=== PATIENT | female | born 1940 | race Caucasian/White ===

== ENCOUNTER 2017-04-28 04:59 | Inpatient (IN) ==
[2017-04-22 12:39] LABS: Appearance,Urine CLOUDY; Bacteria,Urine FEW /hpf (0); Bilirubin,Urine NEG (NEG); Color,Urine YELLOW; Glucose,Urine (UA) NEGATIVE (NEG); Leukocyte Esterase,Urine 500 /uL (NEG); Mucus,Urine FEW /hpf (0); Nitrate,Urine POS (NEG); Protein,Urine NEG (NEG); Specific Gravity,Urine 1.011 (1.000-1.035); Urine Blood 0.2 mg/dL (<0.03); Urine Hyaline Cast 6 /lpf (0-2); Urine RBC 18 /hpf (0-1); Urine Squamous Epithelial Cell 1 /hpf (0-4); Urine WBC > 182 /hpf (0-4); Urobilinogen,Urine NEG (NEG)
[2017-04-22 13:18] LABS: Basophils # (Auto) 0 K/mcL (0.0-0.3); Basophils % (Auto) 0.6 % (0.0-2.0); Eosinophils # (Auto) 0.2 K/mcL (0.0-0.7); Eosinophils % (Auto) 4.2 % (0.0-7.0); Granulocytes % (Auto) 55.4 % (38.0-78.0); Lymphocytes # (Auto) 1.6 K/mcL (1.5-4.8); Lymphocytes % (Auto) 29.3 % (15.5-49.0); Mean Cell Volume 91.1 fL (80.0-100.0); Mean Corpuscular HGB Conc 33.6 g/dL (31.0-36.0); Mean Corpuscular Hemoglobin 30.6 pg (26.0-34.0); Monocytes # (Auto) 0.6 K/mcL (0.1-0.9); Monocytes % (Auto) 10.5 % (1.0-12.0); Platelet Count 309 K/mcL (140-440); Red Cell Distribution Width 12.4 % (11.5-14.5)
[2017-04-22 14:10] LABS: Blood Urea Nitrogen 20 mg/dl (8-23)
[2017-04-28] MEDS ORDERED: PREGABALIN 75 MG CAPSULE PO SCH (06:00)
[2017-04-28] MEDS ORDERED: ACETAMINOPHEN 500 MG TABLET PO SCH (06:00)
[2017-04-28] MEDS ORDERED: ceFAZolin 1 GM VIAL IV SCH (06:00)
[2017-04-28] MEDS ORDERED: oxyCODONE 10 MG TAB.ER.12H PO SCH (06:00)
[2017-04-28] MEDS ORDERED: CELECOXIB 200 MG CAPSULE PO SCH (06:00)
[2017-04-28 06:34] LABS: Appearance,Urine CLEAR; Bacteria,Urine FEW /hpf (0); Bilirubin,Urine NEG (NEG); Color,Urine YELLOW; Glucose,Urine (UA) NEGATIVE (NEG); Leukocyte Esterase,Urine 500 /uL (NEG); Mucus,Urine FEW /hpf (0); Nitrate,Urine NEG (NEG); Protein,Urine NEG (NEG); Specific Gravity,Urine 1.008 (1.000-1.035); Urine Blood 0.03 mg/dL (<0.03); Urine Hyaline Cast 1 /lpf (0-2); Urine RBC 3 /hpf (0-1); Urine Squamous Epithelial Cell 0 /hpf (0-4); Urine WBC 87 /hpf (0-4); Urobilinogen,Urine NEG (NEG)
[2017-04-28] MEDS ORDERED: OMEPRAZOLE 20 MG CAPSULE PO SCH (07:30)
[2017-04-28] MEDS ORDERED: KETOROLAC 30 MG, ROPIVACAINE HCL/PF 49.5 ML, EPINEPHrine 0.5 MG, 0.9 % SODIUM CHLORIDE ... IJ ONE (07:36)
[2017-04-28] MEDS ORDERED: PHENYLEPHRINE 10 MG/ML VIAL IV ONE (07:40)
[2017-04-28] MEDS ORDERED: LIDOCAINE HCL/PF 100 MG/5 ML SYRINGE IV ONE (07:40)
[2017-04-28] MEDS ORDERED: DEXAMETHASONE 10 MG/ML VIAL IV ONE (07:40)
[2017-04-28] MEDS ORDERED: KETAMINE 100 MG/ML ML IV ONE (07:40)
[2017-04-28] MEDS ORDERED: TRANEXAMIC ACID 1,000 MG/10 ML VIAL IV ONE ×2 (07:40→09:10)
[2017-04-28] MEDS ORDERED: GLYCOPYRROLATE 0.2 MG/ML VIAL IV ONE (07:40)
[2017-04-28] MEDS ORDERED: PROPOFOL 200 MG/20 ML VIAL IV ONE (07:40)
[2017-04-28] MEDS ORDERED: ePHEDrine 50 MG/ML AMPUL IV ONE (07:40)
[2017-04-28] MEDS ORDERED: ONDANSETRON 4 MG/2 ML VIAL IV ONE (07:40)
[2017-04-28] MEDS ORDERED: MIDAZOLAM 2 MG/2 ML VIAL IV ONE (07:40)
[2017-04-28] MEDS ORDERED: SODIUM CHLORIDE 0.9% IV SCH (08:00)
[2017-04-28] MEDS ORDERED: GENTAMICIN SULFATE IV SCH (08:00)
[2017-04-28] MEDS ORDERED: fentaNYL 100 MCG/2 ML VIAL IV PRN (08:16)
[2017-04-28] MEDS ORDERED: PROMETHAZINE 25 MG/ML VIAL IV PRN (08:16)
[2017-04-28] MEDS ORDERED: NALOXONE HCL 0.4 MG/ML VIAL IV PRN (08:16)
[2017-04-28] MEDS ORDERED: FLUMAZENIL 0.1 MG/ML ML IV PRN (08:16)
[2017-04-28] MEDS ORDERED: IPRATROPIUM/ALBUTEROL 3 ML AMPUL.NEB NEB PRN (08:16)
[2017-04-28] MEDS ORDERED: ONDANSETRON 4 MG/2 ML VIAL IV PRN ×2 (08:16→09:10)
[2017-04-28] MEDS ORDERED: ACETAMINOPHEN 1,000 MG/100 ML BOTTLE IV ONE (08:16)
[2017-04-28] MEDS ORDERED: LACTATED RINGERS 250 ML IV PRN (08:16)
[2017-04-28] MEDS ORDERED: LACTATED RINGERS 1,000 ML IV SCH (08:30)
[2017-04-28] MEDS ORDERED: BISACODYL 10 MG SUPP.RECT PR PRN (09:10)
[2017-04-28] MEDS ORDERED: MAGNESIUM HYDROXIDE 30 ML ORAL.SUSP PO PRN (09:10)
[2017-04-28] MEDS ORDERED: TEMAZEPAM 15 MG CAPSULE PO PRN (09:10)
[2017-04-28] MEDS ORDERED: HYDROmorphone 2 MG/ML SYRINGE IV PRN (09:10)
[2017-04-28] MEDS ORDERED: FLEETS ADULT ENEMA PR PRN (09:10)
[2017-04-28] MEDS ORDERED: BENZOCAINE/MENTHOL 1 LOZENGE PO PRN (09:10)
[2017-04-28] MEDS ORDERED: POLYETHYLENE GLYCOL 3350 17 GM PACKET PO PRN (09:10)
[2017-04-28] MEDS ORDERED: ACETAMINOPHEN 325 MG TABLET PO PRN (09:10)
--- NOTE | 2017-04-28 09:10 | Brief Operative Note ---
Date of procedure: 04/28/17 Pre-op diagnosis: left hip djd Post-op diagnosis: same Procedure: left tejas Grafts/Implants: Yes Anesthesia: GETA Complications: none Surgeon: Wade Juarez Commodity Industry Analyst: Shlomo Waite Estimated blood loss (cc): 20 Specimens Removed/Pathology: none sent Condition: stable Disposition: PACU
[2017-04-28] MEDS ORDERED: ACETAMINOPHEN 500 MG PO PRN (09:13)
[2017-04-28] MEDS ORDERED: GENTAMICIN SULFATE 800 MG/20 ML VIAL IR ONE (09:35)
--- NOTE | 2017-04-28 09:56 | XRay Report ---
HISTORY: Reason for Exam:Post-Op Total Hip FINDINGS: There is a well-positioned left total hip prosthesis. No fracture is present and there are no abnormal soft tissue calcifications. IMPRESSION: Well-positioned left hip prosthesis Interpreted and Authenticated by: Maverick Lara 04/28/17
--- NOTE | 2017-04-28 10:28 | Operative Note ---
DATE OF OPERATION: 04/28/2017 PREOPERATIVE DIAGNOSIS: Left hip degenerative arthritis. POSTOPERATIVE DIAGNOSIS: Left hip degenerative arthritis. PROCEDURE: Left total hip arthroplasty. SURGEON: Wade Juarez MD OIL EXPERT: Bradley Waite PA-C. ANESTHESIA: General LMA anesthesia. COMPLICATIONS: None. ESTIMATED BLOOD LOSS: 20 mL DESCRIPTION OF PROCEDURE: The patient was brought to the operating room and put to sleep with general LMA anesthesia. Once asleep, the patient had the left hip sterilely prepped and draped in the usual sterile fashion. Timeout was performed. Once this was done, we then noted that preop antibiotics had been given and tranexamic acid given. Once this was done, we then made a superior posterior approach to the hip. Once done, we then made a superior posterior approach to the hip and identified the hip capsule and this was released. The patient and then continued to have exposure, we dislocated the hip. We made our neck cut at 30 mm. Once done, we then removed the ball and continued with a hip subluxation, reamed up to the size 50, placed a 50 cup with 1 30 mm screw. Once done, we then placed the 50 cup with a 30 mm screw. A poly liner was placed. I then prepared the femur. It was broached up. The size 5 stem was cemented into place at 15 degrees of anteversion. Once done, the hip was reduced and confirmed x-ray in the operating room was taken to confirm placement of all components. This seemed to look perfectly aligned. Once done, we then cemented in the size 5 stem as noted, 32 mm head, ceramic neutral neck length was tapped into place. An x-ray intraoperatively was taken. This showed perfect leg length. We then reduced the hip-very stable through full range of motion. We repaired the posterior capsule, injected the soft tissues with the post-injection formula, and closed the fascial layer with #1 Stratafix. Patient tolerated this well. There was no complication. Skin was closed with 2-0 Vicryl and best. RBH:esteban Job ID: [id number] Doc ID: [id number] Wade Juarez MD
[2017-04-28] MEDS: 0.45 % SODIUM CHLORIDE 1,000 ML IV SCH ×2 (10:52→21:22)
[2017-04-28] MEDS: KETOROLAC 15 MG/ML VIAL IV PRN ×2 (12:14→21:25)
--- NOTE | 2017-04-28 14:36 | XRay Report ---
HISTORY: Reason for Exam:left total hip arthroplasty, direct superior FINDINGS: Intraoperative film was acquired while inserting a left hip prosthesis IMPRESSION: Partial insertion of a left hip prosthesis Interpreted and Authenticated by: Maverick Lara 04/28/17
[2017-04-28] MEDS: 0.9 % SODIUM CHLORIDE 10 ML SYRINGE IV SCH ×2 (16:06→21:24)
[2017-04-28] MEDS: ceFAZolin 1 GM VIAL IV SCH (16:07)
[2017-04-28] MEDS: ASPIRIN 325 MG ENTERIC COATED TABLET PO SCH ×2 (20:27→21:24)
[2017-04-28] MEDS: DOCUSATE SODIUM 100 MG CAPSULE PO SCH ×2 (20:27→21:23)
[2017-04-28] MEDS ORDERED: SENNOSIDES 1 TABLET PO SCH (21:00)
[2017-04-29] MEDS: HYDROcodone/APAP 10/325MG TABLET PO PRN ×3 (00:03→08:22)
[2017-04-29] MEDS: ceFAZolin 1 GM VIAL IV SCH (00:04)
[2017-04-29] MEDS: 0.45 % SODIUM CHLORIDE 1,000 ML IV SCH ×2 (05:23→05:32)
[2017-04-29] MEDS: 0.9 % SODIUM CHLORIDE 10 ML SYRINGE IV SCH (05:32)
--- NOTE | 2017-04-29 07:03 | Discharge Summary ---
Ortho Discharge - KARIN - Patient Instructions Diet: Regular Diet Activity: activity as tolerated, weight bearing as tolerated Total Hip Protocol: Follow activity instructions as provided by Physical Therapy. Dressing Care: May shower in 2 days, Aquacel Ag - leave on for 5 days - Follow Up Plan Disposition: Home, Self-Care Prognosis: Good Rehab Potential: Good I certify that the patient requires SNF services: No Overall status at discharge: patient is progressing back to baseline - Orders For Discharge Additional Discharge Orders: Physical Therapy at Discharge - KARIN Location: Determined By Patient Toilet Riser Discharge Order Location: Determined By Patient Walker Location: Determined By Patient Walker Location: Determined By Patient
[2017-04-29] MEDS: ASPIRIN 325 MG ENTERIC COATED TABLET PO SCH (08:23)
[2017-04-29] MEDS: DOCUSATE SODIUM 100 MG CAPSULE PO SCH (08:23)
[2017-04-29] MEDS ORDERED: MAGNESIUM OXIDE 400 MG TABLET PO SCH (09:00)
[2017-04-29] MEDS ORDERED: CHLORTHALIDONE 25 MG TABLET PO SCH (09:00)
[2017-04-29] MEDS ORDERED: VITAMIN D3 1,000 UNIT TABLET PO SCH (09:00)
[2017-04-29] MEDS ORDERED: LOSARTAN 25 MG TABLET PO SCH (09:00)
[2017-04-29] MEDS ORDERED: FEXOFENADINE 180 MG TABLET PO PRN (09:00)
[2017-04-29] MEDS ORDERED: NON FORMULARY MEDICATION 1 DOSE MISCELL (Aspirin [Ecotrin] 81 MG) PO SCH (09:00)
[2017-04-29] MEDS ORDERED: CALCIUM W/VIT D3 500 MG TABLET PO SCH (09:00)
[2017-05-02] MEDS ORDERED: VITAMIN B COMPLEX 1 CAPSULE PO SCH (09:00)
== END 2017-04-29 11:50 | disposition home or self-care (01) | DRG 470 ==
LOC: ICU 04:59
PROVIDERS: ADMIT Orthopaedic Surgery; ATTEND Orthopaedic Surgery

== ENCOUNTER 2018-05-31 08:38 | Inpatient (IN) ==
[2018-05-24 15:34] LABS: Appearance,Urine TURBID; Bacteria,Urine FEW /hpf (0); Bilirubin,Urine NEG (NEG); Color,Urine YELLOW; Glucose,Urine (UA) NEGATIVE (NEG); Leukocyte Esterase,Urine 250 /uL (NEG); Mucus,Urine FEW /hpf (0); Protein,Urine NEG (NEG); Urine Amorphous Crystals FEW /hpf (0); Urine Blood 0.2 mg/dL (<0.03); Urine RBC 38 /hpf (0-1); Urine Squamous Epithelial Cell 3 /hpf (0-4); Urine WBC > 182 /hpf (0-4); Urobilinogen,Urine NEG (NEG)
[2018-05-24 16:53] LABS: Blood Urea Nitrogen 18 mg/dl (8-23)
[2018-05-24 17:21] LABS: Basophils # (Auto) 0 K/mcL (0.0-0.3); Basophils % (Auto) 0.3 % (0.0-2.0); Eosinophils # (Auto) 0.2 K/mcL (0.0-0.7); Eosinophils % (Auto) 2.4 % (0.0-7.0); Granulocytes % (Auto) 58.8 % (38.0-78.0); Lymphocytes # (Auto) 1.9 K/mcL (1.5-4.8); Lymphocytes % (Auto) 28.3 % (15.5-49.0); Mean Cell Volume 89.5 fL (80.0-100.0); Mean Corpuscular HGB Conc 32.7 g/dL (31.0-36.0); Monocytes # (Auto) 0.7 K/mcL (0.1-0.9); Monocytes % (Auto) 10.2 % (1.0-12.0); Platelet Count 310 K/mcL (140-440); RBC 4.04 M/mcL (4.00-5.20); Red Cell Distribution Width 13.9 % (11.5-14.5)
[~2018-05-31 08:38] MED LIST: 0.9 % SODIUM CHLORIDE 9 ML, KETOROLAC 30 MG, ROPIVACAINE HCL/PF 49.5 ML, EPINEPHrine 0.... IJ SCH; ACETAMINOPHEN 500 MG TABLET PO SCH; CELECOXIB 200 MG CAPSULE PO SCH; PREGABALIN 75 MG CAPSULE PO SCH; ceFAZolin 1 GM VIAL IV SCH; oxyCODONE 10 MG TAB.ER.12H PO SCH
[2018-05-31 10:10] LABS: Appearance,Urine HAZY; Bacteria,Urine 0 /hpf (0); Bilirubin,Urine NEG (NEG); Color,Urine YELLOW; Glucose,Urine (UA) NEGATIVE (NEG); Leukocyte Esterase,Urine 500 /uL (NEG); Mucus,Urine FEW /hpf (0); Protein,Urine NEG (NEG); Specific Gravity,Urine 1.013 (1.000-1.035); Urine Blood 0.03 mg/dL (<0.03); Urine RBC 6 /hpf (0-1); Urine Squamous Epithelial Cell 0 /hpf (0-4); Urine WBC > 182 /hpf (0-4); Urobilinogen,Urine NEG (NEG)
[2018-05-31] MEDS ORDERED: GENTAMICIN SULFATE 800 MG/20 ML VIAL IR ONE (12:15)
[2018-05-31] MEDS ORDERED: BISACODYL 10 MG SUPP.RECT PR PRN (13:22)
[2018-05-31] MEDS ORDERED: BENZOCAINE/MENTHOL 1 LOZENGE PO PRN ×2 (13:22→14:46)
[2018-05-31] MEDS ORDERED: ONDANSETRON 4 MG/2 ML VIAL IV PRN ×2 (13:22→14:46)
[2018-05-31] MEDS ORDERED: HYDROmorphone 2 MG/ML VIAL IV PRN (13:22)
[2018-05-31] MEDS ORDERED: TRANEXAMIC ACID 1,000 MG/10 ML VIAL IV SCH (13:22)
[2018-05-31] MEDS ORDERED: ACETAMINOPHEN 325 MG TABLET PO PRN (13:22)
[2018-05-31] MEDS ORDERED: MAGNESIUM HYDROXIDE 30 ML ORAL.SUSP PO PRN (13:22)
[2018-05-31] MEDS ORDERED: POLYETHYLENE GLYCOL 3350 17 GM PACKET PO PRN (13:22)
[2018-05-31] MEDS ORDERED: KETOROLAC 30 MG/ML VIAL IV PRN (13:22)
[2018-05-31] MEDS ORDERED: FLEETS ADULT ENEMA PR PRN (13:22)
--- NOTE | 2018-05-31 14:37 | XRay Report ---
CLINICAL INFORMATION: right total hip COMPARISON: 04/28/2017 FINDINGS: Femoral stem template and prosthetic acetabulum appear anatomically aligned. No osseous abnormality IMPRESSION: Negative Interpreted and Authenticated by: Jordon Bhardwaj 05/31/18
[2018-05-31] MEDS ORDERED: PROMETHAZINE 25 MG/ML VIAL IV PRN (14:46)
[2018-05-31] MEDS ORDERED: FLUMAZENIL 0.1 MG/ML ML IV PRN (14:46)
[2018-05-31] MEDS ORDERED: LACTATED RINGERS 250 ML IV PRN (14:46)
[2018-05-31] MEDS ORDERED: NALOXONE HCL 0.4 MG/ML VIAL IV PRN (14:46)
[2018-05-31] MEDS ORDERED: diphenhydrAMINE 50 MG/ML VIAL IV PRN (14:46)
[2018-05-31] MEDS ORDERED: fentaNYL 100 MCG/2 ML VIAL IV PRN (14:46)
[2018-05-31] MEDS ORDERED: MEPERIDINE 25 MG/ML SYRINGE IV PRN (14:46)
[2018-05-31] MEDS ORDERED: IPRATROPIUM/ALBUTEROL 3 ML AMPUL.NEB NEB PRN (14:46)
--- NOTE | 2018-05-31 14:48 | Brief Operative Note ---
Date of procedure: 05/31/18 Pre-op diagnosis: right hip djd Post-op diagnosis: same Procedure: right tejas with cemented stem Grafts/Implants: Yes Anesthesia: GETA Complications: none Surgeon: Wade Juarez Managed Care Nurse: David Mchugh Estimated blood loss (cc): 150 Specimens Removed/Pathology: none sent Condition: stable Disposition: PACU
[2018-05-31] MEDS ORDERED: LACTATED RINGERS 1,000 ML IV SCH (15:00)
--- NOTE | 2018-05-31 15:06 | Operative Note ---
DATE OF OPERATION: 05/31/2018 PREOPERATIVE DIAGNOSIS: Right hip degenerative arthritis. POSTOPERATIVE DIAGNOSIS: Right hip degenerative arthritis. PROCEDURE: Right cemented total hip arthroplasty with a cementless acetabular cup with a 40 mm screw, a 36 mm ceramic head, neutral neck length with a standard poly. SURGEON: Wade Juarez M.D. CLINICAL TECHNOLOGIST: David Mchugh PA-C. ANESTHESIA: General LMA anesthesia. ESTIMATED BLOOD LOSS: About 150 mL. COMPLICATIONS: None. NOTE: Preop antibiotics and tranexamic acid were given. DESCRIPTION OF PROCEDURE: The patient was brought to the operating room and put to sleep with general LMA anesthesia. Once asleep, the patient had the right hip sterilely prepped and draped, turned into a left lateral position. A timeout was performed confirming that the patient received tranexamic acid and preoperative antibiotics. We confirmed the procedure to be the right hip, both by consent form, x-rays and initials. Once this had been done, we then made a superior approach to the hip. This direct superior approach went through the skin. I identified the fascia which was split, staying out of any of the tensor fascia or the IT band, and this was then opened with a Charnley. We then subluxed the hip superiorly and then made our neck cut as templated at 30 mm. Once done, we then subluxed the hip anteriorly, reamed the acetabulum up to the size of 48, placed a 48 cup with a 40 mm screw with excellent purchase and a standard poly liner. We then prepared the femur. This was broached up to the size 6 stem. We cemented in the stem after x-rays confirmed equal leg length. This was tapped into place and we trialed the standard neutral neck length. This seemed to be the most appropriate. After cement had dried, we implanted a 36 mm standard ceramic head. This was reduced and was stable, both anteriorly and posteriorly. We irrigated thoroughly and then repaired the capsule with #1 Ethibond. We closed the fascial layer with #1 Stratafix and the deeper layers of the fatty tissue were closed with a Stratafix x2 and then adhesive closure on the skin. The patient tolerated this well. Sterile bandage applied. The patient left the operating room in good condition. NACHO:allison Job ID: [id number] Doc ID: [id number] Wade Juarez MD
[2018-05-31] MEDS ORDERED: MIDAZOLAM 5 MG/5 ML VIAL IV ONE (15:26)
[2018-05-31] MEDS ORDERED: PROPOFOL 200 MG/20 ML VIAL IV ONE (15:26)
[2018-05-31] MEDS ORDERED: TRANEXAMIC ACID 1,000 MG/10 ML VIAL IV ONE (15:26)
[2018-05-31] MEDS ORDERED: DEXAMETHASONE 10 MG/ML VIAL IV ONE (15:26)
[2018-05-31] MEDS ORDERED: LIDOCAINE HCL/PF 100 MG/5 ML SYRINGE IV ONE (15:26)
[2018-05-31] MEDS ORDERED: KETOROLAC TROMETHAMINE 10 MG TABLET PO ONE (15:26)
[2018-05-31] MEDS ORDERED: ePHEDrine 50 MG/ML AMPUL IV ONE (15:26)
--- NOTE | 2018-05-31 15:27 | XRay Report ---
CLINICAL INFORMATION: Post-op Total Hip COMPARISON: None. FINDINGS: Right total hip prosthesis in near-anatomic alignment. Older left total hip prosthesis is also anatomically aligned. No osseous abnormality. Soft tissue swelling seen as expected IMPRESSION: Negative Interpreted and Authenticated by: Jordon Bhardwaj 05/31/18
[2018-05-31] MEDS: 0.45 % SODIUM CHLORIDE 1,000 ML IV SCH ×2 (15:52→23:45)
[2018-05-31] MEDS: 0.9 % SODIUM CHLORIDE 10 ML SYRINGE IV SCH ×2 (15:52→22:52)
[2018-05-31] MEDS: HYDROcodone/APAP 10/325MG TABLET PO PRN (18:43)
[2018-05-31] MEDS: ceFAZolin 1 GM VIAL IV SCH (20:53)
[2018-05-31] MEDS: DOCUSATE SODIUM 100 MG CAPSULE PO SCH (20:53)
[2018-05-31] MEDS: ASPIRIN 325 MG ENTERIC COATED TABLET PO SCH (20:53)
[2018-05-31] MEDS ORDERED: SENNOSIDES 1 TABLET PO SCH (21:00)
[2018-05-31] MEDS ORDERED: TEMAZEPAM 15 MG CAPSULE PO PRN (21:00)
[2018-06-01] MEDS: HYDROcodone/APAP 10/325MG TABLET PO PRN ×5 (00:37→13:52)
[2018-06-01] MEDS: 0.9 % SODIUM CHLORIDE 10 ML SYRINGE IV SCH ×2 (04:05→13:53)
[2018-06-01] MEDS: ceFAZolin 1 GM VIAL IV SCH (04:23)
--- NOTE | 2018-06-01 07:40 | Orthopedic Progress Note ---
Subjective Patient information: Note initiated : 06/01/18 at 7:39 am Service Date, if different from initiated Date: [] Patient: Darcy Macdonald 78 y/o F admitted on 05/31/18 for Right Total Hip Arthroplasty. Chief Complaint: [Pt is stable this morning on post operative day 1 without any significant concerns or complaints. Patients vital signs have remained stable. Patients dressing is dry and is grossly intact from a neurovascular and motor standpoint. Patients 10 point ROS is otherwise negative. ] Objective Vital signs: Vital Signs Temp Pulse Resp BP BP Pulse Ox 06/01/18 06:02 76 12 123/59 96 06/01/18 04:30 98 06/01/18 03:53 98 06/01/18 03:52 97.4 F 84 14 102/55 98 06/01/18 00:40 98 05/31/18 23:15 98.5 F 80 14 96/54 91 05/31/18 23:00 91 05/31/18 21:00 97 05/31/18 19:36 98 05/31/18 19:31 97.2 F 100 H 16 101/55 98 05/31/18 17:19 117/69 100 05/31/18 17:00 100 05/31/18 16:50 124/60 100 05/31/18 16:35 128/60 100 05/31/18 16:19 127/69 100 05/31/18 16:04 133/65 100 05/31/18 15:49 120/59 100 05/31/18 15:45 97.0 F 87 14 120/59 100 05/31/18 15:32 97.3 F 85 14 151/68 100 05/31/18 15:14 97.5 F 91 H 14 122/50 98 05/31/18 15:09 99 H 14 118/62 95 05/31/18 15:04 100 H 20 141/62 96 05/31/18 14:59 104 H 13 142/59 94 Intake and Output 05/31/18 06/01/18 06/01/18 21:59 05:59 13:59 Intake Total 1920 1225 Output Total 450 Balance 1920 775 Intake: IV 900 Sodium Chloride 0.45% 1,000 ml 900 @ 100 mls/hr IV .Q10H [facility] Rx#: [id number] Oral 120 325 IV - Manual Only 1800 Output: Void Amount 450 Other: Meal Dinner Percent of Meal Consumed 100% Feeding Ability Assist with Tray Set Up Urine Appearance Clear Urine Color Straw Urine Odor Normal Weight 167 lb Intake & Output: Intake & Output 05/31/18 06/01/18 06/01/18 21:59 05:59 13:59 Intake Total 1920 1225 Output Total 450 Balance 1920 775 Weight 167 lb Intake: IV 900 Sodium Chloride 0.45% 1,000 ml 900 @ 100 mls/hr IV .Q10H [facility] Rx#: [id number] Oral 120 325 IV - Manual Only 1800 Output: Void Amount 450 Other: Meal Dinner Percent of Meal Consumed 100% Feeding Ability Assist with Tray Set Up Urine Appearance Clear Urine Color Straw Urine Odor Normal Incision: Yes healing Incision clean and dry: Yes Dressing: Yes clean Weight bearing status: full Neurological exam IM: Yes motor sensory intact, Yes neurovascular intact Extremities exam IM: Yes Foot pink and warm, Yes neurovascular intact - Labs CBC & BMP: 06/01/18 05:36 05/24/18 13:51 Labs: Orthopedic Labs 05/24/18 13:51 PT 13.3 INR 1.0 APTT 33 06/01/18 05/24/18 05:36 13:51 Hgb 11.8 L Hct 28.4 L 36.1 Assessment and Plan (1) Hx of total hip arthroplasty The patient has been educated regarding dressing care, Physical Therapy recommendations, home exercises, restrictions, and follow up appointments. The patient has had all necessary DME prescribed. The patient has remained relativel y stable during their hospital course. Leave Dermabond patch intact until followup Status: Acute
--- NOTE | 2018-06-01 07:42 | Discharge Summary ---
Ortho Discharge - KARIN - Patient Instructions Diet: Regular Diet Activity: activity as tolerated, weight bearing as tolerated Total Hip Protocol: Follow activity instructions as provided by Physical Therapy. Dressing Care: May shower in 2 days - Problem Maintenance (1) Hx of total hip arthroplasty Status: Acute - Follow Up Plan Follow Up Appointments: David Mchugh PA-C [Physician [place]/Woman] - 06/15/18 9:20 am Disposition: Home, Self-Care Prognosis: Good Rehab Potential: Good I certify that the patient requires SNF services: No Overall status at discharge: patient is progressing back to baseline - Orders For Discharge Prescriptions: Aspirin [Ecotrin] 325 mg PO BID #60 tab.ec Docusate Sodium [Colace] 100 mg PO BID #60 capsule HYDROcodone/APAP 10/325MG [[place] 10-325Mg] 1 - 2 tab PO Q4HP PRN #75 tab PRN Reason: Pain Level 3-6
[2018-06-01] MEDS: ASPIRIN 325 MG ENTERIC COATED TABLET PO SCH (08:23)
[2018-06-01] MEDS: DOCUSATE SODIUM 100 MG CAPSULE PO SCH (08:23)
== END 2018-06-01 16:55 | disposition home or self-care (01) | DRG 470 ==
LOC: MEDSUR 08:38
PROVIDERS: ADMIT Orthopaedic Surgery; ATTEND Orthopaedic Surgery

== ENCOUNTER 2019-03-17 06:25 | Inpatient (IN) ==
[2019-03-17] MEDS ORDERED: traMADol 50 MG TABLET PO ONE ×2 (07:17→07:43)
--- NOTE | 2019-03-17 07:22 | Emergency Department Note ---
Back Pain HPI - General Chief Complaint: Back Pain/Injury Stated Complaint: back pain, weight loss, bowel trouble Time Seen by Provider: 03/17/19 07:03 Source: patient, family Mode of arrival: ambulatory Limitations: no limitations - History of Present Illness HPI Narrative: 79-year-old female with 2 problems today 1. Complaining of severe right hip pain. Normally she takes tramadol for that but today she did not for unclear reasons. Pain has been going on since her last hip replacement 9 months ago or so. 2. She is incontinent of stool and is concerned about that as well - Related Data Home Medications Medication Instructions Recorded Confirmed acetaminophen 500 mg capsule 1,000 mg PO DAILYP PRN cap 01/01/15 05/31/18 calcium carbonate 600 mg (1,500 2 tab PO QDAY tab 01/01/15 05/31/18 mg)-vitamin D3 400 unit tablet Cholecalciferol (Vitamin D3) 2,000 unit PO DAILY 04/22/17 05/31/18 [Vitamin D3] Omeprazole [Prilosec] 20 mg PO Q48@0730 04/22/17 05/31/18 Vitamin B Complex [Ultra B-100 1 tab PO SA@0900 04/22/17 05/31/18 Complex] cranberry extract 500 mg capsule 500 mg PO DAILY 06/16/17 05/31/18 Celecoxib [Celebrex] 200 mg PO DAILY 05/24/18 05/31/18 Ferrous Sulfate 325 mg PO BIDCC 05/24/18 05/31/18 Ipratropium 0.06% Nasal [place] 1 - 2 spray INTRANASAL TIDP PRN 05/24/18 05/31/18 [Atrovent 0.06% Nasal Srpay] Oxybutynin Chloride [Ditropan] 10 mg PO HS 05/24/18 05/31/18 Ciprofloxacin [Cipro] 500 mg PO BID 05/31/18 05/31/18 Previous Rx's Medication Instructions Recorded aspirin 81 mg tablet,delayed 81 mg PO QDAY #90 tab 07/10/15 release magnesium 250 mg tablet 250 mg PO QDAY #30 tab 10/28/16 chlorthalidone 25 mg tablet 25 mg PO QDAY #90 tab 04/13/17 Aspirin [Ecotrin] 325 mg PO BID #60 tab.ec 06/01/18 Docusate Sodium [Colace] 100 mg PO BID #60 cap 06/01/18 HYDROcodone/APAP 10/325MG [[place] 1 - 2 tab PO Q4HP PRN #75 tab 06/01/18 10-325Mg] traMADol [Ultram] 50 - 100 mg PO Q4-6HP PRN #15 tab 03/17/19 Allergies Allergy/AdvReac Type Severity Reaction Status Date / Time Tamoxifen Allergy Severe pulmonary Verified 03/17/19 06:32 emboli latex Allergy Intermediate Rash Verified 03/17/19 06:32 amlodipine AdvReac Severe Swelling Verified 03/17/19 06:32 anastrozole [From Arimidex] AdvReac Intermediate Nausea Verified 03/17/19 06:32 fluticasone [From Flonase] AdvReac Intermediate Rash Verified 03/17/19 06:32 olopatadine [From Patanase] AdvReac Intermediate Rash Verified 03/17/19 06:32 alendronate sodium AdvReac Mild Nausea Verified 03/17/19 06:32 [From Fosamax] benazepril AdvReac Mild cough Verified 03/17/19 06:32 Sibutramine [From Meridia] AdvReac Mild Nausea Verified 03/17/19 06:32 tramadol AdvReac Mild Nausea Verified 03/17/19 06:32 tape Allergy Mild Rash Uncoded 05/31/18 09:00 Review of Systems All systems ED: reviewed and negative except as stated. Past Medical History - Past Medical History Attestation: Yes: The following information was validated with the patient. [facility] Narrative: Family History (Last Reviewed 06/16/17 @ 09:42 by Jordon Putnam DO) Mother Asthma Malignant neoplasm of breast Congestive heart failure Cardiac disease Acute myocardial infarction Grandmother Malignant neoplasm of breast Father Essential hypertension Brother Essential hypertension Calculus of kidney Medical History (Last Reviewed 06/16/17 @ 09:42 by Jordon Putnam DO) Peripheral neuropathy (Chronic) Encounter for Medicare annual wellness exam (Chronic) Breast Cancer Screening (Chronic) Bleeding external hemorrhoids (Chronic) Trochanteric bursitis of left hip (Chronic 10/05/14) Tendonitis (Chronic) Seborrheic keratoses (Chronic 12/28/13) Rhinitis, allergic (Chronic) Osteopenia (Chronic) Osteoarthritis (Chronic) Mitral regurgitation (Chronic) Hypertension, essential (Chronic 02/13/14) Hyperlipidemia (Chronic 02/13/14) Gastroesophageal reflux (Chronic) Diverticular disease (Chronic) Degenerative joint disease (Chronic) Malignant neoplasm of breast (female) (Chronic) Actinic keratosis (Chronic 12/28/13) Acne rosacea (Chronic) Prothrombin mutation (Chronic) Fibrocystic change of breast (Inactive) Gallbladder disorder (Inactive) Hip pain (Inactive) Pain in joint involving lower leg (Inactive 12/09/13) Past Surgical History (Last Reviewed 06/16/17 @ 09:42 by Jordon Putnam DO) History of total mastectomy of left breast (Chronic) Hx of tonsillectomy (Chronic) Hx of left mastectomy (Chronic) History of bladder surgery (Inactive) History of colonoscopy (Inactive) History of ear surgery (Inactive) History of knee replacement (Inactive) History of lumpectomy of left breast (Inactive) History of partial hysterectomy (Inactive) Hx of cholecystectomy (Inactive) Hx of cosmetic surgery (Inactive) Hx of esophagogastroduodenoscopy (Inactive) Hx of hammer toe correction (Inactive) Hx of thumb surgery (Inactive) Hx of tooth extraction (Inactive) Hx of vascular surgery (Inactive) Surgical history ED: Reports: hip replacement - Social History smoking status: Never smoker Physical Exam My exam she is moaning in pain. Normocephalic atraumatic. Conjunctive are clear sclerae white nonicteric. No nasal discharge or congestion. Oropharynx pink and moist. Neck supple without lymphadenopathy thyromegaly or carotid bruit. Heart is regular rate and rhythm no murmur appreciated. Lungs are clear to auscultation bilaterally without wheezes rales rhonchi or respiratory distress. Abdomen is soft nontender nondistended. Right hip is tender she is able to move it though. She is able to move her feet normally. Tenderness carries over into the paraspinal areas in the back left. No pedal edema Limitations: no limitations Course Vital Signs Temperature 97.5 F 03/17/19 06:28 Pulse Rate 99 H 03/17/19 06:28 Respiratory Rate 19 03/17/19 06:28 Blood Pressure 173/80 03/17/19 06:28 Pulse Oximetry (%) 96 03/17/19 06:28 Temperature 97.5 F 03/17/19 06:28 Pulse Rate 97 H 03/17/19 08:53 Respiratory Rate 18 03/17/19 07:14 Blood Pressure 139/74 03/17/19 08:53 Pulse Oximetry (%) 93 03/17/19 08:53 Back Pain/Injury - Lab Data Result diagrams: 03/17/19 07:42 03/17/19 07:42 Lab Results 03/17/19 03/17/19 Range/Units 07:42 07:42 WBC 5.5 (4.5-11.0) K/mcL RBC 3.88 L (4.00-5.20) M/mcL Hgb 11.9 L (12.0-15.0) g/dL Hct 35.5 L (36.0-48.0) % MCV 91.5 (80.0-100.0) fL MCH 30.5 (26.0-34.0) pg MCHC 33.4 (31.0-36.0) g/dL RDW 13.0 (11.5-14.5) % Plt Count 355 (140-440) K/mcL MPV 7.0 L (7.4-10.4) fL Gran % 78.0 (38.0-78.0) % Lymph % (Auto) 11.0 L (15.5-49.0) % [place] % (Auto) 9.8 (1.0-12.0) % Eos % (Auto) 1.0 (0.0-7.0) % Baso % (Auto) 0.2 (0.0-2.0) % Gran # 4.3 (1.8-8.0) K/mcL Lymph # (Auto) 0.6 L (1.5-4.8) K/mcL [place] # (Auto) 0.5 (0.1-0.9) K/mcL Eos # (Auto) 0.1 (0.0-0.7) K/mcL Baso # (Auto) 0 (0.0-0.3) K/mcL Sodium 136 (133-145) mmol/L Potassium 3.3 (3.3-5.1) mmol/L Chloride 90 L (96-108) mmol/L Carbon Dioxide 29 (22-30) mmol/L Anion Gap 17.0 H (8-16) BUN 27 H (8-23) mg/dl Creatinine 1.0 (0.6-1.1) mg/dl GFR Calculation 53 Glucose 75 (70-105) mg/dL Magnesium 1.2 L (1.6-2.5) mg/dL Total Bilirubin 0.7 (0.0-1.0) mg/dL AST 21 (0-37) U/l ALT 10 (0-40) U/l Alkaline Phosphatase 71 (39-117) U/L Total Protein 6.8 (5.9-8.4) gm/dL Albumin 3.9 (3.2-5.2) gm/dL Globulin 2.9 (2.2-3.7) gm/dL Albumin/Globulin Ratio 1.3 (1.0-2.3) Disposition Pt seen by REINFORCING BAR SETTER/PA only: No Clinical Impression: Hip pain, chronic Qualifiers: Laterality: right Qualified Code(s): M25.551 - Pain in right hip; G89.29 - Other chronic pain Diarrhea Qualifiers: Diarrhea type: unspecified type Qualified Code(s): R19.7 - Diarrhea, unspecified Summary: X-ray ordered of the hip along with tramadol for pain. Laboratory work-up Laboratory work-up shows her low magnesium for which she is on pills every day X-ray of the hip does not show anything acute Daniel findings with the patient and her Disposition: Home, Self-Care Condition: Fair Additional Instructions: Continue all of your home medicines. Be sure to take your magnesium this morning Follow-up with your primary care provider for further care and evaluation of your incontinence and diarrhea. Recommend discussing with her getting stool testing or perhaps colonoscopy to further sort this out Follow-up with Dr. Jaquez or pain management with regards to your hip. Rx for small amount of tramadol written for you Return to the ER for any concerning worsening symptoms or emergencies Prescriptions: traMADol [Ultram] 50 - 100 mg PO Q4-6HP PRN #15 tab PRN Reason: Pain Prescription Printed Referrals: Fadia Bolanos ARNP [Primary Care Provider] - Wade Juarez MD [Physician] - Pat Osuna MD [Physician] -
--- NOTE | 2019-03-17 08:09 | XRay Report ---
CLINICAL INFORMATION: severe hip pain COMPARISON: Postoperative film from 05/23/2018 FINDINGS: Bilateral hip prostheses remain in stable position - no evidence of dislocation, loosening or infection. A small amount of heterotopic ossification has developed over the right greater trochanter. No osseous abnormalities. Mild degenerative changes both SI joints appreciated. Moderate L5-S1 degenerative disc disease again seen. Soft tissues are normal IMPRESSION: No significant abnormality Interpreted and Authenticated by: Jordon Bhardwaj 03/17/19
[2019-03-17 08:30] LABS: Basophils # (Auto) 0 K/mcL (0.0-0.3); Basophils % (Auto) 0.2 % (0.0-2.0); Eosinophils # (Auto) 0.1 K/mcL (0.0-0.7); Hematocrit 35.5 % (36.0-48.0); Hemoglobin 11.9 g/dL (12.0-15.0); Lymphocytes # (Auto) 0.6 K/mcL (1.5-4.8); Mean Cell Volume 91.5 fL (80.0-100.0); Mean Corpuscular HGB Conc 33.4 g/dL (31.0-36.0); Monocytes # (Auto) 0.5 K/mcL (0.1-0.9); Monocytes % (Auto) 9.8 % (1.0-12.0); Platelet Count 355 K/mcL (140-440); RBC 3.88 M/mcL (4.00-5.20); WBC 5.5 K/mcL (4.5-11.0)
[2019-03-17 08:46] LABS: ALT/SGPT 10 U/l (0-40); AST/SGOT 21 U/l (0-37); Albumin 3.9 gm/dL (3.2-5.2); Albumin/Globulin Ratio 1.3 (1.0-2.3); Alkaline Phosphatase 71 U/L (39-117); Bilirubin,Total 0.7 mg/dL (0.0-1.0); Blood Urea Nitrogen 27 mg/dl (8-23); Carbon Dioxide 29 mmol/L (22-30); Globulin 2.9 gm/dL (2.2-3.7); Glomerular Filtration Rate 53; Glucose 75 mg/dL (70-105)
[2019-03-17 09:07] LABS: Chloride 90 mmol/L (96-108)
[2019-03-17 09:16] LABS: Calcium 15.6 mg/dl (8.6-10.4)
[2019-03-17] MEDS ORDERED: FUROSEMIDE 20 MG/2 ML VIAL IV ONE (09:34)
[2019-03-17] MEDS ORDERED: 0.9 % SODIUM CHLORIDE 1,000 ML IV ONE (09:34)
--- NOTE | 2019-03-17 10:01 | Internal Med History&Physical ---
Medical - H&P: [facility] Patient information: Note initiated : 03/17/19 at 9:57 am Service Date, if different from initiated Date: [] Patient: Darcy Macdonald a 79 y/o F admitted on for Back Pain, Weight Loss, Bowel Trouble. Chief Complaint: [] Chief complaint: Back pain History of present illness: Ms. Mcadonald is a 79 year old F with a history of degenerative joint disease but otherwise fairly healthy and lives with her . Over the last month and a half patient has had a gradual loss of appetite associated with increasing bowel frequency and occasional incontinence. She also has had significant weight loss with over 20 pounds loss over month and a half. Symptoms associated increasing fatigue weakness and inability to take care of self. Her got increasingly concerned and brought her to the ER. Initial work-up was consistent with calcium over 15. Patient was started on crystalloids along with Lasix and subsequently hospitalist service consulted. At the time evaluation patient is accompanied with her . She appears fatigued and lethargic. She was able to endorse to history as above. Additionally patient endorses taking 3 tablets of 5 mg of calcium every day as a supplement. She denies taking excessive vitamin A or D. She denies recent fractures or hospitalization or renal stones. Patient has been experiencing increasing lower back pain and was diagnosed with T3-4-5 bone loss(per history) and resulting pain managed by pain clinic and physical therapy for over 2 months as outpatient without relief. Because of abnormal bowel movements patient was attempting to schedule a follow-up appointment with GI Dr. Macedo. Her last colonoscopy a year ago per patient was unremarkable. Her weaknesses increased to the point that family could not handle anymore and brought into the ER for evaluation. She denies fever, dysuria, abdominal pain, skin rash, lightheadedness or dizziness. She further denies changes in medications. Review of systems A 10 point review of system was performed and is negative except was discussed above Medical - H&P: PMH Medical history: History of degenerative joint disease GERD Hypertension Weight loss Intermittent diarrhea/incontinence CA breast status post mastectomy Right knee replacement Left hip replacement Left knee replacement Family history: reviewed and not pertinent Pertinent family history: CAD/OH Father CAD and cancer mother Social history: Lives with her and [place] No history of smoking Occasionally drinks wine Medical - H&P: Meds Home Medications Medication Instructions Recorded Confirmed Type acetaminophen 500 mg capsule 1,000 mg PO DAILYP PRN cap 01/01/15 03/17/19 History calcium carbonate 600 mg (1,500 2 tab PO QDAY tab 01/01/15 03/17/19 History mg)-vitamin D3 400 unit tablet aspirin 81 mg tablet,delayed 81 mg PO QDAY #90 tab 07/10/15 03/17/19 Rx release magnesium 250 mg tablet 250 mg PO QDAY #30 tab 10/28/16 03/17/19 Rx chlorthalidone 25 mg tablet 25 mg PO QDAY #90 tab 04/13/17 03/17/19 Rx Cholecalciferol (Vitamin D3) 2,000 unit PO DAILY 04/22/17 03/17/19 History [Vitamin D3] Omeprazole [Prilosec] 20 mg PO Q48@0730 04/22/17 03/17/19 History Vitamin B Complex [Ultra B-100 1 tab PO SA@0900 04/22/17 03/17/19 History Complex] cranberry extract 500 mg capsule 500 mg PO DAILY 06/16/17 03/17/19 History Celecoxib [Celebrex] 200 mg PO DAILY 05/24/18 03/17/19 History Ferrous Sulfate 325 mg PO BIDCC 05/24/18 03/17/19 History Ipratropium 0.06% Nasal [place] 1 - 2 spray INTRANASAL TIDP PRN 05/24/18 03/17/19 History [Atrovent 0.06% Nasal Srpay] Oxybutynin Chloride [Ditropan] 10 mg PO HS 05/24/18 03/17/19 History Ciprofloxacin [Cipro] 500 mg PO BID 05/31/18 03/17/19 History Aspirin [Ecotrin] 325 mg PO BID #60 tab.ec 06/01/18 03/17/19 Rx Docusate Sodium [Colace] 100 mg PO BID #60 cap 06/01/18 03/17/19 Rx HYDROcodone/APAP 10/325MG [[place] 1 - 2 tab PO Q4HP PRN #75 tab 06/01/18 03/17/19 Rx 10-325Mg] traMADol [Ultram] 50 - 100 mg PO Q4-6HP PRN #15 tab 03/17/19 Rx Allergies Allergy/AdvReac Type Severity Reaction Status Date / Time fluticasone [From Flonase] Allergy Mild Rash Verified 03/17/19 11:54 latex Allergy Mild Rash Verified 03/17/19 11:54 olopatadine [From Patanase] Allergy Mild Rash Verified 03/17/19 11:54 amlodipine AdvReac Severe Swelling Verified 03/17/19 06:32 Tamoxifen AdvReac Severe pulmonary Verified 03/17/19 11:54 emboli alendronate sodium AdvReac Mild Nausea Verified 03/17/19 06:32 [From Fosamax] anastrozole [From Arimidex] AdvReac Mild Nausea Verified 03/17/19 11:54 benazepril AdvReac Mild cough Verified 03/17/19 06:32 Sibutramine [From Meridia] AdvReac Mild Nausea Verified 03/17/19 06:32 tramadol AdvReac Mild Nausea Verified 03/17/19 06:32 tape Allergy Mild Rash Uncoded 05/31/18 09:00 Medical - H&P: Exam - Constitutional Vitals: Temp Pulse Resp BP Pulse Ox 97.5 F 97 H 18 139/74 93 03/17/19 06:28 03/17/19 08:53 03/17/19 07:14 03/17/19 08:53 03/17/19 08:53 General appearance: no acute distress Exam: Fatigue lethargic Alert and respond to commands Head normocephalic oral cavity dry Eye movement symmetrical No ear nose discharge Neck no lymphadenopathy or bruit S1-S2 tachycardia, ESM grade 1 Diminished breath sounds bases Abdomen soft nontender Lower extremity no sinus clubbing no joint swelling Skin no suspicious lesion Psych fatigue lethargic but cooperative Neuro nonfocal Medical - H&P: Reslt - Labs CBC & Chem 7: 03/17/19 07:42 03/17/19 07:42 Labs: Short CBC 03/17/19 Range/Units 07:42 WBC 5.5 (4.5-11.0) K/mcL Hgb 11.9 L (12.0-15.0) g/dL Hct 35.5 L (36.0-48.0) % Plt Count 355 (140-440) K/mcL BMP 03/17/19 07:42 Sodium 136 Potassium 3.3 Chloride 90 L Carbon Dioxide 29 BUN 27 H Creatinine 1.0 Glucose 75 Calcium 15.6 H* Liver Function 11/14/19 Range/Units 07:42 Total Bilirubin 0.7 (0.0-1.0) mg/dL AST 21 (0-37) U/l ALT 10 (0-40) U/l Alkaline Phosphatase 71 (39-117) U/L Albumin 3.9 (3.2-5.2) gm/dL Medical - H&P: A/P (1) Hypercalcemia Current visit: Yes Status: Acute * Hypercalcemia over 15. High probability malignancy induced versus milk allergy syndrome from calcium intake. Check PTH, PTH RP, vitamin A, vitamin D levels, TSH. No evidence of adrenal insufficiency or renal failure. Normal serum protein with A/G ratio unlikely to represent monoclonal gammopathy. Aggressive crystalloids followed by diuresis/bisphosphonates * Back pain-MRI spine to rule out blastic/lactic lesions in light of history of breast cancer, ricks CT to rule out malignancy including breast and lung * Recurrent diarrhea/incontinence and weight loss-stool studies/GI consult as outpatient * Severe weight loss/early malnutrition-dietary consult for protein calorie supplements * GERD continue PPI * DJD continue as needed opioids at home dose * Full code * Prophylaxis heparin Plan * Inpatient admission * Hypercalcemia work-up as above * Imaging * Diarrhea work-up * PT OT * Dietitian consult for protein calorie supplements
--- NOTE | 2019-03-17 10:09 | Emergency Department Note ---
Back Pain HPI - General Chief Complaint: Back Pain/Injury Stated Complaint: back pain, weight loss, bowel trouble Time Seen by Provider: 03/17/19 07:03 Source: patient, family Limitations: no limitations - Related Data Home Medications Medication Instructions Recorded Confirmed acetaminophen 500 mg capsule 1,000 mg PO DAILYP PRN cap 01/01/15 03/17/19 calcium carbonate 600 mg (1,500 2 tab PO QDAY tab 01/01/15 03/17/19 mg)-vitamin D3 400 unit tablet Cholecalciferol (Vitamin D3) 2,000 unit PO DAILY 04/22/17 03/17/19 [Vitamin D3] Omeprazole [Prilosec] 20 mg PO Q48@0730 04/22/17 03/17/19 Vitamin B Complex [Ultra B-100 1 tab PO SA@0900 04/22/17 03/17/19 Complex] cranberry extract 500 mg capsule 500 mg PO DAILY 06/16/17 03/17/19 Celecoxib [Celebrex] 200 mg PO DAILY 05/24/18 03/17/19 Ferrous Sulfate 325 mg PO BIDCC 05/24/18 03/17/19 Ipratropium 0.06% Nasal [place] 1 - 2 spray INTRANASAL TIDP PRN 05/24/18 03/17/19 [Atrovent 0.06% Nasal Srpay] Oxybutynin Chloride [Ditropan] 10 mg PO HS 05/24/18 03/17/19 Ciprofloxacin [Cipro] 500 mg PO BID 05/31/18 03/17/19 Previous Rx's Medication Instructions Recorded aspirin 81 mg tablet,delayed 81 mg PO QDAY #90 tab 07/10/15 release magnesium 250 mg tablet 250 mg PO QDAY #30 tab 10/28/16 chlorthalidone 25 mg tablet 25 mg PO QDAY #90 tab 04/13/17 Aspirin [Ecotrin] 325 mg PO BID #60 tab.ec 06/01/18 Docusate Sodium [Colace] 100 mg PO BID #60 cap 06/01/18 HYDROcodone/APAP 10/325MG [[place] 1 - 2 tab PO Q4HP PRN #75 tab 06/01/18 10-325Mg] traMADol [Ultram] 50 - 100 mg PO Q4-6HP PRN #15 tab 03/17/19 Allergies Allergy/AdvReac Type Severity Reaction Status Date / Time Tamoxifen Allergy Severe pulmonary Verified 03/17/19 06:32 emboli latex Allergy Intermediate Rash Verified 03/17/19 06:32 amlodipine AdvReac Severe Swelling Verified 03/17/19 06:32 anastrozole [From Arimidex] AdvReac Intermediate Nausea Verified 03/17/19 06:32 fluticasone [From Flonase] AdvReac Intermediate Rash Verified 03/17/19 06:32 olopatadine [From Patanase] AdvReac Intermediate Rash Verified 03/17/19 06:32 alendronate sodium AdvReac Mild Nausea Verified 03/17/19 06:32 [From Fosamax] benazepril AdvReac Mild cough Verified 03/17/19 06:32 Sibutramine [From Meridia] AdvReac Mild Nausea Verified 03/17/19 06:32 tramadol AdvReac Mild Nausea Verified 03/17/19 06:32 tape Allergy Mild Rash Uncoded 05/31/18 09:00 Past Medical History - Past Medical History Surgical history ED: Reports: hip replacement - Social History smoking status: Never smoker Physical Exam Limitations: no limitations Course - Reevaluation(s) Reevaluation #1: Labs were remarkable for elevated calcium of 15. Since started on normal saline bolus as well as 20 mg of Lasix IV. Discussed with Dr. Hammond. Vital Signs Temperature 97.5 F 03/17/19 06:28 Pulse Rate 99 H 03/17/19 06:28 Respiratory Rate 19 03/17/19 06:28 Blood Pressure 173/80 03/17/19 06:28 Pulse Oximetry (%) 96 03/17/19 06:28 Temperature 97.5 F 03/17/19 06:28 Pulse Rate 97 H 03/17/19 08:53 Respiratory Rate 18 03/17/19 07:14 Blood Pressure 139/74 03/17/19 08:53 Pulse Oximetry (%) 93 03/17/19 08:53 Back Pain/Injury - [facility] Narrative Medical decision making narrative: Final diagnosis is hypercalcemia. Chronic low back pain. - Lab Data Lab results reviewed: Yes I reviewed the patient's lab results. Result diagrams: 03/17/19 07:42 03/17/19 07:42 Lab Results 03/17/19 03/17/19 Range/Units 07:42 07:42 WBC 5.5 (4.5-11.0) K/mcL RBC 3.88 L (4.00-5.20) M/mcL Hgb 11.9 L (12.0-15.0) g/dL Hct 35.5 L (36.0-48.0) % MCV 91.5 (80.0-100.0) fL MCH 30.5 (26.0-34.0) pg MCHC 33.4 (31.0-36.0) g/dL RDW 13.0 (11.5-14.5) % Plt Count 355 (140-440) K/mcL MPV 7.0 L (7.4-10.4) fL Gran % 78.0 (38.0-78.0) % Lymph % (Auto) 11.0 L (15.5-49.0) % [place] % (Auto) 9.8 (1.0-12.0) % Eos % (Auto) 1.0 (0.0-7.0) % Baso % (Auto) 0.2 (0.0-2.0) % Gran # 4.3 (1.8-8.0) K/mcL Lymph # (Auto) 0.6 L (1.5-4.8) K/mcL [place] # (Auto) 0.5 (0.1-0.9) K/mcL Eos # (Auto) 0.1 (0.0-0.7) K/mcL Baso # (Auto) 0 (0.0-0.3) K/mcL Sodium 136 (133-145) mmol/L Potassium 3.3 (3.3-5.1) mmol/L Chloride 90 L (96-108) mmol/L Carbon Dioxide 29 (22-30) mmol/L Anion Gap 17.0 H (8-16) BUN 27 H (8-23) mg/dl Creatinine 1.0 (0.6-1.1) mg/dl GFR Calculation 53 Glucose 75 (70-105) mg/dL Calcium 15.6 H* (8.6-10.4) mg/dl Magnesium 1.2 L (1.6-2.5) mg/dL Total Bilirubin 0.7 (0.0-1.0) mg/dL AST 21 (0-37) U/l ALT 10 (0-40) U/l Alkaline Phosphatase 71 (39-117) U/L Total Protein 6.8 (5.9-8.4) gm/dL Albumin 3.9 (3.2-5.2) gm/dL Globulin 2.9 (2.2-3.7) gm/dL Albumin/Globulin Ratio 1.3 (1.0-2.3) Disposition Pt seen by [employer]/PA only: No Clinical Impression: Hypercalcemia Hip pain, chronic Qualifiers: Laterality: right Qualified Code(s): M25.551 - Pain in right hip Diarrhea Qualifiers: Diarrhea type: unspecified type Qualified Code(s): R19.7 - Diarrhea, unspecified Disposition: Xfer As Inpt ([facility]) Condition: Fair Additional Instructions: Continue all of your home medicines. Be sure to take your magnesium this morning Follow-up with your primary care provider for further care and evaluation of your incontinence and diarrhea. Recommend discussing with her getting stool testing or perhaps colonoscopy to further sort this out Follow-up with Dr. Jaquez or pain management with regards to your hip. Rx for small amount of tramadol written for you Return to the ER for any concerning worsening symptoms or emergencies Prescriptions: traMADol [Ultram] 50 - 100 mg PO Q4-6HP PRN #15 tab PRN Reason: Pain Prescription Printed Referrals: Wade Juarez MD [Physician] - Fadia Bolanos ARNP [Primary Care Provider] - Pat Osuna MD [Physician] -
[2019-03-17] MEDS ORDERED: 0.9 % SODIUM CHLORIDE 1,000 ML IV SCH (11:51)
[2019-03-17] MEDS ORDERED: ACETAMINOPHEN 650 MG/65 ML BOTTLE IV PRN (11:51)
[2019-03-17] MEDS ORDERED: ONDANSETRON 4 MG/2 ML VIAL IV PRN (11:51)
[2019-03-17] MEDS ORDERED: ZOLEDRONIC ACID/WATER 5 MG/100 ML BOTTLE IV ONE (13:00)
[2019-03-17 13:35] LABS: Parathyroid Hormone Intact 9.2 pg/ml (15-65)
[2019-03-17 13:36] LABS: C-Reactive Protein 6.5 mg/dl (0.0-0.8)
[2019-03-17 14:04] LABS: Vitamin D 25 Hydroxy 55.92 ng/mL (>=30)
[2019-03-17] MEDS: MAGNESIUM SULFATE 2 GM/50 ML BAG IV PRN (15:02)
[2019-03-17] MEDS: 0.9 % SODIUM CHLORIDE 10 ML SYRINGE IV SCH ×2 (15:24→20:29)
[2019-03-17] MEDS: FUROSEMIDE 20 MG/2 ML VIAL IV SCH (16:37)
[2019-03-17] MEDS: 0.9 % SODIUM CHLORIDE 1,000 ML IV SCH ×3 (16:42→21:50)
[2019-03-17 19:47] LABS: Calcium 13.3 mg/dl (8.6-10.4)
[2019-03-17] MEDS: HEPARIN 5,000 UNIT/ML VIAL SQ SCH (20:28)
[2019-03-17] MEDS: SENNOSIDES/DOCUSATE SODIUM 1 TAB TABLET PO SCH (20:28)
[2019-03-17] MEDS: CYANOCOBALAMIN (VITAMIN B-12) 500 MCG TABLET PO SCH (20:28)
[2019-03-17] MEDS: DOCUSATE SODIUM 100 MG CAPSULE PO SCH (20:28)
[2019-03-18] MEDS: 0.9 % SODIUM CHLORIDE 1,000 ML IV SCH (02:53)
[2019-03-18] MEDS: 0.9 % SODIUM CHLORIDE 10 ML SYRINGE IV SCH ×3 (05:24→20:57)
[2019-03-18 05:35] LABS: Hematocrit 27.9 % (36.0-48.0); Hemoglobin 9.1 g/dL (12.0-15.0); Mean Cell Volume 92.8 fL (80.0-100.0); Mean Corpuscular HGB Conc 32.8 g/dL (31.0-36.0); Platelet Count 286 K/mcL (140-440); Red Cell Distribution Width 13.1 % (11.5-14.5); WBC 3.4 K/mcL (4.5-11.0)
[2019-03-18 06:02] LABS: ALT/SGPT 7 U/l (0-40); AST/SGOT 16 U/l (0-37); Albumin 2.9 gm/dL (3.2-5.2); Alkaline Phosphatase 54 U/L (39-117); Bilirubin,Direct < 0.2 mg/dL (0.0-0.3); Bilirubin,Total 0.4 mg/dL (0.0-1.0); Calcium 11.5 mg/dl (8.6-10.4); Carbon Dioxide 28 mmol/L (22-30); Glomerular Filtration Rate 69; Glucose 90 mg/dL (70-105); Lactate Dehydrogenase 225 U/L (94-250); Thyroid Stimulating Hormone 0.51 uIU/ml (0.27-5.01); Triglycerides 125 mg/dl (<150); Uric Acid 8.2 mg/dL (2.5-8.0)
[2019-03-18 06:05] LABS: Albumin/Globulin Ratio 1.3 (1.0-2.3); Blood Urea Nitrogen 18 mg/dl (8-23); Globulin 2.3 gm/dL (2.2-3.7); Phosphorous 1.6 mg/dL (2.7-4.5)
[2019-03-18 06:16] LABS: Chloride 98 mmol/L (96-108)
[2019-03-18] MEDS ORDERED: POTASSIUM CHLORIDE 20 MEQ TABLET PO ONE (07:05)
[2019-03-18] MEDS: MAGNESIUM SULFATE 2 GM/50 ML BAG IV PRN (07:37)
[2019-03-18] MEDS: FUROSEMIDE 20 MG/2 ML VIAL IV SCH ×2 (07:38→09:03)
[2019-03-18 08:17] LABS: Eosinophils % (Manual) 1 % (0-7); Lymphocytes % 8 % (15-49); Monocytes % (Manual) 11 % (1-12); Platelet Estimate NORMAL (NORMAL); RBC Morphology NORMAL (NORMAL); Segmented Neutrophils % 80 % (38-78)
[2019-03-18] MEDS: FOLIC ACID 1 MG TABLET PO SCH (08:56)
[2019-03-18] MEDS: MULTIVIT,THER IRON,CA,FA & MIN 1 TABLET PO SCH (08:56)
[2019-03-18] MEDS: HEPARIN 5,000 UNIT/ML VIAL SQ SCH ×2 (08:56→20:56)
[2019-03-18] MEDS: CYANOCOBALAMIN (VITAMIN B-12) 500 MCG TABLET PO SCH ×2 (08:56→20:56)
[2019-03-18] MEDS: NEUTRA PHOS 1 PACKET PO SCH ×2 (08:56→20:56)
[2019-03-18] MEDS: DOCUSATE SODIUM 100 MG CAPSULE PO SCH ×2 (08:56→20:56)
[2019-03-18] MEDS: ACETAMINOPHEN 325 MG TABLET PO PRN ×3 (08:56→23:22)
[2019-03-18] MEDS: THIAMINE 100 MG TABLET PO SCH (08:56)
--- NOTE | 2019-03-18 11:17 | Internal Med Progress Note ---
Medical - PN: Subj Patient information: Note initiated : 03/18/19 at 11:13 am Service Date, if different from initiated Date: [] Patient: Darcy Macdonald a 79 y/o F admitted on 03/17/19 for Back Pain, Weight Loss, Bowel Trouble. Chief Complaint: [] Interval history: Ms. Macdonald is a 79 year old F with a history of degenerative joint disease but otherwise fairly healthy and lives with her . Over the last month and a half patient has had a gradual loss of appetite associated with increasing bowel frequency and occasional incontinence. She also has had significant weight loss with over 20 pounds loss over month and a half. Symptoms associated increasing fatigue weakness and inability to take care of self. Her got increasingly concerned and brought her to the ER. Initial work-up was consistent with calcium over 15. Patient was started on crystalloids along with Lasix and subsequently hospitalist service consulted. At the time evaluation patient is accompanied with her . She appears fatigued and lethargic. She was able to endorse to history as above. Additionally patient endorses taking 3 tablets of 5 mg of calcium every day as a supplement. She denies taking excessive vitamin A or D. She denies recent fractures or hospitalization or renal stones. Patient has been experiencing increasing lower back pain and was diagnosed with T3-4-5 bone loss(per history) and resulting pain managed by pain clinic and physical therapy for over 2 months as outpatient without relief. Because of abnormal bowel movements patient was attempting to schedule a follow-up appointment with GI Dr. Macedo. Her last colonoscopy a year ago per patient was unremarkable. Her weaknesses increased to the point that family could not handle anymore and brought into the ER for evaluation. She denies fever, dysuria, abdominal pain, skin rash, lightheadedness or dizziness. She further denies changes in medications. 03/18-patient doing well. Complains of back pain but stable hemodynamics. Calcium down to 11 from 15.3. Status post zoledronic acid infusion/crystalloids/diuresis. Potassium down to 2.5 on aggressive replacement. Magnesium 1.4 on replacement, phosphorus 1.6 on replacement, PTH 9.2 appropriately suppressed, no evidence of vitamin D intoxication, TSH 0.51, vitamin D pending. CT abdomen chest pelvis to rule out malignancy related hypercalcemia/CT spine to rule out metastasis/osteo-lytic lesions. Continue PT OT/pain management - Constitutional Vitals: Vital Signs Temp Pulse Resp BP Pulse Ox 98.6 F 75 16 142/66 94 03/18/19 06:56 03/18/19 07:45 03/18/19 07:45 03/18/19 06:56 03/18/19 07:45 Period Temp Pulse Resp BP Sys/Thakur Pulse Ox Last 24 Hr 97.5 F-99.6 F 72-96 - 97-188/53-81 91-99 Intake and Output 03/17/19 03/18/19 03/18/19 21:59 05:59 13:59 Intake Total 3410 1120 50 Output Total 390 1950 Balance 3020 -830 50 Weight 133 lb 1.6 oz Intake & Output: Intake & Output 03/17/19 03/18/19 03/18/19 21:59 05:59 13:59 Intake Total 3410 1120 50 Output Total 390 1950 Balance 3020 -830 50 Weight 133 lb 1.6 oz Intake: Nourishment/Supplement quantity 0 (ml) IV 3050 1000 50 Sodium Chloride 0.9% 1,000 ml @ 3000 1000 200 mls/hr IV .Q5H [facility] Rx#: [id number] Oral 360 120 Output: Urine Catheter Amount 350 1950 Void Amount 40 Other: Meal Lunch Breakfast Percent of Meal Consumed 25% 25% Feeding Ability Assist with Tray Set Up Assist with Tray Set Up Nourishment/Supplement name [place] Urine Appearance Clear Clear Uretheral (Brown) Clear Clear Urine Color Pale Pale Uretheral (Brown) Pale Dark Yellow Urine Odor Normal Normal Uretheral (Brown) Normal Stool Size Smear Stool Color Brown Stool Consistency Soft General appearance: no acute distress Exam: Alert and respond to commands Nonlabored breathing No anxiety No lymphedema Brown draining clear urine Medical - PN: Obj Da - Labs CBC & Chem 7: 03/18/19 04:25 03/18/19 04:25 Labs: Abnormal Lab Results 03/18/19 03/18/19 03/17/19 04:25 04:25 17:50 WBC 3.4 L RBC 3.00 L Hgb 9.1 L Hct 27.9 L MPV 7.0 L Lymph % (Auto) Lymph # (Auto) Seg Neutrophils % 80 H Lymphocytes % 8 L ESR Potassium 2.5 L* Chloride Anion Gap BUN Uric Acid 8.2 H Calcium 11.5 H 13.3 H* Phosphorus 1.6 L Magnesium 1.4 L C-Reactive Protein Total Protein 5.2 L Albumin 2.9 L PTH Intact 03/17/19 03/17/19 03/17/19 12:28 12:28 12:28 WBC RBC Hgb Hct MPV Lymph % (Auto) Lymph # (Auto) Seg Neutrophils % Lymphocytes % ESR 48 H Potassium Chloride Anion Gap BUN Uric Acid Calcium Phosphorus Magnesium C-Reactive Protein 6.5 H Total Protein Albumin PTH Intact 9.2 L 03/17/19 03/17/19 07:42 07:42 WBC RBC 3.88 L Hgb 11.9 L Hct 35.5 L MPV 7.0 L Lymph % (Auto) 11.0 L Lymph # (Auto) 0.6 L Seg Neutrophils % Lymphocytes % ESR Potassium Chloride 90 L Anion Gap 17.0 H BUN 27 H Uric Acid Calcium 15.6 H* Phosphorus Magnesium 1.2 L C-Reactive Protein Total Protein Albumin PTH Intact Meds: Medications Acetaminophen (Tylenol) 650 mg PO Q4-6HP PRN; Protocol PRN Reason: Per Pain Protocol/Fever > 101 Last Admin: 03/18/19 08:56 Dose: 650 mg Documented by: Cyanocobalamin (Vitamin B-12) 1,000 mcg PO BID [facility] Stop: 03/22/19 09:01 Last Admin: 03/18/19 08:56 Dose: 1,000 mcg Documented by: Docusate Sodium (Colace) 100 mg PO BID [facility] Last Admin: 03/18/19 08:56 Dose: 100 mg Documented by: Folic Acid (Folic Acid) 1 mg PO DAILY [facility] Last Admin: 03/18/19 08:56 Dose: 1 mg Documented by: Furosemide (Lasix) 20 mg IV DAILY [facility] Last Admin: 03/18/19 09:03 Dose: Not Given Documented by: Heparin Sodium (Porcine) (Heparin) 5,000 unit SQ Q12 [facility] Last Admin: 03/18/19 08:56 Dose: 5,000 unit Documented by: Sodium Chloride (Sodium Chloride 0.9%) 1,000 mls @ 0 mls/hr IV BOLUS [facility] Last Infusion: 03/17/19 15:06 Dose: Infused Documented by: Acetaminophen (Ofirmev) 650 mg in 65 mls @ 130 mls/hr IV Q6HP PRN; Protocol PRN Reason: Per Pain Protocol/Fever > 101 Magnesium Sulfate (Magnesium Sulfate) 2 gm in 50 mls @ 50 mls/hr IV UD PRN PRN Reason: MG = or < 1.7 Last Infusion: 03/18/19 08:37 Dose: Infused Documented by: Iron Carb/Multivit/[place]/Folic Acid (Multivitamin W/Minerals) 1 tab PO DAILY [facility] Last Admin: 03/18/19 08:56 Dose: 1 tab Documented by: Ondansetron HCl (Zofran) 4 mg IV Q4-6HP PRN; Protocol PRN Reason: Nausea And Vomiting Potassium Chloride (Klor-Con) 40 meq PO DAILYP PRN PRN Reason: K+ < 3.5 Potassium/Phosphorus/Sodium (Neutra Phos) 2 packet PO BID [facility] Stop: 03/18/19 21:01 Last Admin: 03/18/19 08:56 Dose: 2 packet Documented by: Senna/Docusate Sodium (Senna Plus Tablet) 1 tab PO HS [facility] Last Admin: 03/17/19 20:28 Dose: 1 tab Documented by: Sodium Chloride (Saline Flush) 10 ml IV Q8 [facility] Last Admin: 03/18/19 05:24 Dose: Not Given Documented by: Thiamine HCl (Vitamin B1) 100 mg PO DAILY [facility] Last Admin: 03/18/19 08:56 Dose: 100 mg Documented by: Medical - PN: A/P - Time Spent With Patient Total time spent is greater than 50% in coordination of care (as documented) at patient's floor/unit and/or counseling patient: 25 - 35 minutes (1) Hypercalcemia Status: Acute Assessment and plan: * Hypercalcemia over 15. High probability malignancy induced versus milk allergy syndrome from calcium intake. Check PTH, PTH RP, vitamin A, vitamin D levels, TSH. No evidence of adrenal insufficiency or renal failure. Normal serum protein with A/G ratio unlikely to represent monoclonal gammopathy. Aggressive crystalloids followed by diuresis/bisphosphonates * Multiple electrolyte abnormality including low potassium(2.5), magnesium(1.4), phosphorus(1.6) on aggressive IV and oral replacement * Back pain-CT spine/CT chest abdomen pelvis to rule out malignancy * Recurrent diarrhea/incontinence and weight loss-continue nutrition support. No diarrhea since admission. * Severe weight loss/early malnutrition-continue protein calorie supplements per dietitian * GERD continue PPI * DJD continue as needed opioids at home dose * Full code * Prophylaxis heparin Plan * Hypercalcemia work-up * Replace potassium/magnesium/phosphorus * PT OT/nutrition support * CT chest abdomen pelvis/spine * Protein calorie supplements per dietitian * Discharge planning per case management Current Visit: Yes Medical - PN: Qual - Stroke Symptom Onset Unknown: No - VTE Deep Vein Thrombosis/Pulmonary Embolism Present on Admission: Yes
[2019-03-18] MEDS ORDERED: IOPAMIDOL 100 ML BOTTLE IV ONE (11:46)
--- NOTE | 2019-03-18 12:40 | Cat Scan Report ---
CLINICAL INFORMATION: Weight loss back pain hypercalcemia. Evaluate for carcinoma COMPARISON: Chest and abdomen CT 07/14/2008 TECHNIQUE: Enteric contrast was utilized. 80 cc of Isovue-370 were injected intravenously, and 50 seconds later 2.5 mm helical slices were obtained from the lung apices through the subtrochanteric regions of the femurs. Following reconstruction, 2.5 mm sagittal, coronal and axial reformatted images were processed and reviewed at multiple windows and levels. 7 mm MIP reconstructions were obtained through the lungs to optimize nodule detection.The exam was performed using radiation dose optimization techniques including, but not limited to, automated exposure control, adjustment of the mA and/or kV according to patient size and use of iterative reconstruction technique. FINDINGS: Pulmonary parenchymal windows show mild chronic bronchitis or asthma which features elevated lung volumes, mild wall thickening of the bronchi and a mosaic perfusion pattern throughout both lungs. A 12 mm wedge-shaped density is seen adjacent to the major fissure in the posterior segment right upper lobe which is new. This is most likely benign likely a small infarct or inflammation. A small tree-in-bud infiltrate has developed in the anterior segment right upper lobe. It was not seen on the previous exam and may be developing pneumonia. There is scattered scarring and/or atelectasis in both lower lobes which has progressed. No effusions. Mediastinal windows show the heart is normal size with moderate calcific and fibrofatty plaque in the coronary arteries. Moderate hiatal hernia is new from prior study.Thoracic aorta is normal in diameter with diffuse atherosclerotic plaque. The pulmonary arteries are unremarkable. There is no adenopathy in the mediastinal hilar or axillary region. Thyroid is unremarkable. Abdominal images show mild fatty change within the liver, but no focal lesions. The gallbladder is surgically absent. Common bile duct is mildly dilated (9 mm) but unchanged and compatible with post cholecystectomy state. There is mild inhomogeneity of the pancreatic head but no definite mass. There are multiple parapelvic cysts in both kidneys but no significant abnormality. The adrenal glands and aorta are unremarkable. There is a new 6 cm low-attenuation lobulated mass dominating the spleen which is likely neoplastic. Pelvic images show hysterectomy and oophorectomy changes. The urinary bladder is unremarkable. The stomach, appendix and small bowel are grossly normal. There are multiple sigmoid diverticuli, however the remaining colon is normal. There 8-9 moderately enlarged lymph nodes in the right iliac and femoral region. The largest, in the right groin, span 4.5 cm. On the left side, there is a 4.7 cm lymph node in the left common femoral region and 4-5 moderately enlarged lymph nodes along the internal iliac region as well. Bone windows show grade 1 L4-5 spondylolisthesis due to degenerative facet disease resulting in moderate bilateral IV foraminal narrowing.2 IMPRESSION: 1. Multiple moderately enlarged lymph nodes in both iliac and common femoral regions. The largest is 4.5 cm anterior to the right common femoral artery. Findings are most suspicious for non-Hodgkin's lymphoma. Metastatic adenopathy from known primary carcinoma is also possible. Suggest: ultrasound guided percutaneous biopsy of the enlarged right groin lymph node. 2. New 5.8 cm low-attenuation mass in the spleen - also likely lymphoma. 3. Mild inhomogeneity of the pancreatic head with slight inject in the peripancreatic fat. This may be within normal limits. Please correlate with amylase and lipase. 4. Mild chronic bronchitis. 5. 12 mm wedge-shaped density in the posterior segment right upper lobe adjacent to major fissure which almost certainly a small infarct or inflammation rather than neoplasia. 6. Small tree-in-bud infiltrate anterior segment right upper lobe new from prior exam which could indicate developing pneumonia. 7. Moderate hiatal hernia - new Interpreted and Authenticated by: Jordon Bhardwaj 03/18/19
[2019-03-18] MEDS: POTASSIUM CHLORIDE 20 MEQ PACKET PO PRN (19:08)
[2019-03-18] MEDS: SENNOSIDES/DOCUSATE SODIUM 1 TAB TABLET PO SCH (20:56)
[2019-03-19] MEDS: 0.9 % SODIUM CHLORIDE 10 ML SYRINGE IV SCH ×3 (04:48→20:36)
[2019-03-19 06:03] LABS: Hematocrit 29.7 % (36.0-48.0); Hemoglobin 9.8 g/dL (12.0-15.0); Mean Cell Volume 91.8 fL (80.0-100.0); Mean Platelet Volume 7.2 fL (7.4-10.4); Platelet Count 305 K/mcL (140-440); RBC 3.23 M/mcL (4.00-5.20); Red Cell Distribution Width 13.1 % (11.5-14.5); WBC 3.3 K/mcL (4.5-11.0)
[2019-03-19 06:48] LABS: ALT/SGPT 9 U/l (0-40); AST/SGOT 22 U/l (0-37); Albumin 3.2 gm/dL (3.2-5.2); Albumin/Globulin Ratio 1.1 (1.0-2.3); Alkaline Phosphatase 64 U/L (39-117); Bilirubin,Direct < 0.2 mg/dL (0.0-0.3); Bilirubin,Total 0.4 mg/dL (0.0-1.0); Blood Urea Nitrogen 16 mg/dl (8-23); Calcium 11.7 mg/dl (8.6-10.4); Carbon Dioxide 25 mmol/L (22-30); Chloride 102 mmol/L (96-108); Globulin 2.8 gm/dL (2.2-3.7); Glomerular Filtration Rate 60; Glucose 88 mg/dL (70-105); Lactate Dehydrogenase 320 U/L (94-250); Triglycerides 153 mg/dl (<150); Uric Acid 6.9 mg/dL (2.5-8.0)
[2019-03-19 06:50] LABS: Phosphorous 2.5 mg/dL (2.7-4.5)
[2019-03-19 07:36] LABS: Eosinophils % (Manual) 2 % (0-7); Lymphocytes % 21 % (15-49); Monocytes % (Manual) 10 % (1-12); Platelet Estimate NORMAL (NORMAL); RBC Morphology NORMAL (NORMAL); Segmented Neutrophils % 67 % (38-78)
[2019-03-19] MEDS: FUROSEMIDE 20 MG/2 ML VIAL IV SCH (08:54)
[2019-03-19] MEDS: CYANOCOBALAMIN (VITAMIN B-12) 500 MCG TABLET PO SCH ×2 (08:55→20:36)
[2019-03-19] MEDS: THIAMINE 100 MG TABLET PO SCH (08:55)
[2019-03-19] MEDS: HEPARIN 5,000 UNIT/ML VIAL SQ SCH ×2 (08:55→20:36)
[2019-03-19] MEDS: FOLIC ACID 1 MG TABLET PO SCH (08:55)
[2019-03-19] MEDS: MULTIVIT,THER IRON,CA,FA & MIN 1 TABLET PO SCH (08:55)
[2019-03-19] MEDS: DOCUSATE SODIUM 100 MG CAPSULE PO SCH ×3 (08:56→20:36)
[2019-03-19] MEDS: HYDROcodone/APAP 10/325MG TABLET PO PRN ×3 (11:54→23:20)
[2019-03-19] MEDS: MAGNESIUM SULFATE 2 GM/50 ML BAG IV PRN (15:37)
[2019-03-19] MEDS: FERROUS SULFATE 325 MG TABLET PO SCH (17:11)
--- NOTE | 2019-03-19 20:12 | Internal Med Progress Note ---
Medical - PN: Subj Patient information: Note initiated : 03/19/19 at 8:10 pm Service Date, if different from initiated Date: [] Patient: Darcy Macdonald a 79 y/o F admitted on 03/17/19 for Back Pain, Weight Loss, Bowel Trouble. Chief Complaint: [] Interval history: Ms. Macdonald is a 79 year old F with a history of degenerative joint disease but otherwise fairly healthy and lives with her . Over the last month and a half patient has had a gradual loss of appetite associated with increasing bowel frequency and occasional incontinence. She also has had significant weight loss with over 20 pounds loss over month and a half. Symptoms associated increasing fatigue weakness and inability to take care of self. Her got increasingly concerned and brought her to the ER. Initial work-up was consistent with calcium over 15. Patient was started on crystalloids along with Lasix and subsequently hospitalist service consulted. At the time evaluation patient is accompanied with her . She appears fatigued and lethargic. She was able to endorse to history as above. Additionally patient endorses taking 3 tablets of 5 mg of calcium every day as a supplement. She denies taking excessive vitamin A or D. She denies recent fractures or hospitalization or renal stones. Patient has been experiencing increasing lower back pain and was diagnosed with T3-4-5 bone loss(per history) and resulting pain managed by pain clinic and physical therapy for over 2 months as outpatient without relief. Because of abnormal bowel movements patient was attempting to schedule a follow-up appointment with GI Dr. Macedo. Her last colonoscopy a year ago per patient was unremarkable. Her weaknesses increased to the point that family could not handle anymore and brought into the ER for evaluation. She denies fever, dysuria, abdominal pain, skin rash, lightheadedness or dizziness. She further denies changes in medications. 03/18-patient doing well. Complains of back pain but stable hemodynamics. Calcium down to 11 from 15.3. Status post zoledronic acid infusion/crystalloids/diuresis. Potassium down to 2.5 on aggressive replacement. Magnesium 1.4 on replacement, phosphorus 1.6 on replacement, PTH 9.2 appropriately suppressed, no evidence of vitamin D intoxication, TSH 0.51, vitamin D pending. CT abdomen chest pelvis to rule out malignancy related hypercalcemia/CT spine to rule out metastasis/osteo-lytic lesions. Continue PT OT/pain management 03/19 multiple enlarged lymph nodes in the abdomen consistent with lymphoma discussed with patient has been. Would like biopsy and further treatment biopsy ordered but will likely undergo on Thursday calcium calcium 11.7, potassium improved to 3.7, magnesium 1.5 and phosphorus 2.5. Continue management including likely replacement. Continue PT OT/nutrition support - Constitutional Vitals: Vital Signs Temp Pulse Resp BP Pulse Ox 97.3 F 81 20 126/63 95 03/19/19 19:15 03/19/19 19:15 03/19/19 19:15 03/19/19 19:15 03/19/19 19:15 Period Temp Pulse Resp BP Sys/Thakur Pulse Ox Last 24 Hr 97.3 F-99.1 F 81-99 16-20 120-142/63-79 95-97 Intake and Output 03/19/19 03/19/19 03/19/19 05:59 13:59 21:59 Intake Total 300 770 350 Output Total 1010 725 Balance -710 770 -375 Weight 140 lb Patient Weight 03/20/19 05:59 Weight 140 lb Intake & Output: Intake & Output 03/19/19 03/19/19 03/19/19 05:59 13:59 21:59 Intake Total 300 770 350 Output Total 1010 725 Balance -710 770 -375 Weight 140 lb Intake: Nourishment/Supplement quantity 100 (ml) IV 50 Oral 300 670 300 Output: Urine Catheter Amount 1010 725 Other: Meal Lunch Percent of Meal Consumed 50% Feeding Ability Independent Nourishment/Supplement name Boost Breeze Urine Appearance Clear Clear Cloudy Uretheral (Brown) Clear Urine Color Dark Yellow Straw Straw Uretheral (Brown) Straw Urine Odor Normal Normal Uretheral (Brown) Normal Stool Size Smear Moderate Stool Color Brown Brown Stool Consistency Loose Liquid Loose # Bowel Movements 1 1 # of times incontinent of 1 1 Bowels General appearance: no acute distress Exam: Alert oriented Nonlabored breathing Mild anxiety No lymphedema Medical - PN: Obj Da - Labs CBC & Chem 7: 03/19/19 04:45 03/19/19 04:45 Labs: Abnormal Lab Results 03/19/19 03/19/19 03/18/19 04:45 04:45 16:34 WBC 3.3 L RBC 3.23 L Hgb 9.8 L Hct 29.7 L MPV 7.2 L Lymph % (Auto) Lymph # (Auto) Seg Neutrophils % Lymphocytes % ESR Potassium 3.1 L Chloride Anion Gap BUN Uric Acid Calcium 11.7 H Phosphorus 2.5 L Magnesium 1.5 L Lactate Dehydrogenase 320 H C-Reactive Protein Total Protein Albumin Triglycerides 153 H PTH Intact 03/18/19 03/18/19 03/17/19 04:25 04:25 17:50 WBC 3.4 L RBC 3.00 L Hgb 9.1 L Hct 27.9 L MPV 7.0 L Lymph % (Auto) Lymph # (Auto) Seg Neutrophils % 80 H Lymphocytes % 8 L ESR Potassium 2.5 L* Chloride Anion Gap BUN Uric Acid 8.2 H Calcium 11.5 H 13.3 H* Phosphorus 1.6 L Magnesium 1.4 L Lactate Dehydrogenase C-Reactive Protein Total Protein 5.2 L Albumin 2.9 L Triglycerides PTH Intact 03/17/19 03/17/19 03/17/19 12:28 12:28 12:28 WBC RBC Hgb Hct MPV Lymph % (Auto) Lymph # (Auto) Seg Neutrophils % Lymphocytes % ESR 48 H Potassium Chloride Anion Gap BUN Uric Acid Calcium Phosphorus Magnesium Lactate Dehydrogenase C-Reactive Protein 6.5 H Total Protein Albumin Triglycerides PTH Intact 9.2 L 03/17/19 03/17/19 07:42 07:42 WBC RBC 3.88 L Hgb 11.9 L Hct 35.5 L MPV 7.0 L Lymph % (Auto) 11.0 L Lymph # (Auto) 0.6 L Seg Neutrophils % Lymphocytes % ESR Potassium Chloride 90 L Anion Gap 17.0 H BUN 27 H Uric Acid Calcium 15.6 H* Phosphorus Magnesium 1.2 L Lactate Dehydrogenase C-Reactive Protein Total Protein Albumin Triglycerides PTH Intact Meds: Medications Acetaminophen (Tylenol) 650 mg PO Q4-6HP PRN; Protocol PRN Reason: Per Pain Protocol/Fever > 101 Last Admin: 03/18/19 23:22 Dose: 650 mg Documented by: Hydrocodone Bitart/Acetaminophen ([place] 10/325mg) 1 - 2 tab PO Q4HP PRN; Protocol PRN Reason: PAIN LEVEL 3-6 Last Admin: 03/19/19 16:20 Dose: 1 tab Documented by: Chlorthalidone (Hygroton) 25 mg PO QDAY [place] Cyanocobalamin (Vitamin B-12) 1,000 mcg PO BID [facility] Stop: 03/22/19 09:01 Last Admin: 03/19/19 08:55 Dose: 1,000 mcg Documented by: Docusate Sodium (Colace) 100 mg PO BID [facility] Last Admin: 03/19/19 08:56 Dose: Not Given Documented by: Docusate Sodium (Colace) 100 mg PO BID [facility] Ferrous Sulfate (Ferrous Sulfate) 325 mg PO BIDCC [facility] Last Admin: 03/19/19 17:11 Dose: 325 mg Documented by: Folic Acid (Folic Acid) 1 mg PO DAILY [facility] Last Admin: 03/19/19 08:55 Dose: 1 mg Documented by: Furosemide (Lasix) 20 mg IV DAILY [facility] Last Admin: 03/19/19 08:54 Dose: 20 mg Documented by: Heparin Sodium (Porcine) (Heparin) 5,000 unit SQ Q12 [facility] Last Admin: 03/19/19 08:55 Dose: 5,000 unit Documented by: Acetaminophen (Ofirmev) 650 mg in 65 mls @ 130 mls/hr IV Q6HP PRN; Protocol PRN Reason: Per Pain Protocol/Fever > 101 Magnesium Sulfate (Magnesium Sulfate) 2 gm in 50 mls @ 50 mls/hr IV UD PRN PRN Reason: MG = or < 1.7 Last Infusion: 03/19/19 17:30 Dose: Infused Documented by: Iron Carb/Multivit/[place]/Folic Acid (Multivitamin W/Minerals) 1 tab PO DAILY [facility] Last Admin: 03/19/19 08:55 Dose: 1 tab Documented by: Magnesium Oxide (Magnesium Oxide) 400 mg PO QDAY [facility] Omeprazole (Prilosec) 20 mg PO Q48@0730 [facility] Ondansetron HCl (Zofran) 4 mg IV Q4-6HP PRN; Protocol PRN Reason: Nausea And Vomiting Potassium Chloride (Klor-Con) 40 meq PO DAILYP PRN PRN Reason: K+ < 3.5 Last Admin: 03/18/19 19:08 Dose: 40 meq Documented by: Senna/Docusate Sodium (Senna Plus Tablet) 1 tab PO HS [facility] Last Admin: 03/18/19 20:56 Dose: Not Given Documented by: Sodium Chloride (Saline Flush) 10 ml IV Q8 [facility] Last Admin: 03/19/19 13:36 Dose: Not Given Documented by: Thiamine HCl (Vitamin B1) 100 mg PO DAILY [place] Last Admin: 03/19/19 08:55 Dose: 100 mg Documented by: Medical - PN: A/P - Time Spent With Patient Total time spent is greater than 50% in coordination of care (as documented) at patient's floor/unit and/or counseling patient: 25 - 35 minutes (1) Hypercalcemia Status: Acute Assessment and plan: * Hypercalcemia over 15. Now down to 11.7. Status post bisphosphonate/crystalloids and diuresis. Malignancy induced. Appropriately suppressed PTH, PTH RP pending, normal vitamin D/TSH levels. No evidence of adrenal insufficiency or renal failure. * Hypokalemia improved to 3.7 * Low magnesium improved to 1.5 * Low phosphorus improved to 2.5 * Back pain-no evidence of vertebral metastasis * Recurrent diarrhea-stool studies * Severe weight loss/early malnutrition-continue protein calorie supplements per dietitian * GERD continue PPI * DJD continue as needed opioids at home dose * Full code * Prophylaxis heparin Plan * Lymph node biopsy * Electrolyte replacement as indicated * PT OT * Protein calorie supplements * Discharge planning per case management Current Visit: Yes Medical - PN: Qual - Stroke Symptom Onset Unknown: No - VTE Deep Vein Thrombosis/Pulmonary Embolism Present on Admission: Yes
[2019-03-19] MEDS: SENNOSIDES/DOCUSATE SODIUM 1 TAB TABLET PO SCH (20:36)
[2019-03-20] MEDS: 0.9 % SODIUM CHLORIDE 10 ML SYRINGE IV SCH ×3 (04:07→20:16)
[2019-03-20 06:17] LABS: Hematocrit 29.4 % (36.0-48.0); Hemoglobin 9.9 g/dL (12.0-15.0); Mean Cell Volume 92.3 fL (80.0-100.0); Mean Corpuscular HGB Conc 33.7 g/dL (31.0-36.0); Platelet Count 281 K/mcL (140-440); RBC 3.19 M/mcL (4.00-5.20); Red Cell Distribution Width 12.9 % (11.5-14.5); WBC 3.3 K/mcL (4.5-11.0)
[2019-03-20 06:52] LABS: ALT/SGPT 8 U/l (0-40); AST/SGOT 23 U/l (0-37); Albumin 3.2 gm/dL (3.2-5.2); Albumin/Globulin Ratio 1.2 (1.0-2.3); Alkaline Phosphatase 64 U/L (39-117); Bilirubin,Direct < 0.2 mg/dL (0.0-0.3); Bilirubin,Total 0.5 mg/dL (0.0-1.0); Blood Urea Nitrogen 14 mg/dl (8-23); Calcium 10.6 mg/dl (8.6-10.4); Carbon Dioxide 27 mmol/L (22-30); Chloride 98 mmol/L (96-108); Globulin 2.6 gm/dL (2.2-3.7); Glomerular Filtration Rate 81; Glucose 92 mg/dL (70-105); Lactate Dehydrogenase 313 U/L (94-250); Phosphorous 2.6 mg/dL (2.7-4.5); Triglycerides 139 mg/dl (<150); Uric Acid 5.7 mg/dL (2.5-8.0)
[2019-03-20 06:57] LABS: Eosinophils % (Manual) 4 % (0-7); Lymphocytes % 12 % (15-49); Monocytes % (Manual) 4 % (1-12); Platelet Estimate NORMAL (NORMAL); RBC Morphology NORMAL (NORMAL); Segmented Neutrophils % 80 % (38-78)
[2019-03-20] MEDS ORDERED: ALENDRONATE SODIUM 70 MG TABLET PO SCH (07:00)
[2019-03-20] MEDS: DOCUSATE SODIUM 100 MG CAPSULE PO SCH ×4 (07:46→20:15)
[2019-03-20] MEDS: THIAMINE 100 MG TABLET PO SCH (08:10)
[2019-03-20] MEDS: MULTIVIT,THER IRON,CA,FA & MIN 1 TABLET PO SCH (08:10)
[2019-03-20] MEDS: FOLIC ACID 1 MG TABLET PO SCH (08:10)
[2019-03-20] MEDS: CHLORTHALIDONE 25 MG TABLET PO SCH (08:10)
[2019-03-20] MEDS: CYANOCOBALAMIN (VITAMIN B-12) 500 MCG TABLET PO SCH ×2 (08:10→20:16)
[2019-03-20] MEDS: MAGNESIUM OXIDE 400 MG TABLET PO SCH (08:10)
[2019-03-20] MEDS: FERROUS SULFATE 325 MG TABLET PO SCH ×2 (08:11→17:12)
[2019-03-20] MEDS: POTASSIUM CHLORIDE 20 MEQ PACKET PO PRN (08:11)
[2019-03-20] MEDS: HEPARIN 5,000 UNIT/ML VIAL SQ SCH ×2 (08:11→20:15)
[2019-03-20] MEDS: FUROSEMIDE 20 MG/2 ML VIAL IV SCH (08:11)
[2019-03-20] MEDS: HYDROcodone/APAP 10/325MG TABLET PO PRN ×3 (08:31→20:16)
--- NOTE | 2019-03-20 11:36 | Internal Med Progress Note ---
Medical - PN: Subj Patient information: Note initiated : 03/20/19 at 11:32 am Service Date, if different from initiated Date: [] Patient: Darcy Macdonald a 79 y/o F admitted on 03/17/19 for Back Pain, Weight Loss, Bowel Trouble. Chief Complaint: [] Interval history: Ms. Macdonald is a 79 year old F with a history of degenerative joint disease but otherwise fairly healthy and lives with her . Over the last month and a half patient has had a gradual loss of appetite associated with increasing bowel frequency and occasional incontinence. She also has had significant weight loss with over 20 pounds loss over month and a half. Symptoms associated increasing fatigue weakness and inability to take care of self. Her got increasingly concerned and brought her to the ER. Initial work-up was consistent with calcium over 15. Patient was started on crystalloids along with Lasix and subsequently hospitalist service consulted. At the time evaluation patient is accompanied with her . She appears fatigued and lethargic. She was able to endorse to history as above. Additionally patient endorses taking 3 tablets of 5 mg of calcium every day as a supplement. She denies taking excessive vitamin A or D. She denies recent fractures or hospitalization or renal stones. Patient has been experiencing increasing lower back pain and was diagnosed with T3-4-5 bone loss(per history) and resulting pain managed by pain clinic and physical therapy for over 2 months as outpatient without relief. Because of abnormal bowel movements patient was attempting to schedule a follow-up appointment with GI Dr. Macedo. Her last colonoscopy a year ago per patient was unremarkable. Her weaknesses increased to the point that family could not handle anymore and brought into the ER for evaluation. She denies fever, dysuria, abdominal pain, skin rash, lightheadedness or dizziness. She further denies changes in medications. 03/18-patient doing well. Complains of back pain but stable hemodynamics. Calcium down to 11 from 15.3. Status post zoledronic acid infusion/crystalloids/diuresis. Potassium down to 2.5 on aggressive replacement. Magnesium 1.4 on replacement, phosphorus 1.6 on replacement, PTH 9.2 appropriately suppressed, no evidence of vitamin D intoxication, TSH 0.51, vitamin D pending. CT abdomen chest pelvis to rule out malignancy related hypercalcemia/CT spine to rule out metastasis/osteo-lytic lesions. Continue PT OT/pain management 03/19 multiple enlarged lymph nodes in the abdomen consistent with lymphoma discussed with patient has been. Would like biopsy and further treatment biopsy ordered but will likely undergo on Thursday calcium calcium 11.7, potassium impro noemi to 3.7, magnesium 1.5 and phosphorus 2.5. Continue management including likely replacement. Continue PT OT/nutrition support 03/20-biopsy scheduled for Thursday as radiologist not available. Calcium down to 10.6, potassium 3.1 on replacement. Phosphorus normalized to 2.6. Denies pain other concerns except for stool incontinence.Stool C. difficile negative. PTH RP pending. - Constitutional Vitals: Vital Signs Temp Pulse Resp BP Pulse Ox 98.8 F 85 20 138/69 97 03/20/19 07:01 03/20/19 04:00 03/20/19 07:01 03/20/19 07:01 03/20/19 07:01 Period Temp Pulse Resp BP Sys/Thakur Pulse Ox Last 24 Hr 97.3 F-98.8 F 81-85 16-20 126-151/63-79 95-97 Intake and Output 03/19/19 03/20/19 03/20/19 21:59 05:59 13:59 Intake Total 590 Output Total 725 1 425 Balance -135 -1 -425 Weight 142 lb 9.6 oz Intake & Output: Intake & Output 03/19/19 03/20/19 03/20/19 21:59 05:59 13:59 Intake Total 590 Output Total 725 1 425 Balance -135 -1 -425 Weight 142 lb 9.6 oz Intake: IV 50 Oral 540 Output: Urine Catheter Amount 725 Void Amount 425 # of times incontinent of urine 1 Other: Meal Dinner Percent of Meal Consumed 0% Urine Appearance Cloudy Clear Urine Color Straw Bright Yellow Urine Odor Normal Normal Stool Size Moderate Stool Color Green Black Stool Consistency Loose # Bowel Movements 1 # of times incontinent of 1 Bowels General appearance: no acute distress Exam: Nonlabored breathing No anxiety Alert oriented No lymphedema nondistended abdomen Medical - PN: Obj Da - Labs CBC & Chem 7: 03/20/19 04:35 03/20/19 04:35 Labs: Abnormal Lab Results 03/20/19 03/20/19 03/19/19 04:35 04:35 04:45 WBC 3.3 L RBC 3.19 L Hgb 9.9 L Hct 29.4 L MPV 7.0 L Seg Neutrophils % 80 H Lymphocytes % 12 L ESR Potassium 3.1 L Uric Acid Calcium 10.6 H 11.7 H Phosphorus 2.6 L 2.5 L Magnesium 1.5 L Lactate Dehydrogenase 313 H 320 H C-Reactive Protein Total Protein 5.8 L Albumin Triglycerides 153 H PTH Intact 03/19/19 03/18/19 03/18/19 04:45 16:34 04:25 WBC 3.3 L RBC 3.23 L Hgb 9.8 L Hct 29.7 L MPV 7.2 L Seg Neutrophils % Lymphocytes % ESR Potassium 3.1 L 2.5 L* Uric Acid 8.2 H Calcium 11.5 H Phosphorus 1.6 L Magnesium 1.4 L Lactate Dehydrogenase C-Reactive Protein Total Protein 5.2 L Albumin 2.9 L Triglycerides PTH Intact 03/18/19 03/17/19 03/17/19 04:25 17:50 12:28 WBC 3.4 L RBC 3.00 L Hgb 9.1 L Hct 27.9 L MPV 7.0 L Seg Neutrophils % 80 H Lymphocytes % 8 L ESR Potassium Uric Acid Calcium 13.3 H* Phosphorus Magnesium Lactate Dehydrogenase C-Reactive Protein Total Protein Albumin Triglycerides PTH Intact 9.2 L 03/17/19 03/17/19 12:28 12:28 WBC RBC Hgb Hct MPV Seg Neutrophils % Lymphocytes % ESR 48 H Potassium Uric Acid Calcium Phosphorus Magnesium Lactate Dehydrogenase C-Reactive Protein 6.5 H Total Protein Albumin Triglycerides PTH Intact Meds: Medications Acetaminophen (Tylenol) 650 mg PO Q4-6HP PRN; Protocol PRN Reason: Per Pain Protocol/Fever > 101 Last Admin: 03/18/19 23:22 Dose: 650 mg Documented by: Hydrocodone Bitart/Acetaminophen ([place] 10/325mg) 1 - 2 tab PO Q4HP PRN; Protocol PRN Reason: PAIN LEVEL 3-6 Last Admin: 03/20/19 08:31 Dose: 1 tab Documented by: Chlorthalidone (Hygroton) 25 mg PO QDAY [facility] Last Admin: 03/20/19 08:10 Dose: 25 mg Documented by: Cyanocobalamin (Vitamin B-12) 1,000 mcg PO BID [facility] Stop: 03/22/19 09:01 Last Admin: 03/20/19 08:10 Dose: 1,000 mcg Documented by: Docusate Sodium (Colace) 100 mg PO BID [facility] Last Admin: 03/20/19 07:46 Dose: Not Given Documented by: Docusate Sodium (Colace) 100 mg PO BID [facility] Last Admin: 03/20/19 07:46 Dose: Not Given Documented by: Ferrous Sulfate (Ferrous Sulfate) 325 mg PO BIDCC [facility] Last Admin: 03/20/19 08:11 Dose: 325 mg Documented by: Folic Acid (Folic Acid) 1 mg PO DAILY [facility] Last Admin: 03/20/19 08:10 Dose: 1 mg Documented by: Furosemide (Lasix) 20 mg IV DAILY [facility] Last Admin: 03/20/19 08:11 Dose: 20 mg Documented by: Heparin Sodium (Porcine) (Heparin) 5,000 unit SQ Q12 [facility] Last Admin: 03/20/19 08:11 Dose: 5,000 unit Documented by: Acetaminophen (Ofirmev) 650 mg in 65 mls @ 130 mls/hr IV Q6HP PRN; Protocol PRN Reason: Per Pain Protocol/Fever > 101 Magnesium Sulfate (Magnesium Sulfate) 2 gm in 50 mls @ 50 mls/hr IV UD PRN PRN Reason: MG = or < 1.7 Last Infusion: 03/19/19 17:30 Dose: Infused Documented by: Iron Carb/Multivit/[place]/Folic Acid (Multivitamin W/Minerals) 1 tab PO DAILY [facility] Last Admin: 03/20/19 08:10 Dose: 1 tab Documented by: Magnesium Oxide (Magnesium Oxide) 400 mg PO QDAY [facility] Last Admin: 03/20/19 08:10 Dose: 400 mg Documented by: Omeprazole (Prilosec) 20 mg PO Q48@0730 [facility] Ondansetron HCl (Zofran) 4 mg IV Q4-6HP PRN; Protocol PRN Reason: Nausea And Vomiting Potassium Chloride (Klor-Con) 40 meq PO DAILYP PRN PRN Reason: K+ < 3.5 Last Admin: 03/20/19 08:11 Dose: 40 meq Documented by: Senna/Docusate Sodium (Senna Plus Tablet) 1 tab PO HS [facility] Last Admin: 03/19/19 20:36 Dose: Not Given Documented by: Sodium Chloride (Saline Flush) 10 ml IV Q8 [facility] Last Admin: 03/20/19 04:07 Dose: 10 ml Documented by: Thiamine HCl (Vitamin B1) 100 mg PO DAILY [place] Last Admin: 03/20/19 08:10 Dose: 100 mg Documented by: Medical - PN: A/P - Time Spent With Patient Total time spent is greater than 50% in coordination of care (as documented) at patient's floor/unit and/or counseling patient: 25 - 35 minutes (1) Hypercalcemia Status: Acute Assessment and plan: * Hypercalcemia over 15. Now down to 10.6. Status post bisphosphon ate/crystalloids and diuresis. Malignancy induced. Appropriately suppressed PTH, PTH RP pending, normal vitamin D/TSH levels. No evidence of adrenal insufficiency or renal failure. * Lymphoma on abdominal imaging. Biopsy on Thursday. Discussed CT findings with and Cori. Family expressed desire to continue further evaluation and treatment option consideration. We will schedule follow-up with oncology on discharge post biopsy * Hypokalemia 3.1 continue replacement * Low phosphorus resolved with replacement * Back pain-no evidence of vertebral metastasis * Recurrent diarrhea-stool studies * Severe weight loss/malnutrition-continue protein calorie supplements per dietitian * GERD continue PPI * DJD continue as needed opioids at home dose * Full code * Prophylaxis heparin Plan * Lymph node biopsy on Thursday * Electrolyte replacement as indicated * Continue PT OT * Continue dietary support with protein calorie supplements * Discharge planning per case management Current Visit: Yes Medical - PN: Qual - Stroke Symptom Onset Unknown: No - VTE Deep Vein Thrombosis/Pulmonary Embolism Present on Admission: Yes
[2019-03-20] MEDS: MAGNESIUM SULFATE 2 GM/50 ML BAG IV PRN (12:55)
[2019-03-20] MEDS: ACETAMINOPHEN 325 MG TABLET PO PRN (17:17)
[2019-03-20] MEDS: SENNOSIDES/DOCUSATE SODIUM 1 TAB TABLET PO SCH (20:15)
[2019-03-21] MEDS: 0.9 % SODIUM CHLORIDE 10 ML SYRINGE IV SCH ×3 (04:19→21:40)
[2019-03-21 05:59] LABS: Hematocrit 30.6 % (36.0-48.0); Hemoglobin 10.3 g/dL (12.0-15.0); Mean Cell Volume 91.6 fL (80.0-100.0); Mean Corpuscular HGB Conc 33.7 g/dL (31.0-36.0); Mean Platelet Volume 7.1 fL (7.4-10.4); Platelet Count 305 K/mcL (140-440); RBC 3.35 M/mcL (4.00-5.20)
[2019-03-21 06:17] LABS: ALT/SGPT 9 U/l (0-40); AST/SGOT 25 U/l (0-37); Albumin 3.3 gm/dL (3.2-5.2); Albumin/Globulin Ratio 1.2 (1.0-2.3); Alkaline Phosphatase 69 U/L (39-117); Bilirubin,Direct < 0.2 mg/dL (0.0-0.3); Bilirubin,Total 0.6 mg/dL (0.0-1.0); Blood Urea Nitrogen 13 mg/dl (8-23); Calcium 10.2 mg/dl (8.6-10.4); Carbon Dioxide 27 mmol/L (22-30); Chloride 97 mmol/L (96-108); Globulin 2.7 gm/dL (2.2-3.7); Glomerular Filtration Rate 69; Glucose 97 mg/dL (70-105); Lactate Dehydrogenase 335 U/L (94-250); Triglycerides 178 mg/dl (<150); Uric Acid 5.2 mg/dL (2.5-8.0)
[2019-03-21] MEDS: HYDROcodone/APAP 10/325MG TABLET PO PRN ×3 (07:16→18:49)
[2019-03-21] MEDS: FERROUS SULFATE 325 MG TABLET PO SCH ×2 (07:17→17:56)
[2019-03-21] MEDS ORDERED: OMEPRAZOLE 20 MG CAPSULE PO SCH (07:30)
[2019-03-21 08:25] LABS: Eosinophils % (Manual) 5 % (0-7); Hypochromasia 1+ (NONE SEEN); Lymphocytes % 18 % (15-49); Monocytes % (Manual) 8 % (1-12); Platelet Estimate NORMAL (NORMAL); RBC Morphology ABNORM (NORMAL); Reactive Lymphocytes 1 % (0-2); Segmented Neutrophils % 68 % (38-78)
[2019-03-21] MEDS: HEPARIN 5,000 UNIT/ML VIAL SQ SCH ×2 (08:39→21:39)
[2019-03-21] MEDS: FUROSEMIDE 20 MG/2 ML VIAL IV SCH (08:39)
[2019-03-21] MEDS: THIAMINE 100 MG TABLET PO SCH (08:39)
[2019-03-21] MEDS: CYANOCOBALAMIN (VITAMIN B-12) 500 MCG TABLET PO SCH ×2 (08:39→21:39)
[2019-03-21] MEDS: CHLORTHALIDONE 25 MG TABLET PO SCH (08:39)
[2019-03-21] MEDS: MAGNESIUM OXIDE 400 MG TABLET PO SCH (08:39)
[2019-03-21] MEDS: MULTIVIT,THER IRON,CA,FA & MIN 1 TABLET PO SCH (08:39)
[2019-03-21] MEDS: POTASSIUM CHLORIDE 20 MEQ PACKET PO PRN ×2 (09:03→17:56)
[2019-03-21] MEDS ORDERED: METOPROLOL TARTRATE 5 MG/5 ML VIAL IV ONE (09:10)
[2019-03-21] MEDS: METOPROLOL TARTRATE 5 MG/5 ML VIAL IV SCH ×2 (09:39→09:41)
[2019-03-21] MEDS: FOLIC ACID 1 MG TABLET PO SCH (09:53)
[2019-03-21] MEDS: DOCUSATE SODIUM 100 MG CAPSULE PO SCH ×2 (09:53→21:39)
--- NOTE | 2019-03-21 10:46 | Internal Med Progress Note ---
Medical - PN: Subj Patient information: Note initiated : 03/21/19 at 10:42 am Service Date, if different from initiated Date: [] Patient: Darcy Macdonald a 79 y/o F admitted on 03/17/19 for Back Pain, Weight Loss, Bowel Trouble. Chief Complaint: [] Interval history: Ms. Macdonald is a 79 year old F with a history of degenerative joint disease but otherwise fairly healthy and lives with her . Over the last month and a half patient has had a gradual loss of appetite associated with increasing bowel frequency and occasional incontinence. She also has had significant weight loss with over 20 pounds loss over month and a half. Symptoms associated increasing fatigue weakness and inability to take care of self. Her got increasingly concerned and brought her to the ER. Initial work-up was consistent with calcium over 15. Patient was started on crystalloids along with Lasix and subsequently hospitalist service consulted. At the time evaluation patient is accompanied with her . She appears fatigued and lethargic. She was able to endorse to history as above. Additionally patient endorses taking 3 tablets of 5 mg of calcium every day as a supplement. She denies taking excessive vitamin A or D. She denies recent fractures or hospitalization or renal stones. Patient has been experiencing increasing lower back pain and was diagnosed with T3-4-5 bone loss(per history) and resulting pain managed by pain clinic and physical therapy for over 2 months as outpatient without relief. Because of abnormal bowel movements patient was attempting to schedule a follow-up appointment with GI Dr. Macedo. Her last colonoscopy a year ago per patient was unremarkable. Her weaknesses increased to the point that family could not handle anymore and brought into the ER for evaluation. She denies fever, dysuria, abdominal pain, skin rash, lightheadedness or dizziness. She further denies changes in medications. 03/18-patient doing well. Complains of back pain but stable hemodynamics. Calcium down to 11 from 15.3. Status post zoledronic acid infusion/crystalloids/diuresis. Potassium down to 2.5 on aggressive replacement. Magnesium 1.4 on replacement, phosphorus 1.6 on replacement, PTH 9.2 appropriately suppressed, no evidence of vitamin D intoxication, TSH 0.51, vitamin D pending. CT abdomen chest pelvis to rule out malignancy related hypercalcemia/CT spine to rule out metastasis/osteo-lytic lesions. Continue PT OT/pain management 03/19 multiple enlarged lymph nodes in the abdomen consistent with lymphoma discussed with patient has been. Would like biopsy and further treatment biopsy ordered but will likely undergo on Thursday calcium calcium 11.7, potassium impro noemi to 3.7, magnesium 1.5 and phosphorus 2.5. Continue management including likely replacement. Continue PT OT/nutrition support 03/20-biopsy scheduled for Thursday as radiologist not available. Calcium down to 10.6, potassium 3.1 on replacement. Phosphorus normalized to 2.6. Denies pain other concerns except for stool incontinence.Stool C. difficile negative. PTH RP pending. 03/21 patient discovered in A. fib with RVR. IV metoprolol push resulted in conversion to sinus. Continue telemetry monitoring. Lymph node biopsy today. Scheduled outpatient follow-up with oncology in 10 to 14 days. Anticipate discharge in 24 hours if patient remains in sinus and no significant postprocedure concerns of bleeding. Continue replacement of potassium and phosphate. 120 mg potassium p.o. today along with Neutra-Phos 2 packets twice daily. No overnight fever chills. Anticipate SNF transfer, case management to coordinate. - Constitutional Vitals: Vital Signs Temp Pulse Resp BP Pulse Ox 98.1 F 95 H 18 155/70 95 03/21/19 08:00 03/21/19 08:00 03/21/19 08:00 03/21/19 08:00 03/21/19 08:00 Period Temp Pulse Resp BP Sys/Thakur Pulse Ox Last 24 Hr 97.5 F-99.3 F 81-95 14-20 109-155/58-73 95-96 Intake and Output 03/20/19 03/21/19 03/21/19 21:59 05:59 13:59 Intake Total 880 120 100 Output Total 403 177 75 Balance 477 -57 25 Weight 143 lb 14.4 oz Intake & Output: Intake & Output 03/20/19 03/21/19 03/21/19 21:59 05:59 13:59 Intake Total 880 120 100 Output Total 403 177 75 Balance 477 -57 25 Weight 143 lb 14.4 oz Intake: Nourishment/Supplement quantity 80 (ml) Oral 800 120 100 Output: Void Amount 400 175 75 # of times incontinent of urine 3 2 Other: Meal Dinner Breakfast Percent of Meal Consumed 25% 50% Feeding Ability Assist with Tray Set Up Nourishment/Supplement name boost breeze Urine Appearance Clear Urine Color Straw Urine Odor Normal # Voids 1 General appearance: no acute distress Exam: Alert and oriented Nonlabored breathing No anxiety No lymphedema A. fib RVR converted to sinus shortly Medical - PN: Obj Da - Labs CBC & Chem 7: 03/21/19 04:35 03/21/19 04:35 Labs: Abnormal Lab Results 03/21/19 03/21/19 03/20/19 04:35 04:35 04:35 WBC 4.0 L RBC 3.35 L Hgb 10.3 L Hct 30.6 L MPV 7.1 L Seg Neutrophils % Lymphocytes % RBC Morphology Abnorm A Hypochromasia 1+ A Potassium 3.1 L Calcium 10.6 H Phosphorus 2.0 L 2.6 L Magnesium Lactate Dehydrogenase 335 H 313 H Total Protein 5.8 L Triglycerides 178 H 03/20/19 03/19/19 03/19/19 04:35 04:45 04:45 WBC 3.3 L 3.3 L RBC 3.19 L 3.23 L Hgb 9.9 L 9.8 L Hct 29.4 L 29.7 L MPV 7.0 L 7.2 L Seg Neutrophils % 80 H Lymphocytes % 12 L RBC Morphology Hypochromasia Potassium Calcium 11.7 H Phosphorus 2.5 L Magnesium 1.5 L Lactate Dehydrogenase 320 H Total Protein Triglycerides 153 H 03/18/19 16:34 WBC RBC Hgb Hct MPV Seg Neutrophils % Lymphocytes % RBC Morphology Hypochromasia Potassium 3.1 L Calcium Phosphorus Magnesium Lactate Dehydrogenase Total Protein Triglycerides Meds: Medications Acetaminophen (Tylenol) 650 mg PO Q4-6HP PRN; Protocol PRN Reason: Per Pain Protocol/Fever > 101 Last Admin: 03/20/19 17:17 Dose: 650 mg Documented by: Hydrocodone Bitart/Acetaminophen ([place] 10/325mg) 1 - 2 tab PO Q4HP PRN; Protocol PRN Reason: PAIN LEVEL 3-6 Last Admin: 03/21/19 07:16 Dose: 1 tab Documented by: Chlorthalidone (Hygroton) 25 mg PO QDAY [place] Last Admin: 03/21/19 08:39 Dose: 25 mg Documented by: Cyanocobalamin (Vitamin B-12) 1,000 mcg PO BID [place] Stop: 03/22/19 09:01 Last Admin: 03/21/19 08:39 Dose: 1,000 mcg Documented by: Docusate Sodium (Colace) 100 mg PO BID [facility] Last Admin: 03/21/19 09:53 Dose: Not Given Documented by: Ferrous Sulfate (Ferrous Sulfate) 325 mg PO BIDCC [facility] Last Admin: 03/21/19 07:17 Dose: 325 mg Documented by: Folic Acid (Folic Acid) 1 mg PO DAILY [facility] Last Admin: 03/21/19 09:53 Dose: 1 mg Documented by: Furosemide (Lasix) 20 mg IV DAILY [facility] Last Admin: 03/21/19 08:39 Dose: 20 mg Documented by: Heparin Sodium (Porcine) (Heparin) 5,000 unit SQ Q12 [facility] Last Admin: 03/21/19 08:39 Dose: 5,000 unit Documented by: Acetaminophen (Ofirmev) 650 mg in 65 mls @ 130 mls/hr IV Q6HP PRN; Protocol PRN Reason: Per Pain Protocol/Fever > 101 Magnesium Sulfate (Magnesium Sulfate) 2 gm in 50 mls @ 50 mls/hr IV UD PRN PRN Reason: MG = or < 1.7 Last Infusion: 03/20/19 13:55 Dose: Infused Documented by: Iron Carb/Multivit/[place]/Folic Acid (Multivitamin W/Minerals) 1 tab PO DAILY [facility] Last Admin: 03/21/19 08:39 Dose: 1 tab Documented by: Magnesium Oxide (Magnesium Oxide) 400 mg PO QDAY [facility] Last Admin: 03/21/19 08:39 Dose: 400 mg Documented by: Omeprazole (Prilosec) 20 mg PO Q48@0730 [facility] Last Admin: 03/21/19 07:17 Dose: 20 mg Documented by: Ondansetron HCl (Zofran) 4 mg IV Q4-6HP PRN; Protocol PRN Reason: Nausea And Vomiting Potassium Chloride (Klor-Con) 40 meq PO DAILYP PRN PRN Reason: K+ < 3.5 Last Admin: 03/21/19 09:03 Dose: 40 meq Documented by: Potassium/Phosphorus/Sodium (Neutra Phos) 2 packet PO BID [facility] Senna/Docusate Sodium (Senna Plus Tablet) 1 tab PO HS [facility] Last Admin: 03/20/19 20:15 Dose: Not Given Documented by: Sodium Chloride (Saline Flush) 10 ml IV Q8 [facility] Last Admin: 03/21/19 04:19 Dose: 10 ml Documented by: Thiamine HCl (Vitamin B1) 100 mg PO DAILY [facility] Last Admin: 03/21/19 08:39 Dose: 100 mg Documented by: Medical - PN: A/P - Time Spent With Patient Total time spent is greater than 50% in coordination of care (as documented) at patient's floor/unit and/or counseling patient: 25 - 35 minutes (1) Hypercalcemia Status: Acute Assessment and plan: * A. fib with RVR-responded to IV metoprolol push. Converted to sinus. Continue telemetry monitoring * Hypercalcemia over 15. Now down to 10.2. Status post bisphosphonate/crystalloids and diuresis. Malignancy induced. Appropriately suppressed PTH, PTH RP/vitamin A pending, normal vitamin D/TSH levels. No evidence of adrenal insufficiency or renal failure. * Lymphoma on abdominal imaging. Biopsy right groin lymph node today. Discussed CT findings with and Darcy. Family expressed desire to continue further evaluation and treatment option consideration. We will schedule follow-up with oncology on discharge post biopsy in 10 to 14 days * Hypokalemia-replace 120 meq phosphorus today * Low phosphorus -Neutra-Phos 2 packets twice daily * Back pain-no evidence of vertebral metastasis on CT spine * Recurrent diarrhea-stool studies * Severe weight loss/protein calorie malnutrition-continue supplements per dietitian. Case management to coordinate SNF transfer for significant deconditioning * GERD continue PPI * DJD continue as needed opioids at home dose * Full code * Prophylaxis heparin Plan * Lymph node biopsy today by radiology * Electrolyte replacement as above * Telemetry monitoring for 24 hours * Continue PT OT/SNF transfer coordination * Continue protein calorie supplements * Discharge planning to SNF per case management Current Visit: Yes Medical - PN: Qual - Stroke Symptom Onset Unknown: No - VTE Deep Vein Thrombosis/Pulmonary Embolism Present on Admission: Yes
[2019-03-21] MEDS ORDERED: LIDOCAINE 1% 20 ML VIAL SQ ONE (12:00)
[2019-03-21] MEDS: NEUTRA PHOS 1 PACKET PO SCH ×2 (12:20→21:39)
--- NOTE | 2019-03-21 12:49 | Ultrasound Report ---
CLINICAL INFORMATION: Pelvic adenopathy. Large right inguinal lymph node is targeted for biopsy COMPARISON: Chest abdomen and pelvic CT 03/18/2019 TECHNIQUE: Procedure and risks including the possibility of bleeding, infection and inadequate tissue sampling require rebiopsy were explained to the patient. She understood and wished to proceed. With the patient's supine position, the skin, overlying the lymph node, was sonographically localized, marked, prepped and local anesthesia was accomplished to the level of the lymph node using a 25-gauge needle and 1% lidocaine. An 11-gauge Achieve needle was used to obtain five core samples under sonographic guidance. The tissue was sent in formalin to pathology. Two cores were sent in saline. Postprocedure scanning shows no hemorrhage or other abnormality. The patient tolerated procedure well. IMPRESSION: Ultrasound-guided percutaneous core biopsy of large right inguinal lymph node. No apparent complication. Pathology pending Interpreted and Authenticated by: Jordon Bhardwaj 03/21/19
[2019-03-21] MEDS: SENNOSIDES/DOCUSATE SODIUM 1 TAB TABLET PO SCH (21:40)
[2019-03-22] MEDS: HYDROcodone/APAP 10/325MG TABLET PO PRN ×3 (04:08→12:44)
[2019-03-22] MEDS: 0.9 % SODIUM CHLORIDE 10 ML SYRINGE IV SCH (04:09)
[2019-03-22 05:45] LABS: Hematocrit 34.5 % (36.0-48.0); Hemoglobin 11.3 g/dL (12.0-15.0); Mean Cell Volume 92.2 fL (80.0-100.0); Mean Corpuscular HGB Conc 32.8 g/dL (31.0-36.0); Mean Platelet Volume 7.2 fL (7.4-10.4); Platelet Count 359 K/mcL (140-440); RBC 3.74 M/mcL (4.00-5.20); Red Cell Distribution Width 13.2 % (11.5-14.5); WBC 5.3 K/mcL (4.5-11.0)
[2019-03-22 07:11] LABS: ALT/SGPT 14 U/l (0-40); AST/SGOT 38 U/l (0-37); Albumin 3.2 gm/dL (3.2-5.2); Alkaline Phosphatase 82 U/L (39-117); Bilirubin,Direct < 0.2 mg/dL (0.0-0.3); Bilirubin,Total 0.6 mg/dL (0.0-1.0); Blood Urea Nitrogen 13 mg/dl (8-23); Calcium 10.7 mg/dl (8.6-10.4); Carbon Dioxide 24 mmol/L (22-30); Chloride 96 mmol/L (96-108); Globulin 3.2 gm/dL (2.2-3.7); Glomerular Filtration Rate 60; Glucose 97 mg/dL (70-105); Lactate Dehydrogenase 431 U/L (94-250); Triglycerides 183 mg/dl (<150); Uric Acid 4.6 mg/dL (2.5-8.0)
[2019-03-22 07:15] LABS: Phosphorous 3.3 mg/dL (2.7-4.5)
[2019-03-22 07:44] LABS: Eosinophils % (Manual) 2 % (0-7); Lymphocytes % 17 % (15-49); Monocytes % (Manual) 8 % (1-12); Platelet Estimate NORMAL (NORMAL); RBC Morphology NORMAL (NORMAL); Segmented Neutrophils % 73 % (38-78)
[2019-03-22] MEDS: MAGNESIUM OXIDE 400 MG TABLET PO SCH (08:11)
[2019-03-22] MEDS: FERROUS SULFATE 325 MG TABLET PO SCH (08:11)
[2019-03-22] MEDS: DOCUSATE SODIUM 100 MG CAPSULE PO SCH (08:11)
[2019-03-22] MEDS: FOLIC ACID 1 MG TABLET PO SCH (08:11)
[2019-03-22] MEDS: THIAMINE 100 MG TABLET PO SCH (08:12)
[2019-03-22] MEDS: CYANOCOBALAMIN (VITAMIN B-12) 500 MCG TABLET PO SCH (08:12)
[2019-03-22] MEDS: MULTIVIT,THER IRON,CA,FA & MIN 1 TABLET PO SCH (08:12)
[2019-03-22] MEDS: NEUTRA PHOS 1 PACKET PO SCH (08:12)
[2019-03-22] MEDS: FUROSEMIDE 20 MG/2 ML VIAL IV SCH (08:12)
[2019-03-22] MEDS: CHLORTHALIDONE 25 MG TABLET PO SCH (08:13)
[2019-03-22] MEDS: HEPARIN 5,000 UNIT/ML VIAL SQ SCH (08:13)
--- NOTE | 2019-03-22 11:19 | Discharge Summary ---
Medical - DS: Prov Patient information: Note initiated : 03/22/19 at 11:15 am Service Date, if different from initiated Date: [] Patient: Darcy Macdonald 79 y/o F admitted on 03/17/19 for Back Pain, Weight Loss, Bowel Trouble. Chief Complaint: [] Date of admission: 03/17/19 11:24 Discharge date: 03/22/19 Primary care physician: Fadia Bolanos Consults: 03/17/19 Consult to Physician [CONS] Stat Comment: Consulting Provider: Eloy Vieira Reason For Exam: Physician to Consult Medical - DS: Meds - Discharge Medications Prescriptions: traMADol [Ultram] 50 - 100 mg PO Q4-6HP PRN #15 tab PRN Reason: Pain Prescription Printed Active and Home Medications: Home Medications acetaminophen 500 mg capsule 1,000 mg PO DAILYP PRN cap 01/01/15 [History Confirmed 03/17/19 Last Taken 03/16/19] aspirin 81 mg tablet,delayed release 81 mg PO QDAY #90 tab 07/10/15 [Rx Confirmed 03/17/19 Last Taken 03/16/19] magnesium 250 mg tablet 250 mg PO QDAY #30 tab 10/28/16 [Rx Confirmed 03/17/19 Last Taken 05/30/18 09:00] chlorthalidone 25 mg tablet 25 mg PO QDAY #90 tab 04/13/17 [Rx Confirmed 03/17/19 Last Taken 03/16/19] Omeprazole [Prilosec] 20 mg PO Q48@0730 04/22/17 [History Confirmed 03/17/19 Last Taken 03/16/19] Vitamin B Complex [Ultra B-100 Complex] 1 tab PO SA@0900 04/22/17 [History Confirmed 03/17/19 Last Taken 05/29/18 09:00] cranberry extract 500 mg capsule 500 mg PO DAILY 06/16/17 [History Confirmed 03/17/19 Last Taken 03/16/19] Celecoxib [Celebrex] 200 mg PO DAILY 05/24/18 [History Confirmed 03/17/19 Last Taken 05/23/18] Ferrous Sulfate 325 mg PO BIDCC 05/24/18 [History Confirmed 03/17/19 Last Taken 05/30/18 19:00] Ipratropium 0.06% Nasal [place] [Atrovent 0.06% Nasal Srpay] 1 - 2 spray INTRANASAL TIDP PRN 05/24/18 [History Confirmed 03/17/19 Last Taken 03/16/19] Oxybutynin Chloride [Ditropan] 10 mg PO HS 05/24/18 [History Confirmed 03/17/19 Last Taken 05/30/18 20:00] Ciprofloxacin [Cipro] 500 mg PO BID 05/31/18 [History Confirmed 03/17/19 Last Taken 05/30/18 17:00] Docusate Sodium [Colace] 100 mg PO BID #60 cap 06/01/18 [Rx Confirmed 03/17/19 Last Taken Unknown] HYDROcodone/APAP 10/325MG [[place] 10-325Mg] 1 - 2 tab PO Q4HP PRN #75 tab 06/01/18 [Rx Confirmed 03/17/19 Last Taken Unknown] traMADol [Ultram] 50 - 100 mg PO Q4-6HP PRN #15 tab 03/17/19 [Rx Last Taken Unknown] Medical - DS: Hosp Hospital Course: Discharge diagnosis * Hypercalcemia of malignancy over 15 on presentation. Now down to 10.7. Off all calcium supplements. Likely lymphoma related increase GI absorption. Status post bisphosphonate. Appropriately suppressed PTH, PTH RP/vitamin A pending, normal vitamin D/TSH levels. Patient will follow-up with oncology * Lymphoma on abdominal imaging. Status post biopsy right groin lymph node. Pending path results. We will follow-up with oncology as outpatient for treatment options * A. fib with RVR-responded to IV metoprolol push. Converted to sinus. No overnight events. * Hypokalemia-4.2 status post replacement * Low phosphorus -resolved post replacement * Back pain-no evidence of vertebral metastasis on CT spine. Continue as needed Tylenol * Recurrent diarrhea-resolved. Stool studies negative so far * Severe weight loss/protein calorie malnutrition-continue protein calorie supplements per dietitian. * GERD continue PPI * DJD continue as needed opioids at home dose Brief hospital course Ms. Macdonald is a 79 year old F with a history of degenerative joint disease but otherwise fairly healthy and lives with her . Over the last month and a half patient has had a gradual loss of appetite associated with increasing bowel frequency and occasional incontinence. She also has had significant weight loss with over 20 pounds loss over month and a half. Symptoms associated increasing fatigue weakness and inability to take care of self. Her got increasingly concerned and brought her to the ER. Initial work-up was consiste nt with calcium over 15. Patient was started on crystalloids along with Lasix and subsequently hospitalist service consulted. At the time evaluation patient is accompanied with her . She appears fatigued and lethargic. She was able to endorse to history as above. Additionally patient endorses taking 3 tablets of 5 mg of calcium every day as a supplement. She denies taking excessive vitamin A or D. She denies recent fractures or hospitalization or renal stones. Patient has been experiencing increasing lower back pain and was diagnosed with T3-4-5 bone loss(per history) and resulting pain managed by pain clinic and physical therapy for over 2 months as outpatient without relief. Because of abnormal bowel movements patient was attempting to schedule a follow-up appointment with GI Dr. Macedo. Her last colonoscopy a year ago per patient was unremarkable. Her weaknesses increased to the point that family could not handle anymore and brought into the ER for evaluation. She denies fever, dysuria, abdominal pain, skin rash, lightheadedness or dizziness. She further denies changes in medications. 03/18-patient doing well. Complains of back pain but stable hemodynamics. Calcium down to 11 from 15.3. Status post zoledronic acid infusion/crystalloids/diuresis. Potassium down to 2.5 on aggressive replacement. Magnesium 1.4 on replacement, phosphorus 1.6 on replacement, PTH 9.2 appropriately suppressed, no evidence of vitamin D intoxication, TSH 0.51, vitamin D pending. CT abdomen chest pelvis to rule out malignancy related hypercalcemia/CT spine to rule out metastasis/osteo-lytic lesions. Continue PT OT/pain management 03/19 multiple enlarged lymph nodes in the abdomen consistent with lymphoma discussed with patient has been. Would like biopsy and further treatment biopsy ordered but will likely undergo on Thursday calcium calcium 11.7, potassium improved to 3.7, magnesium 1.5 and phosphorus 2.5. Continue management including likely replacement. Continue PT OT/nutrition support 03/20-biopsy scheduled for Thursday as radiologist not available. Calcium down to 10.6, potassium 3.1 on replacement. Phosphorus normalized to 2.6. Denies pain other concerns except for stool incontinence.Stool C. difficile negative. PTH RP pending. 03/21 patient discovered in A. fib with RVR. IV metoprolol push resulted in conversion to sinus. Continue telemetry monitoring. Lymph node biopsy today. Scheduled outpatient follow-up with oncology in 10 to 14 days. Anticipate discharge in 24 hours if patient remains in sinus and no significant postprocedu re concerns of bleeding. Continue replacement of potassium and phosphate. 120 mg potassium p.o. today along with Neutra-Phos 2 packets twice daily. No overnight fever chills. Anticipate SNF transfer, case management to coordinate. 03/22-patient status post lymph node biopsy. Discharging to [facility], patient will follow-up with oncology in 10 days. Discontinue calcium intake due to underlying lymphoma and high calcium absorption. DC vitamin D. Status post bisphosphonate infusion. Continue monitoring calcium as outpatient. Avoid high calcium food supplements. No overnight fever chills. No significant pain at the biopsy site. Electrolytes stable. [place] [facility]charge diagnosis: . - Time Spent with Patient Total time spent providing and/or coordinating discharge services: Greater than 30 minutes Medical - DS: Exam - Constitutional Vitals: Vital Signs Temp Pulse Resp BP Pulse Ox 03/22/19 08:00 97.7 F 89 18 101/60 97 03/22/19 04:00 98.5 F 93 H 16 118/75 96 03/21/19 23:18 97.7 F 84 16 95/58 97 03/21/19 19:24 98.1 F 100 H 16 95/56 97 03/21/19 16:00 98.1 F 94 H 18 105/62 97 03/21/19 12:00 98.3 F 89 18 103/58 96 Intake and Output 03/21/19 03/22/19 03/22/19 21:59 05:59 13:59 Intake Total 990 740 240 Output Total 203 152 303 Balance 787 588 -63 Intake: Oral 990 740 240 Output: Void Amount 200 150 300 # of times incontinent of urine 3 2 3 Other: Meal Dinner Breakfast Percent of Meal Consumed 75% 50% Feeding Ability Assist with Tray Set Up Urine Appearance Clear Clear Urine Color Dark Yellow Dark Yellow Pale Urine Odor Normal Normal Weight 136 lb 9.6 oz Medical - DS: Data Labs on day of discharge: Labs from last 24 hours 03/22/19 03/22/19 04:16 04:16 WBC 5.3 RBC 3.74 L Hgb 11.3 L Hct 34.5 L MCV 92.2 MCH 30.3 MCHC 32.8 RDW 13.2 Plt Count 359 MPV 7.2 L Total Counted 100 Seg Neutrophils % 73 Band Neutrophils % Not Reportable Lymphocytes % 17 Monocytes % (Manual) 8 Eosinophils % (Manual) 2 Platelet Estimate Normal RBC Morphology Normal Sodium 135 Potassium 4.2 Chloride 96 Carbon Dioxide 24 Anion Gap 15.0 BUN 13 Creatinine 0.9 GFR Calculation 60 Glucose 97 Uric Acid 4.6 Calcium 10.7 H Phosphorus 3.3 Magnesium 1.7 Total Bilirubin 0.6 Direct Bilirubin < 0.2 GGT 39 H AST 38 H ALT 14 Alkaline Phosphatase 82 Lactate Dehydrogenase 431 H Total Protein 6.4 Albumin 3.2 Globulin 3.2 Albumin/Globulin Ratio 1.0 Triglycerides 183 H Medical - DS: A/P - Patient/Caregiver Discharge Instructions Activity: as per physical therapy, increase activity as tolerated Diet: Regular Diet Additional Instructions: Follow-up oncology for evaluation of lymphadenopathy possible lymphoma status post biopsy Discontinue all calcium supplements/vitamin D Low calcium diet follow-up with your primary care provider in the next 5 to 7 days Return to ER if worsening pain, weakness noted PT OT at SNF Nutrition supplements Prescriptions: traMADol [Ultram] 50 - 100 mg PO Q4-6HP PRN #15 tab PRN Reason: Pain Prescription Printed - Problem Maintenance (1) Hypercalcemia Status: Acute - Follow up Plan Follow up with: Wade Juarez MD [Physician] - Fadia Bolanos ARNP [Primary Care Provider] - Pat Osuna MD [Physician] - Disposition: [facility] Prognosis: Fair Rehab Potential: Fair I certify that the patient requires SNF services: No Overall status at discharge: patient is progressing back to baseline Medical - DS: Qual - VTE Deep Vein Thrombosis/Pulmonary Embolism Present on Admission: Yes
[2019-03-23 07:47] LABS: Vit D 1,25 Dihydroxy 145 pg/mL (18-72)
--- NOTE | 2019-03-24 14:48 | Surgical Pathology Report ---
HISTOLOGY SPECIMEN MICROSCOPIC DIAGNOSIS LYMPH NODE, RIGHT GROIN MASS, ULTRASOUND-GUIDED BIOPSY: -- DIFFUSE LARGE B CELL LYMPHOMA, GERMINAL CENTER SUBTYPE, SEE COMMENT. (EBD:ciro) COMMENT: The patient's pelvic lymphadenopathy and splenic mass with recent weight loss is noted. The right groin mass biopsy shows involvement by diffuse large B cell lymphoma with CD10+, BCL6+, MUM1+ and BCL2+ immunohistochemical profile compatible with germinal center subtype. The flow cytometry shows a clonal B-cell population, lambda restricted, to support the diagnosis. Please see separate report for details. MICROSCOPIC DESCRIPTION Histologic sections of the right groin mass biopsy show malignant proliferation of large cells with high nuclear to cytoplasmic ratios, vesicular cleaved nuclei and prominent nucleoli. Scattered mitotic figures are identified. There is a background of small round mononuclear cells compatible with mature lymphocytes. No necrosis is identified. The following immunohistochemical studies are performed with the following results on block A2 (adequate technical controls): CD3 and CD5: Highlight background T cells. CD20: Positive in malignant cells. CD23: Negative. Cyclin-D1: Negative. Bcl-2: Positive in malignant cells. Bcl-6: Positive in malignant cells. CD10: Positive in malignant cells. MUM 1: Positive in malignant cells. Pancytokeratin plus: Negative. CD30: Shows less than 1% staining. (EBD:ciro) Some of the tests reported here may not have been cleared or approved by the U.S. Food and Drug Administration (FDA). However, the FDA has determined that such clearance or approval is not necessary. Pursuant to the requirements of CLIA, this laboratory has established and verified the accuracy and precision of all tests, and additional information about these tests is available upon request. All technical controls are adequate. CLINICAL HISTORY Pelvic adenopathy. GROSS DESCRIPTION Received in two parts with one part in formalin and the other part in saline. The portion in saline contains two luevano-mcdonnell cores of tissue ranging in size from 1.8 x 2.1 cm in length and up to 0.1 cm in diameter. The cores are luevano-mcdonnell. A portion of each core is preserved in RPMI. These cores are submitted in block A2. In the formalin container there are four cores of luevano-mcdonnell tissue ranging in size from 0.7 up to 1.5 cm in length and up to 0.1 cm in diameter. These cores are totally submitted in cassette A1. (KGW:ciro) Electronically Signed by: So Love M.D.
[2019-03-25 11:05] LABS: Vitamin A 49 mcg/dL (38-98)
== END 2019-03-22 13:00 | DRG 628 ==
LOC: ED 06:25 → MEDSUR 11:20
PROVIDERS: ADMIT Internal Medicine; ATTEND Internal Medicine

== ENCOUNTER 2019-05-22 14:47 | Inpatient (IN) ==
[2019-05-22] MEDS ORDERED: IOPAMIDOL 100 ML BOTTLE IV ONE (14:48)
--- NOTE | 2019-05-22 15:34 | Emergency Department Note ---
Chest Pain HPI - General Chief Complaint: Chest Pain Stated Complaint: chest pain Time Seen by Provider: 05/22/19 15:21 Source: family Mode of arrival: wheelchair Limitations: physical limitation - History of Present Illness HPI Narrative: 79-year old patient presenting to the emergency room with a primary chief complaint of chest pain. Patient reports has been having chest pain over the past 2-3 weeks escalating over the past day and now with cough/pleuritic sharp chest pain diffusely. Patient has known exacerbating factor of cough. Patient with ameliorating factor of nothing . Total duration of symptoms was 2-3 weeks. Patient was assessed for common risk factors for cardiac ischemia including existing or known atherosclerosis, HTN, DM, obesity, smoking, and elevated cholesterol. Associated symptoms of syncope, palpitations, diaphoresis, dyspnea are also assessed and were negative aside from the possibility of dyspnea. - Related Data Home Medications Medication Instructions Recorded Confirmed acetaminophen 500 mg capsule 1,000 mg PO DAILYP PRN cap 01/01/15 05/22/19 Omeprazole [Prilosec] 20 mg PO Q48@0730 04/22/17 04/11/19 Vitamin B Complex [Ultra B-100 1 tab PO SA@0900 04/22/17 04/11/19 Complex] cranberry extract 500 mg capsule 500 mg PO DAILY 06/16/17 04/11/19 Celecoxib [Celebrex] 200 mg PO DAILY 05/24/18 04/11/19 Ferrous Sulfate 325 mg PO BIDCC 05/24/18 04/11/19 Ipratropium 0.06% Nasal [place] 1 - 2 spray INTRANASAL TIDP PRN 05/24/18 04/11/19 [Atrovent 0.06% Nasal Srpay] Oxybutynin Chloride [Ditropan] 10 mg PO HS 05/24/18 04/11/19 Bisacodyl [Dulcolax] 10 mg [place] DAILYP PRN 04/11/19 04/11/19 Magnesium Hydroxide [Milk of 30 ml PO DAILYP PRN 04/11/19 04/11/19 Magnesia] Na Phos,M-B/Na Phos,Di-Ba [Fleets 1 dose [place] DAILYP PRN 04/11/19 04/11/19 Adult] Mirtazapine [Remeron] 15 mg PO HS 05/22/19 05/22/19 Previous Rx's Medication Instructions Recorded aspirin 81 mg tablet,delayed 81 mg PO QDAY #90 tab 07/10/15 release magnesium 250 mg tablet 250 mg PO QDAY #30 tab 10/28/16 chlorthalidone 25 mg tablet 25 mg PO QDAY #90 tab 04/13/17 Docusate Sodium [Colace] 100 mg PO BID #60 cap 06/01/18 traMADol [Ultram] 50 - 100 mg PO Q4-6HP PRN #15 tab 03/17/19 HYDROcodone/APAP 10/325MG [[place] 1 - 2 tab PO Q4HP PRN #75 tab 03/22/19 10-325Mg] Allergies Allergy/AdvReac Type Severity Reaction Status Date / Time fluticasone [From Flonase] Allergy Mild Rash Verified 03/17/19 11:54 latex Allergy Mild Rash Verified 03/17/19 11:54 olopatadine [From Patanase] Allergy Mild Rash Verified 03/17/19 11:54 amlodipine AdvReac Severe Swelling Verified 03/17/19 06:32 Tamoxifen AdvReac Severe pulmonary Verified 03/17/19 11:54 emboli alendronate sodium AdvReac Mild Nausea Verified 03/17/19 06:32 [From Fosamax] anastrozole [From Arimidex] AdvReac Mild Nausea Verified 03/17/19 11:54 benazepril AdvReac Mild cough Verified 03/17/19 06:32 Sibutramine [From Meridia] AdvReac Mild Nausea Verified 03/17/19 06:32 tramadol AdvReac Mild Nausea Verified 03/17/19 06:32 tape Allergy Mild Rash Uncoded 05/31/18 09:00 Review of Systems All systems ED: reviewed and negative except as stated. Chest Pain PMH - Past Medical History [facility] Narrative: All Active Problems (Last Reviewed 06/16/17 @ 09:42 by Jordon Putnam DO) Hx of total hip arthroplasty (Acute) Hip pain, chronic (Acute) Diarrhea (Acute) Hypercalcemia (Acute) Hypokalemia (Acute) Lymphoma (Acute) Large bowel perforation (Acute) Peripheral neuropathy (Chronic) Geriatric health maintenance (Chronic) History of total mastectomy of left breast (Chronic) Bruises easily (Chronic) Encounter for Medicare annual wellness exam (Chronic) Breast Cancer Screening (Chronic) Bleeding external hemorrhoids (Chronic) Hx of tonsillectomy (Chronic) Hx of left mastectomy (Chronic) Trochanteric bursitis of left hip (Chronic 10/05/14) Tendonitis (Chronic) Seborrheic keratoses (Chronic 12/28/13) Rhinitis, allergic (Chronic) Osteopenia (Chronic) Osteoarthritis (Chronic) Mitral regurgitation (Chronic) Hypertension, essential (Chronic 02/13/14) Hyperlipidemia (Chronic 02/13/14) Gastroesophageal reflux (Chronic) Diverticular disease (Chronic) Degenerative joint disease (Chronic) Malignant neoplasm of breast (female) (Chronic) Actinic keratosis (Chronic 12/28/13) Acne rosacea (Chronic) - Social History smoking status: Never smoker Physical Exam General: Alert, interactive, appropriate Head: Atraumatic, normocephalic Eyes: Extraocular movements intact, PERRLA Neck: Trachea midline, full range of motion Chest: Symmetrical chest wall rise, clear to auscultation bilateral without wheezes rales crackles or rubs Cardiovascular: Patient with excellent perfusion to the extremities, regular rate and rhythm without R/G pt does have loud murmur Abdomen: Nontender nondistended normoactive bowel sounds no masses no hepatosplenomegaly no rebound no guarding Extremities: Full range of motion joints, warm well perfused Neuro: Alert, oriented x3, cranial nerves II through XII grossly intact, normal gait Psychiatric: Normal affect normal mood Limitations: physical limitation Course Vital Signs Temperature 98 F 05/22/19 14:50 Pulse Rate 102 H 05/22/19 14:50 Respiratory Rate 17 05/22/19 14:50 Blood Pressure 151/80 05/22/19 14:50 Pulse Oximetry (%) 98 05/22/19 14:50 Temperature 98 F 05/22/19 14:50 Pulse Rate 92 H 05/22/19 17:17 Respiratory Rate 12 05/22/19 17:17 Blood Pressure 136/67 05/22/19 17:11 Pulse Oximetry (%) 94 05/22/19 17:17 Chest Pain - MDM Narrative Medical decision making narrative: This patient presented to the emergency department chest pain. In the emergency department patient was evaluated with laboratory/physical exam/history/EKG/troponin. Patient is in my medical opinion at this time high risk for pulmonary embolism. Evaluate for recent travel, surgery, history of blood clots, tachycardia, hypoxia, and tachypnea. Pt with history of PE as well as acute treatment for lymphoma also with initial tachycardia on presentation- CTPA ordered. Patient with nodule that has progressed in the chest. troponin test was negative. Patient's EKG did not suggest acute STEMI. There were no events noted on patient's telemetry while observed in the ED. Pt with critically low potassium, replacement started immediately and we were trying to give a total of 60 meq in the ED po as well as 20 meq IV at time this was identified. Pt given 20 po and developed significant nausea, I discussed the case with Dr. Hammond and the consensus is to admit to med/tele for ongoing replacement. Pt without arrhythmia during stay in ED. - Lab Data Result diagrams: 05/22/19 15:34 05/22/19 15:34 Lab Results 05/22/19 05/22/19 05/22/19 Range/Units 15:34 15:34 15:35 WBC 1.6 L (4.50-11.00) K/mcL RBC 2.80 L (3.59-5.38) M/mcL Hgb 8.3 L (11.2-15.7) g/dL Hct 24.7 L (34.1-44.9) % POC Hct 22.0 L (36.0-48.0) % MCV 88.2 (80.0-100.0) fL MCH 29.6 (26.0-34.0) pg MCHC 33.6 (31.0-36.0) g/dL RDW 14.6 H (11.5-14.5) % Plt Count 182 (140-440) K/mcL MPV 8.6 (7.4-10.4) fL Gran % 55.9 (38.0-78.0) % Lymph % (Auto) 29.4 (15.5-49.0) % [place] % (Auto) 9.2 (1.0-12.0) % Eos % (Auto) 5.5 (0.0-7.0) % Baso % (Auto) 0 (0.0-2.0) % Gran # 0.91 L (1.80-8.00) K/mcL Lymph # (Auto) 0.48 L (1.50-4.80) K/mcL [place] # (Auto) 0.15 (0.10-0.90) K/mcL Eos # (Auto) 0.09 (0.00-0.70) K/mcL Baso # (Auto) 0 (0.00-0.30) K/mcL POC Sodium 135 (133-145) mmol/L Sodium 134 (133-145) mmol/L POC Potassium 2.4 L* (3.3-5.1) mmol/L Potassium 2.5 L* (3.3-5.1) mmol/L POC Chloride 99 (96-108) mmol/L Chloride 98 (96-108) mmol/L Carbon Dioxide 21 L (22-30) mmol/L POC Total CO2 21 L (22-30) mmol/L Anion Gap 15.0 (8-16) POC BUN 5 L (8-23) mg/dl BUN 6 L (8-23) mg/dl Creatinine 0.7 (0.6-1.1) mg/dl POC Creatinine 0.6 (0.6-1.1) mg/dl GFR Calculation 81 Glucose 83 (70-105) mg/dL POC Glucose 83 (70-105) mg/dL Calcium 8.9 (8.6-10.4) mg/dl POC WB Ioniz Calcium 1.23 (1.16-1.32) mmol/L Total Bilirubin 0.6 (0.0-1.0) mg/dL AST 23 (0-37) U/l ALT 11 (0-40) U/l Alkaline Phosphatase 81 (39-117) U/L Total Protein 4.8 L (5.9-8.4) gm/dL Albumin 3.1 L (3.2-5.2) gm/dL Globulin 1.7 L (2.2-3.7) gm/dL Albumin/Globulin Ratio 1.8 (1.0-2.3) - EKG Data EKG attestation: Yes I reviewed and interpreted this EKG., Yes There are no EKG findings of acute coronary syndrome EKG results narrative: EKG: Rate: 101, MD: 139, rhythm: Sinus, patient without ST elevations to suggest STEMI, patient with borderline T waves inferior leads Critical Care Time Critical Care Time: Yes (severe hypokalemia/chest pain) Total Critical Care Time: 42 Attestation: I attest time spent was for critical care only including time spent directly with patient, evaluating results, consulting with specialists and was independent of any procedures needed by the patient. Disposition Pt seen by NATIONAL ACCOUNT REPRESENTATIVE/PA only: No Clinical Impression: Hypokalemia Chest pain Qualifiers: Chest pain type: chest pain on breathing Qualified Code(s): R07.1 - Chest pain on breathing Disposition: Xfer As Inpt ([facility]) Condition: Serious Referrals: Fadia Bolanos ARNP [Primary Care Provider] -
[2019-05-22 16:04] LABS: POC Blood Urea Nitrogen 5 mg/dl (8-23); POC CO2 21 mmol/L (22-30); POC Calcium, Ionized 1.23 mmol/L (1.16-1.32); POC Chloride 99 mmol/L (96-108); POC Creatinine 0.6 mg/dl (0.6-1.1); POC Glucose, Random 83 mg/dL (70-105); POC Potassium 2.4 mmol/L (3.3-5.1); POC Sodium 135 mmol/L (133-145)
[2019-05-22] MEDS ORDERED: POTASSIUM CHLORIDE 20 MEQ TABLET PO ONE (16:04)
[2019-05-22] MEDS ORDERED: NACL 0.9% W/KCL 20MEQ 1,000 ML IV SCH (16:15)
[2019-05-22 17:13] LABS: Basophils # (Auto) 0 K/mcL (0.00-0.30); Basophils % (Auto) 0 % (0.0-2.0); Eosinophils # (Auto) 0.09 K/mcL (0.00-0.70); Eosinophils % (Auto) 5.5 % (0.0-7.0); Granulocytes % (Auto) 55.9 % (38.0-78.0); Hematocrit 24.7 % (34.1-44.9); Hemoglobin 8.3 g/dL (11.2-15.7); Lymphocytes # (Auto) 0.48 K/mcL (1.50-4.80); Lymphocytes % (Auto) 29.4 % (15.5-49.0); Mean Cell Volume 88.2 fL (80.0-100.0); Mean Corpuscular HGB Conc 33.6 g/dL (31.0-36.0); Mean Platelet Volume 8.6 fL (7.4-10.4); Monocytes # (Auto) 0.15 K/mcL (0.10-0.90); Monocytes % (Auto) 9.2 % (1.0-12.0); Platelet Count 182 K/mcL (140-440); Red Cell Distribution Width 14.6 % (11.5-14.5); WBC 1.6 K/mcL (4.50-11.00)
[2019-05-22] MEDS ORDERED: ONDANSETRON 4 MG/2 ML VIAL IV ONE (17:13)
[2019-05-22 17:18] LABS: ALT/SGPT 11 U/l (0-40); AST/SGOT 23 U/l (0-37); Albumin 3.1 gm/dL (3.2-5.2); Albumin/Globulin Ratio 1.8 (1.0-2.3); Alkaline Phosphatase 81 U/L (39-117); Bilirubin,Total 0.6 mg/dL (0.0-1.0); Calcium 8.9 mg/dl (8.6-10.4); Carbon Dioxide 21 mmol/L (22-30); Chloride 98 mmol/L (96-108); Globulin 1.7 gm/dL (2.2-3.7); Glomerular Filtration Rate 81; Glucose 83 mg/dL (70-105)
[2019-05-22] MEDS ORDERED: POTASSIUM CHLORIDE 20 MEQ PACKET PO ONE (17:37)
[2019-05-22 17:40] LABS: Blood Urea Nitrogen 6 mg/dl (8-23)
--- NOTE | 2019-05-22 17:49 | Internal Med History&Physical ---
Medical - H&P: [facility] Patient information: Note initiated : 05/22/19 at 5:49 pm Service Date, if different from initiated Date: [] Patient: Darcy Macdonald a 79 y/o F admitted on for chest pain. Chief Complaint: [] Chief complaint: Chest pain, shortness of breath History of present illness: Ms. Macdonald is a 79 year old F with a recent diagnosis of lymphoma currently undergoing chemotherapy with [facility] [place]. Patient underwent second round of chemotherapy around the . Following chemo she got really sick with nausea diarrhea and weakness that started around 16th. Sy mptoms were short-lived however over the last 24 hours she started experiencing intermittent right-sided pleuritic chest pain that got progressively worse . She was brought into the ER for evaluation. Initial work-up was unremarkable with CT angiogram chest , significant electrolyte abnormality including potassium 2.4. Patient was started on oral and IV potassium. Subsequently hospitalist service was consulted. At the time evaluation patient is alert and oriented. She is very nauseous. De nies active headache photophobia, fever endorses to cough, pleuritic chest pain. Symptoms are made worse with cough. Denies lightheadedness dizziness, diarrhea, dysuria. During the recent chemotherapies she required blood transfusion. She endorses associated fatigue Review of systems 10 point review systems performed and is negative except for discussed above Medical - H&P: PMH Medical history: History of degenerative joint disease GERD Hypertension Weight loss Intermittent diarrhea/incontinence CA breast status post mastectomy Right knee replacement Left hip replacement Left knee replacement Family history: reviewed and not pertinent Pertinent family history: CAD/SD Father CAD and cancer mother Social history: Lives with her and Crystal No history of smoking Occasionally drinks wine Medical - H&P: Meds Home Medications Medication Instructions Recorded Confirmed Type acetaminophen 500 mg capsule 1,000 mg PO DAILYP PRN cap 01/01/15 05/22/19 History aspirin 81 mg tablet,delayed 81 mg PO QDAY #90 tab 07/10/15 04/11/19 Rx release magnesium 250 mg tablet 250 mg PO QDAY #30 tab 10/28/16 04/11/19 Rx chlorthalidone 25 mg tablet 25 mg PO QDAY #90 tab 04/13/17 04/11/19 Rx Omeprazole [Prilosec] 20 mg PO Q48@0730 04/22/17 04/11/19 History Vitamin B Complex [Ultra B-100 1 tab PO SA@0900 04/22/17 04/11/19 History Complex] cranberry extract 500 mg capsule 500 mg PO DAILY 06/16/17 04/11/19 History Celecoxib [Celebrex] 200 mg PO DAILY 05/24/18 04/11/19 History Ferrous Sulfate 325 mg PO BIDCC 05/24/18 04/11/19 History Ipratropium 0.06% Nasal [place] 1 - 2 spray INTRANASAL TIDP PRN 05/24/18 04/11/19 History [Atrovent 0.06% Nasal Srpay] Oxybutynin Chloride [Ditropan] 10 mg PO HS 05/24/18 04/11/19 History Docusate Sodium [Colace] 100 mg PO BID #60 cap 06/01/18 04/11/19 Rx traMADol [Ultram] 50 - 100 mg PO Q4-6HP PRN #15 tab 03/17/19 04/11/19 Rx HYDROcodone/APAP 10/325MG [[place] 1 - 2 tab PO Q4HP PRN #75 tab 03/22/19 04/11/19 Rx 10-325Mg] Bisacodyl [Dulcolax] 10 mg [place] DAILYP PRN 04/11/19 04/11/19 History Magnesium Hydroxide [Milk of 30 ml PO DAILYP PRN 04/11/19 04/11/19 History Magnesia] Na Phos,M-B/Na Phos,Di-Ba [Fleets 1 dose [place] DAILYP PRN 04/11/19 04/11/19 History Adult] Mirtazapine [Remeron] 15 mg PO HS 05/22/19 05/22/19 History Allergies Allergy/AdvReac Type Severity Reaction Status Date / Time fluticasone [From Flonase] Allergy Mild Rash Verified 03/17/19 11:54 latex Allergy Mild Rash Verified 03/17/19 11:54 olopatadine [From Patanase] Allergy Mild Rash Verified 03/17/19 11:54 amlodipine AdvReac Severe Swelling Verified 03/17/19 06:32 Tamoxifen AdvReac Severe pulmonary Verified 03/17/19 11:54 emboli alendronate sodium AdvReac Mild Nausea Verified 03/17/19 06:32 [From Fosamax] anastrozole [From Arimidex] AdvReac Mild Nausea Verified 03/17/19 11:54 benazepril AdvReac Mild cough Verified 03/17/19 06:32 Sibutramine [From Meridia] AdvReac Mild Nausea Verified 03/17/19 06:32 tramadol AdvReac Mild Nausea Verified 03/17/19 06:32 tape Allergy Mild Rash Uncoded 05/31/18 09:00 Medical - H&P: Exam - Constitutional Vitals: Temp Pulse Resp BP Pulse Ox 98 F 92 H 12 136/67 94 05/22/19 14:50 05/22/19 17:17 05/22/19 17:17 05/22/19 17:11 05/22/19 17:17 General appearance: no acute distress Exam: Alert oriented Head normocephalic Oral cavity dry No ear nose discharge Neck lymphadenopathy S1-S2 regular rhythm tachycardia Diminished breath sounds bases Abdomen soft nontender Lower extremity no cyanosis clubbing or joint swelling Skin no suspicious lesion Psych alert cooperative Neuro nonfocal Medical - H&P: Reslt - Labs CBC & Chem 7: 05/23/19 05:00 05/23/19 05:00 Labs: Short CBC 05/22/19 Range/Units 15:34 WBC 1.6 L (4.50-11.00) K/mcL Hgb 8.3 L (11.2-15.7) g/dL Hct 24.7 L (34.1-44.9) % Plt Count 182 (140-440) K/mcL BMP 05/22/19 15:34 Sodium 134 Potassium 2.5 L* Chloride 98 Carbon Dioxide 21 L BUN 6 L Creatinine 0.7 Glucose 83 Calcium 8.9 Liver Function 05/22/19 Range/Units 15:34 Total Bilirubin 0.6 (0.0-1.0) mg/dL AST 23 (0-37) U/l ALT 11 (0-40) U/l Alkaline Phosphatase 81 (39-117) U/L Albumin 3.1 L (3.2-5.2) gm/dL Medical - H&P: A/P (1) Hypokalemia Current visit: Yes Status: Acute * Hypokalemia 2.4 on aggressive IV and oral replacement * Pancytopenia secondary to chemotherapy. ANC 800 * Right upper lobe infiltrate-in the setting of pancytopenia start broad antibiotic coverage including cefepime vancomycin * Chest pain pleuritic with no evidence of PE. * Recent diagnosis of lymphoma status post 2 rounds of chemotherapy managed by [facility] [place] * Protein calorie malnutrition-continue nutrition support. * GERD continue PPI * DJD continue as needed opioids at home dose * Full code * Prophylaxis heparin Plan * Inpatient admission * Antibiotic coverage * Telemetry monitoring * Potassium replacement * Pre-existing medical condition management on home medications
--- NOTE | 2019-05-22 19:18 | Cat Scan Report ---
CLINICAL INFORMATION: Chest pain COMPARISON: Chest CTs 07/14/2008 and 03/18/2019. TECHNIQUE: 80ml of Isovue-370 were injected intravenously. Using SmartPrep to maximize pulmonary artery opacification, .625mm helical slices were obtained from the lung apices through the lung bases. Following reconstruction, 2.5 mm sagittal, coronal, and axial reformations were processed. The exam was reviewed at mediastinal, lung, and bone windows. The exam was performed using radiation dose optimization techniques including, but not limited to, automated exposure control, adjustment of the mA and/or kV according to patient size and use of iterative reconstruction technique. FINDINGS: Pulmonary parenchymal windows show the wedge-shaped density, adjacent to the major fissure in the posterior segment of the right upper lobe, (image 30) as decreased from 12 to 18 mm since the comparison CT two months prior. This would indicate resolving inflammation. There is; however, a new 14 mm pleural-based nodule in the posterior segment of the right upper lobe on image 26. There are five six small satellite nodules in the right lung apex ranging up to 4 mm which are new or enlarged since the previous exam. Small tree-in-bud infiltrates are scattered within the periphery of the right upper lobe which are new. Mild fibrotic change in the peripheral posterior lower lobes are stable. There are no effusions. Mediastinal windows show the pulmonary arteries to be normal in diameter and well opacified without evidence of embolus. Thoracic aorta is also normal diameter and well opacified. There is no adenopathy in the mediastinal hilar or axillary regions. Moderate hiatal hernia again noted. 11 mm nodule in the lateral right thyroid has been stable since 2008 and should be considered a benign adenoma. Bones and soft tissues the chest wall are unremarkable. IMPRESSION: 1. No evidence of pulmonary embolus. 2. Scattered tree-in-bud infiltrates in the right upper lobe almost certainly representing infection or aspiration. A new 14 mm nodule in the posterior segment of the right hepatic lobe with a few satellite nodules is appreciated. Rapid development of this nodule over only two months, since the most recent chest CT, is compatible with inflammation rather than malignancy. A triangular-shaped density also in the right upper lobe has actually decreased since the exam two months prior compatible with with resolving inflammation. 3. Moderate hiatal hernia. Patient would be at risk for aspiration. 4. No adenopathy in the mediastinal, hilar or axillary region. Interpreted and Authenticated by: Jordon Bhardwaj 05/22/19
[2019-05-22] MEDS ORDERED: BISACODYL 10 MG SUPP.RECT PR PRN (19:41)
[2019-05-22] MEDS ORDERED: POTASSIUM CHLORIDE 40 MEQ in DEXTROSE 5% IN WATER 500 ML IV PRN (19:41)
[2019-05-22] MEDS ORDERED: POTASSIUM CHLORIDE 20 MEQ PACKET PO PRN (19:41)
[2019-05-22] MEDS ORDERED: MELATONIN 3 MG TABLET PO PRN (19:41)
[2019-05-22] MEDS ORDERED: PROMETHAZINE 25 MG/ML VIAL IV PRN (19:41)
[2019-05-22] MEDS ORDERED: POLYETHYLENE GLYCOL 3350 17 GM PACKET PO PRN (19:41)
[2019-05-22] MEDS ORDERED: ACETAMINOPHEN 325 MG TABLET PO PRN (19:41)
[2019-05-22] MEDS ORDERED: ONDANSETRON 4 MG ODT TABLET SL PRN (19:41)
[2019-05-22] MEDS ORDERED: WATER IV ONE (19:42)
[2019-05-22] MEDS ORDERED: DEXTROSE 5% IV ONE (19:42)
[2019-05-22] MEDS ORDERED: POTASSIUM CHLORIDE IV ONE (19:42)
[2019-05-22] MEDS ORDERED: VANCOMYCIN PER PHARMACY IV ONE (19:47)
[2019-05-22] MEDS ORDERED: ACETAMINOPHEN 1,000 MG/100 ML BOTTLE IV ONE (20:10)
[2019-05-22] MEDS: ACETAMINOPHEN 650 MG/65 ML BOTTLE IV PRN (20:13)
[2019-05-22] MEDS: NACL 0.9% W/KCL 20MEQ 1,000 ML IV SCH ×2 (20:18→23:20)
[2019-05-22] MEDS ORDERED: POTASSIUM CHLORIDE 20 MEQ/10 ML VIAL IV ONE (20:25)
[2019-05-22] MEDS ORDERED: VANCOMYCIN 1,000 MG in 0.9 % SODIUM CHLORIDE 250 ML IV ONE (20:30)
[2019-05-22] MEDS: CEFEPIME 2 GM VIAL IV SCH (21:59)
[2019-05-22] MEDS: HEPARIN 5,000 UNIT/ML VIAL SQ SCH (21:59)
[2019-05-22] MEDS: DOCUSATE SODIUM 100 MG CAPSULE PO SCH (22:00)
[2019-05-22] MEDS: 0.9 % SODIUM CHLORIDE 10 ML SYRINGE IV SCH (22:00)
[2019-05-22] MEDS: SENNOSIDES/DOCUSATE SODIUM 1 TAB TABLET PO SCH (22:00)
[2019-05-23] MEDS: NACL 0.9% W/KCL 20MEQ 1,000 ML IV SCH ×4 (01:10→22:09)
[2019-05-23] MEDS: ACETAMINOPHEN 650 MG/65 ML BOTTLE IV PRN ×2 (04:03→16:47)
[2019-05-23] MEDS: CEFEPIME 2 GM VIAL IV SCH ×3 (05:39→22:08)
[2019-05-23] MEDS: 0.9 % SODIUM CHLORIDE 10 ML SYRINGE IV SCH ×3 (05:39→22:09)
[2019-05-23] MEDS ORDERED: VANCOMYCIN PER PHARMACY IV SCH (06:00)
[2019-05-23] MEDS: MAGNESIUM SULFATE 2 GM/50 ML BAG IV PRN (07:30)
[2019-05-23 07:39] LABS: ALT/SGPT 9 U/l (0-40); AST/SGOT 18 U/l (0-37); Albumin 2.5 gm/dL (3.2-5.2); Albumin/Globulin Ratio 1.6 (1.0-2.3); Alkaline Phosphatase 66 U/L (39-117); Bilirubin,Direct < 0.2 mg/dL (0.0-0.3); Bilirubin,Total 0.4 mg/dL (0.0-1.0); Blood Urea Nitrogen 5 mg/dl (8-23); Calcium 7.8 mg/dl (8.6-10.4); Carbon Dioxide 20 mmol/L (22-30); Chloride 108 mmol/L (96-108); Globulin 1.6 gm/dL (2.2-3.7); Glomerular Filtration Rate 85; Glucose 87 mg/dL (70-105); Lactate Dehydrogenase 211 U/L (94-250); Triglycerides 123 mg/dl (<150); Uric Acid 4.8 mg/dL (2.5-8.0)
[2019-05-23 07:48] LABS: Phosphorous 0.8 mg/dL (2.7-4.5)
[2019-05-23] MEDS: ONDANSETRON 4 MG/2 ML VIAL IV PRN ×2 (07:48→16:47)
[2019-05-23 08:44] LABS: Hematocrit 29.5 % (34.1-44.9); Hemoglobin 9.5 g/dL (11.2-15.7); Mean Cell Volume 90.8 fL (80.0-100.0); Mean Corpuscular HGB Conc 32.2 g/dL (31.0-36.0); Mean Platelet Volume 8.9 fL (7.4-10.4); Platelet Count 129 K/mcL (140-440); RBC 3.25 M/mcL (3.59-5.38); Red Cell Distribution Width 15.2 % (11.5-14.5); WBC 1.2 K/mcL (4.50-11.00)
[2019-05-23] MEDS: VANCOMYCIN 1,000 MG in 0.9 % SODIUM CHLORIDE 250 ML IV SCH (09:00)
[2019-05-23 09:17] LABS: Anisocytosis 2+ (NONE SEEN); Band Neutrophils % 2 % (0-10); Basophils % (Manual) 1 % (0-2); Eosinophils % (Manual) 3 % (0-7); Hypochromasia 1+ (NONE SEEN); Lymphocytes % 44 % (15-49); Monocytes % (Manual) 2 % (1-12); Nucleated Red Blood Cells 3 % (0-0); Platelet Estimate DECREASED (NORMAL); RBC Morphology ABNORM (NORMAL); Segmented Neutrophils % 48 % (38-78)
[2019-05-23] MEDS: THIAMINE 100 MG TABLET PO SCH (09:58)
[2019-05-23] MEDS: MULTIVIT,THER IRON,CA,FA & MIN 1 TABLET PO SCH (09:58)
[2019-05-23] MEDS: DOCUSATE SODIUM 100 MG CAPSULE PO SCH ×2 (09:58→21:42)
--- NOTE | 2019-05-23 09:58 | Internal Med Progress Note ---
Medical - PN: Subj Patient information: Note initiated : 05/23/19 at 9:55 am Service Date, if different from initiated Date: [] Patient: Darcy Macdonald 79 y/o F admitted on 05/22/19 for chest pain. Chief Complaint: [] Interval history: Ms. Macdonald is a 79 year old F with a recent diagnosis of lymphoma currently under going chemotherapy with [facility] [place]. Patient underwent second round of chemotherapy around the . Following chemo she got really sick with nausea diarrhea and weakness that started around 16th. Symptoms were short-lived however over the last 24 hours she started experiencing intermittent right-sided pleuritic chest pain that got progressively worse . She was brought into the ER for evaluation. Initial work-up was unremarkable with CT angiogram chest , significant electrolyte abnormality including potassium 2.4. Patient was started on oral and IV potassium. Subsequently hospitalist service was consulted. At the time evaluation patient is alert and oriented. She is very nauseous. Denies active headache photophobia, fever endorses to cough, pleuritic chest p ain. Symptoms are made worse with cough. Denies lightheadedness dizziness, diarrhea, dysuria. During the recent chemotherapies she required blood transfusion. She endorses associated fatigue 05/23-continue antibiotic coverage electrolyte replacement. No overnight events. Persistent nausea. White count down to 1.2 with ANC 580. Continue cefepime/vancomycin for chest infiltrate/pneumonia. Potassium improving with replacement. Magnesium 1.1 phosphorus 0.8. Continue nutrition support/PT OT - Constitutional Vitals: Vital Signs Temp Pulse Resp BP Pulse Ox 98.8 F 80 15 106/60 99 05/23/19 05:55 05/23/19 05:55 05/23/19 05:55 05/23/19 05:55 05/23/19 05:55 Period Temp Pulse Resp BP Sys/Thakur Pulse Ox Last 24 Hr 98 F-99.1 F 80-104 11-21 106-151/60-95 94-100 Intake and Output 05/22/19 05/23/19 05/23/19 21:59 05:59 13:59 Intake Total 65 1795 1550 Output Total 250 201 Balance -185 1594 1550 Weight 120 lb Intake & Output: Intake & Output 05/22/19 05/23/19 05/23/19 21:59 05:59 13:59 Intake Total 65 1795 1550 Output Total 250 201 Balance -185 1594 1550 Weight 120 lb Intake: IV 65 1315 1550 NaCl 0.9% W/KCl 20Meq 1000ML 1, 1000 1000 000 ml @ 150 mls/hr IV .Q6H40M [facility] Rx#:[id number] Potassium Chloride 100 Meq In 550 Dextrose 5% in Water 500 ml @ 50 mls/hr IV ONCE ONE Rx#: [id number] Vancomycin 1,000 mg In Sodium 250 Chloride 0.9% 250 ml @ 250 mls/ hr IV ONCE ONE Rx#:[id number] Oral 480 Output: Void Amount 250 200 # of times incontinent of urine 1 Other: Urine Appearance Clear Clear Urine Color Bright Yellow Bright Yellow General appearance: no acute distress Exam: Cooperative and oriented Lethargic Nonlabored breathing nondistended nontender abdomen No lymphedema Medical - PN: Obj Da - Labs CBC & Chem 7: 05/23/19 05:00 05/23/19 05:00 Labs: Abnormal Lab Results 05/23/19 05/23/19 05/22/19 05:00 05:00 15:35 WBC 1.2 L RBC 3.25 L Hgb 9.5 L Hct 29.5 L POC Hct 22.0 L RDW 15.2 H Plt Count 129 L Gran # Lymph # (Auto) Nucleated RBCs 3 H RBC Morphology Abnorm A Hypochromasia 1+ A Anisocytosis 2+ A POC Potassium 2.4 L* Potassium Carbon Dioxide 20 L POC Total CO2 21 L POC BUN 5 L BUN 5 L Calcium 7.8 L Phosphorus 0.8 L Magnesium 1.1 L Total Protein 4.1 L Albumin 2.5 L Globulin 1.6 L 05/22/19 05/22/19 15:34 15:34 WBC 1.6 L RBC 2.80 L Hgb 8.3 L Hct 24.7 L POC Hct RDW 14.6 H Plt Count Gran # 0.91 L Lymph # (Auto) 0.48 L Nucleated RBCs RBC Morphology Hypochromasia Anisocytosis POC Potassium Potassium 2.5 L* Carbon Dioxide 21 L POC Total CO2 POC BUN BUN 6 L Calcium Phosphorus Magnesium Total Protein 4.8 L Albumin 3.1 L Globulin 1.7 L Meds: Medications Acetaminophen (Tylenol) 650 mg PO Q4-6HP PRN; Protocol PRN Reason: Per Pain Protocol/Fever > 101 Bisacodyl (Dulcolax) 10 mg [place] Q2-3DAYS PRN PRN Reason: Constipation Cefepime HCl (Maxipime) 2 gm IV Q8H [facility] Last Admin: 05/23/19 05:39 Dose: 2 gm Documented by: Docusate Sodium (Colace) 100 mg PO BID [facility] Last Admin: 05/22/19 22:00 Dose: Not Given Documented by: Heparin Sodium (Porcine) (Heparin) 5,000 unit SQ Q12 [facility] Last Admin: 05/22/19 21:59 Dose: 5,000 unit Documented by: Potassium Chloride/Sodium Chloride (Nacl 0.9% W/Kcl 20meq 1000ml) 1,000 mls @ 150 mls/hr IV .Q6H40M [facility] Last Infusion: 05/23/19 07:11 Dose: Infused Documented by: Potassium Chloride 40 meq/ (Dextrose) 520 mls @ 130 mls/hr IV UD PRN PRN Reason: K+ = or < 3.5 Magnesium Sulfate (Magnesium Sulfate) 2 gm in 50 mls @ 50 mls/hr IV UD PRN PRN Reason: MG = or < 1.7 Acetaminophen (Ofirmev) 650 mg in 65 mls @ 130 mls/hr IV Q6HP PRN; Protocol PRN Reason: PAIN/FEVER > 101 Last Infusion: 05/23/19 04:34 Dose: Infused Documented by: Vancomycin HCl 1,000 mg/ (Sodium Chloride) 250 mls @ 250 mls/hr IV Q24H [facility] Sodium Phosphate 15 mmol/ (Dextrose) 255 mls @ 63.75 mls/hr IV ONCE ONE Stop: 05/23/19 13:59 Iron Carb/Multivit/[place]/Folic Acid (Multivitamin W/Minerals) 1 tab PO DAILY [facility] Melatonin (Melatonin 3mg Tablet) 3 mg PO HSP PRN PRN Reason: Insomnia Ondansetron HCl (Zofran Odt) 4 mg SL Q4-6HP PRN; Protocol PRN Reason: Nausea And Vomiting Ondansetron HCl (Zofran) 4 mg IV Q4-6HP PRN; Protocol PRN Reason: Nausea And Vomiting Last Admin: 05/23/19 07:48 Dose: 4 mg Documented by: Polyethylene Glycol (Miralax) 17 gm PO DAILYP PRN PRN Reason: Constipation Potassium Chloride (Klor-Con) 40 meq PO DAILYP PRN PRN Reason: K+ < 3.5 Promethazine HCl (Phenergan) 6.25 mg IV Q4-6HP PRN; Protocol PRN Reason: Nausea And Vomiting Senna/Docusate Sodium (Senna Plus Tablet) 1 tab PO HS [facility] Last Admin: 05/22/19 22:00 Dose: Not Given Documented by: Sodium Chloride (Saline Flush) 10 ml IV Q8 [facility] Last Admin: 05/23/19 05:39 Dose: 10 ml Documented by: Thiamine HCl (Vitamin B1) 100 mg PO DAILY [facility] Vancomycin HCl (Vancomycin Per Pharmacy) 1 order IV UD [facility]; Protocol Medical - PN: A/P - Time Spent With Patient Total time spent is greater than 50% in coordination of care (as documented) at patient's floor/unit and/or counseling patient: 25 - 35 minutes (1) Hypokalemia Status: Acute Assessment and plan: * Right upper lobe pneumonia-ANC 580. Continue cefepime vancomycin. * Multiple electrolyte normality including hypokalemia, low magnesium and low phosphorus currently on IV and oral replacement * Pancytopenia secondary to chemotherapy. ANC 580 * Chest pain pleuritic with no evidence of PE or fracture. As needed pain medication * Recent diagnosis of lymphoma status post 2 rounds of chemotherapy managed by cancer [facility] * Protein calorie malnutrition-continue nutrition support. * GERD continue PPI * DJD continue as needed opioids at home dose * Full code * Prophylaxis heparin Plan * Aggressive electrolyte replacement * Broad antibiotic coverage * Telemetry monitoring * Pre-existing medical condition management on home medications Current Visit: Yes Medical - PN: Qual - VTE Deep Vein Thrombosis/Pulmonary Embolism Present on Admission: No
[2019-05-23] MEDS ORDERED: SODIUM PHOSPHATE 15 MMOL in DEXTROSE 5% IN WATER 250 ML IV ONE (10:00)
[2019-05-23] MEDS: HEPARIN 5,000 UNIT/ML VIAL SQ SCH ×2 (10:09→22:07)
[2019-05-23] MEDS: SENNOSIDES/DOCUSATE SODIUM 1 TAB TABLET PO SCH (21:42)
[2019-05-24] MEDS: NACL 0.9% W/KCL 20MEQ 1,000 ML IV SCH ×2 (04:34→10:53)
[2019-05-24] MEDS: 0.9 % SODIUM CHLORIDE 10 ML SYRINGE IV SCH ×3 (06:00→22:45)
[2019-05-24] MEDS: CEFEPIME 2 GM VIAL IV SCH ×2 (06:00→21:32)
[2019-05-24 06:47] LABS: Hematocrit 24.5 % (34.1-44.9); Hemoglobin 7.8 g/dL (11.2-15.7); Mean Cell Volume 92.8 fL (80.0-100.0); Mean Corpuscular HGB Conc 31.8 g/dL (31.0-36.0); Mean Platelet Volume 8.8 fL (7.4-10.4); Platelet Count 176 K/mcL (140-440); RBC 2.64 M/mcL (3.59-5.38); Red Cell Distribution Width 15.9 % (11.5-14.5); WBC 1.7 K/mcL (4.50-11.00)
[2019-05-24 07:15] LABS: ALT/SGPT 10 U/l (0-40); AST/SGOT 24 U/l (0-37); Albumin 2.5 gm/dL (3.2-5.2); Albumin/Globulin Ratio 1.3 (1.0-2.3); Alkaline Phosphatase 70 U/L (39-117); Bilirubin,Direct < 0.2 mg/dL (0.0-0.3); Bilirubin,Total 0.4 mg/dL (0.0-1.0); Blood Urea Nitrogen 5 mg/dl (8-23); Calcium 6.8 mg/dl (8.6-10.4); Globulin 1.9 gm/dL (2.2-3.7); Glomerular Filtration Rate 91; Glucose 75 mg/dL (70-105); Lactate Dehydrogenase 265 U/L (94-250); Triglycerides 102 mg/dl (<150)
[2019-05-24 07:22] LABS: Carbon Dioxide 14 mmol/L (22-30); Chloride 114 mmol/L (96-108)
[2019-05-24] MEDS: DOCUSATE SODIUM 100 MG CAPSULE PO SCH ×2 (07:46→21:33)
[2019-05-24] MEDS: THIAMINE 100 MG TABLET PO SCH (08:26)
[2019-05-24] MEDS: HEPARIN 5,000 UNIT/ML VIAL SQ SCH ×2 (08:26→21:33)
[2019-05-24] MEDS: MULTIVIT,THER IRON,CA,FA & MIN 1 TABLET PO SCH (08:26)
[2019-05-24] MEDS: MAGNESIUM SULFATE 2 GM/50 ML BAG IV PRN (08:36)
[2019-05-24 08:40] LABS: Anisocytosis 1+ (NONE SEEN); Band Neutrophils % 1 % (0-10); Eosinophils % (Manual) 6 % (0-7); Hypochromasia 1+ (NONE SEEN); Lymphocytes % 28 % (15-49); Monocytes % (Manual) 9 % (1-12); Myelocytes % 1 % (0-0); Platelet Estimate NORMAL (NORMAL); Poikilocytosis FEW (NONE SEEN); RBC Fragments RARE (NONE SEEN); RBC Morphology ABNORM (NORMAL); Reactive Lymphocytes 4 % (0-2); Segmented Neutrophils % 51 % (38-78)
[2019-05-24] MEDS: VANCOMYCIN 1,000 MG in 0.9 % SODIUM CHLORIDE 250 ML IV SCH (10:06)
[2019-05-24] MEDS: ONDANSETRON 4 MG/2 ML VIAL IV PRN ×2 (13:14→23:12)
--- NOTE | 2019-05-24 14:26 | Internal Med Progress Note ---
Medical - PN: Subj Patient information: Note initiated : 05/24/19 at 2:24 pm Service Date, if different from initiated Date: [] Patient: Darcy Macdonald 79 y/o F admitted on 05/22/19 for chest pain. Chief Complaint: [] Interval history: Ms. Macdonald is a 79 year old F with a recent diagnosis of lymphoma currently under going chemotherapy with [facility] [place]. Patient underwent second round of chemotherapy around the . Following chemo she got really sick with nausea diarrhea and weakness that started around 16th. Symptoms were short-lived however over the last 24 hours she started experiencing intermittent right-sided pleuritic chest pain that got progressively worse . She was brought into the ER for evaluation. Initial work-up was unremarkable with CT angiogram chest , significant electrolyte abnormality including potassium 2.4. Patient was started on oral and IV potassium. Subsequently hospitalist service was consulted. At the time evaluation patient is alert and oriented. She is very nauseous. Denies active headache photophobia, fever endorses to cough, pleuritic chest p ain. Symptoms are made worse with cough. Denies lightheadedness dizziness, diarrhea, dysuria. During the recent chemotherapies she required blood transfusion. She endorses associated fatigue 05/23-continue antibiotic coverage electrolyte replacement. No overnight events. Persistent nausea. White count down to 1.2 with ANC 580. Continue cefepime/vancomycin for chest infiltrate/pneumonia. Potassium improving with replacement. Magnesium 1.1 phosphorus 0.8. Continue nutrition support/PT OT 05/24-patient doing well. Nausea improved. Potassium normalized. Continue phosphorus/magnesium replacement. ANC 800. On antibiotic coverage. Denies chest pain/shortness based. Tolerating diet. at bedside. - Constitutional Vitals: Vital Signs Temp Pulse Resp BP Pulse Ox 99.6 F H 89 18 136/87 94 05/24/19 12:00 05/24/19 14:00 05/24/19 14:00 05/24/19 14:00 05/24/19 14:00 Period Temp Pulse Resp BP Sys/Thakur Pulse Ox Last 24 Hr 97.8 F-99.6 F 70-95 14-18 109-140/62-87 94-98 Intake and Output 05/24/19 05/24/19 05/24/19 05:59 13:59 21:59 Intake Total 963 1147 Output Total 650 251 100 Balance 313 896 -100 Intake & Output: Intake & Output 05/24/19 05/24/19 05/24/19 05:59 13:59 21:59 Intake Total 963 1147 Output Total 650 251 100 Balance 313 896 -100 Intake: IV 963 997 NaCl 0.9% W/KCl 20Meq 1000ML 1, 963 948 000 ml @ 150 mls/hr IV .Q6H40M [facility] Rx#:[id number] Oral 150 Output: Void Amount 650 100 100 # of times incontinent of urine 1 Urine/Stool Mix 150 Other: Meal Dinner Lunch Percent of Meal Consumed 0% 25% Feeding Ability Independent Urine Appearance Clear Urine Color Pale Urine Odor Normal Stool Size Small Small Stool Color Brown Stool Consistency Soft General appearance: no acute distress Exam: Minimally anxious Nonlabored breathing Nondistended abdomen No lymphedema Medical - PN: Obj Da - Labs CBC & Chem 7: 05/24/19 05:05 05/24/19 05:05 Labs: Abnormal Lab Results 05/24/19 05/24/19 05/23/19 05:05 05:05 09:36 WBC 1.7 L RBC 2.64 L Hgb 7.8 L Hct 24.5 L POC Hct RDW 15.9 H Plt Count Gran # Lymph # (Auto) Myelocytes % 1 H Nucleated RBCs Reactive Lymphocytes 4 H RBC Morphology Abnorm A Hypochromasia 1+ A Poikilocytosis Few A Anisocytosis 1+ A RBC Fragments Rare A POC Potassium Potassium 5.2 H Chloride 114 H Carbon Dioxide 14 L POC Total CO2 POC BUN BUN 5 L Creatinine 0.5 L Calcium 6.8 L Phosphorus 1.0 L Magnesium 1.4 L Lactate Dehydrogenase 265 H Total Protein 4.4 L Albumin 2.5 L Globulin 1.9 L 05/23/19 05/23/19 05/22/19 05:00 05:00 15:35 WBC 1.2 L RBC 3.25 L Hgb 9.5 L Hct 29.5 L POC Hct 22.0 L RDW 15.2 H Plt Count 129 L Gran # Lymph # (Auto) Myelocytes % Nucleated RBCs 3 H Reactive Lymphocytes RBC Morphology Abnorm A Hypochromasia 1+ A Poikilocytosis Anisocytosis 2+ A RBC Fragments POC Potassium 2.4 L* Potassium Chloride Carbon Dioxide 20 L POC Total CO2 21 L POC BUN 5 L BUN 5 L Creatinine Calcium 7.8 L Phosphorus 0.8 L Magnesium 1.1 L Lactate Dehydrogenase Total Protein 4.1 L Albumin 2.5 L Globulin 1.6 L 05/22/19 05/22/19 15:34 15:34 WBC 1.6 L RBC 2.80 L Hgb 8.3 L Hct 24.7 L POC Hct RDW 14.6 H Plt Count Gran # 0.91 L Lymph # (Auto) 0.48 L Myelocytes % Nucleated RBCs Reactive Lymphocytes RBC Morphology Hypochromasia Poikilocytosis Anisocytosis RBC Fragments POC Potassium Potassium 2.5 L* Chloride Carbon Dioxide 21 L POC Total CO2 POC BUN BUN 6 L Creatinine Calcium Phosphorus Magnesium Lactate Dehydrogenase Total Protein 4.8 L Albumin 3.1 L Globulin 1.7 L Meds: Medications Acetaminophen (Tylenol) 650 mg PO Q4-6HP PRN; Protocol PRN Reason: Per Pain Protocol/Fever > 101 Bisacodyl (Dulcolax) 10 mg DC Q2-3DAYS PRN PRN Reason: Constipation Cefepime HCl (Maxipime) 2 gm IV Q12H [facility] Docusate Sodium (Colace) 100 mg PO BID [facility] Last Admin: 05/24/19 07:46 Dose: Not Given Documented by: Heparin Sodium (Porcine) (Heparin) 5,000 unit SQ Q12 [facility] Last Admin: 05/24/19 08:26 Dose: 5,000 unit Documented by: Heparin Sodium (Porcine) (Heparin Flush) 2 ml IV Q12 [facility] Last Admin: 05/24/19 08:26 Dose: 2 ml Documented by: Potassium Chloride/Sodium Chloride (Nacl 0.9% W/Kcl 20meq 1000ml) 1,000 mls @ 150 mls/hr IV .Q6H40M [facility] Last Admin: 05/24/19 10:53 Dose: 150 mls/hr Documented by: Potassium Chloride 40 meq/ (Dextrose) 520 mls @ 130 mls/hr IV UD PRN PRN Reason: K+ = or < 3.5 Magnesium Sulfate (Magnesium Sulfate) 2 gm in 50 mls @ 50 mls/hr IV UD PRN PRN Reason: MG = or < 1.7 Last Infusion: 05/24/19 09:35 Dose: 50 mls/hr Documented by: Acetaminophen (Ofirmev) 650 mg in 65 mls @ 130 mls/hr IV Q6HP PRN; Protocol PRN Reason: PAIN/FEVER > 101 Last Infusion: 05/23/19 17:45 Dose: Infused Documented by: Vancomycin HCl 1,000 mg/ (Sodium Chloride) 250 mls @ 250 mls/hr IV Q24H [facility] Last Admin: 05/24/19 10:06 Dose: 250 mls/hr Documented by: Iron Carb/Multivit/[place]/Folic Acid (Multivitamin W/Minerals) 1 tab PO DAILY [facility] Last Admin: 05/24/19 08:26 Dose: 1 tab Documented by: Melatonin (Melatonin 3mg Tablet) 3 mg PO HSP PRN PRN Reason: Insomnia Ondansetron HCl (Zofran Odt) 4 mg SL Q4-6HP PRN; Protocol PRN Reason: Nausea And Vomiting Ondansetron HCl (Zofran) 4 mg IV Q4-6HP PRN; Protocol PRN Reason: Nausea And Vomiting Last Admin: 05/24/19 13:14 Dose: 4 mg Documented by: Polyethylene Glycol (Miralax) 17 gm PO DAILYP PRN PRN Reason: Constipation Potassium Chloride (Klor-Con) 40 meq PO DAILYP PRN PRN Reason: K+ < 3.5 Promethazine HCl (Phenergan) 6.25 mg IV Q4-6HP PRN; Protocol PRN Reason: Nausea And Vomiting Senna/Docusate Sodium (Senna Plus Tablet) 1 tab PO HS [facility] Last Admin: 05/23/19 21:42 Dose: Not Given Documented by: Sodium Chloride (Saline Flush) 10 ml IV Q8 [facility] Last Admin: 05/24/19 13:15 Dose: 10 ml Documented by: Thiamine HCl (Vitamin B1) 100 mg PO DAILY [facility] Last Admin: 05/24/19 08:26 Dose: 100 mg Documented by: Vancomycin HCl (Vancomycin Per Pharmacy) 1 order IV UD [facility]; Protocol Medical - PN: A/P - Time Spent With Patient Total time spent is greater than 50% in coordination of care (as documented) at patient's floor/unit and/or counseling patient: 25 - 35 minutes (1) Hypokalemia Status: Acute Assessment and plan: * Right upper lobe pneumonia-continue antibiotic coverage. ANC >800. * Multiple electrolyte abnormalities-on replacement * Pancytopenia secondary to chemotherapy. ANC over 800 * Chest pain pleuritic with no evidence of PE or fracture. As needed pain medication * Recent diagnosis of lymphoma status post 2 rounds of chemotherapy managed by cancer care [place] * Protein calorie malnutrition post chemo-continue nutrition support. * GERD continue PPI * DJD continue as needed opioids at home dose * Full code * Prophylaxis heparin Plan * Broad antibiotic coverage * Electrolyte replacement * PT OT/nutrition support * Pre-existing medical condition management on home medications * Discharge planning Current Visit: Yes Medical - PN: Qual - VTE Deep Vein Thrombosis/Pulmonary Embolism Present on Admission: No
[2019-05-24] MEDS: ACETAMINOPHEN 650 MG/65 ML BOTTLE IV PRN (16:08)
[2019-05-24] MEDS: SENNOSIDES/DOCUSATE SODIUM 1 TAB TABLET PO SCH (21:33)
[2019-05-25] MEDS: 0.9 % SODIUM CHLORIDE 10 ML SYRINGE IV SCH ×3 (06:05→21:29)
[2019-05-25 07:30] LABS: Hematocrit 23.7 % (34.1-44.9); Hemoglobin 7.6 g/dL (11.2-15.7); Mean Cell Volume 92.9 fL (80.0-100.0); Mean Corpuscular HGB Conc 32.1 g/dL (31.0-36.0); Mean Platelet Volume 8.9 fL (7.4-10.4); Platelet Count 220 K/mcL (140-440); RBC 2.55 M/mcL (3.59-5.38); WBC 1.9 K/mcL (4.50-11.00)
[2019-05-25 07:47] LABS: ALT/SGPT 10 U/l (0-40); AST/SGOT 21 U/l (0-37); Albumin 2.4 gm/dL (3.2-5.2); Albumin/Globulin Ratio 1.5 (1.0-2.3); Alkaline Phosphatase 69 U/L (39-117); Bilirubin,Direct < 0.2 mg/dL (0.0-0.3); Bilirubin,Total 0.3 mg/dL (0.0-1.0); Calcium 6.7 mg/dl (8.6-10.4); Carbon Dioxide 16 mmol/L (22-30); Globulin 1.6 gm/dL (2.2-3.7); Glomerular Filtration Rate 91; Glucose 90 mg/dL (70-105); Lactate Dehydrogenase 260 U/L (94-250); Triglycerides 105 mg/dl (<150)
[2019-05-25 07:50] LABS: Blood Urea Nitrogen 3 mg/dl (8-23); Chloride 110 mmol/L (96-108); Phosphorous 0.9 mg/dL (2.7-4.5); Uric Acid 2.2 mg/dL (2.5-8.0)
[2019-05-25 08:22] LABS: Band Neutrophils % 2 % (0-10); Eosinophils % (Manual) 9 % (0-7); Hypochromasia 1+ (NONE SEEN); Lymphocytes % 36 % (15-49); Monocytes % (Manual) 7 % (1-12); Platelet Estimate NORMAL (NORMAL); RBC Morphology ABNORM (NORMAL); Segmented Neutrophils % 46 % (38-78)
[2019-05-25] MEDS: HEPARIN 5,000 UNIT/ML VIAL SQ SCH ×2 (08:39→21:27)
[2019-05-25] MEDS: DOCUSATE SODIUM 100 MG CAPSULE PO SCH ×3 (08:39→21:28)
[2019-05-25] MEDS: VANCOMYCIN 1,000 MG in 0.9 % SODIUM CHLORIDE 250 ML IV SCH (08:40)
[2019-05-25] MEDS: MULTIVIT,THER IRON,CA,FA & MIN 1 TABLET PO SCH (08:40)
[2019-05-25] MEDS: THIAMINE 100 MG TABLET PO SCH (08:40)
[2019-05-25] MEDS: CEFEPIME 2 GM VIAL IV SCH (08:42)
--- NOTE | 2019-05-25 10:30 | Internal Med Progress Note ---
Medical - PN: Subj Patient information: Note initiated : 05/25/19 at 10:27 am Service Date, if different from initiated Date: [] Patient: Darcy Macdonald 79 y/o F admitted on 05/22/19 for chest pain. Chief Complaint: [] Interval history: Ms. Macdonald is a 79 year old F with a recent diagnosis of lymphoma currently unde rgoing chemotherapy with [facility] [place]. Patient underwent second round of chemotherapy around the . Following chemo she got really sick with nausea diarrhea and weakness that started around 16th. Symptoms were short-lived however over the last 24 hours she started experiencing intermittent right-sided pleuritic chest pain that got progressively worse . She was brought into the ER for evaluation. Initial work-up was unremarkable with CT angiogram chest , significant electrolyte abnormality including potassium 2.4. Patient was started on oral and IV potassium. Subsequently hospitalist service was consulted. At the time evaluation patient is alert and oriented. She is very nauseous. Denies active headache photophobia, fever endorses to cough, pleuritic chest pain. Symptoms are made worse with cough. Denies lightheadedness dizziness, diarrhea, dysuria. During the recent chemotherapies she required blood transfusion. She endorses associated fatigue 05/23-continue antibiotic coverage electrolyte replacement. No overnight events. Persistent nausea. White count down to 1.2 with ANC 580. Continue cefepime/vancomycin for chest infiltrate/pneumonia. Potassium improving with replacement. Magnesium 1.1 phosphorus 0.8. Continue nutrition support/PT OT 05/24-patient doing well. Nausea improved. Potassium normalized. Continue phosphorus/magnesium replacement. ANC 800. On antibiotic coverage. Denies chest pain/shortness based. Tolerating diet. at bedside. 05/25-patient doing better. Nausea improved. ANC 870, de-escalate antibiotics to Levaquin. No overnight fever chills. Nonproductive cough. Potassium at 3.3 on replacement. Magnesium improved to 1.5, phosphorus 0.9. Continue aggressive electrolyte replacement. Continue PT OT/nutrition support. Discontinue troponin precautions. - Constitutional Vitals: Vital Signs Temp Pulse Resp BP Pulse Ox 99.1 F H 94 H 16 121/57 99 05/25/19 08:00 05/25/19 08:00 05/25/19 08:00 05/25/19 08:00 05/25/19 08:00 Period Temp Pulse Resp BP Sys/Thakur Pulse Ox Last 24 Hr 98.5 F-100.5 F 87-95 12-18 119-138/57-92 94-99 Intake and Output 05/24/19 05/25/19 05/25/19 21:59 05:59 13:59 Intake Total 950 251 Output Total 200 371 200 Balance 750 -371 51 Weight 134 lb Intake & Output: Intake & Output 05/24/19 05/25/19 05/25/19 21:59 05:59 13:59 Intake Total 950 251 Output Total 200 371 200 Balance 750 -371 51 Weight 134 lb Intake: IV 950 251 NaCl 0.9% W/KCl 20Meq 1000ML 1, 950 000 ml @ 150 mls/hr IV .Q6H40M [facility] Rx#:[id number] Vancomycin 1,000 mg In Sodium 250 Chloride 0.9% 250 ml @ 250 mls/ hr IV Q24H [facility] Rx#:[id number] Output: Void Amount 200 # of times incontinent of urine 1 Urine/Stool Mix 350 200 Emesis 20 Other: Urine Appearance Clear Urine Color Pale Urine Odor Normal Stool Size Smear Smear Small Stool Color Brown Brown Brown Yellow Yellow Green Green Stool Consistency Liquid Liquid Loose Loose Loose # Voids 1 # Bowel Movements 1 # of times incontinent of 1 1 1 Bowels General appearance: no acute distress Exam: Alert oriented Nonlabored breathing No lymphedema Diminished breath sounds bases Tachycardia mid 90s Medical - PN: Obj Da - Labs CBC & Chem 7: 05/25/19 05:00 05/25/19 05:00 Labs: Abnormal Lab Results 05/25/19 05/25/19 05/24/19 05:00 05:00 05:05 WBC 1.9 L RBC 2.55 L Hgb 7.6 L Hct 23.7 L POC Hct RDW 16.0 H Plt Count Gran # Lymph # (Auto) Eosinophils % (Manual) 9 H Myelocytes % Nucleated RBCs Reactive Lymphocytes RBC Morphology Abnorm A Hypochromasia 1+ A Poikilocytosis Anisocytosis RBC Fragments POC Potassium Potassium Chloride 110 H 114 H Carbon Dioxide 16 L 14 L POC Total CO2 POC BUN BUN 3 L 5 L Creatinine 0.5 L 0.5 L Uric Acid 2.2 L Calcium 6.7 L 6.8 L Phosphorus 0.9 L 1.0 L Magnesium 1.5 L 1.4 L Lactate Dehydrogenase 260 H 265 H Total Protein 4.0 L 4.4 L Albumin 2.4 L 2.5 L Globulin 1.6 L 1.9 L 05/24/19 05/23/19 05/23/19 05:05 09:36 05:00 WBC 1.7 L RBC 2.64 L Hgb 7.8 L Hct 24.5 L POC Hct RDW 15.9 H Plt Count Gran # Lymph # (Auto) Eosinophils % (Manual) Myelocytes % 1 H Nucleated RBCs Reactive Lymphocytes 4 H RBC Morphology Abnorm A Hypochromasia 1+ A Poikilocytosis Few A Anisocytosis 1+ A RBC Fragments Rare A POC Potassium Potassium 5.2 H Chloride Carbon Dioxide 20 L POC Total CO2 POC BUN BUN 5 L Creatinine Uric Acid Calcium 7.8 L Phosphorus 0.8 L Magnesium 1.1 L Lactate Dehydrogenase Total Protein 4.1 L Albumin 2.5 L Globulin 1.6 L 05/23/19 05/22/19 05/22/19 05:00 15:35 15:34 WBC 1.2 L RBC 3.25 L Hgb 9.5 L Hct 29.5 L POC Hct 22.0 L RDW 15.2 H Plt Count 129 L Gran # Lymph # (Auto) Eosinophils % (Manual) Myelocytes % Nucleated RBCs 3 H Reactive Lymphocytes RBC Morphology Abnorm A Hypochromasia 1+ A Poikilocytosis Anisocytosis 2+ A RBC Fragments POC Potassium 2.4 L* Potassium 2.5 L* Chloride Carbon Dioxide 21 L POC Total CO2 21 L POC BUN 5 L BUN 6 L Creatinine Uric Acid Calcium Phosphorus Magnesium Lactate Dehydrogenase Total Protein 4.8 L Albumin 3.1 L Globulin 1.7 L 05/22/19 15:34 WBC 1.6 L RBC 2.80 L Hgb 8.3 L Hct 24.7 L POC Hct RDW 14.6 H Plt Count Gran # 0.91 L Lymph # (Auto) 0.48 L Eosinophils % (Manual) Myelocytes % Nucleated RBCs Reactive Lymphocytes RBC Morphology Hypochromasia Poikilocytosis Anisocytosis RBC Fragments POC Potassium Potassium Chloride Carbon Dioxide POC Total CO2 POC BUN BUN Creatinine Uric Acid Calcium Phosphorus Magnesium Lactate Dehydrogenase Total Protein Albumin Globulin Meds: Medications Acetaminophen (Tylenol) 650 mg PO Q4-6HP PRN; Protocol PRN Reason: Per Pain Protocol/Fever > 101 Bisacodyl (Dulcolax) 10 mg ND Q2-3DAYS PRN PRN Reason: Constipation Cefepime HCl (Maxipime) 2 gm IV Q12H [facility] Last Admin: 05/25/19 08:42 Dose: 2 gm Documented by: Docusate Sodium (Colace) 100 mg PO BID [facility] Last Admin: 05/25/19 09:20 Dose: Not Given Documented by: Heparin Sodium (Porcine) (Heparin) 5,000 unit SQ Q12 [facility] Last Admin: 05/25/19 08:39 Dose: 5,000 unit Documented by: Heparin Sodium (Porcine) (Heparin Flush) 2 ml IV Q12 [facility] Last Admin: 05/25/19 08:40 Dose: 2 ml Documented by: Potassium Chloride 40 meq/ (Dextrose) 520 mls @ 130 mls/hr IV UD PRN PRN Reason: K+ = or < 3.5 Magnesium Sulfate (Magnesium Sulfate) 2 gm in 50 mls @ 50 mls/hr IV UD PRN PRN Reason: MG = or < 1.7 Last Infusion: 05/25/19 09:17 Dose: Infused Documented by: Acetaminophen (Ofirmev) 650 mg in 65 mls @ 130 mls/hr IV Q6HP PRN; Protocol PRN Reason: PAIN/FEVER > 101 Last Admin: 05/24/19 16:08 Dose: 130 mls/hr Documented by: Vancomycin HCl 1,000 mg/ (Sodium Chloride) 250 mls @ 250 mls/hr IV Q24H [facility] Last Admin: 05/25/19 08:40 Dose: 250 mls/hr Documented by: Iron Carb/Multivit/Institute Scientist/Folic Acid (Multivitamin W/Minerals) 1 tab PO DAILY [facility] Last Admin: 05/25/19 08:40 Dose: 1 tab Documented by: Melatonin (Melatonin 3mg Tablet) 3 mg PO HSP PRN PRN Reason: Insomnia Ondansetron HCl (Zofran Odt) 4 mg SL Q4-6HP PRN; Protocol PRN Reason: Nausea And Vomiting Ondansetron HCl (Zofran) 4 mg IV Q4-6HP PRN; Protocol PRN Reason: Nausea And Vomiting Last Admin: 05/24/19 23:12 Dose: 4 mg Documented by: Polyethylene Glycol (Miralax) 17 gm PO DAILYP PRN PRN Reason: Constipation Potassium Chloride (Klor-Con) 40 meq PO DAILYP PRN PRN Reason: K+ < 3.5 Last Admin: 05/25/19 08:41 Dose: 40 meq Documented by: Promethazine HCl (Phenergan) 6.25 mg IV Q4-6HP PRN; Protocol PRN Reason: Nausea And Vomiting Senna/Docusate Sodium (Senna Plus Tablet) 1 tab PO HS [facility] Last Admin: 05/24/19 21:33 Dose: Not Given Documented by: Sodium Chloride (Saline Flush) 10 ml IV Q8 [facility] Last Admin: 05/25/19 06:05 Dose: 10 ml Documented by: Thiamine HCl (Vitamin B1) 100 mg PO DAILY [facility] Last Admin: 05/25/19 08:40 Dose: 100 mg Documented by: Vancomycin HCl (Vancomycin Per Pharmacy) 1 order IV UD [facility]; Protocol Medical - PN: A/P - Time Spent With Patient Total time spent is greater than 50% in coordination of care (as documented) at patient's floor/unit and/or counseling patient: 25 - 35 minutes (1) Hypokalemia Status: Acute Assessment and plan: * Right upper lobe pneumonia-continue Levaquin for additional 5 days, DC Vanco/cefepime. ANC 870 * Multiple electrolyte abnormalities-potassium/magnesium and phosphorus replacement * Pancytopenia secondary to chemotherapy. Continue monitoring. ANC over 800 * Chest pain pleuritic with no evidence of PE or fracture on CT. Likely costochondritis. As needed pain medication * Recent diagnosis of lymphoma status post 2 rounds of chemotherapy managed by [facility] * Protein calorie malnutrition post chemo-continue nutrition support. * GERD continue PPI * DJD continue as needed opioids at home dose * Full code * Prophylaxis heparin Plan * Broad antibiotic coverage * K,Mag, phosphorus replacement * PT OT/nutrition support * Discharge planning possibly 24 to 48 hours pending clinical improvement/electrolyte normalization Current Visit: Yes Medical - PN: Qual - VTE Deep Vein Thrombosis/Pulmonary Embolism Present on Admission: No
[2019-05-25] MEDS: MAGNESIUM SULFATE 2 GM/50 ML BAG IV PRN (10:57)
[2019-05-25] MEDS ORDERED: PHENobarb/HYOSCY/ATROPINE/SCOP 1 DOSE BOTTLE PO ONE (10:58)
[2019-05-25] MEDS ORDERED: LEVOFLOXACIN 750 MG/150 ML BAG IV SCH (11:00)
[2019-05-25] MEDS ORDERED: NEUTRA PHOS 1 PACKET PO SCH (15:00)
[2019-05-25] MEDS ORDERED: PROMETHAZINE 25 MG/ML VIAL IV PRN (15:53)
[2019-05-25] MEDS ORDERED: ONDANSETRON 4 MG/2 ML VIAL IV PRN (15:53)
[2019-05-25] MEDS ORDERED: ONDANSETRON 4 MG ODT TABLET SL PRN (15:53)
[2019-05-25] MEDS ORDERED: POTASSIUM CHLORIDE 20 MEQ PACKET PO PRN (15:53)
[2019-05-25] MEDS ORDERED: POLYETHYLENE GLYCOL 3350 17 GM PACKET PO PRN (15:53)
[2019-05-25] MEDS ORDERED: POTASSIUM CHLORIDE 40 MEQ in DEXTROSE 5% IN WATER 500 ML IV PRN (15:53)
[2019-05-25] MEDS ORDERED: ACETAMINOPHEN 325 MG TABLET PO PRN (15:53)
[2019-05-25] MEDS ORDERED: BISACODYL 10 MG SUPP.RECT PR PRN (15:53)
[2019-05-25] MEDS ORDERED: ACETAMINOPHEN 650 MG/65 ML BOTTLE IV PRN (15:53)
[2019-05-25] MEDS ORDERED: MELATONIN 3 MG TABLET PO PRN (21:00)
[2019-05-25] MEDS: NEUTRA PHOS 1 PACKET PO SCH (21:28)
[2019-05-25] MEDS: SENNOSIDES/DOCUSATE SODIUM 1 TAB TABLET PO SCH (21:28)
[2019-05-26] MEDS: 0.9 % SODIUM CHLORIDE 10 ML SYRINGE IV SCH ×3 (05:18→20:26)
[2019-05-26 06:30] LABS: Hematocrit 22.1 % (34.1-44.9); Hemoglobin 7.2 g/dL (11.2-15.7); Mean Cell Volume 90.6 fL (80.0-100.0); Mean Corpuscular HGB Conc 32.6 g/dL (31.0-36.0); Mean Platelet Volume 8.7 fL (7.4-10.4); Platelet Count 210 K/mcL (140-440); RBC 2.44 M/mcL (3.59-5.38); Red Cell Distribution Width 16.2 % (11.5-14.5); WBC 1.7 K/mcL (4.50-11.00)
[2019-05-26 07:04] LABS: ALT/SGPT 10 U/l (0-40); AST/SGOT 22 U/l (0-37); Albumin 2.4 gm/dL (3.2-5.2); Albumin/Globulin Ratio 1.6 (1.0-2.3); Alkaline Phosphatase 73 U/L (39-117); Bilirubin,Direct < 0.2 mg/dL (0.0-0.3); Bilirubin,Total 0.3 mg/dL (0.0-1.0); Blood Urea Nitrogen 3 mg/dl (8-23); Calcium 6.4 mg/dl (8.6-10.4); Carbon Dioxide 17 mmol/L (22-30); Chloride 108 mmol/L (96-108); Globulin 1.5 gm/dL (2.2-3.7); Glomerular Filtration Rate 91; Glucose 82 mg/dL (70-105); Lactate Dehydrogenase 263 U/L (94-250); Triglycerides 105 mg/dl (<150); Uric Acid 1.9 mg/dL (2.5-8.0)
[2019-05-26 07:21] LABS: Phosphorous 1.1 mg/dL (2.7-4.5)
[2019-05-26 07:58] LABS: Anisocytosis 1+ (NONE SEEN); Basophils % (Manual) 1 % (0-2); Eosinophils % (Manual) 5 % (0-7); Hypochromasia 1+ (NONE SEEN); Lymphocytes % 27 % (15-49); Microcytosis FEW (NONE SEEN); Monocytes % (Manual) 13 % (1-12); Platelet Estimate NORMAL (NORMAL); RBC Morphology ABNORM (NORMAL); Segmented Neutrophils % 54 % (38-78)
[2019-05-26] MEDS: NEUTRA PHOS 1 PACKET PO SCH ×3 (09:24→20:25)
[2019-05-26] MEDS: THIAMINE 100 MG TABLET PO SCH (09:25)
[2019-05-26] MEDS: MULTIVIT,THER IRON,CA,FA & MIN 1 TABLET PO SCH (09:25)
[2019-05-26] MEDS: HEPARIN 5,000 UNIT/ML VIAL SQ SCH ×2 (09:25→20:25)
[2019-05-26] MEDS: DOCUSATE SODIUM 100 MG CAPSULE PO SCH ×2 (09:26→20:25)
--- NOTE | 2019-05-26 12:14 | Internal Med Progress Note ---
Medical - PN: Subj Patient information: Note initiated : 05/26/19 at 12:11 pm Service Date, if different from initiated Date: [] Patient: Darcy Macdonald a 79 y/o F admitted on 05/22/19 for chest pain. Chief Complaint: [] Interval history: Ms. Macdonald is a 79 year old F with a recent diagnosis of lymphoma currently unde rgoing chemotherapy with [facility] [place]. Patient underwent second round of chemotherapy around the . Following chemo she got really sick with nausea diarrhea and weakness that started around 16th. Symptoms were short-lived however over the last 24 hours she started experiencing intermittent right-sided pleuritic chest pain that got progressively worse . She was brought into the ER for evaluation. Initial work-up was unremarkable with CT angiogram chest , significant electrolyte abnormality including potassium 2.4. Patient was started on oral and IV potassium. Subsequently hospitalist service was consulted. At the time evaluation patient is alert and oriented. She is very nauseous. Denies active headache photophobia, fever endorses to cough, pleuritic chest pain. Symptoms are made worse with cough. Denies lightheadedness dizziness, diarrhea, dysuria. During the recent chemotherapies she required blood transfusion. She endorses associated fatigue 05/23-continue antibiotic coverage electrolyte replacement. No overnight events. Persistent nausea. White count down to 1.2 with ANC 580. Continue cefepime/vancomycin for chest infiltrate/pneumonia. Potassium improving with replacement. Magnesium 1.1 phosphorus 0.8. Continue nutrition support/PT OT 05/24-patient doing well. Nausea improved. Potassium normalized. Continue phosphorus/magnesium replacement. ANC 800. On antibiotic coverage. Denies chest pain/shortness based. Tolerating diet. at bedside. 05/25-patient doing better. Nausea improved. ANC 870, de-escalate antibiotics to Levaquin. No overnight fever chills. Nonproductive cough. Potassium at 3.3 on replacement. Magnesium improved to 1.5, phosphorus 0.9. Continue aggressive electrolyte replacement. Continue PT OT/nutrition support. Discontinue troponin precautions. 05/26-patient continues to be fatigued and weak but able to ambulate. Starting to tolerate diet. Nausea improved. On aggressive electrolyte replacement. ANC over 900, afebrile. Potassium 3.3, phosphorus improved to 1.1, magnesium 1.6. Continue aggressive replacement. C. difficile negative. Anticipate discharge in 24 hours pending clinical improvement - Constitutional Vitals: Vital Signs Temp Pulse Resp BP Pulse Ox 98.1 F 87 16 125/69 98 05/26/19 08:00 05/26/19 08:00 05/26/19 08:00 05/26/19 08:00 05/26/19 08:00 Period Temp Pulse Resp BP Sys/Thakur Pulse Ox Last 24 Hr 97.3 F-99.1 F 84-97 14-18 95-145/59-73 96-98 Intake and Output 05/25/19 05/26/19 05/26/19 21:59 05:59 13:59 Intake Total 120 120 Output Total 225 250 Balance -105 -130 Weight 111 lb 8 oz Intake & Output: Intake & Output 05/25/19 05/26/19 05/26/19 21:59 05:59 13:59 Intake Total 120 120 Output Total 225 250 Balance -105 -130 Weight 111 lb 8 oz Intake: Oral 120 120 Output: Void Amount 75 250 Urine/Stool Mix 150 Other: Urine Appearance Clear Clear Urine Color Bright Yellow Bright Yellow Urine Odor Normal Normal Stool Size Small Small Stool Color Brown Brown Stool Consistency Soft Soft Liquid Liquid # Bowel Movements 1 General appearance: no acute distress Exam: Alert oriented Nonlabored breathing No anxiety Nondistended abdomen No lymphedema Medical - PN: Obj Da - Labs CBC & Chem 7: 05/26/19 05:45 05/26/19 05:45 Labs: Abnormal Lab Results 05/26/19 05/26/19 05/25/19 05:45 05:45 05:00 WBC 1.7 L RBC 2.44 L Hgb 7.2 L Hct 22.1 L RDW 16.2 H Monocytes % (Manual) 13 H Eosinophils % (Manual) Myelocytes % Reactive Lymphocytes RBC Morphology Abnorm A Hypochromasia 1+ A Poikilocytosis Anisocytosis 1+ A Microcytosis Few A RBC Fragments Chloride 110 H Carbon Dioxide 17 L 16 L BUN 3 L 3 L Creatinine 0.5 L 0.5 L Uric Acid 1.9 L 2.2 L Calcium 6.4 L 6.7 L Phosphorus 1.1 L 0.9 L Magnesium 1.5 L Lactate Dehydrogenase 263 H 260 H Total Protein 3.9 L 4.0 L Albumin 2.4 L 2.4 L Globulin 1.5 L 1.6 L 05/25/19 05/24/19 05/24/19 05:00 05:05 05:05 WBC 1.9 L 1.7 L RBC 2.55 L 2.64 L Hgb 7.6 L 7.8 L Hct 23.7 L 24.5 L RDW 16.0 H 15.9 H Monocytes % (Manual) Eosinophils % (Manual) 9 H Myelocytes % 1 H Reactive Lymphocytes 4 H RBC Morphology Abnorm A Abnorm A Hypochromasia 1+ A 1+ A Poikilocytosis Few A Anisocytosis 1+ A Microcytosis RBC Fragments Rare A Chloride 114 H Carbon Dioxide 14 L BUN 5 L Creatinine 0.5 L Uric Acid Calcium 6.8 L Phosphorus 1.0 L Magnesium 1.4 L Lactate Dehydrogenase 265 H Total Protein 4.4 L Albumin 2.5 L Globulin 1.9 L Meds: Medications Acetaminophen (Tylenol) 650 mg PO Q4-6HP PRN; Protocol PRN Reason: Per Pain Protocol/Fever > 101 Last Admin: 05/25/19 21:45 Dose: 650 mg Documented by: Bisacodyl (Dulcolax) 10 mg [place] Q2-3DAYS PRN PRN Reason: Constipation Docusate Sodium (Colace) 100 mg PO BID [facility] Last Admin: 05/26/19 09:26 Dose: Not Given Documented by: Heparin Sodium (Porcine) (Heparin) 5,000 unit SQ Q12 [facility] Last Admin: 05/26/19 09:25 Dose: 5,000 unit Documented by: Heparin Sodium (Porcine) (Heparin Flush) 2 ml IV Q12 [facility] Last Admin: 05/26/19 09:26 Dose: 2 ml Documented by: Potassium Chloride 40 meq/ (Dextrose) 520 mls @ 130 mls/hr IV UD PRN PRN Reason: K+ = or < 3.5 Levofloxacin (Levaquin) 750 mg in 150 mls @ 100 mls/hr IV Q48H [facility] Magnesium Sulfate (Magnesium Sulfate) 2 gm in 50 mls @ 50 mls/hr IV UD PRN PRN Reason: MG = or < 1.7 Acetaminophen (Ofirmev) 650 mg in 65 mls @ 130 mls/hr IV Q6HP PRN; Protocol PRN Reason: PAIN/FEVER > 101 Iron Carb/Multivit/Assistant Hairstylist/Folic Acid (Multivitamin W/Minerals) 1 tab PO DAILY [facility] Last Admin: 05/26/19 09:25 Dose: 1 tab Documented by: Melatonin (Melatonin 3mg Tablet) 3 mg PO HSP PRN PRN Reason: Insomnia Ondansetron HCl (Zofran Odt) 4 mg SL Q4-6HP PRN; Protocol PRN Reason: Nausea And Vomiting Ondansetron HCl (Zofran) 4 mg IV Q4-6HP PRN; Protocol PRN Reason: Nausea And Vomiting Last Admin: 05/25/19 21:51 Dose: 4 mg Documented by: Polyethylene Glycol (Miralax) 17 gm PO DAILYP PRN PRN Reason: Constipation Potassium Chloride (Klor-Con) 40 meq PO DAILYP PRN PRN Reason: K+ < 3.5 Potassium/Phosphorus/Sodium (Neutra Phos) 2 packet PO TID [facility] Last Admin: 05/26/19 09:24 Dose: 2 packet Documented by: Promethazine HCl (Phenergan) 6.25 mg IV Q4-6HP PRN; Protocol PRN Reason: Nausea And Vomiting Senna/Docusate Sodium (Senna Plus Tablet) 1 tab PO HS [facility] Last Admin: 05/25/19 21:28 Dose: Not Given Documented by: Sodium Chloride (Saline Flush) 10 ml IV Q8 [facility] Last Admin: 05/26/19 05:18 Dose: 10 ml Documented by: Thiamine HCl (Vitamin B1) 100 mg PO DAILY [facility] Last Admin: 05/26/19 09:25 Dose: 100 mg Documented by: Medical - PN: A/P - Time Spent With Patient Total time spent is greater than 50% in coordination of care (as documented) at patient's floor/unit and/or counseling patient: 25 - 35 minutes (1) Hypokalemia Status: Acute Assessment and plan: * Right upper lobe pneumonia-ANC over 900. Continue Levaquin for additional 4 days * Multiple electrolyte abnormalities-continue aggressive potassium/magnesium and phosphorus replacement. Level continues to be low * Pancytopenia secondary to chemotherapy. Continue monitoring. ANC over 900 * Chest pain pleuritic with no evidence of PE or fracture on CT. Likely costochondritis. As needed pain medication * Recent diagnosis of lymphoma status post 2 rounds of chemotherapy managed by [facility] * Protein calorie malnutrition post chemo-continue nutrition support/protein calorie supplements. * GERD continue PPI * DJD continue as needed opioids at home dose * Full code * Prophylaxis heparin Plan * Levaquin for 4 days * Continue K,Mag, phosphorus replacement * PT OT/nutrition support with protein calorie supplements * Discharge planning once electrolytes normalized Current Visit: Yes Medical - PN: Qual - VTE Deep Vein Thrombosis/Pulmonary Embolism Present on Admission: No
[2019-05-26] MEDS: MAGNESIUM SULFATE 2 GM/50 ML BAG IV PRN (12:36)
[2019-05-26] MEDS ORDERED: LOPERAMIDE 2 MG CAPSULE PO ONE (20:20)
[2019-05-26] MEDS: SENNOSIDES/DOCUSATE SODIUM 1 TAB TABLET PO SCH (20:26)
[2019-05-26] MEDS: LOPERAMIDE 2 MG CAPSULE PO PRN (23:30)
[2019-05-27] MEDS: 0.9 % SODIUM CHLORIDE 10 ML SYRINGE IV SCH ×3 (05:41→21:40)
[2019-05-27] MEDS: LOPERAMIDE 2 MG CAPSULE PO PRN (06:24)
[2019-05-27 06:46] LABS: Hematocrit 23.2 % (34.1-44.9); Hemoglobin 7.7 g/dL (11.2-15.7); Mean Cell Volume 89.9 fL (80.0-100.0); Mean Corpuscular HGB Conc 33.2 g/dL (31.0-36.0); Mean Platelet Volume 8.9 fL (7.4-10.4); Platelet Count 242 K/mcL (140-440); RBC 2.58 M/mcL (3.59-5.38); Red Cell Distribution Width 16.9 % (11.5-14.5); WBC 1.8 K/mcL (4.50-11.00)
[2019-05-27 07:01] LABS: ALT/SGPT 11 U/l (0-40); AST/SGOT 24 U/l (0-37); Albumin 2.2 gm/dL (3.2-5.2); Albumin/Globulin Ratio 1.3 (1.0-2.3); Alkaline Phosphatase 80 U/L (39-117); Bilirubin,Direct < 0.2 mg/dL (0.0-0.3); Bilirubin,Total 0.3 mg/dL (0.0-1.0); Blood Urea Nitrogen 3 mg/dl (8-23); Calcium 6.3 mg/dl (8.6-10.4); Carbon Dioxide 18 mmol/L (22-30); Chloride 106 mmol/L (96-108); Globulin 1.7 gm/dL (2.2-3.7); Glomerular Filtration Rate 91; Glucose 83 mg/dL (70-105); Lactate Dehydrogenase 280 U/L (94-250); Triglycerides 110 mg/dl (<150); Uric Acid 1.8 mg/dL (2.5-8.0)
[2019-05-27 07:08] LABS: Phosphorous 1.2 mg/dL (2.7-4.5)
[2019-05-27 07:51] LABS: Anisocytosis 1+ (NONE SEEN); Eosinophils % (Manual) 6 % (0-7); Hypochromasia 1+ (NONE SEEN); Lymphocytes % 14 % (15-49); Monocytes % (Manual) 15 % (1-12); Myelocytes % 1 % (0-0); Platelet Estimate NORMAL (NORMAL); RBC Morphology ABNORM (NORMAL); Reactive Lymphocytes 4 % (0-2); Segmented Neutrophils % 60 % (38-78)
[2019-05-27] MEDS ORDERED: LEVOFLOXACIN 750 MG/150 ML BAG IV SCH ×2 (09:00)
--- NOTE | 2019-05-27 10:12 | Internal Med Progress Note ---
Medical - PN: Subj Patient information: Note initiated : 05/27/19 at 10:08 am Service Date, if different from initiated Date: [] Patient: Darcy Macdonald a 79 y/o F admitted on 05/22/19 for chest pain. Chief Complaint: [] Interval history: Ms. Macdonald is a 79 year old F with a recent diagnosis of lymphoma currently unde rgoing chemotherapy with [facility] [place]. Patient underwent second round of chemotherapy around the . Following chemo she got really sick with nausea diarrhea and weakness that started around 16th. Symptoms were short-lived however over the last 24 hours she started experiencing intermittent right-sided pleuritic chest pain that got progressively worse . She was brought into the ER for evaluation. Initial work-up was unremarkable with CT angiogram chest , significant electrolyte abnormality including potassium 2.4. Patient was started on oral and IV potassium. Subsequently hospitalist service was consulted. At the time evaluation patient is alert and oriented. She is very nauseous. Denies active headache photophobia, fever endorses to cough, pleuritic chest pain. Symptoms are made worse with cough. Denies lightheadedness dizziness, diarrhea, dysuria. During the recent chemotherapies she required blood transfusion. She endorses associated fatigue 05/23-continue antibiotic coverage electrolyte replacement. No overnight events. Persistent nausea. White count down to 1.2 with ANC 580. Continue cefepime/vancomycin for chest infiltrate/pneumonia. Potassium improving with replacement. Magnesium 1.1 phosphorus 0.8. Continue nutrition support/PT OT 05/24-patient doing well. Nausea improved. Potassium normalized. Continue phosphorus/magnesium replacement. ANC 800. On antibiotic coverage. Denies chest pain/shortness based. Tolerating diet. at bedside. 05/25-patient doing better. Nausea improved. ANC 870, de-escalate antibiotics to Levaquin. No overnight fever chills. Nonproductive cough. Potassium at 3.3 on replacement. Magnesium improved to 1.5, phosphorus 0.9. Continue aggressive electrolyte replacement. Continue PT OT/nutrition support. Discontinue troponin precautions. 05/26-patient continues to be fatigued and weak but able to ambulate. Starting to tolerate diet. Nausea improved. On aggressive electrolyte replacement. ANC over 900, afebrile. Potassium 3.3, phosphorus improved to 1.1, magnesium 1.6. Continue aggressive replacement. C. difficile negative. Anticipate discharge in 24 hours pending clinical improvement 05/27-complains of frequent episodes of watery diarrhea with C. difficile neg ative. Feels very weak and fatigued. On as needed crystalloid/oral supplements. Continue Imodium as indicated. White count 1.8 with ANC> 1000. Discontinue neutropenic precaution. Potassium 3.6 with phosphorus 1.2 on replacement. - Constitutional Vitals: Vital Signs Temp Pulse Resp BP Pulse Ox 98.3 F 89 16 126/78 98 05/27/19 07:48 05/27/19 03:53 05/27/19 07:48 05/27/19 07:48 05/27/19 03:53 Period Temp Pulse Resp BP Sys/Thakur Pulse Ox Last 24 Hr 98.3 F-98.3 F 85-89 -20 100-126/21-80 98-99 Intake and Output 05/26/19 05/27/19 05/27/19 21:59 05:59 13:59 Intake Total 520 240 Output Total 250 101 Balance 270 139 Weight 117 lb Intake & Output: Intake & Output 05/26/19 05/27/19 05/27/19 21:59 05:59 13:59 Intake Total 520 240 Output Total 250 101 Balance 270 139 Weight 117 lb Intake: IV 520 Potassium Chloride 40 Meq In 520 Dextrose 5% in Water 500 ml @ 130 mls/hr IV UD PRN Rx#: [id number] Oral 240 Output: Urine Catheter Amount 250 Void Amount 100 # of times incontinent of urine 1 Other: Meal Dinner Percent of Meal Consumed Refused Urine Appearance Clear Urine Color Bright Yellow Bright Yellow Urine Odor Normal Normal Stool Size Copious Copious Stool Color Brown Brown Stool Consistency Loose Soft Liquid # Bowel Movements 1 # of times incontinent of 3 Bowels General appearance: no acute distress Exam: Fatigue lethargic Nonlabored breathing Nontender abdomen No fever chills Minimal anxiety Medical - PN: Obj Da - Labs CBC & Chem 7: 05/27/19 05:00 05/27/19 05:00 Labs: Abnormal Lab Results 05/27/19 05/27/19 05/26/19 05:00 05:00 05:45 WBC 1.8 L RBC 2.58 L Hgb 7.7 L Hct 23.2 L RDW 16.9 H Lymphocytes % 14 L Monocytes % (Manual) 15 H Eosinophils % (Manual) Myelocytes % 1 H Reactive Lymphocytes 4 H RBC Morphology Abnorm A Hypochromasia 1+ A Anisocytosis 1+ A Microcytosis Chloride Carbon Dioxide 18 L 17 L BUN 3 L 3 L Creatinine 0.5 L 0.5 L Uric Acid 1.8 L 1.9 L Calcium 6.3 L 6.4 L Phosphorus 1.2 L 1.1 L Magnesium Lactate Dehydrogenase 280 H 263 H Total Protein 3.9 L 3.9 L Albumin 2.2 L 2.4 L Globulin 1.7 L 1.5 L 05/26/19 05/25/19 05/25/19 05:45 05:00 05:00 WBC 1.7 L 1.9 L RBC 2.44 L 2.55 L Hgb 7.2 L 7.6 L Hct 22.1 L 23.7 L RDW 16.2 H 16.0 H Lymphocytes % Monocytes % (Manual) 13 H Eosinophils % (Manual) 9 H Myelocytes % Reactive Lymphocytes RBC Morphology Abnorm A Abnorm A Hypochromasia 1+ A 1+ A Anisocytosis 1+ A Microcytosis Few A Chloride 110 H Carbon Dioxide 16 L BUN 3 L Creatinine 0.5 L Uric Acid 2.2 L Calcium 6.7 L Phosphorus 0.9 L Magnesium 1.5 L Lactate Dehydrogenase 260 H Total Protein 4.0 L Albumin 2.4 L Globulin 1.6 L Meds: Medications Acetaminophen (Tylenol) 650 mg PO Q4-6HP PRN; Protocol PRN Reason: Per Pain Protocol/Fever > 101 Last Admin: 05/25/19 21:45 Dose: 650 mg Documented by: Bisacodyl (Dulcolax) 10 mg [place] Q2-3DAYS PRN PRN Reason: Constipation Docusate Sodium (Colace) 100 mg PO BID [facility] Last Admin: 05/26/19 20:25 Dose: Not Given Documented by: Heparin Sodium (Porcine) (Heparin) 5,000 unit SQ Q12 [facility] Last Admin: 05/26/19 20:25 Dose: 5,000 unit Documented by: Heparin Sodium (Porcine) (Heparin Flush) 2 ml IV Q12 [facility] Last Admin: 05/26/19 20:25 Dose: 2 ml Documented by: Potassium Chloride 40 meq/ (Dextrose) 520 mls @ 130 mls/hr IV UD PRN PRN Reason: K+ = or < 3.5 Last Infusion: 05/26/19 17:06 Dose: Infused Documented by: Magnesium Sulfate (Magnesium Sulfate) 2 gm in 50 mls @ 50 mls/hr IV UD PRN PRN Reason: MG = or < 1.7 Last Infusion: 05/26/19 13:40 Dose: Infused Documented by: Acetaminophen (Ofirmev) 650 mg in 65 mls @ 130 mls/hr IV Q6HP PRN; Protocol PRN Reason: PAIN/FEVER > 101 Levofloxacin (Levaquin) 750 mg in 150 mls @ 100 mls/hr IV Q48H [facility] Iron Carb/Multivit/[place]/Folic Acid (Multivitamin W/Minerals) 1 tab PO DAILY [facility] Last Admin: 05/26/19 09:25 Dose: 1 tab Documented by: Loperamide HCl (Imodium) 2 mg PO PRN PRN PRN Reason: Diarrhea Last Admin: 05/27/19 06:24 Dose: 2 mg Documented by: Melatonin (Melatonin 3mg Tablet) 3 mg PO HSP PRN PRN Reason: Insomnia Ondansetron HCl (Zofran Odt) 4 mg SL Q4-6HP PRN; Protocol PRN Reason: Nausea And Vomiting Ondansetron HCl (Zofran) 4 mg IV Q4-6HP PRN; Protocol PRN Reason: Nausea And Vomiting Last Admin: 05/25/19 21:51 Dose: 4 mg Documented by: Polyethylene Glycol (Miralax) 17 gm PO DAILYP PRN PRN Reason: Constipation Potassium Chloride (Klor-Con) 40 meq PO DAILYP PRN PRN Reason: K+ < 3.5 Potassium/Phosphorus/Sodium (Neutra Phos) 2 packet PO TID [facility] Last Admin: 05/26/19 20:25 Dose: 2 packet Documented by: Promethazine HCl (Phenergan) 6.25 mg IV Q4-6HP PRN; Protocol PRN Reason: Nausea And Vomiting Senna/Docusate Sodium (Senna Plus Tablet) 1 tab PO HS [facility] Last Admin: 05/26/19 20:26 Dose: Not Given Documented by: Sodium Chloride (Saline Flush) 10 ml IV Q8 [facility] Last Admin: 05/27/19 05:41 Dose: 10 ml Documented by: Thiamine HCl (Vitamin B1) 100 mg PO DAILY [facility] Last Admin: 05/26/19 09:25 Dose: 100 mg Documented by: Medical - PN: A/P - Time Spent With Patient Total time spent is greater than 50% in coordination of care (as documented) at patient's floor/unit and/or counseling patient: 25 - 35 minutes (1) Hypokalemia Status: Acute Assessment and plan: * Right upper lobe [id number], continue Levaquin for additional 3 days. ANC greater than 1000 * Profuse watery diarrhea noninfectious for C. difficile negative. Continue Imodium likely chemo induced * Multiple electrolyte abnormalities-continue as needed potassium/magnesium and phosphorus replacement. Improving * Pancytopenia secondary to chemotherapy. Continue monitoring. ANC over 1000 * Chest pain pleuritic with no evidence of PE or fracture on CT. Likely costochondritis. Resolved * Recent diagnosis of lymphoma status post 2 rounds of chemotherapy managed by cancer [facility] * Protein calorie malnutrition post chemo-continue nutrition support/protein calorie supplements. * GERD continue PPI * DJD continue as needed opioids at home dose * Full code * Prophylaxis heparin Plan * Antibiotics for another 3 days * Electrolyte replacement * PT OT/nutrition support with protein calorie supplements * Discharge planning once clinically stable Current Visit: Yes Medical - PN: Qual - VTE Deep Vein Thrombosis/Pulmonary Embolism Present on Admission: No
[2019-05-27] MEDS: DOCUSATE SODIUM 100 MG CAPSULE PO SCH (10:27)
[2019-05-27] MEDS: MULTIVIT,THER IRON,CA,FA & MIN 1 TABLET PO SCH (10:43)
[2019-05-27] MEDS: HEPARIN 5,000 UNIT/ML VIAL SQ SCH ×2 (10:44→22:01)
[2019-05-27] MEDS: THIAMINE 100 MG TABLET PO SCH (10:44)
[2019-05-27] MEDS: NEUTRA PHOS 1 PACKET PO SCH ×3 (10:44→22:01)
[2019-05-27] MEDS: MAGNESIUM SULFATE 2 GM/50 ML BAG IV PRN (10:58)
--- NOTE | 2019-05-27 12:55 | Internal Med Progress Note ---
Medical - PN: Subj Patient information: Note initiated : 05/27/19 at 12:49 pm Service Date, if different from initiated Date: [] Patient: Darcy Macdonald a 79 y/o F admitted on 05/22/19 for chest pain. Chief Complaint: [] Interval history: Ms. Macdonald is a 79 year old F with a recent diagnosis of lymphoma currently unde rgoing chemotherapy with [facility] [place]. Patient underwent second round of chemotherapy around the . Following chemo she got really sick with nausea diarrhea and weakness that started around 16th. Symptoms were short-lived however over the last 24 hours she started experiencing intermittent right-sided pleuritic chest pain that got progressively worse . She was brought into the ER for evaluation. Initial work-up was unremarkable with CT angiogram chest , significant electrolyte abnormality including potassium 2.4. Patient was started on oral and IV potassium. Subsequently hospitalist service was consulted. At the time evaluation patient is alert and oriented. She is very nauseous. Denies active headache photophobia, fever endorses to cough, pleuritic chest pain. Symptoms are made worse with cough. Denies lightheadedness dizziness, diarrhea, dysuria. During the recent chemotherapies she required blood transfusion. She endorses associated fatigue 05/23-continue antibiotic coverage electrolyte replacement. No overnight events. Persistent nausea. White count down to 1.2 with ANC 580. Continue cefepime/vancomycin for chest infiltrate/pneumonia. Potassium improving with replacement. Magnesium 1.1 phosphorus 0.8. Continue nutrition support/PT OT 05/24-patient doing well. Nausea improved. Potassium normalized. Continue phosphorus/magnesium replacement. ANC 800. On antibiotic coverage. Denies chest pain/shortness based. Tolerating diet. at bedside. 05/25-patient doing better. Nausea improved. ANC 870, de-escalate antibiotics to Levaquin. No overnight fever chills. Nonproductive cough. Potassium at 3.3 on replacement. Magnesium improved to 1.5, phosphorus 0.9. Continue aggressive electrolyte replacement. Continue PT OT/nutrition support. Discontinue troponin precautions. 05/26-patient continues to be fatigued and weak but able to ambulate. Starting to tolerate diet. Nausea improved. On aggressive electrolyte replacement. ANC over 900, afebrile. Potassium 3.3, phosphorus improved to 1.1, magnesium 1.6. Continue aggressive replacement. C. difficile negative. Anticipate discharge in 24 hours pending clinical improvement 05/27-complains of frequent episodes of watery diarrhea with C. difficile neg ative. Feels very weak and fatigued. On as needed crystalloid/oral supplements. Continue Imodium as indicated. White count 1.8 with ANC> 1000. Discontinue neutropenic precaution. Potassium 3.6 with phosphorus 1.2 on replacement. - Constitutional Vitals: Vital Signs Temp Pulse Resp BP Pulse Ox 99.0 F 89 16 127/69 98 05/27/19 12:00 05/27/19 03:53 05/27/19 12:00 05/27/19 12:00 05/27/19 12:00 Period Temp Pulse Resp BP Sys/Thakur Pulse Ox Last 24 Hr 98.3 F-99.0 F 87-89 100-127/61-80 98-98 Intake and Output 05/26/19 05/27/19 05/27/19 21:59 05:59 13:59 Intake Total 520 240 150 Output Total 250 101 Balance 270 139 150 Weight 53.07 kg Intake & Output: Intake & Output 05/26/19 05/27/19 05/27/19 21:59 05:59 13:59 Intake Total 520 240 150 Output Total 250 101 Balance 270 139 150 Weight 53.07 kg Intake: IV 520 150 Potassium Chloride 40 Meq In 520 Dextrose 5% in Water 500 ml @ 130 mls/hr IV UD PRN Rx#: [id number] Oral 240 Output: Urine Catheter Amount 250 Void Amount 100 # of times incontinent of urine 1 Other: Meal Dinner Percent of Meal Consumed Refused Urine Appearance Clear Urine Color Bright Yellow Bright Yellow Urine Odor Normal Normal Stool Size Copious Copious Stool Color Brown Brown Stool Consistency Loose Soft Liquid # Bowel Movements 1 # of times incontinent of 3 Bowels Exam: General: , No acute Distress Eyes/N/T: EOMI, Head/Neck: neck supple, CV: RRR, No murmurs, Pulm: Clear b/l, no wheezing/rhonchi/rales Abd: soft, nontender, +BS x4 Ext: no clubbing/cyanosis/edema Neuro: Alert, no focal deficits, moves all extremities, Skin: warm/dry Medical - PN: Obj Da - Labs CBC & Chem 7: 05/27/19 05:00 05/27/19 05:00 Labs: Abnormal Lab Results 05/27/19 05/27/19 05/26/19 05:00 05:00 05:45 WBC 1.8 L RBC 2.58 L Hgb 7.7 L Hct 23.2 L RDW 16.9 H Lymphocytes % 14 L Monocytes % (Manual) 15 H Eosinophils % (Manual) Myelocytes % 1 H Reactive Lymphocytes 4 H RBC Morphology Abnorm A Hypochromasia 1+ A Anisocytosis 1+ A Microcytosis Chloride Carbon Dioxide 18 L 17 L BUN 3 L 3 L Creatinine 0.5 L 0.5 L Uric Acid 1.8 L 1.9 L Calcium 6.3 L 6.4 L Phosphorus 1.2 L 1.1 L Magnesium Lactate Dehydrogenase 280 H 263 H Total Protein 3.9 L 3.9 L Albumin 2.2 L 2.4 L Globulin 1.7 L 1.5 L 05/26/19 05/25/19 05/25/19 05:45 05:00 05:00 WBC 1.7 L 1.9 L RBC 2.44 L 2.55 L Hgb 7.2 L 7.6 L Hct 22.1 L 23.7 L RDW 16.2 H 16.0 H Lymphocytes % Monocytes % (Manual) 13 H Eosinophils % (Manual) 9 H Myelocytes % Reactive Lymphocytes RBC Morphology Abnorm A Abnorm A Hypochromasia 1+ A 1+ A Anisocytosis 1+ A Microcytosis Few A Chloride 110 H Carbon Dioxide 16 L BUN 3 L Creatinine 0.5 L Uric Acid 2.2 L Calcium 6.7 L Phosphorus 0.9 L Magnesium 1.5 L Lactate Dehydrogenase 260 H Total Protein 4.0 L Albumin 2.4 L Globulin 1.6 L Meds: Medications Acetaminophen (Tylenol) 650 mg PO Q4-6HP PRN; Protocol PRN Reason: Per Pain Protocol/Fever > 101 Last Admin: 05/25/19 21:45 Dose: 650 mg Documented by: Bisacodyl (Dulcolax) 10 mg [place] Q2-3DAYS PRN PRN Reason: Constipation Docusate Sodium (Colace) 100 mg PO BID [facility] Last Admin: 05/27/19 10:27 Dose: Not Given Documented by: Heparin Sodium (Porcine) (Heparin) 5,000 unit SQ Q12 [facility] Last Admin: 05/27/19 10:44 Dose: 5,000 unit Documented by: Heparin Sodium (Porcine) (Heparin Flush) 2 ml IV Q12 [facility] Last Admin: 05/27/19 10:45 Dose: 2 ml Documented by: Potassium Chloride 40 meq/ (Dextrose) 520 mls @ 130 mls/hr IV UD PRN PRN Reason: K+ = or < 3.5 Last Infusion: 05/26/19 17:06 Dose: Infused Documented by: Magnesium Sulfate (Magnesium Sulfate) 2 gm in 50 mls @ 50 mls/hr IV UD PRN PRN Reason: MG = or < 1.7 Last Admin: 05/27/19 10:58 Dose: 50 mls/hr Documented by: Acetaminophen (Ofirmev) 650 mg in 65 mls @ 130 mls/hr IV Q6HP PRN; Protocol PRN Reason: PAIN/FEVER > 101 Levofloxacin (Levaquin) 750 mg in 150 mls @ 100 mls/hr IV Q48H [facility] Last Infusion: 05/27/19 12:22 Dose: Infused Documented by: Iron Carb/Multivit/Senior Account Representative/Folic Acid (Multivitamin W/Minerals) 1 tab PO DAILY [facility] Last Admin: 05/27/19 10:43 Dose: 1 tab Documented by: Loperamide HCl (Imodium) 2 mg PO PRN PRN PRN Reason: Diarrhea Last Admin: 05/27/19 06:24 Dose: 2 mg Documented by: Melatonin (Melatonin 3mg Tablet) 3 mg PO HSP PRN PRN Reason: Insomnia Ondansetron HCl (Zofran Odt) 4 mg SL Q4-6HP PRN; Protocol PRN Reason: Nausea And Vomiting Ondansetron HCl (Zofran) 4 mg IV Q4-6HP PRN; Protocol PRN Reason: Nausea And Vomiting Last Admin: 05/25/19 21:51 Dose: 4 mg Documented by: Polyethylene Glycol (Miralax) 17 gm PO DAILYP PRN PRN Reason: Constipation Potassium Chloride (Klor-Con) 40 meq PO DAILYP PRN PRN Reason: K+ < 3.5 Potassium/Phosphorus/Sodium (Neutra Phos) 2 packet PO TID [facility] Last Admin: 05/27/19 10:44 Dose: 2 packet Documented by: Promethazine HCl (Phenergan) 6.25 mg IV Q4-6HP PRN; Protocol PRN Reason: Nausea And Vomiting Senna/Docusate Sodium (Senna Plus Tablet) 1 tab PO HS [facility] Last Admin: 05/26/19 20:26 Dose: Not Given Documented by: Sodium Chloride (Saline Flush) 10 ml IV Q8 [facility] Last Admin: 05/27/19 05:41 Dose: 10 ml Documented by: Thiamine HCl (Vitamin B1) 100 mg PO DAILY [facility] Last Admin: 05/27/19 10:44 Dose: 100 mg Documented by: Medical - PN: A/P - Time Spent With Patient Total time spent is greater than 50% in coordination of care (as documented) at patient's floor/unit and/or counseling patient: - Narrative A/P Narrative: A: *RUL PNA (CAP): *Profuse watery diarrhea noninfectious: neg for C. difficile, likely chemo in duced *Multiple electrolyte abnormalities; Improving *Pancytopenia secondary to chemotherapy. -ANC greater than 1000 *Chest pain pleuritic with no evidence of PE or fracture on CT. Likely costochondritis. Resolved *Recent diagnosis of lymphoma status post 2 rounds of chemotherapy managed by cancer [facility] *Protein calorie malnutrition post chemo: *GERD continue PPI P: -continue Levaquin for additional 3 days -Continue Imodium -Electrolyte replacement -PT OT/nutrition support with protein calorie supplements -Discharge planning once clinically stable - -ppx: Heparin Full code Medical - PN: Qual - VTE Deep Vein Thrombosis/Pulmonary Embolism Present on Admission: No
[2019-05-27] MEDS ORDERED: CALCIUM GLUCONATE 4.65 MEQ in DEXTROSE 5% IN WATER 50 ML IV ONE (13:00)
--- NOTE | 2019-05-27 13:39 | Discharge Summary ---
Medical - DS: Prov Patient information: Note initiated : 05/27/19 at 1:37 pm Service Date, if different from initiated Date: [] Patient: Darcy Macdonald 79 y/o F admitted on 05/22/19 for chest pain. Chief Complaint: [] Date of admission: 05/22/19 19:32 Discharge date: 05/28/19 Primary care physician: Fadia Bolanos Consults: 05/23/19 07:44 Consult to Physician [CONS] Routine Comment: Consulting Provider: Elyo Vieira Reason For Exam: Physician to Consult Medical - DS: Meds - Discharge Medications Prescriptions: Loperamide [Imodium] 2 mg PO PRN PRN #20 cap PRN Reason: Diarrhea Levofloxacin [Levaquin] 750 mg PO DAILY #2 tab Active and Home Medications: Home Medications acetaminophen 500 mg capsule 1,000 mg PO DAILYP PRN cap 01/01/15 [History Confirmed 05/22/19 Last Taken 03/16/19] Mirtazapine [Remeron] 15 mg PO HS 05/22/19 [History Confirmed 05/22/19 Last Taken Unknown] Home Medications acetaminophen 500 mg capsule 1,000 mg PO DAILYP PRN cap 01/01/15 [History Confirmed 05/22/19 Last Taken 03/16/19] Mirtazapine [Remeron] 15 mg PO HS 05/22/19 [History Confirmed 05/22/19 Last Taken Unknown] Levofloxacin [Levaquin] 750 mg PO DAILY #2 tab 05/27/19 [Rx Last Taken Unknown] Loperamide [Imodium] 2 mg PO PRN PRN #20 cap 05/27/19 [Rx Last Taken Unknown] Medical - DS: Hosp Hospital Course: Ms. Macdonald is a 79 year old F with a recent diagnosis of lymphoma currently undergoing chemotherapy with [facility] [place]. Patient underwent second round of chemotherapy around the . Following chemo she got really sick with nausea diarrhea and weakness that started around 16th. Symptoms were short-lived however over the last 24 hours she started experiencing intermittent right-sided pleuritic chest pain that got progressively worse . She was brought into the ER for evaluation. Initial work-up was unremarkable with CT angiogram chest , significant electrolyte abnormality including potassium 2.4. Patient was started on oral and IV potassium. Subsequently hospitalist service was consulted. At the time evaluation patient is alert and oriented. She is very nauseous. Denies active headache photophobia, fever endorses to cough, pleuritic chest pain. Symptoms are made worse with cough. Denies lightheadedness dizziness, diarrhea, dysuria. During the recent chemotherapies she required blood transfusion. She endorses associated fatigue 05/23-continue antibiotic coverage electrolyte replacement. No overnight events. Persistent nausea. White count down to 1.2 with ANC 580. Continue cefepime/vancomycin for chest infiltrate/pneumonia. Potassium improving with replacement. Magnesium 1.1 phosphorus 0.8. Continue nutrition support/PT OT 05/24-patient doing well. Nausea improved. Potassium normalized. Continue phosphorus/magnesium replacement. ANC 800. On antibiotic coverage. Denies chest pain/shortness based. Tolerating diet. at bedside. 05/25-patient doing better. Nausea improved. ANC 870, de-escalate antibiotics to Levaquin. No overnight fever chills. Nonproductive cough. Potassium at 3.3 on replacement. Magnesium improved to 1.5, phosphorus 0.9. Continue aggressive electrolyte replacement. Continue PT OT/nutrition support. Discontinue troponin precautions. 05/26-patient continues to be fatigued and weak but able to ambulate. Starting to tolerate diet. Nausea improved. On aggressive electrolyte replacement. ANC over 900, afebrile. Potassium 3.3, phosphorus improved to 1.1, magnesium 1.6. Continue aggressive replacement. C. difficile negative. Anticipate discharge in 24 hours pending clinical improvement 05/27-complains of frequent episodes of watery diarrhea with C. difficile negative. Feels very weak and fatigued. On as needed crystalloid/oral supplements. Continue Imodium as indicated. White count 1.8 with ANC> 1000. Discontinue neutropenic precaution. Potassium 3.6 with phosphorus 1.2 on replacement. 05/28 Yesterday after talking to behavioral health case manager felt state she may benefit from fpc facility. However today she feels much better and really wants to go home does not want to go to rehab. No new complaints. Diarrhea much improved. Set up for home health care. A: *RUL PNA (CAP vs Asp): improved, *Oropharyngeal dysphagia, mild-Moderate: *Profuse watery diarrhea noninfectious: neg for C. difficile, likely chemo induced. Improved *Multiple electrolyte abnormalities; Improving *Pancytopenia secondary to chemotherapy. -ANC greater than 1000 *Chest pain pleuritic with no evidence of PE or fracture on CT. Likely costochondritis. Resolved *Recent diagnosis of lymphoma status post 2 rounds of chemotherapy managed by cancer care [place] *Protein calorie malnutrition post chemo: *GERD continue PPI Discharge diagnosis: Pneumonia watery diarrhea pancytopenia Secondary discharge diagnosis: Recent diagnosis of lymphoma status post chemotherapy malnutrition GERD - Time Spent with Patient Total time spent providing and/or coordinating discharge services: Greater than 30 minutes Medical - DS: Exam - Constitutional Vitals: Vital Signs Temp Pulse Resp BP Pulse Ox 05/27/19 12:00 99.0 F 16 127/69 98 05/27/19 07:48 98.3 F 16 126/78 05/27/19 03:53 98.3 F 89 20 125/80 98 05/27/19 00:00 98.3 F 88 16 108/63 98 05/26/19 20:00 98.3 F 88 16 112/61 98 05/26/19 16:00 98.3 F 87 16 100/70 98 Intake and Output 05/26/19 05/27/19 05/27/19 21:59 05:59 13:59 Intake Total 520 240 150 Output Total 250 101 Balance 270 139 150 Intake: IV 520 150 Potassium Chloride 40 Meq In 520 Dextrose 5% in Water 500 ml @ 130 mls/hr IV UD PRN Rx#: [id number] Oral 240 Output: Urine Catheter Amount 250 Void Amount 100 # of times incontinent of urine 1 Other: Meal Dinner Percent of Meal Consumed Refused Urine Appearance Clear Urine Color Bright Yellow Bright Yellow Urine Odor Normal Normal Stool Size Copious Copious Stool Color Brown Brown Stool Consistency Loose Soft Liquid # Bowel Movements 1 # of times incontinent of 3 Bowels Weight 53.07 kg Medical - DS: Data Labs on day of discharge: Labs from last 24 hours 05/27/19 05/27/19 05:00 05:00 WBC 1.8 L RBC 2.58 L Hgb 7.7 L Hct 23.2 L MCV 89.9 MCH 29.8 MCHC 33.2 RDW 16.9 H Plt Count 242 MPV 8.9 Total Counted 100 Seg Neutrophils % 60 Band Neutrophils % Not Reportable Lymphocytes % 14 L Monocytes % (Manual) 15 H Eosinophils % (Manual) 6 Myelocytes % 1 H Reactive Lymphocytes 4 H Platelet Estimate Normal RBC Morphology Abnorm A Hypochromasia 1+ A Anisocytosis 1+ A Sodium 133 Potassium 3.6 Chloride 106 Carbon Dioxide 18 L Anion Gap 9.0 BUN 3 L Creatinine 0.5 L GFR Calculation 91 Glucose 83 Uric Acid 1.8 L Calcium 6.3 L Phosphorus 1.2 L Magnesium 1.6 Total Bilirubin 0.3 Direct Bilirubin < 0.2 GGT 19 AST 24 ALT 11 Alkaline Phosphatase 80 Lactate Dehydrogenase 280 H Total Protein 3.9 L Albumin 2.2 L Globulin 1.7 L Albumin/Globulin Ratio 1.3 Triglycerides 110 Medical - DS: A/P - Patient/Caregiver Discharge Instructions Activity: increase activity as tolerated Diet: Dysphagia Level 6 Soft & Bite-Sized Foods Prescriptions: Loperamide [Imodium] 2 mg PO PRN PRN #20 cap PRN Reason: Diarrhea Levofloxacin [Levaquin] 750 mg PO DAILY #2 tab - Follow up Plan Follow up with: Fadia Bolanos ARNP [Primary Care Provider] - Disposition: Home Health Service Prognosis: Undetermined Rehab Potential: Fair Overall status at discharge: patient is progressing back to baseline Medical - DS: Qual - VTE Deep Vein Thrombosis/Pulmonary Embolism Present on Admission: No
[2019-05-27] MEDS: SENNOSIDES/DOCUSATE SODIUM 1 TAB TABLET PO SCH (21:39)
[2019-05-28] MEDS: 0.9 % SODIUM CHLORIDE 10 ML SYRINGE IV SCH (05:08)
--- NOTE | 2019-05-28 08:06 | Internal Med Progress Note ---
Medical - PN: Subj Patient information: Note initiated : 05/28/19 at 8:01 am Service Date, if different from initiated Date: [] Patient: Darcy Macdonald a 79 y/o F admitted on 05/22/19 for chest pain. Chief Complaint: [] Interval history: Ms. Macdonald is a 79 year old F with a recent diagnosis of lymphoma currently under going chemotherapy with [facility] [place]. Patient underwent second round of chemotherapy around the . Following chemo she got really sick with nausea diarrhea and weakness that started around 16th. Symptoms were short-lived however over the last 24 hours she started experiencing intermittent right-sided pleuritic chest pain that got progressively worse . She was brought into the ER for evaluation. Initial work-up was unremarkable with CT angiogram chest , significant electrolyte abnormality including potassium 2.4. Patient was started on oral and IV potassium. Subsequently hospitalist service was consulted. At the time evaluation patient is alert and oriented. She is very nauseous. Denies active headache photophobia, fever endorses to cough, pleuritic chest p ain. Symptoms are made worse with cough. Denies lightheadedness dizziness, diarrhea, dysuria. During the recent chemotherapies she required blood transfusion. She endorses associated fatigue 05/23-continue antibiotic coverage electrolyte replacement. No overnight events. Persistent nausea. White count down to 1.2 with ANC 580. Continue cefepime/vancomycin for chest infiltrate/pneumonia. Potassium improving with replacement. Magnesium 1.1 phosphorus 0.8. Continue nutrition support/PT OT 05/24-patient doing well. Nausea improved. Potassium normalized. Continue phosphorus/magnesium replacement. ANC 800. On antibiotic coverage. Denies chest pain/shortness based. Tolerating diet. at bedside. 05/25-patient doing better. Nausea improved. ANC 870, de-escalate antibiotics to Levaquin. No overnight fever chills. Nonproductive cough. Potassium at 3.3 on replacement. Magnesium improved to 1.5, phosphorus 0.9. Continue aggressive electrolyte replacement. Continue PT OT/nutrition support. Discontinue troponin precautions. 05/26-patient continues to be fatigued and weak but able to ambulate. Starting to tolerate diet. Nausea improved. On aggressive electrolyte replacement. ANC over 900, afebrile. Potassium 3.3, phosphorus improved to 1.1, magnesium 1.6. Continue aggressive replacement. C. difficile negative. Anticipate discharge in 24 hours pending clinical improvement 05/27-complains of frequent episodes of watery diarrhea with C. difficile nega tive. Feels very weak and fatigued. On as needed crystalloid/oral supplements. Continue Imodium as indicated. White count 1.8 with ANC> 1000. Discontinue neutropenic precaution. Potassium 3.6 with phosphorus 1.2 on replacement. 05/28 Yesterday after talking to skilled nursing case manager felt state she may benefit from halfway facility. However today she feels much better and really wants to go ho me does not want to go to rehab. No new complaints. Diarrhea much improved. Review of Systems: denies headache/fever/chills/nausea/vomiting/chest or abdominal pain/cough/dyspnea. Otherwise see above. - Constitutional Vitals: Vital Signs Temp Pulse Resp BP Pulse Ox 97 F 78 20 115/62 97 05/28/19 07:32 05/28/19 04:00 05/28/19 07:32 05/28/19 07:32 05/28/19 07:32 Period Temp Pulse Resp BP Sys/Thakur Pulse Ox Last 24 Hr 97 F-99.0 F 78-94 14-20 106-127/59-69 97-99 Intake and Output 05/27/19 05/28/19 05/28/19 21:59 05:59 13:59 Intake Total 60 120 Output Total 476 Balance 60 -356 Weight 53.07 kg Intake & Output: Intake & Output 05/27/19 05/28/19 05/28/19 21:59 05:59 13:59 Intake Total 60 120 Output Total 476 Balance 60 -356 Weight 53.07 kg Intake: IV 60 Calcium Gluconate 4.65 Meq In 60 Dextrose 5% in Water 50 ml @ 100 mls/hr IV ONCE ONE Rx#: [id number] Oral 120 Output: Void Amount 475 # of times incontinent of urine 1 Other: Meal Nourishment/Supplement Percent of Meal Consumed 25% Feeding Ability Independent Nourishment/Supplement name Magic Cup Urine Appearance Clear Clear Urine Color Bright Yellow Bright Yellow Urine Odor Normal Normal Exam: General: awake alert, No acute Distress Eyes/N/T: EOMI, Head/Neck: neck supple, CV: RRR, No murmurs, Pulm: Clear b/l, no wheezing/rhonchi/rales Abd: soft, nontender, +BS x4 Ext: no clubbing/cyanosis/edema Neuro: Alert, no focal deficits, moves all extremities, Skin: warm/dry Medical - PN: Obj Da - Labs CBC & Chem 7: 05/27/19 05:00 05/27/19 05:00 Labs: Abnormal Lab Results 05/27/19 05/27/19 05/26/19 05:00 05:00 05:45 WBC 1.8 L RBC 2.58 L Hgb 7.7 L Hct 23.2 L RDW 16.9 H Lymphocytes % 14 L Monocytes % (Manual) 15 H Eosinophils % (Manual) Myelocytes % 1 H Reactive Lymphocytes 4 H RBC Morphology Abnorm A Hypochromasia 1+ A Anisocytosis 1+ A Microcytosis Carbon Dioxide 18 L 17 L BUN 3 L 3 L Creatinine 0.5 L 0.5 L Uric Acid 1.8 L 1.9 L Calcium 6.3 L 6.4 L Phosphorus 1.2 L 1.1 L Lactate Dehydrogenase 280 H 263 H Total Protein 3.9 L 3.9 L Albumin 2.2 L 2.4 L Globulin 1.7 L 1.5 L 05/26/19 05/25/19 05:45 05:00 WBC 1.7 L RBC 2.44 L Hgb 7.2 L Hct 22.1 L RDW 16.2 H Lymphocytes % Monocytes % (Manual) 13 H Eosinophils % (Manual) 9 H Myelocytes % Reactive Lymphocytes RBC Morphology Abnorm A Abnorm A Hypochromasia 1+ A 1+ A Anisocytosis 1+ A Microcytosis Few A Carbon Dioxide BUN Creatinine Uric Acid Calcium Phosphorus Lactate Dehydrogenase Total Protein Albumin Globulin Meds: Medications Acetaminophen (Tylenol) 650 mg PO Q4-6HP PRN; Protocol PRN Reason: Per Pain Protocol/Fever > 101 Last Admin: 05/25/19 21:45 Dose: 650 mg Documented by: Bisacodyl (Dulcolax) 10 mg DE Q2-3DAYS PRN PRN Reason: Constipation Heparin Sodium (Porcine) (Heparin) 5,000 unit SQ Q12 [place] Last Admin: 05/27/19 22:01 Dose: 5,000 unit Documented by: Heparin Sodium (Porcine) (Heparin Flush) 2 ml IV Q12 [place] Last Admin: 05/27/19 22:00 Dose: 2 ml Documented by: Potassium Chloride 40 meq/ (Dextrose) 520 mls @ 130 mls/hr IV UD PRN PRN Reason: K+ = or < 3.5 Last Infusion: 05/26/19 17:06 Dose: Infused Documented by: Magnesium Sulfate (Magnesium Sulfate) 2 gm in 50 mls @ 50 mls/hr IV UD PRN PRN Reason: MG = or < 1.7 Last Admin: 05/27/19 10:58 Dose: 50 mls/hr Documented by: Acetaminophen (Ofirmev) 650 mg in 65 mls @ 130 mls/hr IV Q6HP PRN; Protocol PRN Reason: PAIN/FEVER > 101 Levofloxacin (Levaquin) 750 mg in 150 mls @ 100 mls/hr IV Q48H [facility] Last Infusion: 05/27/19 12:22 Dose: Infused Documented by: Iron Carb/Multivit/Screen Printing Machine Operator/Folic Acid (Multivitamin W/Minerals) 1 tab PO DAILY [facility] Last Admin: 05/27/19 10:43 Dose: 1 tab Documented by: Loperamide HCl (Imodium) 2 mg PO PRN PRN PRN Reason: Diarrhea Last Admin: 05/27/19 06:24 Dose: 2 mg Documented by: Melatonin (Melatonin 3mg Tablet) 3 mg PO HSP PRN PRN Reason: Insomnia Ondansetron HCl (Zofran Odt) 4 mg SL Q4-6HP PRN; Protocol PRN Reason: Nausea And Vomiting Ondansetron HCl (Zofran) 4 mg IV Q4-6HP PRN; Protocol PRN Reason: Nausea And Vomiting Last Admin: 05/25/19 21:51 Dose: 4 mg Documented by: Potassium Chloride (Klor-Con) 40 meq PO DAILYP PRN PRN Reason: K+ < 3.5 Potassium/Phosphorus/Sodium (Neutra Phos) 2 packet PO TID [facility] Last Admin: 05/27/19 22:01 Dose: 2 packet Documented by: Promethazine HCl (Phenergan) 6.25 mg IV Q4-6HP PRN; Protocol PRN Reason: Nausea And Vomiting Senna/Docusate Sodium (Senna Plus Tablet) 1 tab PO HS [facility] Last Admin: 05/27/19 21:39 Dose: Not Given Documented by: Sodium Chloride (Saline Flush) 10 ml IV Q8 [facility] Last Admin: 05/28/19 05:08 Dose: 10 ml Documented by: Thiamine HCl (Vitamin B1) 100 mg PO DAILY [facility] Last Admin: 05/27/19 10:44 Dose: 100 mg Documented by: Medical - PN: A/P - Time Spent With Patient Total time spent is greater than 50% in coordination of care (as documented) at patient's floor/unit and/or counseling patient: - Narrative A/P Narrative: A: *RUL PNA (CAP vs Asp): *Oropharyngeal dysphagia, mild-Moderate: *Profuse watery diarrhea noninfectious: neg for C. difficile, likely chemo i nduced *Multiple electrolyte abnormalities; Improving *Pancytopenia secondary to chemotherapy. -ANC greater than 1000 *Chest pain pleuritic with no evidence of PE or fracture on CT. Likely costochondritis. Resolved *Recent diagnosis of lymphoma status post 2 rounds of chemotherapy managed by cancer [facility] *Protein calorie malnutrition post chemo: *GERD continue PPI P: -continue Levaquin for additional 2 days -Continue Imodium -Electrolyte replacement -PT OT/nutrition support with protein calorie supplements -d/c HHC -dysphagia diet -ppx: Heparin Full code Medical - PN: Qual - VTE Deep Vein Thrombosis/Pulmonary Embolism Present on Admission: No
[2019-05-28] MEDS: THIAMINE 100 MG TABLET PO SCH (08:20)
[2019-05-28] MEDS: HEPARIN 5,000 UNIT/ML VIAL SQ SCH (08:20)
[2019-05-28] MEDS: NEUTRA PHOS 1 PACKET PO SCH (08:21)
[2019-05-28] MEDS: MULTIVIT,THER IRON,CA,FA & MIN 1 TABLET PO SCH (08:21)
[2019-05-28] MEDS ORDERED: NEUTRA PHOS 1 PACKET PO ONE (09:17)
[2019-05-28] MEDS ORDERED: PHOSPHORUS 250 MG TABLET PO ONE (09:17)
[2019-05-28] MEDS: LOPERAMIDE 2 MG CAPSULE PO PRN (12:09)
== END 2019-05-28 13:35 | disposition home health service (06) | DRG 193 ==
LOC: ED 14:47 → ICU 19:32 → MEDSUR 05-25 16:15
PROVIDERS: ADMIT Internal Medicine; ATTEND Internal Medicine

== ENCOUNTER 2019-06-28 12:22 | Inpatient (IN) ==
[2019-06-28 13:29] LABS: POC Blood Urea Nitrogen 12 mg/dl (8-23); POC CO2 22 mmol/L (22-30); POC Calcium, Ionized 1.19 mmol/L (1.16-1.32); POC Chloride 93 mmol/L (96-108); POC Creatinine 0.6 mg/dl (0.6-1.1); POC Glucose, Random 75 mg/dL (70-105); POC Potassium 3.7 mmol/L (3.3-5.1); POC Sodium 126 mmol/L (133-145)
--- NOTE | 2019-06-28 13:35 | Emergency Department Note ---
General Adult HPI - General Chief complaint: Cold/Flu Symptoms Stated complaint: weakness, cough, nausea, vomiting Time Seen by Provider: 06/28/19 12:29 Source: family Mode of arrival: ambulatory Limitations: no limitations - History of Present Illness HPI Narrative: 79-year-old female is brought in by her granddaughter. She has lymphoma and is currently undergoing chemotherapy. For the last 7 to 10 days she has had flulike symptoms with just generalized weakness, dry nonproductive cough, and generally feeling poor. The last 18 hours she seems to be worse. She has not got out of bed in 18 hours and has a very foul smell to her urine. They states she might be a little bit confused more so than normal as well. She does live at home and her boyfriend takes care of her but he feels like it is gotten to the point where it is too much for him to be able to care for her. They are requesting to talk to psychotherapist social worker and Zully from psychotherapist social worker and to talk with the family and patient. Patient had an episode of an hour and a half of severe abdominal pain last night but it went away. Denies any pain currently. Does admit generalized weakness. She has felt little warm like she is had a fever for the last 18 hours as well. - Related Data Home Medications Medication Instructions Recorded Confirmed acetaminophen 500 mg capsule 1,000 mg PO DAILYP PRN cap 01/01/15 05/22/19 Mirtazapine [Remeron] 45 mg PO 06/28/19 Previous Rx's Medication Instructions Recorded Loperamide [Imodium] 2 mg PO PRN PRN #20 cap 05/27/19 Allergies Allergy/AdvReac Type Severity Reaction Status Date / Time fluticasone [From Flonase] Allergy Mild Rash Verified 03/17/19 11:54 latex Allergy Mild Rash Verified 03/17/19 11:54 olopatadine [From Patanase] Allergy Mild Rash Verified 03/17/19 11:54 amlodipine AdvReac Severe Swelling Verified 03/17/19 06:32 Tamoxifen AdvReac Severe pulmonary Verified 03/17/19 11:54 emboli hydrocodone AdvReac Intermediate Confusion Verified 06/28/19 12:26 alendronate sodium AdvReac Mild Nausea Verified 03/17/19 06:32 [From Fosamax] anastrozole [From Arimidex] AdvReac Mild Nausea Verified 03/17/19 11:54 benazepril AdvReac Mild cough Verified 03/17/19 06:32 Sibutramine [From Meridia] AdvReac Mild Nausea Verified 03/17/19 06:32 tape Allergy Mild Rash Uncoded 05/31/18 09:00 Review of Systems All systems ED: reviewed and negative except as stated. Past Medical History - Past Medical History [facility] Narrative: Medical History (Last Reviewed 06/16/17 @ 09:42 by Jordon Putnam DO) Peripheral neuropathy (Chronic) Encounter for Medicare annual wellness exam (Chronic) Breast Cancer Screening (Chronic) Bleeding external hemorrhoids (Chronic) Trochanteric bursitis of left hip (Chronic 10/05/14) Tendonitis (Chronic) Seborrheic keratoses (Chronic 12/28/13) Rhinitis, allergic (Chronic) Osteopenia (Chronic) Osteoarthritis (Chronic) Mitral regurgitation (Chronic) Hypertension, essential (Chronic 02/13/14) Hyperlipidemia (Chronic 02/13/14) Gastroesophageal reflux (Chronic) Diverticular disease (Chronic) Degenerative joint disease (Chronic) Malignant neoplasm of breast (female) (Chronic) Actinic keratosis (Chronic 12/28/13) Acne rosacea (Chronic) Prothrombin mutation (Chronic) Fibrocystic change of breast (Inactive) Gallbladder disorder (Inactive) Hip pain (Inactive) Pain in joint involving lower leg (Inactive 12/09/13) Past Surgical History (Last Reviewed 06/16/17 @ 09:42 by Jordon Putnam DO) History of total mastectomy of left breast (Chronic) Hx of tonsillectomy (Chronic) Hx of left mastectomy (Chronic) History of bladder surgery (Inactive) History of colonoscopy (Inactive) History of ear surgery (Inactive) History of knee replacement (Inactive) History of lumpectomy of left breast (Inactive) History of partial hysterectomy (Inactive) Hx of cholecystectomy (Inactive) Hx of cosmetic surgery (Inactive) Hx of esophagogastroduodenoscopy (Inactive) Hx of hammer toe correction (Inactive) Hx of thumb surgery (Inactive) Hx of tooth extraction (Inactive) Hx of vascular surgery (Inactive) Surgical history ED: Reports: hip replacement - Social History smoking status: Never smoker Alcohol use: Reports: None Drug use: Reports: none Physical Exam Limitations: no limitations General appearance: alert Head: atraumatic, normocephalic, normal inspection Eye: Present: normal appearance. Absent: conjunctival injection ENT: Present: mucous membranes moist Chest: Present: symmetric chest wall rise Respiratory: Present: normal lung sounds bilaterally, other (Slightly diminished in the bases bilaterally otherwise clear throughout). Absent: respiratory distress, rales/crackles, wheezes, accessory muscle use Cardiovascular: Present: regular rate, normal heart sounds Abdominal: Present: soft, normal bowel sounds. Absent: distention, tenderness, guarding Rectal: Present: normal inspection, heme (-) stool Extremities: Present: normal inspection, pedal edema (1+ bilat) Neurological: Present: alert, oriented X3 Psychiatric: Present: normal affect, normal mood Skin: Present: warm, dry, intact Course Course Narrative: I did speak with Dr. Rivera, patient's oncologist up at [place] [facility]. Patient just we try to admit this patient and treat with IV antibiotics for UTI, she is suggesting Rocephin. She is also suggesting we transfused 2 units of red blood cells and states if her platelets drop below 20 she should be transfused with platelets as well. States she saw the patient few days ago with her some repeat labs and at the time her WBC was 4. States this is a huge change in status and her WBC as well as H&H. States her next treatment is not until the ninth. States she does not feel she needs to be somewhere where oncology is present and we can return on the phone at any time and feels like admitting her here would be possible if her hospitalist is willing to accept. @ [id number] Zarate agrees to accept pt. Vital Signs Temperature 100.7 F H 06/28/19 12:22 Pulse Rate 97 H 06/28/19 12:22 Respiratory Rate 22 06/28/19 12:22 Blood Pressure 138/72 06/28/19 12:22 Pulse Oximetry (%) 99 06/28/19 12:22 Temperature 99.5 F H 06/28/19 14:36 Pulse Rate 95 H 06/28/19 15:31 Respiratory Rate 24 H 06/28/19 15:31 Blood Pressure 99/72 06/28/19 15:31 Pulse Oximetry (%) 99 06/28/19 15:31 Medical Decision Making - Lab Data Lab results reviewed: Yes I reviewed the patient's lab results. Result diagrams: 06/28/19 13:11 06/28/19 13:11 Lab Results 06/28/19 06/28/19 06/28/19 Range/Units 13:00 13:11 13:11 WBC 1.0 L (4.50-11.00) K/mcL RBC 2.21 L (3.59-5.38) M/mcL Hgb 6.7 L* (11.2-15.7) g/dL Hct 19.8 L* (34.1-44.9) % POC Hct 16.0 L* (36.0-48.0) % MCV 89.6 (80.0-100.0) fL MCH 30.3 (26.0-34.0) pg MCHC 33.8 (31.0-36.0) g/dL RDW 17.2 H (11.5-14.5) % Plt Count 71 L (140-440) K/mcL MPV 9.3 (7.4-10.4) fL Gran % 84.2 H (38.0-78.0) % Lymph % (Auto) 7.9 L (15.5-49.0) % [place] % (Auto) 6.9 (1.0-12.0) % Eos % (Auto) 1.0 (0.0-7.0) % Baso % (Auto) 0 (0.0-2.0) % Gran # 0.85 L (1.80-8.00) K/mcL Lymph # (Auto) 0.08 L (1.50-4.80) K/mcL [place] # (Auto) 0.07 L (0.10-0.90) K/mcL Eos # (Auto) 0.01 (0.00-0.70) K/mcL Baso # (Auto) 0 (0.00-0.30) K/mcL VBG Lactic Acid (0.5-2.0) mmol/L POC Sodium 126 L (133-145) mmol/L Sodium 128 L (133-145) mmol/L POC Potassium 3.7 (3.3-5.1) mmol/L Potassium 3.8 (3.3-5.1) mmol/L POC Chloride 93 L (96-108) mmol/L Chloride 95 L (96-108) mmol/L Carbon Dioxide 23 (22-30) mmol/L POC Total CO2 22 (22-30) mmol/L Anion Gap 10.0 (8-16) POC BUN 12 (8-23) mg/dl BUN 13 (8-23) mg/dl Creatinine 0.6 (0.6-1.1) mg/dl POC Creatinine 0.6 (0.6-1.1) mg/dl GFR Calculation 85 Glucose 77 (70-105) mg/dL POC Glucose 75 (70-105) mg/dL Calcium 7.9 L (8.6-10.4) mg/dl POC WB Ioniz Calcium 1.19 (1.16-1.32) mmol/L Total Bilirubin 0.6 (0.0-1.0) mg/dL AST 34 (0-37) U/l ALT 14 (0-40) U/l Alkaline Phosphatase 89 (39-117) U/L Total Protein 3.9 L (5.9-8.4) gm/dL Albumin 2.4 L (3.2-5.2) gm/dL Globulin 1.5 L (2.2-3.7) gm/dL Albumin/Globulin Ratio 1.6 (1.0-2.3) Urine Color Yellow Urine Appearance Clear Urine pH 6.0 (5.0-9.0) Ur Specific [place] 1.015 (1.000-1.035) Urine Protein Neg (NEG) mg/dL Urine Glucose (UA) Negative (NEG) mg/dL Urine Ketones 5/tr A (NEG) mg/dL Urine Occult Blood Neg (<0.03) mg/dL Urine Nitrate Pos A (NEG) Urine Bilirubin Neg (NEG) mg/dL Urine Urobilinogen 2.0 A (NEG) mg/dL Ur Leukocyte Esterase 75 A (NEG) /uL Urine RBC 1 (0-1) /hpf Urine WBC 34 H (0-4) /hpf Ur Squamous Epith Cells 0 (0-4) /hpf Ur Transition Epith Cell < 1 (0-2) /hpf Urine Bacteria Few A (0) /hpf Urine Mucus Mod (0) /hpf Urine Yeast (Budding) Few A (0) /hpf Ur Culture Indicated? Yes 06/28/19 Range/Units 13:11 WBC (4.50-11.00) K/mcL RBC (3.59-5.38) M/mcL Hgb (11.2-15.7) g/dL Hct (34.1-44.9) % POC Hct (36.0-48.0) % MCV (80.0-100.0) fL MCH (26.0-34.0) pg MCHC (31.0-36.0) g/dL RDW (11.5-14.5) % Plt Count (140-440) K/mcL MPV (7.4-10.4) fL Gran % (38.0-78.0) % Lymph % (Auto) (15.5-49.0) % [place] % (Auto) (1.0-12.0) % Eos % (Auto) (0.0-7.0) % Baso % (Auto) (0.0-2.0) % Gran # (1.80-8.00) K/mcL Lymph # (Auto) (1.50-4.80) K/mcL [place] # (Auto) (0.10-0.90) K/mcL Eos # (Auto) (0.00-0.70) K/mcL Baso # (Auto) (0.00-0.30) K/mcL VBG Lactic Acid 0.6 (0.5-2.0) mmol/L POC Sodium (133-145) mmol/L Sodium (133-145) mmol/L POC Potassium (3.3-5.1) mmol/L Potassium (3.3-5.1) mmol/L POC Chloride (96-108) mmol/L Chloride (96-108) mmol/L Carbon Dioxide (22-30) mmol/L POC Total CO2 (22-30) mmol/L Anion Gap (8-16) POC BUN (8-23) mg/dl BUN (8-23) mg/dl Creatinine (0.6-1.1) mg/dl POC Creatinine (0.6-1.1) mg/dl GFR Calculation Glucose (70-105) mg/dL POC Glucose (70-105) mg/dL Calcium (8.6-10.4) mg/dl POC WB Ioniz Calcium (1.16-1.32) mmol/L Total Bilirubin (0.0-1.0) mg/dL AST (0-37) U/l ALT (0-40) U/l Alkaline Phosphatase (39-117) U/L Total Protein (5.9-8.4) gm/dL Albumin (3.2-5.2) gm/dL Globulin (2.2-3.7) gm/dL Albumin/Globulin Ratio (1.0-2.3) Urine Color Urine Appearance Urine pH (5.0-9.0) Ur Specific [place] (1.000-1.035) Urine Protein (NEG) mg/dL Urine Glucose (UA) (NEG) mg/dL Urine Ketones (NEG) mg/dL Urine Occult Blood (<0.03) mg/dL Urine Nitrate (NEG) Urine Bilirubin (NEG) mg/dL Urine Urobilinogen (NEG) mg/dL Ur Leukocyte Esterase (NEG) /uL Urine RBC (0-1) /hpf Urine WBC (0-4) /hpf Ur Squamous Epith Cells (0-4) /hpf Ur Transition Epith Cell (0-2) /hpf Urine Bacteria (0) /hpf Urine Mucus (0) /hpf Urine Yeast (Budding) (0) /hpf Ur Culture Indicated? - Radiology Data Radiology results reviewed: Yes I reviewed the patient's radiology results. Disposition Pt seen by COMPUTER MECHANIC/PA only: Yes Clinical Impression: UTI (urinary tract infection), Anemia, Lymphoma Disposition: Xfer As Inpt ([facility]) Condition: Fair Referrals: Fadia Bolanos ARNP [Primary Care Provider] - Time of Disposition: 15:40
[2019-06-28 13:59] LABS: Appearance,Urine CLEAR; Bacteria,Urine FEW /hpf (0); Bilirubin,Urine NEG (NEG); Color,Urine YELLOW; Culture Indicated,Urine YES; Glucose,Urine (UA) NEGATIVE (NEG); Ketones,Urine 5/TR mg/dL (NEG); Leukocyte Esterase,Urine 75 /uL (NEG); Mucus,Urine MOD /hpf (0); Nitrate,Urine POS (NEG); Protein,Urine NEG (NEG); Specific Gravity,Urine 1.015 (1.000-1.035); Urine Blood NEG mg/dL (<0.03); Urine Budding Yeast FEW /hpf (0); Urine RBC 1 /hpf (0-1); Urine Squamous Epithelial Cell 0 /hpf (0-4); Urine Transitional Epi Cells < 1 /hpf (0-2); Urine WBC 34 /hpf (0-4)
[2019-06-28 14:11] LABS: ALT/SGPT 14 U/l (0-40); AST/SGOT 34 U/l (0-37); Albumin 2.4 gm/dL (3.2-5.2); Albumin/Globulin Ratio 1.6 (1.0-2.3); Alkaline Phosphatase 89 U/L (39-117); Bilirubin,Total 0.6 mg/dL (0.0-1.0); Blood Urea Nitrogen 13 mg/dl (8-23); Calcium 7.9 mg/dl (8.6-10.4); Carbon Dioxide 23 mmol/L (22-30); Chloride 95 mmol/L (96-108); Globulin 1.5 gm/dL (2.2-3.7); Glomerular Filtration Rate 85; Glucose 77 mg/dL (70-105)
[2019-06-28] MEDS ORDERED: 0.9 % SODIUM CHLORIDE 1,000 ML IV ONE (14:19)
[2019-06-28] MEDS ORDERED: cefTRIAXone 1 GM VIAL IV ONE (14:19)
[2019-06-28 14:31] LABS: Basophils # (Auto) 0 K/mcL (0.00-0.30); Basophils % (Auto) 0 % (0.0-2.0); Eosinophils # (Auto) 0.01 K/mcL (0.00-0.70); Granulocytes % (Auto) 84.2 % (38.0-78.0); Hematocrit 19.8 % (34.1-44.9); Hemoglobin 6.7 g/dL (11.2-15.7); Lymphocytes # (Auto) 0.08 K/mcL (1.50-4.80); Lymphocytes % (Auto) 7.9 % (15.5-49.0); Mean Cell Volume 89.6 fL (80.0-100.0); Mean Corpuscular HGB Conc 33.8 g/dL (31.0-36.0); Mean Platelet Volume 9.3 fL (7.4-10.4); Monocytes # (Auto) 0.07 K/mcL (0.10-0.90); Monocytes % (Auto) 6.9 % (1.0-12.0); Platelet Count 71 K/mcL (140-440); RBC 2.21 M/mcL (3.59-5.38); Red Cell Distribution Width 17.2 % (11.5-14.5)
[2019-06-28] MEDS ORDERED: 0.9 % SODIUM CHLORIDE 250 ML IV SCH ×2 (14:45→20:55)
[2019-06-28] MEDS ORDERED: HYDROmorphone 2 MG/ML VIAL IV PRN (15:27)
[2019-06-28] MEDS ORDERED: ONDANSETRON 4 MG/2 ML VIAL IV ONE (15:28)
--- NOTE | 2019-06-28 15:35 | Cat Scan Report ---
CLINICAL INFORMATION: Cough, fever and history of lymphoma COMPARISON: Chest CT 07/14/2008 and 05/22/2019, abdomen CT 04/11/2019 TECHNIQUE: Enteric contrast was utilized. 80 cc of Isovue-370 were injected intravenously, and 50 seconds later 2.5 mm helical slices were obtained from the lung apices through the subtrochanteric regions of the femurs. Following reconstruction, 2.5 mm sagittal, coronal and axial reformatted images were processed and reviewed at multiple windows and levels. 7 mm MIP reconstructions were obtained through the lungs to optimize nodule detection.The exam was performed using radiation dose optimization techniques including, but not limited to, automated exposure control, adjustment of the mA and/or kV according to patient size and use of iterative reconstruction technique. FINDINGS: Pulmonary parenchymal windows show a 13 mm pleural-based nodule in the posterior segment of the right upper lobe (image 30) which is known to demonstrate increased uptake on recent PET. It is unchanged from 05/22/2019, however it is new from 07/14/2008 and presumably malignant. Motion artifact decreases image quality particularly the mid and lower lungs. There is vague patchy airspace disease predominantly bronchovascular distribution in in the right middle and both lower lobes lungs. There are no effusions. Mediastinal windows show the heart is mildly enlarged with scattered calcific plaque in the coronary arteries. The noncontrast thoracic aorta and pulmonary arteries are normal diameter. Moderate hiatal hernia is stable. Thyroid is unremarkable. There is no adenopathy in the mediastinal, hilar or axillary region. A PIC line overlies the SVC right atrial junction. Images of the abdomen show the noncontrast liver to be normal. The gallbladder is surgically absent. The intrahepatic and common bile ducts are normal caliber CBD is 5 mm. Multiple parapelvic cysts noted on the kidneys. The remainder of both kidneys are normal. The adrenal glands, spleen, pancreas and aorta are unremarkable. There is no free air or free fluid. Stomach, small large bowel are grossly normal with the exception of sigmoid diverticulosis Pelvic images show urinary bladder is normal. Uterus not identified either removed or or atrophic. Beam hardening artifact from hip prostheses obscures the pelvic soft tissues. A left inguinal lymph node is decreased from centimeters to 2.[address] two months prior. On prior CT, there were multiple enlarged lymph nodes in the periaortic and periiliac regions which have completely involuted. IMPRESSION: 1. Marked involution in abdomen and pelvic adenopathy since comparison CT over two months prior. 2. 13 mm right upper lobe nodule unchanged from CT three months prior. Demonstrate increased uptake on PET scanning. It may represent a focus lymphoma or primary pulmonary malignancy. Consider CT-guided biopsy. 3. Mild parabronchial vascular airspace disease in both lower lobes - consider developing aspiration pneumonia. 4. Moderate hiatal hernia - stable. 5. Parapelvic cysts both kidneys stable Interpreted and Authenticated by: Jordon Bhardwaj 06/28/19
--- NOTE | 2019-06-28 16:17 | Internal Med History&Physical ---
Medical - H&P: HPI Patient information: Note initiated : 06/28/19 at 4:10 pm Service Date, if different from initiated Date: [] Patient: Darcy Macdonald a 79 y/o F admitted on for weakness, cough, nausea, vomiting. Chief Complaint: [] History of present illness: Ms. Macdonald is a 79 year old F Who is been feeling weak lethargic with the past week and a half. She had chemotherapy last almost 2 weeks ago. She reports weakness and malaise. Family reports confusion. Patient reports productive cough. Has been in bed for the last 18 hours. She diagnosed with lymphoma and last March is under going chemotherapy as stated above. She has noted a strong odor to her urine and some discomfort lately. Been living at home with her boyfriend. He has some abdominal pain that went away last night after couple hours. At one point she felt like she had a fever. She has been hospitalized 3 times previous to this hospitalization the since March when she was diagnosed with lymphoma. Last hospitalization she was here was the end of May for pneumonia also noted to have dysphagia profuse watery diarrhea noninfectious felt to be from chemo. She had pancytopenia. On evaluation in the ER today she was febrile. Blood pressures been lower than usual per family members. She has worsening anemia with a hemoglobin of 6.7 worsened pancytopenia with WBCs of 1.0 and platelets of 71. Sodium of 128. CT abdomen pelvis done also included chest I do not have the official read but per discussion with ER provider did not show any new findings. Case was discussed with her oncologist Dr. Rivera who asked for admission at [facility] and she would be available via phone. She recommended transfusing 2 units started on antibiotics for UTI following up per CBC in the morning and did not recommend any granulocyte stimulating factor at this moment. Also transfuse platelets for less than 20,000. She says she saw the patient several days ago and her WBC at that time was 4. ER provider performed a fecal occult blood test in the ED which was negative. ER staff reports loose stool in the ED and per boyfriend she had formed stools a few days ago. Review of Systems: Pertinent positives as above. Denies headache/chills/nausea/vomiting/chest or abdominal pain/dyspnea/. Remaining 10 point review of system reviewed negative Medical - H&P: PM Medical history: Medical History (Last Reviewed 06/16/17 @ 09:42 by Jordon Putnam DO) Peripheral neuropathy (Chronic) Encounter for Medicare annual wellness exam (Chronic) Breast Cancer Screening (Chronic) Bleeding external hemorrhoids (Chronic) Trochanteric bursitis of left hip (Chronic 10/05/14) Tendonitis (Chronic) Seborrheic keratoses (Chronic 12/28/13) Rhinitis, allergic (Chronic) Osteopenia (Chronic) Osteoarthritis (Chronic) Mitral regurgitation (Chronic) Hypertension, essential (Chronic 02/13/14) Hyperlipidemia (Chronic 02/13/14) Gastroesophageal reflux (Chronic) Diverticular disease (Chronic) Degenerative joint disease (Chronic) Malignant neoplasm of breast (female) (Chronic) Actinic keratosis (Chronic 12/28/13) Acne rosacea (Chronic) Prothrombin mutation (Chronic) Fibrocystic change of breast (Inactive) Gallbladder disorder (Inactive) Hip pain (Inactive) Pain in joint involving lower leg (Inactive 12/09/13) Past Surgical History (Last Reviewed 06/16/17 @ 09:42 by Jordon Putnam DO) History of total mastectomy of left breast (Chronic) Hx of tonsillectomy (Chronic) Hx of left mastectomy (Chronic) History of bladder surgery (Inactive) History of colonoscopy (Inactive) History of ear surgery (Inactive) History of knee replacement (Inactive) History of lumpectomy of left breast (Inactive) History of partial hysterectomy (Inactive) Hx of cholecystectomy (Inactive) Hx of cosmetic surgery (Inactive) Hx of esophagogastroduodenoscopy (Inactive) Hx of hammer toe correction (Inactive) Hx of thumb surgery (Inactive) Hx of tooth extraction (Inactive) Hx of vascular surgery (Inactive) Family History (Last Reviewed 06/16/17 @ 09:42 by Jordon Putnam DO) Mother Asthma Malignant neoplasm of breast Congestive heart failure Cardiac disease Acute myocardial infarction Grandmother Malignant neoplasm of breast Father Essential hypertension Brother Essential hypertension Calculus of kidney Social History (Last Updated 06/16/17 @ 11:41 by Jordon Putnam DO) No tobacco or alcohol Ambulates with walker Lives at home with boyfriend Medical - H&P: Meds Home Medications Medication Instructions Recorded Confirmed Type acetaminophen 500 mg capsule 1,000 mg PO DAILYP PRN cap 01/01/15 06/28/19 History Loperamide [Imodium] 2 mg PO PRN PRN #20 cap 05/27/19 06/28/19 Rx Mirtazapine [Remeron] 45 mg PO HS 06/28/19 06/28/19 History Allergies Allergy/AdvReac Type Severity Reaction Status Date / Time fluticasone [From Flonase] Allergy Mild Rash Verified 03/17/19 11:54 latex Allergy Mild Rash Verified 03/17/19 11:54 olopatadine [From Patanase] Allergy Mild Rash Verified 03/17/19 11:54 amlodipine AdvReac Severe Swelling Verified 03/17/19 06:32 Tamoxifen AdvReac Severe pulmonary Verified 03/17/19 11:54 emboli hydrocodone AdvReac Intermediate Confusion Verified 06/28/19 12:26 alendronate sodium AdvReac Mild Nausea Verified 03/17/19 06:32 [From Fosamax] anastrozole [From Arimidex] AdvReac Mild Nausea Verified 03/17/19 11:54 benazepril AdvReac Mild cough Verified 03/17/19 06:32 Sibutramine [From Meridia] AdvReac Mild Nausea Verified 03/17/19 06:32 tape Allergy Mild Rash Uncoded 05/31/18 09:00 Medical - H&P: Exam - Constitutional Vitals: Temp Pulse Resp BP Pulse Ox 99.5 F H 78 16 125/61 81 L 06/28/19 14:36 06/28/19 16:00 06/28/19 16:00 06/28/19 16:00 06/28/19 16:02 Exam: General: Awake, No acute Distress Eyes/N/T: EOMI, PERRL, dry MM Head/Neck: neck supple, normocephalic atraumatic CV: RRR, No murmurs, normal s1/s2 Pulm: Clear b/l, no wheezing/rhonchi/rales Abd: soft, nontender, +BS x4 Ext: no clubbing/cyanosis, 3+ b/l LE edema Neuro: Drowsy, no focal deficits, moves all extremities, CN 2-12 grossly intact, moves all extremities, sensations intact b/l upper/lower Skin: warm/dry, pale Medical - H&P: Reslt - Labs CBC & Chem 7: 06/28/19 13:11 06/28/19 13:11 Labs: Short CBC 06/28/19 Range/Units 13:11 WBC 1.0 L (4.50-11.00) K/mcL Hgb 6.7 L* (11.2-15.7) g/dL Hct 19.8 L* (34.1-44.9) % Plt Count 71 L (140-440) K/mcL BMP 06/28/19 13:11 Sodium 128 L Potassium 3.8 Chloride 95 L Carbon Dioxide 23 BUN 13 Creatinine 0.6 Glucose 77 Calcium 7.9 L Liver Function 06/28/19 Range/Units 13:11 Total Bilirubin 0.6 (0.0-1.0) mg/dL AST 34 (0-37) U/l ALT 14 (0-40) U/l Alkaline Phosphatase 89 (39-117) U/L Albumin 2.4 L (3.2-5.2) gm/dL Urine 06/28/19 Range/Units 13:00 Urine Color Yellow Urine Appearance Clear Urine pH 6.0 (5.0-9.0) Ur Specific [place] 1.015 (1.000-1.035) Urine Protein Neg (NEG) mg/dL Urine Glucose (UA) Negative (NEG) mg/dL Medical - H&P: A/P - Narrative A/P Narrative: A: *UTI: *Neutropenic fever: 2/2 above -ANC *Pancytopenia: 2/2 chemotherapy worse than has previously been including leukopenia/anemia/thrombocytopenia -FOBT neg *Hyponatremia: *Encephalopathy (lethargy/confusion), metabolic: *h/o Oropharyngeal dysphagia, mild-Moderate: *Lymphoma diagnosis in March: undergoing chemotherapy managed by cancer [facility], last done 06/[address] Rivera -pt has had significant decline since diagnosis. This is the fourth hospitalization over past 3 months, *Protein calorie malnutrition post chemo: *GERD continue PPI P: -Cefepime -check manual diff and monitor ANC -2 prbc -IVF -Case discussed with Dr. Rivera who recommended keeping and treating uti/transfusing prbc/transfuse plts if<20k/follow up CBC -ST eval, dysphagia diet -PT OT/nutrition support with protein calorie supplements -CM for SNF placement -ppx: Heparin DNR
[2019-06-28 16:56] LABS: Anisocytosis 1+ (NONE SEEN); Band Neutrophils % 13 % (0-10); Lymphocytes % 4 % (15-49); Monocytes % (Manual) 4 % (1-12); Myelocytes % 1 % (0-0); Ovalocytes 1+ (NONE SEEN); Platelet Estimate DECR (NORMAL); RBC Morphology ABNORMAL (NORMAL); Segmented Neutrophils % 78 % (38-78)
[2019-06-28] MEDS ORDERED: SENNOSIDES 1 TABLET PO PRN (17:06)
[2019-06-28] MEDS ORDERED: ACETAMINOPHEN 325 MG TABLET PO PRN (17:06)
[2019-06-28] MEDS ORDERED: LOPERAMIDE 2 MG CAPSULE PO PRN (17:06)
[2019-06-28] MEDS ORDERED: POTASSIUM CHLORIDE 40 MEQ in DEXTROSE 5% IN WATER 500 ML IV PRN (17:06)
[2019-06-28] MEDS ORDERED: POTASSIUM CHLORIDE 20 MEQ TABLET PO PRN ×2 (17:06)
[2019-06-28] MEDS ORDERED: MAGNESIUM SULFATE 2 GM/50 ML BAG IV PRN (17:06)
[2019-06-28] MEDS ORDERED: IPRATROPIUM/ALBUTEROL 3 ML AMPUL.NEB NEB PRN (17:06)
[2019-06-28] MEDS ORDERED: POLYETHYLENE GLYCOL 3350 17 GM PACKET PO PRN (17:06)
[2019-06-28] MEDS ORDERED: 0.9 % SODIUM CHLORIDE 1,000 ML IV SCH (17:06)
[2019-06-28] MEDS: CEFEPIME 2 GM VIAL IV SCH (17:41)
[2019-06-28] MEDS: 0.9 % SODIUM CHLORIDE 250 ML IV SCH (18:45)
[2019-06-28 20:25] LABS: ALT/SGPT 13 U/l (0-40); AST/SGOT 34 U/l (0-37); Albumin/Globulin Ratio 1.3 (1.0-2.3); Alkaline Phosphatase 84 U/L (39-117); Bilirubin,Direct < 0.2 mg/dL (0.0-0.3); Bilirubin,Total 0.4 mg/dL (0.0-1.0); Blood Urea Nitrogen 13 mg/dl (8-23); Calcium 7.5 mg/dl (8.6-10.4); Carbon Dioxide 24 mmol/L (22-30); Chloride 98 mmol/L (96-108); Globulin 1.6 gm/dL (2.2-3.7); Glomerular Filtration Rate 85; Glucose 74 mg/dL (70-105); Lactate Dehydrogenase 349 U/L (94-250); Triglycerides 76 mg/dl (<150); Uric Acid 2.5 mg/dL (2.5-8.0)
[2019-06-28 20:26] LABS: Phosphorous 2.2 mg/dL (2.7-4.5)
[2019-06-28] MEDS ORDERED: CALCIUM GLUCONATE 4.65 MEQ in DEXTROSE 5% IN WATER 50 ML IV ONE (20:54)
[2019-06-28] MEDS ORDERED: CALCIUM GLUCONATE 4.65 MEQ/10 ML VIAL ONE (21:18)
[2019-06-28] MEDS: FAMOTIDINE 20 MG TABLET PO SCH (21:24)
[2019-06-28] MEDS: MIRTAZAPINE 15 MG TABLET PO SCH (21:24)
[2019-06-28] MEDS ORDERED: 0.9 % SODIUM CHLORIDE 10 ML SYRINGE IV SCH (22:00)
[2019-06-29 06:42] LABS: Hematocrit 28.7 % (34.1-44.9); Hemoglobin 9.7 g/dL (11.2-15.7); Mean Cell Volume 90.3 fL (80.0-100.0); Mean Corpuscular HGB Conc 33.8 g/dL (31.0-36.0); Mean Platelet Volume 9.6 fL (7.4-10.4); Platelet Count 66 K/mcL (140-440); RBC 3.18 M/mcL (3.59-5.38); Red Cell Distribution Width 15.5 % (11.5-14.5); WBC 1.5 K/mcL (4.50-11.00)
[2019-06-29 06:59] LABS: Chloride 97 mmol/L (96-108)
[2019-06-29] MEDS: CEFEPIME 2 GM VIAL IV SCH ×2 (07:14→21:34)
[2019-06-29 07:15] LABS: ALT/SGPT 16 U/l (0-40); AST/SGOT 42 U/l (0-37); Albumin 2.1 gm/dL (3.2-5.2); Albumin/Globulin Ratio 1.4 (1.0-2.3); Alkaline Phosphatase 134 U/L (39-117); Bilirubin,Direct 0.2 mg/dL (0.0-0.3); Bilirubin,Total 0.6 mg/dL (0.0-1.0); Blood Urea Nitrogen 12 mg/dl (8-23); Calcium 7.6 mg/dl (8.6-10.4); Carbon Dioxide 20 mmol/L (22-30); Globulin 1.5 gm/dL (2.2-3.7); Glomerular Filtration Rate 85; Glucose 67 mg/dL (70-105); Lactate Dehydrogenase 412 U/L (94-250); Phosphorous 2.1 mg/dL (2.7-4.5); Triglycerides 78 mg/dl (<150); Uric Acid 2.6 mg/dL (2.5-8.0)
[2019-06-29] MEDS: traMADol 50 MG TABLET PO PRN ×2 (07:15→15:26)
[2019-06-29] MEDS: ONDANSETRON 4 MG/2 ML VIAL IV PRN ×2 (07:15→21:50)
[2019-06-29] MEDS: FAMOTIDINE 20 MG TABLET PO SCH ×2 (07:15→21:34)
[2019-06-29 07:50] LABS: Anisocytosis 1+ (NONE SEEN); Band Neutrophils % 31 % (0-10); Lymphocytes % 2 % (15-49); Metamyelocytes % 1 % (0-0); Monocytes % (Manual) 5 % (1-12); Myelocytes % 1 % (0-0); Ovalocytes FEW (NONE SEEN); Platelet Estimate DECREASED (NORMAL); RBC Morphology ABNORM (NORMAL); Segmented Neutrophils % 60 % (38-78)
[2019-06-29] MEDS ORDERED: MAGNESIUM SULFATE 2 GM/50 ML BAG IV ONE (07:59)
--- NOTE | 2019-06-29 08:00 | Internal Med Progress Note ---
Medical - PN: Subj Patient information: Note initiated : 06/29/19 at 7:51 am Service Date, if different from initiated Date: [] Patient: Darcy Macdonald 79 y/o F admitted on 06/28/19 for weakness, cough, nausea, vomiting. Chief Complaint: [] Interval history: Ms. Macdonald is a 79 year old F Who is been feeling weak lethargic with the past week and a half. She had chemotherapy last almost 2 weeks ago. She reports weakness and malaise. Family reports confusion. Patient reports productive cough. Has been in bed for the last 18 hours. She diagnosed with lymphoma and last March is under going chemotherapy as stated above. She has noted a strong odor to her urine and some discomfort lately. Been living at home with her boyfriend. He has some abdominal pain that went away last night after couple hours. At one point she felt like she had a fever. She has been hospitalized 3 times previous to this hospitalization the since March when she was diagnosed with lymphoma. Last hospitalization she was here was the end of May for pneumonia also noted to have dysphagia profuse watery diarrhea noninfectious felt to be from chemo. She had pancytopenia. On evaluation in the ER today she was febrile. Blood pressures been lower than usual per family members. She has worsening anemia with a hemoglobin of 6.7 worsened pancytopenia with WBCs of 1.0 and platelets of 71. Sodium of 128. CT abdomen pelvis done also included chest I do not have the official read but per discussion with ER provider did not show any new findings. Case was discussed with her oncologist Dr. Rivera who asked for admission at [facility] and she would be available via phone. She recommended transfusing 2 units started on antibiotics for UTI following up per CBC in the morning and did not recommend any granulocyte stimulating factor at this moment. Also transfuse platelets for less than 20,000. She says she saw the patient several days ago and her WBC at that time was 4. ER provider performed a fecal occult blood test in the ED which was negative. ER staff reports loose stool in the ED and per boyfriend she had formed stools a few days ago. 06/29 Patient feeling better today. Leukocytosis improved and ANC in the mild neutropenia range. Hemoglobin stable after the transfusion. Sodium dropped a little bit from admission 128 to 127. Pending urine studies. Review of Systems: denies headache/fever/chills/nausea/vomiting/chest or abdominal pain/cough/dyspnea/diarrhea. Otherwise see above. - Constitutional Vitals: Vital Signs Temp Pulse Resp BP Pulse Ox 98.8 F 81 12 154/74 94 06/29/19 00:00 06/29/19 04:46 06/29/19 04:46 06/29/19 04:00 06/29/19 04:46 Period Temp Pulse Resp BP Sys/Thakur Pulse Ox Last 24 Hr 98.8 F-100.7 F 73-97 02-26 99-159/54-123 81-100 Intake and Output 06/28/19 06/29/19 06/29/19 21:59 05:59 13:59 Intake Total 916 0 Output Total 2 Balance 914 0 Weight 56.019 kg Intake & Output: Intake & Output 06/28/19 06/29/19 06/29/19 21:59 05:59 13:59 Intake Total 916 0 Output Total 2 Balance 914 0 Weight 56.019 kg Intake: IV 304 0 Sodium Chloride 0.9% 1,000 ml @ 300 Wide Open IV BOLUS ONE Rx#: [id number] Sodium Chloride 0.9% 250 ml @ 4 0 20 mls/hr IV .[id number] [place] Rx#: [id number] Blood Product 612 Output: # of times incontinent of urine 2 Other: # Voids 1 1 Exam: General: Awake, No acute Distress Eyes/N/T: EOMI, Head/Neck: neck supple, CV: RRR, No murmurs, Pulm: Clear b/l, no wheezing/rhonchi/rales Abd: soft, nontender, +BS x4 Ext: no clubbing/cyanosis, 2-3+ b/l LE edema Neuro: awake and alert, no focal deficits, moves all extremities, Skin: warm/dry, pale Medical - PN: Obj Da - Labs CBC & Chem 7: 06/29/19 05:15 06/29/19 05:15 Labs: Abnormal Lab Results 06/29/19 06/29/19 06/28/19 05:15 05:15 19:09 WBC 1.5 L RBC 3.18 L Hgb 9.7 L Hct 28.7 L POC Hct RDW 15.5 H Plt Count 66 L Gran % Lymph % (Auto) Gran # Lymph # (Auto) [place] # (Auto) Band Neutrophils % 31 H Lymphocytes % 2 L Metamyelocytes % 1 H Myelocytes % 1 H RBC Morphology Abnorm A Anisocytosis 1+ A Ovalocytes Few A POC Sodium Sodium 127 L 129 L POC Chloride Chloride Carbon Dioxide 20 L Anion Gap 7.0 L Glucose 67 L Calcium 7.6 L 7.5 L Phosphorus 2.1 L 2.2 L Magnesium 1.5 L GGT 41 H AST 42 H Alkaline Phosphatase 134 H Lactate Dehydrogenase 412 H 349 H Total Protein 3.6 L 3.6 L Albumin 2.1 L 2.0 L Globulin 1.5 L 1.6 L Urine Ketones Urine Nitrate Urine Urobilinogen Ur Leukocyte Esterase Urine WBC Urine Bacteria Urine Yeast (Budding) 06/28/19 06/28/19 06/28/19 13:11 13:11 13:11 WBC 1.0 L RBC 2.21 L Hgb 6.7 L* Hct 19.8 L* POC Hct 16.0 L* RDW 17.2 H Plt Count 71 L Gran % 84.2 H Lymph % (Auto) 7.9 L Gran # 0.85 L Lymph # (Auto) 0.08 L [place] # (Auto) 0.07 L Band Neutrophils % 13 H Lymphocytes % 4 L Metamyelocytes % Myelocytes % 1 H RBC Morphology Anisocytosis 1+ A Ovalocytes 1+ A POC Sodium 126 L Sodium 128 L POC Chloride 93 L Chloride 95 L Carbon Dioxide Anion Gap Glucose Calcium 7.9 L Phosphorus Magnesium GGT AST Alkaline Phosphatase Lactate Dehydrogenase Total Protein 3.9 L Albumin 2.4 L Globulin 1.5 L Urine Ketones Urine Nitrate Urine Urobilinogen Ur Leukocyte Esterase Urine WBC Urine Bacteria Urine Yeast (Budding) 06/28/19 13:00 WBC RBC Hgb Hct POC Hct RDW Plt Count Gran % Lymph % (Auto) Gran # Lymph # (Auto) [place] # (Auto) Band Neutrophils % Lymphocytes % Metamyelocytes % Myelocytes % RBC Morphology Anisocytosis Ovalocytes POC Sodium Sodium POC Chloride Chloride Carbon Dioxide Anion Gap Glucose Calcium Phosphorus Magnesium GGT AST Alkaline Phosphatase Lactate Dehydrogenase Total Protein Albumin Globulin Urine Ketones 5/tr A Urine Nitrate Pos A Urine Urobilinogen 2.0 A Ur Leukocyte Esterase 75 A Urine WBC 34 H Urine Bacteria Few A Urine Yeast (Budding) Few A Meds: Medications Acetaminophen (Tylenol) 650 mg PO Q6HP PRN PRN Reason: PAIN/FEVER > 101 Albuterol/Ipratropium (Duoneb) 3 ml NEB Q4HP PRN PRN Reason: Shortness Of Breath Cefepime HCl (Maxipime) 2 gm IV Q12H [facility]; Protocol Last Admin: 06/29/19 07:14 Dose: 2 gm Documented by: Enoxaparin Sodium (Lovenox) 40 mg SQ DAILY [facility] Famotidine (Pepcid) 20 mg PO BID [facility] Last Admin: 06/29/19 07:15 Dose: 20 mg Documented by: Heparin Sodium (Porcine) (Heparin Flush) 2 ml IV Q12 [facility] Potassium Chloride 40 meq/ (Dextrose) 520 mls @ 130 mls/hr IV UD PRN PRN Reason: Potassium < 3 Magnesium Sulfate (Magnesium Sulfate) 2 gm in 50 mls @ 50 mls/hr IV UD PRN PRN Reason: Magnesium </= 1.6 Sodium Chloride (Sodium Chloride 0.9%) 250 mls @ 20 mls/hr IV .[id number] [facility] Last Infusion: 06/28/19 20:40 Dose: Infused Documented by: Sodium Chloride (Sodium Chloride 0.9%) 250 mls @ 20 mls/hr IV .[id number] [facility] Last Infusion: 06/28/19 23:02 Dose: Infused Documented by: Loperamide HCl (Imodium) 2 mg PO PRN PRN PRN Reason: Diarrhea Mirtazapine (Remeron) 45 mg PO HS [facility] Last Admin: 06/28/19 21:24 Dose: 45 mg Documented by: Ondansetron HCl (Zofran) 4 mg IV Q4HP PRN PRN Reason: Nausea And Vomiting Last Admin: 06/29/19 07:15 Dose: 4 mg Documented by: Polyethylene Glycol (Miralax) 17 gm PO DAILYP PRN PRN Reason: Constipation Potassium Chloride (Kdur) 40 meq PO UD PRN PRN Reason: Potssium is 3-3.5 Potassium Chloride (Kdur) 40 meq PO UD PRN PRN Reason: Potassium < 3 Senna (Senokot) 2 tab PO DAILYP PRN PRN Reason: Constipation Sodium Chloride (Saline Flush) 10 ml IV Q12 [facility] Tramadol HCl (Ultram) 50 mg PO Q4-6HP PRN PRN Reason: Pain Last Admin: 06/29/19 07:15 Dose: 50 mg Documented by: Medical - PN: A/P - Time Spent With Patient Total time spent is greater than 50% in coordination of care (as documented) at patient's floor/unit and/or counseling patient: - Narrative A/P Narrative: A: *UTI: *Neutropenic fever: 2/2 above. -Afebrile now -ANC now 1365 from 900 *Pancytopenia: 2/2 chemotherapy worse than has previously has been, leukopenia/anemia/thrombocytopenia -FOBT neg -Hgb 9.7<(2prbc)<6.7 -Plts 66<71 *Hyponatremia: *Encephalopathy (lethargy/confusion), metabolic: *h/o Oropharyngeal dysphagia, mild-Moderate: *Lymphoma diagnosis in March: undergoing chemotherapy managed by [facility], last done 06/[address] Rivera -pt has had significant decline since diagnosis. This is the fourth hospitalization over past 3 months, *Protein calorie malnutrition post chemo: *GERD continue PPI P: -Cefepime, pending UC -monitor ANC -urine studies, -Case discussed with Dr. Rivera who recommended keeping and treating uti/transfusing prbc/transfuse plts if<20k/follow up CBC -ST eval, dysphagia diet -PT OT/nutrition support with protein calorie supplements -CM for SNF placement -ppx: Heparin (hold for PLT's<50k) DNR Medical - PN: Qual - VTE Deep Vein Thrombosis/Pulmonary Embolism Present on Admission: No
[2019-06-29] MEDS: PHOSPHORUS 250 MG TABLET PO SCH ×3 (11:16→22:01)
[2019-06-29] MEDS: ENOXAPARIN 40 MG/0.4 ML SYRINGE SQ SCH ×2 (11:16→11:44)
[2019-06-29] MEDS: 0.9 % SODIUM CHLORIDE 10 ML SYRINGE IV SCH ×3 (11:16→21:35)
[2019-06-29] MEDS: SODIUM CHLORIDE 1 GM TABLET PO SCH ×3 (11:17→21:34)
[2019-06-29 11:24] LABS: Osmolality,Urine 490 mOsm/kg (80-1000)
[2019-06-29 12:40] LABS: Sodium, Urine Random 61 mmol/L
[2019-06-29] MEDS: 0.9 % SODIUM CHLORIDE 250 ML IV SCH (16:46)
[2019-06-29] MEDS: MIRTAZAPINE 15 MG TABLET PO SCH (21:33)
[2019-06-30 06:37] LABS: Hematocrit 27.6 % (34.1-44.9); Hemoglobin 9.6 g/dL (11.2-15.7); Mean Cell Volume 89.3 fL (80.0-100.0); Mean Corpuscular HGB Conc 34.8 g/dL (31.0-36.0); Mean Platelet Volume 9.5 fL (7.4-10.4); Platelet Count 58 K/mcL (140-440); RBC 3.09 M/mcL (3.59-5.38); Red Cell Distribution Width 15.8 % (11.5-14.5); WBC 1.3 K/mcL (4.50-11.00)
[2019-06-30 07:43] LABS: Anisocytosis FEW (NONE SEEN); Band Neutrophils % 15 % (0-10); Eosinophils % (Manual) 2 % (0-7); Lymphocytes % 1 % (15-49); Monocytes % (Manual) 2 % (1-12); Myelocytes % 1 % (0-0); Platelet Estimate DECREASED (NORMAL); RBC Morphology ABNORM (NORMAL); Segmented Neutrophils % 79 % (38-78)
[2019-06-30 07:59] LABS: ALT/SGPT 15 U/l (0-40); AST/SGOT 33 U/l (0-37); Albumin/Globulin Ratio 1.4 (1.0-2.3); Alkaline Phosphatase 120 U/L (39-117); Bilirubin,Direct 0.2 mg/dL (0.0-0.3); Bilirubin,Total 0.6 mg/dL (0.0-1.0); Blood Urea Nitrogen 12 mg/dl (8-23); Calcium 7.1 mg/dl (8.6-10.4); Carbon Dioxide 23 mmol/L (22-30); Chloride 101 mmol/L (96-108); Globulin 1.4 gm/dL (2.2-3.7); Glomerular Filtration Rate 85; Glucose 73 mg/dL (70-105); Lactate Dehydrogenase 369 U/L (94-250); Phosphorous 1.6 mg/dL (2.7-4.5); Triglycerides 85 mg/dl (<150); Uric Acid 2.6 mg/dL (2.5-8.0)
[2019-06-30] MEDS ORDERED: CALCIUM GLUCONATE 4.65 MEQ/10 ML VIAL IV ONE (08:03)
--- NOTE | 2019-06-30 08:04 | Internal Med Progress Note ---
Medical - PN: Subj Patient information: Note initiated : 06/30/19 at 8:01 am Service Date, if different from initiated Date: [] Patient: Darcy Macdonald 79 y/o F admitted on 06/28/19 for weakness, cough, nausea, vomiting. Chief Complaint: [] Interval history: Ms. Macdonald is a 79 year old F Who is been feeling weak lethargic with the past week and a half. She had chemotherapy last almost 2 weeks ago. She reports weakness and malaise. Family reports confusion. Patient reports productive cough. Has been in bed for the last 18 hours. She diagnosed with lymphoma and last March is under going chemotherapy as stated above. She has noted a strong odor to her urine and some discomfort lately. Been living at home with her boyfriend. He has some abdominal pain that went away last night after couple hours. At one point she felt like she had a fever. She has been hospitalized 3 times previous to this hospitalization the since March when she was diagnosed with lymphoma. Last hospitalization she was here was the end of May for pneumonia also noted to have dysphagia profuse watery diarrhea noninfectious felt to be from chemo. She had pancytopenia. On evaluation in the ER today she was febrile. Blood pressures been lower than usual per family members. She has worsening anemia with a hemoglobin of 6.7 worsened pancytopenia with WBCs of 1.0 and platelets of 71. Sodium of 128. CT abdomen pelvis done also included chest I do not have the official read but per discussion with ER provider did not show any new findings. Case was discussed with her oncologist Dr. Rivera who asked for admission at [facility] and she would be available via phone. She recommended transfusing 2 units started on antibiotics for UTI following up per CBC in the morning and did not recommend any granulocyte stimulating factor at this moment. Also transfuse platelets for less than 20,000. She says she saw the patient several days ago and her WBC at that time was 4. ER provider performed a fecal occult blood test in the ED which was negative. ER staff reports loose stool in the ED and per boyfriend she had formed stools a few days ago. 06/29 Patient feeling better today. Leukocytosis improved and ANC in the mild neutropenia range. Hemoglobin stable after the transfusion. Sodium dropped a little bit from admission 128 to 127. Pending urine studies. 06/30 Feeling better today. Sitting up in bed, appears to have much more energy. Was able to stand yesterday with physical therapy but appeared shaky. Has not worked with physical therapy yet today. CBC relatively stable Management for placement to SNF Review of Systems: denies headache/fever/chills/nausea/vomiting/chest or abdominal pain/ cough/dyspnea/diarrhea. Otherwise see above. - Constitutional Vitals: Vital Signs Temp Pulse Resp BP Pulse Ox 100.0 F H 87 20 144/77 95 06/30/19 04:01 06/30/19 04:01 06/30/19 04:01 06/30/19 04:01 06/30/19 04:01 Period Temp Pulse Resp BP Sys/Thakur Pulse Ox Last 24 Hr 99.4 F-100.9 F 82-97 13-20 135-149/65-102 95-100 Intake and Output 06/29/19 06/30/19 06/30/19 21:59 05:59 13:59 Intake Total 450 180 Output Total 1 2 Balance 449 178 Weight 57.017 kg Intake & Output: Intake & Output 06/29/19 06/30/19 06/30/19 21:59 05:59 13:59 Intake Total 450 180 Output Total 1 2 Balance 449 178 Weight 57.017 kg Intake: IV 50 Oral 400 180 Output: # of times incontinent of urine 1 2 Other: Meal Lunch Percent of Meal Consumed Refused Urine Color Dark Yellow Urine Odor Strong # Voids 1 Exam: General: Awake, No acute Distress Eyes/N/T: EOMI, Head/Neck: neck supple, CV: RRR, No murmurs, Pulm: Clear b/l, no wheezing/rhonchi/rales Abd: soft, nontender, +BS x4 Ext: no clubbing/cyanosis, 2-3+ b/l LE edema Neuro: awake and alert, no focal deficits, moves all extremities, Skin: warm/dry, pale Medical - PN: Obj Da - Labs CBC & Chem 7: 06/30/19 05:00 06/30/19 05:00 Labs: Abnormal Lab Results 06/30/19 06/30/19 06/29/19 05:00 05:00 05:50 WBC 1.3 L RBC 3.09 L Hgb 9.6 L Hct 27.6 L POC Hct RDW 15.8 H Plt Count 58 L Gran % Lymph % (Auto) Gran # Lymph # (Auto) [place] # (Auto) Seg Neutrophils % 79 H Band Neutrophils % 15 H Lymphocytes % 1 L Metamyelocytes % Myelocytes % 1 H RBC Morphology Abnorm A Anisocytosis Few A Ovalocytes POC Sodium Sodium Potassium 3.0 L POC Chloride Chloride Carbon Dioxide Anion Gap Glucose Osmolality 266 L Calcium 7.1 L Phosphorus 1.6 L Magnesium GGT AST Alkaline Phosphatase 120 H Lactate Dehydrogenase 369 H Total Protein 3.4 L Albumin 2.0 L Globulin 1.4 L Urine Ketones Urine Nitrate Urine Urobilinogen Ur Leukocyte Esterase Urine WBC Urine Bacteria Urine Yeast (Budding) 06/29/19 06/29/19 06/28/19 05:15 05:15 19:09 WBC 1.5 L RBC 3.18 L Hgb 9.7 L Hct 28.7 L POC Hct RDW 15.5 H Plt Count 66 L Gran % Lymph % (Auto) Gran # Lymph # (Auto) [place] # (Auto) Seg Neutrophils % Band Neutrophils % 31 H Lymphocytes % 2 L Metamyelocytes % 1 H Myelocytes % 1 H RBC Morphology Abnorm A Anisocytosis 1+ A Ovalocytes Few A POC Sodium Sodium 127 L 129 L Potassium POC Chloride Chloride Carbon Dioxide 20 L Anion Gap 7.0 L Glucose 67 L Osmolality Calcium 7.6 L 7.5 L Phosphorus 2.1 L 2.2 L Magnesium 1.5 L GGT 41 H AST 42 H Alkaline Phosphatase 134 H Lactate Dehydrogenase 412 H 349 H Total Protein 3.6 L 3.6 L Albumin 2.1 L 2.0 L Globulin 1.5 L 1.6 L Urine Ketones Urine Nitrate Urine Urobilinogen Ur Leukocyte Esterase Urine WBC Urine Bacteria Urine Yeast (Budding) 06/28/19 06/28/19 06/28/19 13:11 13:11 13:11 WBC 1.0 L RBC 2.21 L Hgb 6.7 L* Hct 19.8 L* POC Hct 16.0 L* RDW 17.2 H Plt Count 71 L Gran % 84.2 H Lymph % (Auto) 7.9 L Gran # 0.85 L Lymph # (Auto) 0.08 L [place] # (Auto) 0.07 L Seg Neutrophils % Band Neutrophils % 13 H Lymphocytes % 4 L Metamyelocytes % Myelocytes % 1 H RBC Morphology Anisocytosis 1+ A Ovalocytes 1+ A POC Sodium 126 L Sodium 128 L Potassium POC Chloride 93 L Chloride 95 L Carbon Dioxide Anion Gap Glucose Osmolality Calcium 7.9 L Phosphorus Magnesium GGT AST Alkaline Phosphatase Lactate Dehydrogenase Total Protein 3.9 L Albumin 2.4 L Globulin 1.5 L Urine Ketones Urine Nitrate Urine Urobilinogen Ur Leukocyte Esterase Urine WBC Urine Bacteria Urine Yeast (Budding) 06/28/19 13:00 WBC RBC Hgb Hct POC Hct RDW Plt Count Gran % Lymph % (Auto) Gran # Lymph # (Auto) [place] # (Auto) Seg Neutrophils % Band Neutrophils % Lymphocytes % Metamyelocytes % Myelocytes % RBC Morphology Anisocytosis Ovalocytes POC Sodium Sodium Potassium POC Chloride Chloride Carbon Dioxide Anion Gap Glucose Osmolality Calcium Phosphorus Magnesium GGT AST Alkaline Phosphatase Lactate Dehydrogenase Total Protein Albumin Globulin Urine Ketones 5/tr A Urine Nitrate Pos A Urine Urobilinogen 2.0 A Ur Leukocyte Esterase 75 A Urine WBC 34 H Urine Bacteria Few A Urine Yeast (Budding) Few A Meds: Medications Acetaminophen (Tylenol) 650 mg PO Q6HP PRN PRN Reason: PAIN/FEVER > 101 Albuterol/Ipratropium (Duoneb) 3 ml NEB Q4HP PRN PRN Reason: Shortness Of Breath Cefepime HCl (Maxipime) 2 gm IV Q12H [facility]; Protocol Last Admin: 06/29/19 21:34 Dose: 2 gm Documented by: Enoxaparin Sodium (Lovenox) 40 mg SQ DAILY [facility] Last Admin: 06/29/19 11:44 Dose: 40 mg Documented by: Famotidine (Pepcid) 20 mg PO BID [facility] Last Admin: 06/29/19 21:34 Dose: 20 mg Documented by: Heparin Sodium (Porcine) (Heparin Flush) 2 ml IV Q12 [facility] Last Admin: 06/29/19 21:34 Dose: 2 ml Documented by: Potassium Chloride 40 meq/ (Dextrose) 520 mls @ 130 mls/hr IV UD PRN PRN Reason: Potassium < 3 Magnesium Sulfate (Magnesium Sulfate) 2 gm in 50 mls @ 50 mls/hr IV UD PRN PRN Reason: Magnesium </= 1.6 Loperamide HCl (Imodium) 2 mg PO PRN PRN PRN Reason: Diarrhea Mirtazapine (Remeron) 45 mg PO [facility] Last Admin: 06/29/19 21:33 Dose: 45 mg Documented by: Ondansetron HCl (Zofran) 4 mg IV Q4HP PRN PRN Reason: Nausea And Vomiting Last Admin: 06/29/19 21:50 Dose: 4 mg Documented by: Polyethylene Glycol (Miralax) 17 gm PO DAILYP PRN PRN Reason: Constipation Potassium Chloride (Kdur) 40 meq PO UD PRN PRN Reason: Potssium is 3-3.5 Potassium Chloride (Kdur) 40 meq PO UD PRN PRN Reason: Potassium < 3 Senna (Senokot) 2 tab PO DAILYP PRN PRN Reason: Constipation Sodium Chloride (Saline Flush) 10 ml IV Q12 [place] Last Admin: 06/29/19 21:35 Dose: 10 ml Documented by: Sodium Chloride (Sodium Chloride) 1 gm PO TID [place] Last Admin: 06/29/19 21:34 Dose: 1 gm Documented by: Tramadol HCl (Ultram) 50 mg PO Q4-6HP PRN PRN Reason: Pain Last Admin: 06/29/19 15:26 Dose: 50 mg Documented by: Medical - PN: A/P - Time Spent With Patient Total time spent is greater than 50% in coordination of care (as documented) at patient's floor/unit and/or counseling patient: - Narrative A/P Narrative: A: *UTI: *Neutropenic fever: 2/2 above. -TM 100.6 last night -ANC 1220<1365<900 *Pancytopenia: 2/2 chemotherapy worse than has previously has been, leukopenia/anemia/thrombocytopenia -FOBT neg -Hgb 9.7<(2prbc)<6.7. stable -Plts 58<66<71 *Hyponatremia: resolved *Encephalopathy (lethargy/confusion), metabolic: Improved *h/o Oropharyngeal dysphagia, mild-Moderate last admit: *Lymphoma diagnosis in March: undergoing chemotherapy managed by [facility], last done 06/[address] Rivera -pt has had significant decline since diagnosis. This is the fourth hospitalization over past 3 months, *Protein calorie malnutrition post chemo: *GERD: continue PPI *Electrolyte imbalance P: -Cefepime, pending UC -monitor ANC -Case discussed with Dr. Rivera in ED who recommended keeping and treating uti/transfusing prbc/transfuse plts if<20k/follow up CBC -As needed electrolyte replacement -dysphagia diet -PT OT/nutrition support with protein calorie supplements -CM for SNF placement -ppx: lovenox (hold for PLT's<50k) DNR Medical - PN: Qual - VTE Deep Vein Thrombosis/Pulmonary Embolism Present on Admission: No
[2019-06-30] MEDS ORDERED: CALCIUM GLUCONATE 9.3 MEQ in DEXTROSE 5% IN WATER 50 ML IV ONE (08:15)
[2019-06-30] MEDS: CEFEPIME 2 GM VIAL IV SCH ×2 (09:26→20:49)
[2019-06-30] MEDS: ENOXAPARIN 40 MG/0.4 ML SYRINGE SQ SCH (09:27)
[2019-06-30] MEDS: FAMOTIDINE 20 MG TABLET PO SCH ×2 (09:27→21:12)
[2019-06-30] MEDS: PHOSPHORUS 250 MG TABLET PO SCH ×4 (09:27→20:54)
[2019-06-30] MEDS: SODIUM CHLORIDE 1 GM TABLET PO SCH ×4 (09:27→20:54)
[2019-06-30] MEDS: 0.9 % SODIUM CHLORIDE 10 ML SYRINGE IV SCH (09:28)
[2019-06-30] MEDS ORDERED: METOPROLOL TARTRATE 5 MG/5 ML VIAL IV PRN (11:51)
[2019-06-30] MEDS: traMADol 50 MG TABLET PO PRN (18:59)
[2019-06-30] MEDS: MIRTAZAPINE 15 MG TABLET PO SCH (21:03)
[2019-07-01] MEDS: 0.9 % SODIUM CHLORIDE 10 ML SYRINGE IV SCH ×5 (03:43→20:09)
[2019-07-01 06:48] LABS: ALT/SGPT 15 U/l (0-40); AST/SGOT 33 U/l (0-37); Albumin 1.9 gm/dL (3.2-5.2); Albumin/Globulin Ratio 1.4 (1.0-2.3); Alkaline Phosphatase 109 U/L (39-117); Bilirubin,Direct 0.3 mg/dL (0.0-0.3); Bilirubin,Total 0.6 mg/dL (0.0-1.0); Blood Urea Nitrogen 12 mg/dl (8-23); Carbon Dioxide 23 mmol/L (22-30); Chloride 99 mmol/L (96-108); Globulin 1.4 gm/dL (2.2-3.7); Glomerular Filtration Rate 85; Glucose 83 mg/dL (70-105); Lactate Dehydrogenase 397 U/L (94-250); Triglycerides 86 mg/dl (<150); Uric Acid 2.4 mg/dL (2.5-8.0)
[2019-07-01 07:37] LABS: Hematocrit 27.5 % (34.1-44.9); Hemoglobin 9.5 g/dL (11.2-15.7); Mean Cell Volume 88.7 fL (80.0-100.0); Mean Corpuscular HGB Conc 34.5 g/dL (31.0-36.0); Platelet Count 44 K/mcL (140-440); Red Cell Distribution Width 15.8 % (11.5-14.5); WBC 1.1 K/mcL (4.50-11.00)
[2019-07-01] MEDS: ENOXAPARIN 40 MG/0.4 ML SYRINGE SQ SCH (07:55)
[2019-07-01] MEDS ORDERED: POTASSIUM PHOSPHATE 40 MEQ in DEXTROSE 5% IN WATER 500 ML IV ONE (07:57)
[2019-07-01 08:36] LABS: Anisocytosis 1+ (NONE SEEN); Band Neutrophils % 37 % (0-10); Eosinophils % (Manual) 1 % (0-7); Lymphocytes % 2 % (15-49); Monocytes % (Manual) 1 % (1-12); Myelocytes % 2 % (0-0); Platelet Estimate MK DECR (NORMAL); RBC Morphology ABNORM (NORMAL); Segmented Neutrophils % 57 % (38-78)
[2019-07-01] MEDS: CEFEPIME 2 GM VIAL IV SCH ×2 (09:31→20:13)
[2019-07-01] MEDS: SODIUM CHLORIDE 1 GM TABLET PO SCH ×3 (10:23→20:09)
[2019-07-01] MEDS: FAMOTIDINE 20 MG TABLET PO SCH ×2 (10:23→20:09)
[2019-07-01] MEDS: ACETAMINOPHEN 500 MG/50 ML BOTTLE IV PRN ×3 (11:06→22:38)
[2019-07-01] MEDS: MIRTAZAPINE 15 MG TABLET PO SCH (20:10)
[2019-07-01] MEDS: ONDANSETRON 4 MG/2 ML VIAL IV PRN (20:19)
--- NOTE | 2019-07-01 21:01 | Internal Med Progress Note ---
Medical - PN: Subj Patient information: Note initiated : 07/01/19 at 8:59 pm Service Date, if different from initiated Date: [] Patient: Darcy Macdonald 79 y/o F admitted on 06/28/19 for weakness, cough, nausea, vomiting. Chief Complaint: [] Interval history: Ms. Macdonald is a 79 year old F who is been feeling weak lethargic with the past week and a half. She had chemotherapy last almost 2 weeks ago (06/13). She reports weakness and malaise. Family reports confusion. Patient reports productive cough. Has been in bed for the last 18 hours. She diagnosed with lymphoma and last March is under going chemotherapy as stated above. She has noted a strong odor to her urine and some discomfort lately. Been living at home with her boyfriend. He has some abdominal pain that went away last night after couple hours. At one point she felt like she had a fever. She has been hospitalized 3 times previous to this hospitalization the since March when she was diagnosed with lymphoma. Last hospitalization she was here was the end of May for pneumonia also noted to have dysphagia profuse watery diarrhea noninfectious felt to be from chemo. She had pancytopenia. On evaluation in the ER today she was febrile. Blood pressures been lower than usual per family members. She has worsening anemia with a hemoglobin of 6.7 worsened pancytopenia with WBCs of 1.0 and platelets of 71. Sodium of 128. CT abdomen pelvis done also included chest I do not have the official read but per discussion with ER provider did not show any new findings. Case was discussed with her oncologist Dr. Rivera who asked for admission at [facility] and she would be available via phone. She recommended transfusing 2 units started on antibiotics for UTI following up per CBC in the morning and did not recommend any granulocyte stimulating factor at this moment. Also transfuse platelets for less than 20,000. She says she saw the patient several days ago and her WBC at that time was 4. ER provider performed a fecal occult blood test in the ED which was negative. ER staff reports loose stool in the ED and per boyfriend she had formed stools a few days ago. 06/29 Patient feeling better today. Leukocytosis improved and ANC in the mild neutropenia range. Hemoglobin stable after the transfusion. Sodium dropped a little bit from admission 128 to 127. Pending urine studies. 06/30 Feeling better today. Sitting up in bed, appears to have much more energy. Was able to stand yesterday with physical therapy but appeared shaky. Has not worked with physical therapy yet today. CBC relatively stable 07/01 Patient received tramadol mid evening on 06/30 and was sedated this morning. That improved significantly by early afternoon. Counts remain about the same, white count 1.1 with 90+ percent neutrophils. Discussed her progress with Dr. [place], her oncologist. At this point, depending on the patient's desires it would be okay to stop chemotherapy or hold on an of next dose given her acute illness. Patient will likely need skilled facility and further rehab after leaving the hospital. Pertinent ROS: Feels generally weak. Appetite is not good, but taking supplements. No dys pnea. Mild abdominal pain, persists. - Constitutional Vitals: Vital Signs Temp Pulse Resp BP Pulse Ox 97.4 F 90 20 125/81 97 07/01/19 16:00 07/01/19 12:00 07/01/19 16:00 07/01/19 16:00 07/01/19 16:00 Period Temp Pulse Resp BP Sys/Thakur Pulse Ox Last 24 Hr 97.4 F-99.9 F 81-94 0-20 124-157/59-105 95-97 Intake and Output 07/01/19 07/01/19 07/01/19 05:59 13:59 21:59 Intake Total 90 770 50 Output Total 1 3 Balance 89 767 50 Weight 127 lb Patient Weight 07/02/19 05:59 Weight 127 lb Intake & Output: Intake & Output 07/01/19 07/01/19 07/01/19 05:59 13:59 21:59 Intake Total 90 770 50 Output Total 1 3 Balance 89 767 50 Weight 127 lb Intake: IV 570 50 Potassium Chloride 40 Meq In 520 Dextrose 5% in Water 500 ml @ 130 mls/hr IV UD PRN Rx#: [id number] Oral 90 200 Output: # of times incontinent of urine 1 3 Other: Meal Nourishment/Supplement Dinner Percent of Meal Consumed Refused bites Feeding Ability Assist with Tray Set Up Urine Odor Strong Stool Size Small Small Stool Color Brown Brown Yellow Stool Consistency Loose Liquid # of times incontinent of 1 Bowels Exam: General: Frail appearing, nontoxic Chest: Clear bilaterally, unlabored Cardiovascular: Regular Abdomen: Soft, mild diffuse tenderness without guarding or rebound Neuro: Alert, oriented to person, place and situation. Generally weak. Medical - PN: Obj Da - Labs CBC & Chem 7: 07/01/19 05:00 07/01/19 05:00 Labs: Abnormal Lab Results 07/01/19 07/01/19 06/30/19 05:00 05:00 05:00 WBC 1.1 L RBC 3.10 L Hgb 9.5 L Hct 27.5 L RDW 15.8 H Plt Count 44 L* Seg Neutrophils % Band Neutrophils % 37 H Lymphocytes % 2 L Metamyelocytes % Myelocytes % 2 H Platelet Estimate Mk decr A RBC Morphology Abnorm A Anisocytosis 1+ A Ovalocytes Sodium 131 L Potassium 2.4 L* 3.0 L Carbon Dioxide Glucose Osmolality Uric Acid 2.4 L Calcium 7.0 L 7.1 L Phosphorus 2.0 L 1.6 L Magnesium GGT AST Alkaline Phosphatase 120 H Lactate Dehydrogenase 397 H 369 H Total Protein 3.3 L 3.4 L Albumin 1.9 L 2.0 L Globulin 1.4 L 1.4 L 06/30/19 06/29/19 06/29/19 05:00 05:50 05:15 WBC 1.3 L 1.5 L RBC 3.09 L 3.18 L Hgb 9.6 L 9.7 L Hct 27.6 L 28.7 L RDW 15.8 H 15.5 H Plt Count 58 L 66 L Seg Neutrophils % 79 H Band Neutrophils % 15 H 31 H Lymphocytes % 1 L 2 L Metamyelocytes % 1 H Myelocytes % 1 H 1 H Platelet Estimate RBC Morphology Abnorm A Abnorm A Anisocytosis Few A 1+ A Ovalocytes Few A Sodium Potassium Carbon Dioxide Glucose Osmolality 266 L Uric Acid Calcium Phosphorus Magnesium GGT AST Alkaline Phosphatase Lactate Dehydrogenase Total Protein Albumin Globulin 06/29/19 05:15 WBC RBC Hgb Hct RDW Plt Count Seg Neutrophils % Band Neutrophils % Lymphocytes % Metamyelocytes % Myelocytes % Platelet Estimate RBC Morphology Anisocytosis Ovalocytes Sodium 127 L Potassium Carbon Dioxide 20 L Glucose 67 L Osmolality Uric Acid Calcium 7.6 L Phosphorus 2.1 L Magnesium 1.5 L GGT 41 H AST 42 H Alkaline Phosphatase 134 H Lactate Dehydrogenase 412 H Total Protein 3.6 L Albumin 2.1 L Globulin 1.5 L Meds: Medications Acetaminophen (Tylenol) 650 mg PO Q6HP PRN PRN Reason: PAIN/FEVER > 101 Albuterol/Ipratropium (Duoneb) 3 ml NEB Q4HP PRN PRN Reason: Shortness Of Breath Cefepime HCl (Maxipime) 2 gm IV Q12H [facility]; Protocol Last Admin: 07/01/19 20:13 Dose: 2 gm Documented by: Enoxaparin Sodium (Lovenox) 40 mg SQ DAILY [facility] Last Admin: 07/01/19 07:55 Dose: Not Given Documented by: Famotidine (Pepcid) 20 mg PO BID [facility] Last Admin: 07/01/19 20:09 Dose: 20 mg Documented by: Potassium Chloride 40 meq/ (Dextrose) 520 mls @ 130 mls/hr IV UD PRN PRN Reason: Potassium < 3 Last Infusion: 07/01/19 12:30 Dose: Infused Documented by: Magnesium Sulfate (Magnesium Sulfate) 2 gm in 50 mls @ 50 mls/hr IV UD PRN PRN Reason: Magnesium </= 1.6 Acetaminophen (Ofirmev) 500 mg in 50 mls @ 100 mls/hr IV Q4HP PRN; Protocol PRN Reason: PAIN/FEVER > 101 Last Infusion: 07/01/19 16:40 Dose: Infused Documented by: Loperamide HCl (Imodium) 2 mg PO PRN PRN PRN Reason: Diarrhea Metoprolol Tartrate (Lopressor) 5 mg IV Q2HP PRN PRN Reason: Tachyarrhythmias HR>110 Last Admin: 06/30/19 11:59 Dose: 5 mg Documented by: Mirtazapine (Remeron) 45 mg PO [facility] Last Admin: 07/01/19 20:10 Dose: Not Given Documented by: Ondansetron HCl (Zofran) 4 mg IV Q4HP PRN PRN Reason: Nausea And Vomiting Last Admin: 07/01/19 20:19 Dose: 4 mg Documented by: Polyethylene Glycol (Miralax) 17 gm PO DAILYP PRN PRN Reason: Constipation Potassium Chloride (Kdur) 40 meq PO UD PRN PRN Reason: Potssium is 3-3.5 Potassium Chloride (Kdur) 40 meq PO UD PRN PRN Reason: Potassium < 3 Senna (Senokot) 2 tab PO DAILYP PRN PRN Reason: Constipation Sodium Chloride (Saline Flush) 10 ml IV Q12 [place] Last Admin: 07/01/19 20:09 Dose: 10 ml Documented by: Sodium Chloride (Sodium Chloride) 1 gm PO TID [place] Last Admin: 07/01/19 20:09 Dose: 1 gm Documented by: Tramadol HCl (Ultram) 50 mg PO Q4-6HP PRN PRN Reason: Pain Last Admin: 06/30/19 18:59 Dose: 50 mg Documented by: Medical - PN: A/P - Time Spent With Patient Total time spent is greater than 50% in coordination of care (as documented) at patient's floor/unit and/or counseling patient: Greater than 35 minutes - Narrative A/P Narrative: A: *UTI: Ruled out -culture with only [id number] CFU/mL of lactobacillus *Neutropenic fever: No source, possibly secondary to GI bacteria. -TMax 99.9 over night -ANC 1034<1220<1365<900 *Pancytopenia: 2/2 chemotherapy worse than has previously has been, leukopenia/anemia/thrombocytopenia -FOBT neg -Hgb 9.5<9.7<(2prbc)<6.7. stable -Plts 44<58<66<71 *Hyponatremia: resolved *Encephalopathy (lethargy/confusion), metabolic: Improved *h/o Oropharyngeal dysphagia, mild-Moderate last admit: *Lymphoma diagnosis in March: undergoing chemotherapy managed by [facility], last done 06/[address] Rivera -pt has had significant decline since diagnosis. This is the fourth hospitalization over past 3 months, *Protein calorie malnutrition post chemo: *GERD: continue PPI *Electrolyte imbalance P: -Continue cefepime, still with mildly elevated temperature -monitor ANC -Case discussed with Dr. Rivera in ED who recommended keeping and treating uti/transfusing prbc/transfuse plts if<20k/follow up CBC Case discussed with Dr. Rivera again about timing of next round of chemo. For now patient will place that on hold until strengthening at SNF -As needed electrolyte replacement -Dysphagia diet, per speech -PT OT/nutrition support with protein calorie supplements -CM for SNF placement -ppx: lovenox (hold for PLT's<50k) DNR Medical - PN: Qual - VTE Deep Vein Thrombosis/Pulmonary Embolism Present on Admission: No
[2019-07-02] MEDS: ACETAMINOPHEN 500 MG/50 ML BOTTLE IV PRN ×4 (03:35→21:08)
[2019-07-02 07:16] LABS: ALT/SGPT 17 U/l (0-40); AST/SGOT 38 U/l (0-37); Alkaline Phosphatase 119 U/L (39-117); Bilirubin,Direct 0.3 mg/dL (0.0-0.3); Bilirubin,Total 0.7 mg/dL (0.0-1.0); Blood Urea Nitrogen 11 mg/dl (8-23); Carbon Dioxide 24 mmol/L (22-30); Chloride 99 mmol/L (96-108); Glomerular Filtration Rate 91; Glucose 94 mg/dL (70-105); Lactate Dehydrogenase 481 U/L (94-250); Triglycerides 98 mg/dl (<150)
[2019-07-02 07:17] LABS: Albumin 1.9 gm/dL (3.2-5.2); Albumin/Globulin Ratio 1.3 (1.0-2.3); Globulin 1.5 gm/dL (2.2-3.7); Phosphorous 1.9 mg/dL (2.7-4.5); Uric Acid 1.8 mg/dL (2.5-8.0)
[2019-07-02 07:19] LABS: Basophils # (Auto) 0 K/mcL (0.00-0.30); Basophils % (Auto) 0 % (0.0-2.0); Eosinophils # (Auto) 0.01 K/mcL (0.00-0.70); Eosinophils % (Auto) 1.1 % (0.0-7.0); Hematocrit 29.5 % (34.1-44.9); Hemoglobin 10.2 g/dL (11.2-15.7); Lymphocytes # (Auto) 0.11 K/mcL (1.50-4.80); Lymphocytes % (Auto) 11.6 % (15.5-49.0); Mean Cell Volume 87.5 fL (80.0-100.0); Mean Corpuscular HGB Conc 34.6 g/dL (31.0-36.0); Mean Platelet Volume 10.1 fL (7.4-10.4); Monocytes # (Auto) 0.05 K/mcL (0.10-0.90); Monocytes % (Auto) 5.3 % (1.0-12.0); Platelet Count 26 K/mcL (140-440); RBC 3.37 M/mcL (3.59-5.38); Red Cell Distribution Width 15.7 % (11.5-14.5)
[2019-07-02] MEDS: ONDANSETRON 4 MG/2 ML VIAL IV PRN ×4 (08:15→20:37)
[2019-07-02] MEDS: FAMOTIDINE 20 MG TABLET PO SCH (08:57)
[2019-07-02] MEDS: SODIUM CHLORIDE 1 GM TABLET PO SCH ×3 (08:57→20:20)
[2019-07-02] MEDS: 0.9 % SODIUM CHLORIDE 10 ML SYRINGE IV SCH ×2 (08:58→20:36)
[2019-07-02] MEDS: CEFEPIME 2 GM VIAL IV SCH ×2 (09:22→20:37)
[2019-07-02] MEDS: ENOXAPARIN 40 MG/0.4 ML SYRINGE SQ SCH (09:22)
--- NOTE | 2019-07-02 13:38 | Internal Med Progress Note ---
Medical - PN: Subj Patient information: Note initiated : 07/02/19 at 1:35 pm Service Date, if different from initiated Date: [] Patient: Darcy Macdonald 79 y/o F admitted on 06/28/19 for weakness, cough, nausea, vomiting. Chief Complaint: [] Interval history: Ms. Macdonald is a 79 year old F who is been feeling weak lethargic with the past week and a half. She had chemotherapy last almost 2 weeks ago (06/13). She reports weakness and malaise. Family reports confusion. Patient reports productive cough. Has been in bed for the last 18 hours. She diagnosed with lymphoma and last March is under going chemotherapy as stated above. She has noted a strong odor to her urine and some discomfort lately. Been living at home with her boyfriend. He has some abdominal pain that went away last night after couple hours. At one point she felt like she had a fever. She has been hospitalized 3 times previous to this hospitalization the since March when she was diagnosed with lymphoma. Last hospitalization she was here was the end of May for pneumonia also noted to have dysphagia profuse watery diarrhea noninfectious felt to be from chemo. She had pancytopenia. On evaluation in the ER today she was febrile. Blood pressures been lower than usual per family members. She has worsening anemia with a hemoglobin of 6.7 worsened pancytopenia with WBCs of 1.0 and platelets of 71. Sodium of 128. CT abdomen pelvis done also included chest I do not have the official read but per discussion with ER provider did not show any new findings. Case was discussed with her oncologist Dr. Rivera who asked for admission at [facility] and she would be available via phone. She recommended transfusing 2 units started on antibiotics for UTI following up per CBC in the morning and did not recommend any granulocyte stimulating factor at this moment. Also transfuse platelets for less than 20,000. She says she saw the patient several days ago and her WBC at that time was 4. ER provider performed a fecal occult blood test in the ED which was negative. ER staff reports loose stool in the ED and per boyfriend she had formed stools a few days ago. 06/29 Patient feeling better today. Leukocytosis improved and ANC in the mild neutropenia range. Hemoglobin stable after the transfusion. Sodium dropped a little bit from admission 128 to 127. Pending urine studies. 06/30 Feeling better today. Sitting up in bed, appears to have much more energy. Was able to stand yesterday with physical therapy but appeared shaky. Has not worked with physical therapy yet today. CBC relatively stable 07/01 Patient received tramadol mid evening on 06/30 and was sedated this morning. That improved significantly by early afternoon. Counts remain about the same, white count 1.1 with 90+ percent neutrophils. Discussed her progress with Dr. Rivera in [place], her oncologist. At this point, depending on the patient's desires it would be okay to stop chemotherapy or hold on an of next dose given her acute illness. Patient will likely need skilled facility and further rehab after leaving the hospital. Was up to the chair for about 20 minutes today, fatigued afterwards. Did work with physical therapy. Continues to have intermittent sharp abdominal pain lasting a few seconds then resolving. - Constitutional Vitals: Vital Signs Temp Pulse Resp BP Pulse Ox 98.4 F 85 20 116/79 97 07/02/19 11:56 07/02/19 00:30 07/02/19 11:56 07/02/19 11:56 07/02/19 11:56 Period Temp Pulse Resp BP Sys/Thakur Pulse Ox Last 24 Hr 97.3 F-99 F 81-85 16-20 116-136/70-92 96-98 Intake and Output 07/01/19 07/02/19 07/02/19 21:59 05:59 13:59 Intake Total 50 100 370 Output Total 51 2 Balance -1 98 370 Weight 131 lb 6.4 oz Intake & Output: Intake & Output 07/01/19 07/02/19 07/02/19 21:59 05:59 13:59 Intake Total 50 100 370 Output Total 51 2 Balance -1 98 370 Weight 131 lb 6.4 oz Intake: IV 50 100 100 Oral 270 Output: # of times incontinent of urine 1 2 Emesis 50 Other: Meal Dinner Lunch Percent of Meal Consumed bites 25% Feeding Ability Assist with Tray Set Up # of times incontinent of 1 0 Bowels # Emeses 1 Exam: General: No acute distress Chest: Clear bilaterally, respirations mildly labored Cardiovascular: Regular Abdomen: Soft with mild right greater than left sided tenderness without guarding or rebound Neuro: Alert, oriented to person, place, situation, generally weak, needing assistance to sit up in bed Medical - PN: Obj Da - Labs CBC & Chem 7: 07/02/19 04:54 07/02/19 04:54 Labs: Abnormal Lab Results 07/02/19 07/02/19 07/01/19 04:54 04:54 05:00 WBC 1.0 L RBC 3.37 L Hgb 10.2 L Hct 29.5 L RDW 15.7 H Plt Count 26 L* Gran % 82.0 H Lymph % (Auto) 11.6 L Gran # 0.78 L Lymph # (Auto) 0.11 L [place] # (Auto) 0.05 L Seg Neutrophils % Band Neutrophils % Lymphocytes % Myelocytes % Platelet Estimate RBC Morphology Anisocytosis Sodium 132 L 131 L Potassium 3.2 L 2.4 L* Creatinine 0.5 L Uric Acid 1.8 L 2.4 L Calcium 7.0 L 7.0 L Phosphorus 1.9 L 2.0 L GGT 37 H AST 38 H Alkaline Phosphatase 119 H Lactate Dehydrogenase 481 H 397 H Total Protein 3.4 L 3.3 L Albumin 1.9 L 1.9 L Globulin 1.5 L 1.4 L 07/01/19 06/30/19 06/30/19 05:00 05:00 05:00 WBC 1.1 L 1.3 L RBC 3.10 L 3.09 L Hgb 9.5 L 9.6 L Hct 27.5 L 27.6 L RDW 15.8 H 15.8 H Plt Count 44 L* 58 L Gran % Lymph % (Auto) Gran # Lymph # (Auto) [place] # (Auto) Seg Neutrophils % 79 H Band Neutrophils % 37 H 15 H Lymphocytes % 2 L 1 L Myelocytes % 2 H 1 H Platelet Estimate Mk decr A RBC Morphology Abnorm A Abnorm A Anisocytosis 1+ A Few A Sodium Potassium 3.0 L Creatinine Uric Acid Calcium 7.1 L Phosphorus 1.6 L GGT AST Alkaline Phosphatase 120 H Lactate Dehydrogenase 369 H Total Protein 3.4 L Albumin 2.0 L Globulin 1.4 L Meds: Medications Acetaminophen (Tylenol) 650 mg PO Q6HP PRN PRN Reason: PAIN/FEVER > 101 Albuterol/Ipratropium (Duoneb) 3 ml NEB Q4HP PRN PRN Reason: Shortness Of Breath Cefepime HCl (Maxipime) 2 gm IV Q12H [facility]; Protocol Last Admin: 07/02/19 09:22 Dose: 2 gm Documented by: Enoxaparin Sodium (Lovenox) 40 mg SQ DAILY [facility] Last Admin: 07/02/19 09:22 Dose: Not Given Documented by: Famotidine (Pepcid) 20 mg PO BID [facility] Last Admin: 07/02/19 08:57 Dose: 20 mg Documented by: Potassium Chloride 40 meq/ (Dextrose) 520 mls @ 130 mls/hr IV UD PRN PRN Reason: Potassium < 3 Last Infusion: 07/01/19 12:30 Dose: Infused Documented by: Magnesium Sulfate (Magnesium Sulfate) 2 gm in 50 mls @ 50 mls/hr IV UD PRN PRN Reason: Magnesium </= 1.6 Acetaminophen (Ofirmev) 500 mg in 50 mls @ 100 mls/hr IV Q4HP PRN; Protocol PRN Reason: PAIN/FEVER > 101 Last Infusion: 07/02/19 12:51 Dose: Infused Documented by: Loperamide HCl (Imodium) 2 mg PO PRN PRN PRN Reason: Diarrhea Metoprolol Tartrate (Lopressor) 5 mg IV Q2HP PRN PRN Reason: Tachyarrhythmias HR>110 Last Admin: 06/30/19 11:59 Dose: 5 mg Documented by: Mirtazapine (Remeron) 22.5 mg PO HS [facility] Ondansetron HCl (Zofran) 4 mg IV Q4HP PRN PRN Reason: Nausea And Vomiting Last Admin: 07/02/19 08:15 Dose: 4 mg Documented by: Polyethylene Glycol (Miralax) 17 gm PO DAILYP PRN PRN Reason: Constipation Potassium Chloride (Kdur) 40 meq PO UD PRN PRN Reason: Potssium is 3-3.5 Potassium Chloride (Kdur) 40 meq PO UD PRN PRN Reason: Potassium < 3 Senna (Senokot) 2 tab PO DAILYP PRN PRN Reason: Constipation Sodium Chloride (Saline Flush) 10 ml IV Q12 [facility] Last Admin: 07/02/19 08:58 Dose: 10 ml Documented by: Sodium Chloride (Sodium Chloride) 1 gm PO TID [facility] Last Admin: 07/02/19 08:57 Dose: 1 gm Documented by: Tramadol HCl (Ultram) 50 mg PO Q4-6HP PRN PRN Reason: Pain Last Admin: 06/30/19 18:59 Dose: 50 mg Documented by: Medical - PN: A/P - Time Spent With Patient Total time spent is greater than 50% in coordination of care (as documented) at patient's floor/unit and/or counseling patient: - Narrative A/P Narrative: A: *UTI: Ruled out -culture with only [id number] CFU/mL of lactobacillus *Neutropenic fever: No source, possibly secondary to GI bacteria. -TMax 98.4 over night -ANC 780>1034<1220<1365<900 *Pancytopenia: 2/2 chemotherapy worse than has previously has been, leukopenia/anemia/thrombocytopenia -FOBT neg -Hgb 10.2>9.5<9.7<(2prbc)<6.7. stable -Plts 26>44<58<66<71 *Hyponatremia: resolved *Encephalopathy (lethargy/confusion), metabolic: Improved *h/o Oropharyngeal dysphagia, mild-Moderate last admit: *Lymphoma diagnosis in March: undergoing chemotherapy managed by [facility], last done 06/[address] Rivera -pt has had significant decline since diagnosis. This is the fourth ho spitalization over past 3 months -Plan hiatus from chemo round #4 while strengthens at SNF *Protein calorie malnutrition post chemo: *GERD: continue PPI *Electrolyte imbalance P: -Continue cefepime, still with mildly elevated temperature and ANC less than 1000 today -monitor ANC, platelet count -Case discussed with Dr. Rivera in ED who recommended keeping and treating uti (ruled out)/transfusing prbc/transfuse plts if <20k, follow CBC Case discussed with Dr. Rivera again about timing of next round of chemo. For now patient will place that on hold until strengthening at SNF -As needed electrolyte replacement -Dysphagia diet, per speech -PT OT/nutrition support with protein calorie supplements -CM for SNF placement -ppx: lovenox (hold for PLT's<50k) DNR Medical - PN: Qual - VTE Deep Vein Thrombosis/Pulmonary Embolism Present on Admission: No
[2019-07-02] MEDS ORDERED: PREGABALIN 25 MG CAPSULE PO PRN (17:24)
[2019-07-02] MEDS: FAMOTIDINE/PF 20 MG/2 ML VIAL IV SCH (20:37)
[2019-07-02] MEDS: MIRTAZAPINE 15 MG TABLET PO SCH (20:38)
[2019-07-03] MEDS: ACETAMINOPHEN 500 MG/50 ML BOTTLE IV PRN ×4 (01:08→21:17)
[2019-07-03 06:40] LABS: ALT/SGPT 21 U/l (0-40); AST/SGOT 46 U/l (0-37); Alkaline Phosphatase 138 U/L (39-117); Bilirubin,Total 0.8 mg/dL (0.0-1.0); Blood Urea Nitrogen 10 mg/dl (8-23); Carbon Dioxide 25 mmol/L (22-30); Chloride 101 mmol/L (96-108); Glomerular Filtration Rate 91; Glucose 73 mg/dL (70-105); Lactate Dehydrogenase 465 U/L (94-250); Triglycerides 87 mg/dl (<150); Uric Acid 1.6 mg/dL (2.5-8.0)
[2019-07-03 06:41] LABS: Albumin 1.8 gm/dL (3.2-5.2); Albumin/Globulin Ratio 1.3 (1.0-2.3); Bilirubin,Direct 0.4 mg/dL (0.0-0.3); Globulin 1.4 gm/dL (2.2-3.7); Phosphorous 1.3 mg/dL (2.7-4.5)
[2019-07-03 06:59] LABS: Basophils # (Auto) 0 K/mcL (0.00-0.30); Basophils % (Auto) 0 % (0.0-2.0); Eosinophils # (Auto) 0.03 K/mcL (0.00-0.70); Eosinophils % (Auto) 3.7 % (0.0-7.0); Granulocytes % (Auto) 83.9 % (38.0-78.0); Hemoglobin 10.6 g/dL (11.2-15.7); Lymphocytes # (Auto) 0.05 K/mcL (1.50-4.80); Lymphocytes % (Auto) 6.2 % (15.5-49.0); Mean Cell Volume 87.1 fL (80.0-100.0); Mean Corpuscular HGB Conc 34.2 g/dL (31.0-36.0); Mean Platelet Volume 11.9 fL (7.4-10.4); Monocytes # (Auto) 0.05 K/mcL (0.10-0.90); Monocytes % (Auto) 6.2 % (1.0-12.0); Platelet Count 14 K/mcL (140-440); RBC 3.56 M/mcL (3.59-5.38); Red Cell Distribution Width 16.1 % (11.5-14.5); WBC 0.8 K/mcL (4.50-11.00)
[2019-07-03] MEDS: ENOXAPARIN 40 MG/0.4 ML SYRINGE SQ SCH (07:49)
[2019-07-03] MEDS ORDERED: MAGNESIUM SULFATE 2 GM/50 ML BAG IV PRN (08:22)
[2019-07-03] MEDS ORDERED: POTASSIUM CHLORIDE 40 MEQ in DEXTROSE 5% IN WATER 500 ML IV PRN (08:22)
[2019-07-03] MEDS: 0.9 % SODIUM CHLORIDE 10 ML SYRINGE IV SCH ×2 (08:37→20:43)
[2019-07-03] MEDS ORDERED: POTASSIUM CHLORIDE 40 MEQ in DEXTROSE 5% IN WATER 250 ML IV ONE (09:00)
[2019-07-03] MEDS: SODIUM CHLORIDE 1 GM TABLET PO SCH ×3 (09:20→20:44)
[2019-07-03] MEDS ORDERED: FILGRASTIM 300 MCG/ML VIAL SQ SCH (09:49)
[2019-07-03] MEDS ORDERED: 0.9 % SODIUM CHLORIDE 250 ML IV SCH (10:15)
[2019-07-03] MEDS: CEFEPIME 2 GM VIAL IV SCH ×2 (10:16→20:43)
[2019-07-03] MEDS: FAMOTIDINE/PF 20 MG/2 ML VIAL IV SCH ×2 (10:19→20:43)
--- NOTE | 2019-07-03 12:18 | Internal Med Progress Note ---
Medical - PN: Subj Patient information: Note initiated : 07/03/19 at 12:16 pm Service Date, if different from initiated Date: [] Patient: Darcy Macdonald 79 y/o F admitted on 06/28/19 for weakness, cough, nausea, vomiting. Chief Complaint: [] Interval history: Ms. Macdonald is a 79 year old F who is been feeling weak lethargic with the past week and a half. She had chemotherapy last almost 2 weeks ago (06/13). She reports weakness and malaise. Family reports confusion. Patient reports productive cough. Has been in bed for the last 18 hours. She diagnosed with lymphoma and last March is under going chemotherapy as stated above. She has noted a strong odor to her urine and some discomfort lately. Been living at home with her boyfriend. He has some abdominal pain that went away last night after couple hours. At one point she felt like she had a fever. She has been hospitalized 3 times previous to this hospitalization the since March when she was diagnosed with lymphoma. Last hospitalization she was here was the end of May for pneumonia also noted to have dysphagia profuse watery diarrhea noninfectious felt to be from chemo. She had pancytopenia. On evaluation in the ER today she was febrile. Blood pressures been lower than usual per family members. She has worsening anemia with a hemoglobin of 6.7 worsened pancytopenia with WBCs of 1.0 and platelets of 71. Sodium of 128. CT abdomen pelvis done also included chest I do not have the official read but per discussion with ER provider did not show any new findings. Case was discussed with her oncologist Dr. Rivera who asked for admission at [facility] and she would be available via phone. She recommended transfusing 2 units started on antibiotics for UTI following up per CBC in the morning and did not recommend any granulocyte stimulating factor at this moment. Also transfuse platelets for less than 20,000. She says she saw the patient several days ago and her WBC at that time was 4. ER provider performed a fecal occult blood test in the ED which was negative. ER staff reports loose stool in the ED and per boyfriend she had formed stools a few days ago. 06/29 Patient feeling better today. Leukocytosis improved and ANC in the mild neutropenia range. Hemoglobin stable after the transfusion. Sodium dropped a little bit from admission 128 to 127. Pending urine studies. 06/30 Feeling better today. Sitting up in bed, appears to have much more energy. Was able to stand yesterday with physical therapy but appeared shaky. Has not worked with physical therapy yet today. CBC relatively stable 07/01 Patient received tramadol mid evening on 06/30 and was sedated this morning. That improved significantly by early afternoon. Counts remain about the same, white count 1.1 with 90+ percent neutrophils. Discussed her progress with Dr. Rivera in [place], her oncologist. At this point, depending on the patient's desires it would be okay to stop chemotherapy or hold on an of next dose given her acute illness. Patient will likely need skilled facility and further rehab after leaving the hospital. Was up to the chair for about 20 minutes today, fatigued afterwards. Did work with physical therapy. Continues to have intermittent sharp abdominal pain lasting a few seconds then resolving. 07/02 Having a better day today. Was fatigued most of yesterday after being up in the chair. Sat on the edge of the bed and did bedside exercises this morning. Still having difficulty swallowing. White count continues to drop as does platelets. Pertinent ROS: Abdominal pain is improved today, no dyspnea, no cough or sputum. No chills - Constitutional Vitals: Vital Signs Temp Pulse Resp BP Pulse Ox 99.7 F H 95 H 15 115/84 98 07/03/19 08:00 07/03/19 08:00 07/03/19 08:00 07/03/19 08:00 07/03/19 08:00 Period Temp Pulse Resp BP Sys/Thakur Pulse Ox Last 24 Hr 97.4 F-99.7 F 83-95 15- 115-123/70-84 95-99 Intake and Output 07/02/19 07/03/19 07/03/19 21:59 05:59 13:59 Intake Total 799.0909 50 50 Output Total 1 1 Balance 798.0909 49 50 Weight 132 lb 1.6 oz Intake & Output: Intake & Output 07/02/19 07/03/19 07/03/19 21:59 05:59 13:59 Intake Total 799.0909 50 50 Output Total 1 1 Balance 798.0909 49 50 Weight 132 lb 1.6 oz Intake: IV 559.0909 50 50 Potassium Phosphate 40 Meq In 509.0909 Dextrose 5% in Water 500 ml @ 127.273 mls/hr IV ONCE ONE Rx#: [id number] Oral 240 Output: # of times incontinent of urine 1 1 Other: Meal Dinner Breakfast Percent of Meal Consumed bites Refused Feeding Ability Assist with Tray Set Up # of times incontinent of 0 0 Bowels # [place] 1 Exam: General: Frail-appearing Chest: Clear bilaterally, no rales or wheezes Cardiovascular: Regular, 1+ lower extremity edema Abdomen: Soft, minimal right-sided tenderness to palpation, active bowel sounds Neuro: Alert, oriented to person, place, situation. Generally weak. Medical - PN: Obj Da - Labs CBC & Chem 7: 07/03/19 05:15 07/03/19 05:15 Labs: Abnormal Lab Results 07/03/19 07/03/19 07/02/19 05:15 05:15 04:54 WBC 0.8 L* RBC 3.56 L Hgb 10.6 L Hct 31.0 L RDW 16.1 H Plt Count 14 L* MPV 11.9 H Gran % 83.9 H Lymph % (Auto) 6.2 L Gran # 0.68 L Lymph # (Auto) 0.05 L [place] # (Auto) 0.05 L Band Neutrophils % Lymphocytes % Myelocytes % Platelet Estimate RBC Morphology Anisocytosis Sodium 131 L 132 L Potassium 3.2 L 3.2 L Anion Gap 5.0 L Creatinine 0.5 L 0.5 L Uric Acid 1.6 L 1.8 L Calcium 7.0 L 7.0 L Phosphorus 1.3 L 1.9 L Magnesium 1.5 L Direct Bilirubin 0.4 H GGT 48 H 37 H AST 46 H 38 H Alkaline Phosphatase 138 H 119 H Lactate Dehydrogenase 465 H 481 H Total Protein 3.2 L 3.4 L Albumin 1.8 L 1.9 L Globulin 1.4 L 1.5 L 07/02/19 07/01/19 07/01/19 04:54 05:00 05:00 WBC 1.0 L 1.1 L RBC 3.37 L 3.10 L Hgb 10.2 L 9.5 L Hct 29.5 L 27.5 L RDW 15.7 H 15.8 H Plt Count 26 L* 44 L* MPV Gran % 82.0 H Lymph % (Auto) 11.6 L Gran # 0.78 L Lymph # (Auto) 0.11 L [place] # (Auto) 0.05 L Band Neutrophils % 37 H Lymphocytes % 2 L Myelocytes % 2 H Platelet Estimate Mk decr A RBC Morphology Abnorm A Anisocytosis 1+ A Sodium 131 L Potassium 2.4 L* Anion Gap Creatinine Uric Acid 2.4 L Calcium 7.0 L Phosphorus 2.0 L Magnesium Direct Bilirubin GGT AST Alkaline Phosphatase Lactate Dehydrogenase 397 H Total Protein 3.3 L Albumin 1.9 L Globulin 1.4 L Meds: Medications Acetaminophen (Tylenol) 650 mg PO Q6HP PRN PRN Reason: PAIN/FEVER > 101 Albuterol/Ipratropium (Duoneb) 3 ml NEB Q4HP PRN PRN Reason: Shortness Of Breath Cefepime HCl (Maxipime) 2 gm IV Q12H [facility]; Protocol Last Admin: 07/03/19 10:16 Dose: 2 gm Documented by: Enoxaparin Sodium (Lovenox) 40 mg SQ DAILY [facility] Last Admin: 07/03/19 07:49 Dose: Not Given Documented by: Famotidine (Pepcid) 20 mg IV Q12 [place] Last Admin: 07/03/19 10:19 Dose: 20 mg Documented by: Filgrastim (Neupogen) 300 mcg SQ DAILY [facility] Stop: 07/05/19 09:01 Acetaminophen (Ofirmev) 500 mg in 50 mls @ 100 mls/hr IV Q4HP PRN; Protocol PRN Reason: PAIN/FEVER > 101 Last Infusion: 07/03/19 09:05 Dose: Infused Documented by: Potassium Chloride 40 meq/ (Dextrose) 270 mls @ 67.5 mls/hr IV ONCE ONE Stop: 07/03/19 12:59 Last Admin: 07/03/19 08:59 Dose: 67.5 mls/hr Documented by: Magnesium Sulfate (Magnesium Sulfate) 2 gm in 50 mls @ 50 mls/hr IV UD PRN PRN Reason: Magnesium </= 1.7 Potassium Chloride 40 meq/ (Dextrose) 520 mls @ 130 mls/hr IV UD PRN PRN Reason: Potassium < / = 3.5 Sodium Chloride (Sodium Chloride 0.9%) 250 mls @ 20 mls/hr IV .[id number] [facility] Stop: 07/03/19 22:44 Loperamide HCl (Imodium) 2 mg PO PRN PRN PRN Reason: Diarrhea Metoprolol Tartrate (Lopressor) 5 mg IV Q2HP PRN PRN Reason: Tachyarrhythmias HR>110 Last Admin: 06/30/19 11:59 Dose: 5 mg Documented by: Mirtazapine (Remeron) 22.5 mg PO HS [facility] Last Admin: 07/02/19 20:38 Dose: 22.5 mg Documented by: Ondansetron HCl (Zofran) 4 mg IV Q4HP PRN PRN Reason: Nausea And Vomiting Last Admin: 07/02/19 20:37 Dose: 4 mg Documented by: Polyethylene Glycol (Miralax) 17 gm PO DAILYP PRN PRN Reason: Constipation Potassium Chloride (Kdur) 40 meq PO UD PRN PRN Reason: Potssium is 3-3.5 Potassium Chloride (Kdur) 40 meq PO UD PRN PRN Reason: Potassium < 3 Pregabalin (Lyrica) 25 mg PO TIDP PRN PRN Reason: Pain Senna (Senokot) 2 tab PO DAILYP PRN PRN Reason: Constipation Sodium Chloride (Saline Flush) 10 ml IV Q12 [facility] Last Admin: 07/03/19 08:37 Dose: 10 ml Documented by: Sodium Chloride (Sodium Chloride) 1 gm PO TID [facility] Last Admin: 07/03/19 09:20 Dose: Not Given Documented by: Medical - PN: A/P - Time Spent With Patient Total time spent is greater than 50% in coordination of care (as documented) at patient's floor/unit and/or counseling patient: Greater than 35 minutes - Narrative A/P Narrative: A: *UTI: Ruled out -culture with only [id number] CFU/mL of lactobacillus *Neutropenic fever: No source, possibly secondary to GI bacteria. -TMax 99 this morning -ANC 680<780<1034<1220<1365<900 *Pancytopenia: 2/2 chemotherapy worse than has previously has been, leukopenia /anemia/thrombocytopenia -FOBT neg -Hgb 10.6<10.2<9.5<9.7<(2prbc)<6.7. stable -Plts 14<26<44<58<66<71 -D/W oncology, suspect still effects of prior chemotherapy on leukocytes and platelets. Red lineage tends to be less affected. -Neulasta administered post chemo is likely wearing off. *Hyponatremia: resolved *Encephalopathy (lethargy/confusion), metabolic: Improved *h/o Oropharyngeal dysphagia, mild-Moderate last admit: *Lymphoma diagnosis in March: undergoing chemotherapy managed by cancer [facility], last done 06/[address] Rivera -pt has had significant decline since diagnosis. This is the fourth hospitalization over past 3 months -Plan hiatus from chemo round #4 while strengthens at SNF *Protein calorie malnutrition post chemo: -Still struggling to get adequate intake *GERD: continue PPI *Electrolyte imbalance P: -Continue cefepime, still with mildly elevated temperature and ANC less than 1000 -monitor ANC, platelet count -Case discussed with Dr. Rivera in ED who recommended keeping and treating uti (ruled out)/transfusing prbc/transfuse plts if <20k, follow CBC Case discussed with Dr. Rivera again about timing of next round of chemo. For now patient will place that on hold until strengthening at SNF Fill gastrium 300 mcg daily for 2-3 days until ANC greater than 1500 -As needed electrolyte replacement -Dysphagia diet, per speech -PT OT/nutrition support with protein calorie supplements -CM for SNF placement -ppx: lovenox (hold for PLT's<50k) DNR Medical - PN: Qual - VTE Deep Vein Thrombosis/Pulmonary Embolism Present on Admission: No
[2019-07-03] MEDS: ONDANSETRON 4 MG/2 ML VIAL IV PRN ×2 (14:40→20:43)
[2019-07-03] MEDS: MIRTAZAPINE 15 MG TABLET PO SCH (20:43)
[2019-07-04] MEDS: ACETAMINOPHEN 500 MG/50 ML BOTTLE IV PRN ×5 (05:12→23:39)
[2019-07-04] MEDS: ONDANSETRON 4 MG/2 ML VIAL IV PRN ×4 (05:28→20:41)
[2019-07-04 06:36] LABS: ALT/SGPT 26 U/l (0-40); AST/SGOT 54 U/l (0-37); Albumin/Globulin Ratio 1.4 (1.0-2.3); Alkaline Phosphatase 258 U/L (39-117); Blood Urea Nitrogen 11 mg/dl (8-23); Carbon Dioxide 22 mmol/L (22-30); Chloride 104 mmol/L (96-108); Globulin 1.4 gm/dL (2.2-3.7); Glomerular Filtration Rate 85; Glucose 73 mg/dL (70-105); Triglycerides 110 mg/dl (<150); Uric Acid 1.7 mg/dL (2.5-8.0)
[2019-07-04 06:37] LABS: Bilirubin,Direct 0.5 mg/dL (0.0-0.3); Lactate Dehydrogenase 508 U/L (94-250); Phosphorous 0.7 mg/dL (2.7-4.5)
[2019-07-04] MEDS: ENOXAPARIN 40 MG/0.4 ML SYRINGE SQ SCH (08:07)
[2019-07-04] MEDS ORDERED: POTASSIUM PHOSPHATE 40 MEQ in DEXTROSE 5% IN WATER 500 ML IV ONE (08:09)
[2019-07-04 08:10] LABS: Basophils # (Auto) 0 K/mcL (0.00-0.30); Basophils % (Auto) 0 % (0.0-2.0); Eosinophils # (Auto) 0.04 K/mcL (0.00-0.70); Eosinophils % (Auto) 1.1 % (0.0-7.0); Granulocytes % (Auto) 92.7 % (38.0-78.0); Hematocrit 30.9 % (34.1-44.9); Hemoglobin 10.5 g/dL (11.2-15.7); Lymphocytes # (Auto) 0.14 K/mcL (1.50-4.80); Lymphocytes % (Auto) 3.9 % (15.5-49.0); Mean Cell Volume 87.5 fL (80.0-100.0); Mean Platelet Volume 10.7 fL (7.4-10.4); Monocytes # (Auto) 0.08 K/mcL (0.10-0.90); Monocytes % (Auto) 2.3 % (1.0-12.0); Platelet Count 34 K/mcL (140-440); RBC 3.53 M/mcL (3.59-5.38); Red Cell Distribution Width 16.8 % (11.5-14.5); WBC 3.6 K/mcL (4.50-11.00)
[2019-07-04] MEDS: SODIUM CHLORIDE 1 GM TABLET PO SCH ×4 (08:17→22:53)
[2019-07-04] MEDS: 0.9 % SODIUM CHLORIDE 10 ML SYRINGE IV SCH ×2 (08:17→20:41)
[2019-07-04] MEDS: FAMOTIDINE/PF 20 MG/2 ML VIAL IV SCH ×2 (08:17→20:41)
[2019-07-04] MEDS: CEFEPIME 2 GM VIAL IV SCH ×2 (08:17→20:41)
[2019-07-04] MEDS: NEUTRA PHOS 1 PACKET PO SCH ×2 (09:06→20:40)
--- NOTE | 2019-07-04 11:34 | Internal Med Progress Note ---
Medical - PN: Subj Patient information: Note initiated : 07/04/19 at 11:32 am Service Date, if different from initiated Date: [] Patient: Darcy Macdonald 79 y/o F admitted on 06/28/19 for weakness, cough, nausea, vomiting. Chief Complaint: [] Interval history: Ms. Macdonald is a 79 year old F who is been feeling weak lethargic with the past week and a half. She had chemotherapy last almost 2 weeks ago (06/13). She reports weakness and malaise. Family reports confusion. Patient reports productive cough. Has been in bed for the last 18 hours. She diagnosed with lymphoma and last March is under going chemotherapy as stated above. She has noted a strong odor to her urine and some discomfort lately. Been living at home with her boyfriend. He has some abdominal pain that went away last night after couple hours. At one point she felt like she had a fever. She has been hospitalized 3 times previous to this hospitalization the since March when she was diagnosed with lymphoma. Last hospitalization she was here was the end of May for pneumonia also noted to have dysphagia profuse watery diarrhea noninfectious felt to be from chemo. She had pancytopenia. On evaluation in the ER today she was febrile. Blood pressures been lower than usual per family members. She has worsening anemia with a hemoglobin of 6.7 worsened pancytopenia with WBCs of 1.0 and platelets of 71. Sodium of 128. CT abdomen pelvis done also included chest I do not have the official read but per discussion with ER provider did not show any new findings. Case was discussed with her oncologist Dr. Rivera who asked for admission at [facility] and she would be available via phone. She recommended transfusing 2 units started on antibiotics for UTI following up per CBC in the morning and did not recommend any granulocyte stimulating factor at this moment. Also transfuse platelets for less than 20,000. She says she saw the patient several days ago and her WBC at that time was 4. ER provider performed a fecal occult blood test in the ED which was negative. ER staff reports loose stool in the ED and per boyfriend she had formed stools a few days ago. 06/29 Patient feeling better today. Leukocytosis improved and ANC in the mild neutropenia range. Hemoglobin stable after the transfusion. Sodium dropped a little bit from admission 128 to 127. Pending urine studies. 06/30 Feeling better today. Sitting up in bed, appears to have much more energy. Was able to stand yesterday with physical therapy but appeared shaky. Has not worked with physical therapy yet today. CBC relatively stable 07/01 Patient received tramadol mid evening on 06/30 and was sedated this morning. That improved significantly by early afternoon. Counts remain about the same, white count 1.1 with 90+ percent neutrophils. Discussed her progress with Dr. Rivera in [place], her oncologist. At this point, depending on the patient's desires it would be okay to stop chemotherapy or hold on an of next dose given her acute illness. Patient will likely need skilled facility and further rehab after leaving the hospital. Was up to the chair for about 20 minutes today, fatigued afterwards. Did work with physical therapy. Continues to have intermittent sharp abdominal pain lasting a few seconds then resolving. 07/02 Having a better day today. Was fatigued most of yesterday after being up in the chair. Sat on the edge of the bed and did bedside exercises this morning. Still having difficulty swallowing. White count continues to drop as does platelets. 07/03 Fatigue today. Was up to the chair for 10 minutes, was a significant struggle. Had a prolonged discussion with the patient, with her granddaughter, Omayra, at bedside. Discussed goals of care, whether she wanted to keep pursuing active care, or to focus on comfort. Apparently she and her significant other and had similar conversation a bit earlier in the morning. At this point she would like to pursue being able to go home, focus on comfort. She is open to hospice. - Constitutional Vitals: Vital Signs Temp Pulse Resp BP Pulse Ox 98.9 F 110 H 16 90/75 99 07/04/19 08:00 07/04/19 08:00 07/04/19 08:00 07/04/19 08:00 07/04/19 08:00 Period Temp Pulse Resp BP Sys/Thakur Pulse Ox Last 24 Hr 98.1 F-99 F 88-110 16-30 90-137/60-77 97-99 Intake and Output 07/03/19 07/04/19 07/04/19 21:59 05:59 13:59 Intake Total 441 50 50 Output Total 1 2 Balance 440 48 50 Weight 132 lb 9.6 oz Intake & Output: Intake & Output 07/03/19 07/04/19 07/04/19 21:59 05:59 13:59 Intake Total 441 50 50 Output Total 1 2 Balance 440 48 50 Weight 132 lb 9.6 oz Intake: IV 321 50 50 Sodium Chloride 0.9% 250 ml @ 1 20 mls/hr IV .[id number] [facility] Rx#: [id number] Potassium Chloride 40 Meq In 270 Dextrose 5% in Water 250 ml @ 67.5 mls/hr IV ONCE ONE Rx#: [id number] Oral 120 Output: # of times incontinent of urine 1 2 Other: Meal Breakfast Percent of Meal Consumed 3 bites Urine Color Dark Yellow Urine Odor Strong Exam: General: In bed, frail and chronically ill-appearing Chest: Clear anteriorly Cardiovascular: Regular Abdomen: Soft, mild right mid tenderness without guarding or rebound. Neuro: Alert, oriented to person, place and situation. Able to fully engage in discussion on her goals of care. Motor is with moderate to severe generalized weakness. Medical - PN: Obj Da - Labs CBC & Chem 7: 07/04/19 04:30 07/04/19 04:30 Labs: Abnormal Lab Results 07/04/19 07/04/19 07/03/19 04:30 04:30 05:15 WBC 3.6 L RBC 3.53 L Hgb 10.5 L Hct 30.9 L RDW 16.8 H Plt Count 34 L* MPV 10.7 H Gran % 92.7 H Lymph % (Auto) 3.9 L Gran # Lymph # (Auto) 0.14 L [place] # (Auto) 0.08 L Sodium 131 L Potassium 3.2 L Anion Gap 7.0 L 5.0 L Creatinine 0.5 L Uric Acid 1.7 L 1.6 L Calcium 7.0 L 7.0 L Phosphorus 0.7 L 1.3 L Magnesium 1.5 L Direct Bilirubin 0.5 H 0.4 H GGT 118 H 48 H AST 54 H 46 H Alkaline Phosphatase 258 H 138 H Lactate Dehydrogenase 508 H 465 H Total Protein 3.4 L 3.2 L Albumin 2.0 L 1.8 L Globulin 1.4 L 1.4 L 07/03/19 07/02/19 07/02/19 05:15 04:54 04:54 WBC 0.8 L* 1.0 L RBC 3.56 L 3.37 L Hgb 10.6 L 10.2 L Hct 31.0 L 29.5 L RDW 16.1 H 15.7 H Plt Count 14 L* 26 L* MPV 11.9 H Gran % 83.9 H 82.0 H Lymph % (Auto) 6.2 L 11.6 L Gran # 0.68 L 0.78 L Lymph # (Auto) 0.05 L 0.11 L [place] # (Auto) 0.05 L 0.05 L Sodium 132 L Potassium 3.2 L Anion Gap Creatinine 0.5 L Uric Acid 1.8 L Calcium 7.0 L Phosphorus 1.9 L Magnesium Direct Bilirubin GGT 37 H AST 38 H Alkaline Phosphatase 119 H Lactate Dehydrogenase 481 H Total Protein 3.4 L Albumin 1.9 L Globulin 1.5 L Meds: Medications Acetaminophen (Tylenol) 650 mg PO Q6HP PRN PRN Reason: PAIN/FEVER > 101 Albuterol/Ipratropium (Duoneb) 3 ml NEB Q4HP PRN PRN Reason: Shortness Of Breath Cefepime HCl (Maxipime) 2 gm IV Q12H [facility]; Protocol Last Admin: 07/04/19 08:17 Dose: 2 gm Documented by: Enoxaparin Sodium (Lovenox) 40 mg SQ DAILY [facility] Last Admin: 07/04/19 08:07 Dose: Not Given Documented by: Famotidine (Pepcid) 20 mg IV Q12 [place] Last Admin: 07/04/19 08:17 Dose: 20 mg Documented by: Acetaminophen (Ofirmev) 500 mg in 50 mls @ 100 mls/hr IV Q4HP PRN; Protocol PRN Reason: PAIN/FEVER > 101 Last Admin: 07/04/19 08:43 Dose: 100 mls/hr Documented by: Magnesium Sulfate (Magnesium Sulfate) 2 gm in 50 mls @ 50 mls/hr IV UD PRN PRN Reason: Magnesium </= 1.7 Potassium Chloride 40 meq/ (Dextrose) 520 mls @ 130 mls/hr IV UD PRN PRN Reason: Potassium < / = 3.5 Potassium Phosphate 40 meq/ (Dextrose) 509.0909 mls @ 127.273 mls/hr IV ONCE ONE Stop: 07/04/19 12:08 Last Admin: 07/04/19 09:06 Dose: 127.273 mls/hr Documented by: Loperamide HCl (Imodium) 2 mg PO PRN PRN PRN Reason: Diarrhea Metoprolol Tartrate (Lopressor) 5 mg IV Q2HP PRN PRN Reason: Tachyarrhythmias HR>110 Last Admin: 06/30/19 11:59 Dose: 5 mg Documented by: Mirtazapine (Remeron) 22.5 mg PO HS [facility] Last Admin: 07/03/19 20:43 Dose: 22.5 mg Documented by: Ondansetron HCl (Zofran) 4 mg IV Q4HP PRN PRN Reason: Nausea And Vomiting Last Admin: 07/04/19 11:13 Dose: 4 mg Documented by: Polyethylene Glycol (Miralax) 17 gm PO DAILYP PRN PRN Reason: Constipation Potassium Chloride (Kdur) 40 meq PO UD PRN PRN Reason: Potssium is 3-3.5 Potassium Chloride (Kdur) 40 meq PO UD PRN PRN Reason: Potassium < 3 Potassium/Phosphorus/Sodium (Neutra Phos) 1 packet PO BID [facility] Last Admin: 07/04/19 09:06 Dose: 1 packet Documented by: Pregabalin (Lyrica) 25 mg PO TIDP PRN PRN Reason: Pain Senna (Senokot) 2 tab PO DAILYP PRN PRN Reason: Constipation Sodium Chloride (Saline Flush) 10 ml IV Q12 [facility] Last Admin: 07/04/19 08:17 Dose: 10 ml Documented by: Sodium Chloride (Sodium Chloride) 1 gm PO TID [facility] Last Admin: 07/04/19 08:17 Dose: 1 gm Documented by: Medical - PN: A/P - Time Spent With Patient Total time spent is greater than 50% in coordination of care (as documented) at patient's floor/unit and/or counseling patient: Greater than 35 minutes - Narrative A/P Narrative: A: *UTI: Ruled out -culture with only [id number] CFU/mL of lactobacillus *Neutropenic fever: No source, possibly secondary to GI bacteria. -TMax 99.0 yesterday -ANC 3290<(GCSF)<680<780<1034<1220<1365<900 *Pancytopenia: 2/2 chemotherapy worse than has previously has been, leukopenia/anemia/thrombocytopenia -FOBT neg -Hgb 10.5<10.6<10.2<9.5<9.7<(2prbc)<6.7. stable -Plts 34<(1 unit)<14<26<44<58<66<71 -D/W oncology, suspect still effects of prior chemotherapy on leukocytes and platelets. Red lineage tends to be less affected. -Neulasta administered post chemo is likely wearing off by 07/02 -Filgastrim given 07/02 *Hyponatremia: resolved *Encephalopathy (lethargy/confusion), metabolic: Improved *h/o Oropharyngeal dysphagia, mild-Moderate last admit: *Lymphoma diagnosis in March: undergoing chemotherapy managed by [facility], last done 06/[address] Rivera -pt has had significant decline since diagnosis. This is the fourth hospitalization over past 3 months -Plan hiatus from chemo round #4 while strengthens at SNF -Pt interested in pursuing palliative care and returning home *Protein calorie malnutrition post chemo: -Still struggling to get adequate intake *GERD: continue PPI *Electrolyte imbalance P: -Continue cefepime; can stop at d/c if pursuing palliation; ANC now 3290 -monitor ANC, platelet count -no further filgastrim today, ANC >1500; if needed administer 300 MCG daily for 2-3 days to return ANC >1500 -Case discussed with Dr. Rivera in ED who recommended keeping and treating uti (ruled out)/transfusing prbc/transfuse plts if <20k, follow CBC Case discussed with Dr. Rivera again about timing of next round of chemo. For now patient will place that on hold until strengthening at SNF -As needed electrolyte replacement -Dysphagia diet, per speech -PT OT/nutrition support with protein calorie supplements -CM for discharge planning, hospice -ppx: lovenox (hold for PLT's<50k) DNR Medical - PN: Qual - VTE Deep Vein Thrombosis/Pulmonary Embolism Present on Admission: No
--- NOTE | 2019-07-04 13:48 | Internal Med Progress Note ---
Medical - PN: Subj Patient information: Note initiated : 07/04/19 at 1:45 pm Service Date, if different from initiated Date: [] Patient: Darcy Macdonald 79 y/o F admitted on 06/28/19 for weakness, cough, nausea, vomiting. Chief Complaint: [] Interval history: Ms. Macdonald is a 79 year old F who is been feeling weak lethargic with the past week and a half. She had chemotherapy last almost 2 weeks ago (06/13). She reports weakness and malaise. Family reports confusion. Patient reports productive cough. Has been in bed for the last 18 hours. She diagnosed with lymphoma and last March is under going chemotherapy as stated above. She has noted a strong odor to her urine and some discomfort lately. Been living at home with her boyfriend. He has some abdominal pain that went away last night after couple hours. At one point she felt like she had a fever. She has been hospitalized 3 times previous to this hospitalization the since March when she was diagnosed with lymphoma. Last hospitalization she was here was the end of May for pneumonia also noted to have dysphagia profuse watery diarrhea noninfectious felt to be from chemo. She had pancytopenia. On evaluation in the ER today she was febrile. Blood pressures been lower than usual per family members. She has worsening anemia with a hemoglobin of 6.7 worsened pancytopenia with WBCs of 1.0 and platelets of 71. Sodium of 128. CT abdomen pelvis done also included chest I do not have the official read but per discussion with ER provider did not show any new findings. Case was discussed with her oncologist Dr. Rivera who asked for admission at [facility] and she would be available via phone. She recommended transfusing 2 units started on antibiotics for UTI following up per CBC in the morning and did not recommend any granulocyte stimulating factor at this moment. Also transfuse platelets for less than 20,000. She says she saw the patient several days ago and her WBC at that time was 4. ER provider performed a fecal occult blood test in the ED which was negative. ER staff reports loose stool in the ED and per boyfriend she had formed stools a few days ago. 06/29 Patient feeling better today. Leukocytosis improved and ANC in the mild neutropenia range. Hemoglobin stable after the transfusion. Sodium dropped a little bit from admission 128 to 127. Pending urine studies. 06/30 Feeling better today. Sitting up in bed, appears to have much more energy. Was able to stand yesterday with physical therapy but appeared shaky. Has not worked with physical therapy yet today. CBC relatively stable 07/01 Patient received tramadol mid evening on 06/30 and was sedated this morning. That improved significantly by early afternoon. Counts remain about the same, white count 1.1 with 90+ percent neutrophils. Discussed her progress with Dr. Rivera in [place], her oncologist. At this point, depending on the patient's desires it would be okay to stop chemotherapy or hold on an of next dose given her acute illness. Patient will likely need skilled facility and further rehab after leaving the hospital. Was up to the chair for about 20 minutes today, fatigued afterwards. Did work with physical therapy. Continues to have intermittent sharp abdominal pain lasting a few seconds then resolving. 07/02 Having a better day today. Was fatigued most of yesterday after being up in the chair. Sat on the edge of the bed and did bedside exercises this morning. Still having difficulty swallowing. White count continues to drop as does platelets. 07/03 Fatigue today. Was up to the chair for 10 minutes, was a significant struggle. Had a prolonged discussion with the patient, with her granddaughter, Omayra, at bedside. Discussed goals of care, whether she wanted to keep pursuing active care, or to focus on comfort. Apparently she and her significant other and had similar conversation a bit earlier in the morning. At this point she would like to pursue being able to go home, focus on comfort. She is open to hospice. - Constitutional Vitals: Vital Signs Temp Pulse Resp BP Pulse Ox 98.1 F 94 H 16 121/85 97 07/04/19 11:50 07/04/19 11:50 07/04/19 11:50 07/04/19 11:50 07/04/19 11:50 Period Temp Pulse Resp BP Sys/Thakur Pulse Ox Last 24 Hr 98.1 F-99 F 88-110 16-30 90-137/60-85 97-99 Intake and Output 07/03/19 07/04/19 07/04/19 21:59 05:59 13:59 Intake Total 441 50 609.0909 Output Total 1 2 Balance 440 48 609.0909 Weight 60.146 kg Intake & Output: Intake & Output 07/03/19 07/04/19 07/04/19 21:59 05:59 13:59 Intake Total 441 50 609.0909 Output Total 1 2 Balance 440 48 609.0909 Weight 60.146 kg Intake: IV 321 50 609.0909 Sodium Chloride 0.9% 250 ml @ 1 20 mls/hr IV .[id number] [facility] Rx#: [id number] Potassium Chloride 40 Meq In 270 Dextrose 5% in Water 250 ml @ 67.5 mls/hr IV ONCE ONE Rx#: [id number] Potassium Phosphate 40 Meq In 509.0909 Dextrose 5% in Water 500 ml @ 127.273 mls/hr IV ONCE ONE Rx#: [id number] Oral 120 Output: # of times incontinent of urine 1 2 Other: Meal Breakfast Percent of Meal Consumed 3 bites Urine Color Dark Yellow Urine Odor Strong Stool Size Small Stool Color Brown Stool Consistency Loose # of times incontinent of 1 Bowels Exam: General: Awake, No acute Distress, frail Eyes/N/T: EOMI, Head/Neck: neck supple, normocephalic atraumatic CV: RRR, No murmurs, normal s1/s2 Pulm: Clear b/l, no wheezing/rhonchi/rales Abd: soft, mild TTP, +BS x4 Ext: no clubbing/cyanosis, 3+ b/l LE edema Neuro: Drowsy, no focal deficits, moves all extremities but weak , Skin: warm/dry, Medical - PN: Obj Da - Labs CBC & Chem 7: 07/04/19 04:30 07/04/19 04:30 Labs: Abnormal Lab Results 07/04/19 07/04/19 07/03/19 04:30 04:30 05:15 WBC 3.6 L RBC 3.53 L Hgb 10.5 L Hct 30.9 L RDW 16.8 H Plt Count 34 L* MPV 10.7 H Gran % 92.7 H Lymph % (Auto) 3.9 L Gran # Lymph # (Auto) 0.14 L [place] # (Auto) 0.08 L Sodium 131 L Potassium 3.2 L Anion Gap 7.0 L 5.0 L Creatinine 0.5 L Uric Acid 1.7 L 1.6 L Calcium 7.0 L 7.0 L Phosphorus 0.7 L 1.3 L Magnesium 1.5 L Direct Bilirubin 0.5 H 0.4 H GGT 118 H 48 H AST 54 H 46 H Alkaline Phosphatase 258 H 138 H Lactate Dehydrogenase 508 H 465 H Total Protein 3.4 L 3.2 L Albumin 2.0 L 1.8 L Globulin 1.4 L 1.4 L 07/03/19 07/02/19 07/02/19 05:15 04:54 04:54 WBC 0.8 L* 1.0 L RBC 3.56 L 3.37 L Hgb 10.6 L 10.2 L Hct 31.0 L 29.5 L RDW 16.1 H 15.7 H Plt Count 14 L* 26 L* MPV 11.9 H Gran % 83.9 H 82.0 H Lymph % (Auto) 6.2 L 11.6 L Gran # 0.68 L 0.78 L Lymph # (Auto) 0.05 L 0.11 L [place] # (Auto) 0.05 L 0.05 L Sodium 132 L Potassium 3.2 L Anion Gap Creatinine 0.5 L Uric Acid 1.8 L Calcium 7.0 L Phosphorus 1.9 L Magnesium Direct Bilirubin GGT 37 H AST 38 H Alkaline Phosphatase 119 H Lactate Dehydrogenase 481 H Total Protein 3.4 L Albumin 1.9 L Globulin 1.5 L Meds: Medications Acetaminophen (Tylenol) 650 mg PO Q6HP PRN PRN Reason: PAIN/FEVER > 101 Albuterol/Ipratropium (Duoneb) 3 ml NEB Q4HP PRN PRN Reason: Shortness Of Breath Cefepime HCl (Maxipime) 2 gm IV Q12H [place]; Protocol Last Admin: 07/04/19 08:17 Dose: 2 gm Documented by: Enoxaparin Sodium (Lovenox) 40 mg SQ DAILY [facility] Last Admin: 07/04/19 08:07 Dose: Not Given Documented by: Famotidine (Pepcid) 20 mg IV Q12 [facility] Last Admin: 07/04/19 08:17 Dose: 20 mg Documented by: Acetaminophen (Ofirmev) 500 mg in 50 mls @ 100 mls/hr IV Q4HP PRN; Protocol PRN Reason: PAIN/FEVER > 101 Last Admin: 07/04/19 13:24 Dose: 100 mls/hr Documented by: Magnesium Sulfate (Magnesium Sulfate) 2 gm in 50 mls @ 50 mls/hr IV UD PRN PRN Reason: Magnesium </= 1.7 Potassium Chloride 40 meq/ (Dextrose) 520 mls @ 130 mls/hr IV UD PRN PRN Reason: Potassium < / = 3.5 Loperamide HCl (Imodium) 2 mg PO PRN PRN PRN Reason: Diarrhea Metoprolol Tartrate (Lopressor) 5 mg IV Q2HP PRN PRN Reason: Tachyarrhythmias HR>110 Last Admin: 06/30/19 11:59 Dose: 5 mg Documented by: Mirtazapine (Remeron) 22.5 mg PO HS [facility] Last Admin: 07/03/19 20:43 Dose: 22.5 mg Documented by: Ondansetron HCl (Zofran) 4 mg IV Q4HP PRN PRN Reason: Nausea And Vomiting Last Admin: 07/04/19 11:13 Dose: 4 mg Documented by: Polyethylene Glycol (Miralax) 17 gm PO DAILYP PRN PRN Reason: Constipation Potassium Chloride (Kdur) 40 meq PO UD PRN PRN Reason: Potssium is 3-3.5 Potassium Chloride (Kdur) 40 meq PO UD PRN PRN Reason: Potassium < 3 Potassium/Phosphorus/Sodium (Neutra Phos) 1 packet PO BID [facility] Last Admin: 07/04/19 09:06 Dose: 1 packet Documented by: Pregabalin (Lyrica) 25 mg PO TIDP PRN PRN Reason: Pain Senna (Senokot) 2 tab PO DAILYP PRN PRN Reason: Constipation Sodium Chloride (Saline Flush) 10 ml IV Q12 [facility] Last Admin: 07/04/19 08:17 Dose: 10 ml Documented by: Sodium Chloride (Sodium Chloride) 1 gm PO TID [facility] Last Admin: 07/04/19 08:17 Dose: 1 gm Documented by: Medical - PN: A/P - Time Spent With Patient Total time spent is greater than 50% in coordination of care (as documented) at patient's floor/unit and/or counseling patient: - Narrative A/P Narrative: A: *UTI: ruled out *Neutropenic fever: No source, possibly secondary to GI bacteria. -TM 100.6 last night *Pancytopenia: 2/2 chemotherapy worse than has previously has been, leukopenia/anemia/thrombocytopenia -FOBT neg -Hgb -Plts -D/W oncology, suspect still effects of prior chemotherapy on leukocytes and platelets. Red lineage tends to be less affected. -Neulasta administered post chemo is likely wearing off by 07/02 -Filgastrim given 07/02 *Hyponatremia: resolved *Encephalopathy (lethargy/confusion), metabolic: Improved *h/o Oropharyngeal dysphagia, mild-Moderate last admit: *Lymphoma diagnosis in March: undergoing chemotherapy managed by [facility], last done 06/[address] Rivera -pt has had significant decline since diagnosis. This is the fourth hospitalization over past 3 months, -Pt interested in pursuing palliative care and returning home *Protein calorie malnutrition post chemo: *GERD: continue PPI *Electrolyte imbalance P: -Continue cefepime; can stop at d/c if pursuing palliation; ANC now 3290 -monitor ANC, platelet count -no further filgastrim today, ANC >1500; if needed administer 300 MCG daily for 2-3 days to return ANC >1500 -Case discussed with Dr. Rivera in ED who recommended keeping and treating uti (ruled out)/transfusing prbc/transfuse plts if <20k, follow CBC Case discussed with Dr. Rivera again about timing of next round of chemo. For now patient will place that on hold until strengthening at SNF -As needed electrolyte replacement -dysphagia diet -PT OT/nutrition support with protein calorie supplements -CM for SNF placement -ppx: lovenox (hold for PLT's<50k) DNR Medical - PN: Qual - VTE Deep Vein Thrombosis/Pulmonary Embolism Present on Admission: No
[2019-07-04] MEDS: MIRTAZAPINE 15 MG TABLET PO SCH ×2 (20:41→22:54)
[2019-07-04] MEDS: KETOROLAC 15 MG/ML VIAL IV PRN (21:26)
[2019-07-04] MEDS ORDERED: HYDROmorphone 2 MG/ML VIAL ONE (22:14)
[2019-07-04] MEDS: HYDROmorphone 2 MG/ML VIAL IV PRN (22:19)
[2019-07-05] MEDS ORDERED: HYDROmorphone 2 MG/ML VIAL ONE (02:42)
[2019-07-05] MEDS: HYDROmorphone 2 MG/ML VIAL IV PRN ×5 (02:45→23:50)
[2019-07-05] MEDS: KETOROLAC 15 MG/ML VIAL IV PRN ×3 (03:39→15:36)
[2019-07-05] MEDS: ACETAMINOPHEN 500 MG/50 ML BOTTLE IV PRN ×3 (03:40→13:38)
[2019-07-05 07:21] LABS: ALT/SGPT 30 U/l (0-40); AST/SGOT 58 U/l (0-37); Albumin 2.1 gm/dL (3.2-5.2); Albumin/Globulin Ratio 1.8 (1.0-2.3); Alkaline Phosphatase 365 U/L (39-117); Bilirubin,Direct 0.5 mg/dL (0.0-0.3); Bilirubin,Total 0.8 mg/dL (0.0-1.0); Blood Urea Nitrogen 11 mg/dl (8-23); Carbon Dioxide 23 mmol/L (22-30); Chloride 106 mmol/L (96-108); Globulin 1.2 gm/dL (2.2-3.7); Glomerular Filtration Rate 85; Glucose 88 mg/dL (70-105); Lactate Dehydrogenase 464 U/L (94-250); Triglycerides 113 mg/dl (<150); Uric Acid 1.8 mg/dL (2.5-8.0)
--- NOTE | 2019-07-05 07:22 | Internal Med Progress Note ---
Medical - PN: Subj Patient information: Note initiated : 07/05/19 at 7:20 am Service Date, if different from initiated Date: [] Patient: Darcy Macdonald 79 y/o F admitted on 06/28/19 for weakness, cough, nausea, vomiting. Chief Complaint: [] Interval history: Ms. Macdonald is a 79 year old F who is been feeling weak lethargic with the past week and a half. She had chemotherapy last almost 2 weeks ago (06/13). She reports weakness and malaise. Family reports confusion. Patient reports productive cough. Has been in bed for the last 18 hours. She diagnosed with lymphoma and last March is under going chemotherapy as stated above. She has noted a strong odor to her urine and some discomfort lately. Been living at home with her boyfriend. He has some abdominal pain that went away last night after couple hours. At one point she felt like she had a fever. She has been hospitalized 3 times previous to this hospitalization the since March when she was diagnosed with lymphoma. Last hospitalization she was here was the end of May for pneumonia also noted to have dysphagia profuse watery diarrhea noninfectious felt to be from chemo. She had pancytopenia. On evaluation in the ER today she was febrile. Blood pressures been lower than usual per family members. She has worsening anemia with a hemoglobin of 6.7 worsened pancytopenia with WBCs of 1.0 and platelets of 71. Sodium of 128. CT abdomen pelvis done also included chest I do not have the official read but per discussion with ER provider did not show any new findings. Case was discussed with her oncologist Dr. Rivera who asked for admission at [facility] and she would be available via phone. She recommended transfusing 2 units started on antibiotics for UTI following up per CBC in the morning and did not recommend any granulocyte stimulating factor at this moment. Also transfuse platelets for less than 20,000. She says she saw the patient several days ago and her WBC at that time was 4. ER provider performed a fecal occult blood test in the ED which was negative. ER staff reports loose stool in the ED and per boyfriend she had formed stools a few days ago. 06/29 Patient feeling better today. Leukocytosis improved and ANC in the mild neutropenia range. Hemoglobin stable after the transfusion. Sodium dropped a little bit from admission 128 to 127. Pending urine studies. 06/30 Feeling better today. Sitting up in bed, appears to have much more energy. Was able to stand yesterday with physical therapy but appeared shaky. Has not worked with physical therapy yet today. CBC relatively stable 07/01 Patient received tramadol mid evening on 06/30 and was sedated this morning. That improved significantly by early afternoon. Counts remain about the same, white count 1.1 with 90+ percent neutrophils. Discussed her progress with Dr. Rivera in [place], her oncologist. At this point, depending on the patient's desires it would be okay to stop chemotherapy or hold on an of next dose given her acute illness. Patient will likely need skilled facility and further rehab after leaving the hospital. Was up to the chair for about 20 minutes today, fatigued afterwards. Did work with physical therapy. Continues to have intermittent sharp abdominal pain lasting a few seconds then resolving. 07/02 Having a better day today. Was fatigued most of yesterday after being up in the chair. Sat on the edge of the bed and did bedside exercises this morning. Still having difficulty swallowing. White count continues to drop as does platelets. 07/03 Fatigue today. Was up to the chair for 10 minutes, was a significant struggle. Had a prolonged discussion with the patient, with her granddaughter, Omayra, at bedside. Discussed goals of care, whether she wanted to keep pursuing active care, or to focus on comfort. Apparently she and her significant other and had similar conversation a bit earlier in the morning. At this point she would like to pursue being able to go home, focus on comfort. She is open to hospice. 07/04 Been confused lately per family. Family bedside. Discussion today regarding hospice/comfort care. - Constitutional Vitals: Vital Signs Temp Pulse Resp BP Pulse Ox 97.8 F 82 20 108/59 96 07/05/19 03:42 07/05/19 03:42 07/05/19 03:42 07/05/19 03:42 07/05/19 03:42 Period Temp Pulse Resp BP Sys/Thakur Pulse Ox Last 24 Hr 97.8 F-98.9 F 82-110 16-24 90-135/56-93 96-100 Intake and Output 07/04/19 07/05/19 07/05/19 21:59 05:59 13:59 Intake Total 50 100 Output Total 1 2 1 Balance 49 98 -1 Weight 58.423 kg Intake & Output: Intake & Output 07/04/19 07/05/19 07/05/19 21:59 05:59 13:59 Intake Total 50 100 Output Total 1 2 1 Balance 49 98 -1 Weight 58.423 kg Intake: IV 50 100 Output: # of times incontinent of urine 1 2 1 Other: Urine Color Dark Yellow Stool Size Smear Large Stool Color Brown Brown Stool Consistency Loose Formed Loose # of times incontinent of 1 1 Bowels Exam: General: Awake, No acute Distress, frail Eyes/N/T: EOMI, Head/Neck: neck supple, normocephalic atraumatic CV: RRR, No murmurs, normal s1/s2 Pulm: Clear b/l, no wheezing/rhonchi/rales Abd: soft, mild TTP, +BS x4 Ext: no clubbing/cyanosis, 2+ b/l LE edema Neuro: follows simple command, not answering questions appropriately, moves all extremities but weak , Skin: warm/dry, Medical - PN: Obj Da - Labs CBC & Chem 7: 07/04/19 04:30 07/05/19 05:00 Labs: Abnormal Lab Results 07/04/19 07/04/19 07/03/19 04:30 04:30 05:15 WBC 3.6 L RBC 3.53 L Hgb 10.5 L Hct 30.9 L RDW 16.8 H Plt Count 34 L* MPV 10.7 H Gran % 92.7 H Lymph % (Auto) 3.9 L Gran # Lymph # (Auto) 0.14 L [place] # (Auto) 0.08 L Sodium 131 L Potassium 3.2 L Anion Gap 7.0 L 5.0 L Creatinine 0.5 L Uric Acid 1.7 L 1.6 L Calcium 7.0 L 7.0 L Phosphorus 0.7 L 1.3 L Magnesium 1.5 L Direct Bilirubin 0.5 H 0.4 H GGT 118 H 48 H AST 54 H 46 H Alkaline Phosphatase 258 H 138 H Lactate Dehydrogenase 508 H 465 H Total Protein 3.4 L 3.2 L Albumin 2.0 L 1.8 L Globulin 1.4 L 1.4 L 07/03/19 07/02/19 05:15 04:54 WBC 0.8 L* 1.0 L RBC 3.56 L 3.37 L Hgb 10.6 L 10.2 L Hct 31.0 L 29.5 L RDW 16.1 H 15.7 H Plt Count 14 L* 26 L* MPV 11.9 H Gran % 83.9 H 82.0 H Lymph % (Auto) 6.2 L 11.6 L Gran # 0.68 L 0.78 L Lymph # (Auto) 0.05 L 0.11 L [place] # (Auto) 0.05 L 0.05 L Sodium Potassium Anion Gap Creatinine Uric Acid Calcium Phosphorus Magnesium Direct Bilirubin GGT AST Alkaline Phosphatase Lactate Dehydrogenase Total Protein Albumin Globulin Meds: Medications Acetaminophen (Tylenol) 650 mg PO Q6HP PRN PRN Reason: PAIN/FEVER > 101 Albuterol/Ipratropium (Duoneb) 3 ml NEB Q4HP PRN PRN Reason: Shortness Of Breath Cefepime HCl (Maxipime) 2 gm IV Q12H [place]; Protocol Last Admin: 07/04/19 20:41 Dose: 2 gm Documented by: Enoxaparin Sodium (Lovenox) 40 mg SQ DAILY [facility] Last Admin: 07/04/19 08:07 Dose: Not Given Documented by: Famotidine (Pepcid) 20 mg IV Q12 [place] Last Admin: 07/04/19 20:41 Dose: 20 mg Documented by: Hydromorphone HCl (Dilaudid) 0.25 - 0.5 mg IV Q3HP PRN; Protocol PRN Reason: Per Pain Protocol Acetaminophen (Ofirmev) 500 mg in 50 mls @ 100 mls/hr IV Q4HP PRN; Protocol PRN Reason: PAIN/FEVER > 101 Last Infusion: 07/05/19 05:10 Dose: Infused Documented by: Magnesium Sulfate (Magnesium Sulfate) 2 gm in 50 mls @ 50 mls/hr IV UD PRN PRN Reason: Magnesium </= 1.7 Potassium Chloride 40 meq/ (Dextrose) 520 mls @ 130 mls/hr IV UD PRN PRN Reason: Potassium < / = 3.5 Ketorolac Tromethamine (Toradol) 15 mg IV Q6HP PRN PRN Reason: Per Pain Protocol Stop: 07/06/19 21:02 Last Admin: 07/05/19 03:39 Dose: 15 mg Documented by: Loperamide HCl (Imodium) 2 mg PO PRN PRN PRN Reason: Diarrhea Metoprolol Tartrate (Lopressor) 5 mg IV Q2HP PRN PRN Reason: Tachyarrhythmias HR>110 Last Admin: 06/30/19 11:59 Dose: 5 mg Documented by: Mirtazapine (Remeron) 22.5 mg PO HS [facility] Last Admin: 07/04/19 22:54 Dose: Not Given Documented by: Ondansetron HCl (Zofran) 4 mg IV Q4HP PRN PRN Reason: Nausea And Vomiting Last Admin: 07/04/19 20:41 Dose: 4 mg Documented by: Polyethylene Glycol (Miralax) 17 gm PO DAILYP PRN PRN Reason: Constipation Potassium Chloride (Kdur) 40 meq PO UD PRN PRN Reason: Potssium is 3-3.5 Potassium Chloride (Kdur) 40 meq PO UD PRN PRN Reason: Potassium < 3 Potassium/Phosphorus/Sodium (Neutra Phos) 1 packet PO BID [facility] Last Admin: 07/04/19 20:40 Dose: 1 packet Documented by: Pregabalin (Lyrica) 25 mg PO TIDP PRN PRN Reason: Pain Senna (Senokot) 2 tab PO DAILYP PRN PRN Reason: Constipation Sodium Chloride (Saline Flush) 10 ml IV Q12 [facility] Last Admin: 07/04/19 20:41 Dose: 10 ml Documented by: Sodium Chloride (Sodium Chloride) 1 gm PO TID [facility] Last Admin: 07/04/19 22:53 Dose: Not Given Documented by: Medical - PN: A/P - Time Spent With Patient Total time spent is greater than 50% in coordination of care (as documented) at patient's floor/unit and/or counseling patient: - Narrative A/P Narrative: A: *UTI: ruled out *Neutropenic fever: No source, possibly secondary to GI bacteria. - *Pancytopenia: 2/2 chemotherapy worse than has previously has been, leukopenia/anemia/thrombocytopenia -FOBT neg -Hgb -Plts -D/W oncology, suspect still effects of prior chemotherapy on leukocytes and platelets. Red lineage tends to be less affected. -Neulasta administered post chemo is likely wearing off by 07/02 -Filgastrim given 07/02 *Hyponatremia: resolved *Encephalopathy (lethargy/confusion), metabolic: Improved *h/o Oropharyngeal dysphagia, mild-Moderate last admit: *Lymphoma diagnosis in March: undergoing chemotherapy managed by [facility], last done 06/[address] Rivera -pt has had significant decline since diagnosis. This is the fourth hospitalization over past 3 months, -Pt interested in pursuing palliative care and returning home *Protein calorie malnutrition post chemo: *GERD: continue PPI *Electrolyte imbalance P: -Continue cefepime; can stop at d/c if pursuing palliation; -monitor ANC, platelet count -no further filgastrim today, ANC >1500; if needed administer 300 MCG daily for 2-3 days to return ANC >1500 -Case discussed with Dr. Rivera in ED who recommended keeping and treating uti (ruled out)/transfusing prbc/transfuse plts if <20k, follow CBC Case discussed with Dr. Rivera again about timing of next round of chemo. For now patient will place that on hold until strengthening at SNF -As needed electrolyte replacement -dysphagia diet -PT OT/nutrition support with protein calorie supplements -CM for SNF placement -awaiting family discussion today -ppx: lovenox held (hold for PLT's<50k) DNR Medical - PN: Qual - VTE Deep Vein Thrombosis/Pulmonary Embolism Present on Admission: No
[2019-07-05 07:23] LABS: Phosphorous 1.7 mg/dL (2.7-4.5)
[2019-07-05] MEDS: 0.9 % SODIUM CHLORIDE 10 ML SYRINGE IV SCH ×2 (07:52→23:33)
[2019-07-05] MEDS: ENOXAPARIN 40 MG/0.4 ML SYRINGE SQ SCH (09:22)
[2019-07-05] MEDS: SODIUM CHLORIDE 1 GM TABLET PO SCH ×2 (09:23→15:38)
[2019-07-05] MEDS: CEFEPIME 2 GM VIAL IV SCH (09:48)
[2019-07-05] MEDS: FAMOTIDINE/PF 20 MG/2 ML VIAL IV SCH (09:48)
[2019-07-05] MEDS: NEUTRA PHOS 1 PACKET PO SCH (09:48)
[2019-07-06] MEDS: LORazepam 2 MG/ML VIAL IV PRN ×3 (01:42→23:18)
[2019-07-06] MEDS: HYDROmorphone 2 MG/ML VIAL IV PRN ×2 (04:39→20:12)
[2019-07-06] MEDS: 0.9 % SODIUM CHLORIDE 10 ML SYRINGE IV SCH ×3 (04:40→23:14)
--- NOTE | 2019-07-06 07:41 | Internal Med Progress Note ---
Medical - PN: Subj Patient information: Note initiated : 07/06/19 at 7:39 am Service Date, if different from initiated Date: [] Patient: Darcy Macdonald 79 y/o F admitted on 06/28/19 for weakness, cough, nausea, vomiting. Chief Complaint: [] Interval history: Ms. Macdonald is a 79 year old F who is been feeling weak lethargic with the past week and a half. She had chemotherapy last almost 2 weeks ago (06/13). She reports weakness and malaise. Family reports confusion. Patient reports productive cough. Has been in bed for the last 18 hours. She diagnosed with lymphoma and last March is under going chemotherapy as stated above. She has noted a strong odor to her urine and some discomfort lately. Been living at home with her boyfriend. He has some abdominal pain that went away last night after couple hours. At one point she felt like she had a fever. She has been hospitalized 3 times previous to this hospitalization the since March when she was diagnosed with lymphoma. Last hospitalization she was here was the end of May for pneumonia also noted to have dysphagia profuse watery diarrhea noninfectious felt to be from chemo. She had pancytopenia. On evaluation in the ER today she was febrile. Blood pressures been lower than usual per family members. She has worsening anemia with a hemoglobin of 6.7 worsened pancytopenia with WBCs of 1.0 and platelets of 71. Sodium of 128. CT abdomen pelvis done also included chest I do not have the official read but per discussion with ER provider did not show any new findings. Case was discussed with her oncologist Dr. Rivera who asked for admission at [facility] and she would be available via phone. She recommended transfusing 2 units started on antibiotics for UTI following up per CBC in the morning and did not recommend any granulocyte stimulating factor at this moment. Also transfuse platelets for less than 20,000. She says she saw the patient several days ago and her WBC at that time was 4. ER provider performed a fecal occult blood test in the ED which was negative. ER staff reports loose stool in the ED and per boyfriend she had formed stools a few days ago. 06/29 Patient feeling better today. Leukocytosis improved and ANC in the mild neutropenia range. Hemoglobin stable after the transfusion. Sodium dropped a little bit from admission 128 to 127. Pending urine studies. 06/30 Feeling better today. Sitting up in bed, appears to have much more energy. Was able to stand yesterday with physical therapy but appeared shaky. Has not worked with physical therapy yet today. CBC relatively stable 07/01 Patient received tramadol mid evening on 06/30 and was sedated this morning. That improved significantly by early afternoon. Counts remain about the same, white count 1.1 with 90+ percent neutrophils. Discussed her progress with Dr. Rivera in [place], her oncologist. At this point, depending on the patient's desires it would be okay to stop chemotherapy or hold on an of next dose given her acute illness. Patient will likely need skilled facility and further rehab after leaving the hospital. Was up to the chair for about 20 minutes today, fatigued afterwards. Did work with physical therapy. Continues to have intermittent sharp abdominal pain lasting a few seconds then resolving. 07/02 Having a better day today. Was fatigued most of yesterday after being up in the chair. Sat on the edge of the bed and did bedside exercises this morning. Still having difficulty swallowing. White count continues to drop as does platelets. 07/03 Fatigue today. Was up to the chair for 10 minutes, was a significant struggle. Had a prolonged discussion with the patient, with her granddaughter, Omayra, at bedside. Discussed goals of care, whether she wanted to keep pursuing active care, or to focus on comfort. Apparently she and her significant other and had similar conversation a bit earlier in the morning. At this point she would like to pursue being able to go home, focus on comfort. She is open to hospice. 3/3 Been confused lately per family. Family bedside. Discussion today regarding hospice/comfort care. 3/4 Patient sleeping but awakens to voice. Confusion, does not answer questions appropriately. Family at bedside. Declining. - Constitutional Vitals: Vital Signs Temp Pulse Resp BP Pulse Ox 97.7 F 96 H 30 H 128/95 98 07/05/19 20:00 07/05/19 14:00 07/05/19 20:00 07/05/19 20:00 07/05/19 20:00 Period Temp Pulse Resp BP Sys/Thakur Pulse Ox Last 24 Hr 97.5 F-97.7 F 84-96 14-30 121-128/75-95 97-99 Intake and Output 07/05/19 07/06/19 07/06/19 21:59 05:59 13:59 Intake Total 50 Output Total 1 1 Balance 49 -1 Intake & Output: Intake & Output 07/05/19 07/06/19 07/06/19 21:59 05:59 13:59 Intake Total 50 Output Total 1 1 Balance 49 -1 Intake: IV 50 Output: # of times incontinent of urine 1 1 Other: Urine Color Dark Yellow Urine Odor Strong Stool Size Large Stool Color Brown Stool Consistency Formed Loose # [place] 1 Exam: General: sleeping but awakens, No acute Distress, frail Eyes/N/T: EOMI, Head/Neck: neck supple, CV: RRR, No murmurs, Pulm: mild rhonchi b/l, no wheezing Abd: soft, mild TTP, +BS x4 Ext: no clubbing/cyanosis, 2+ b/l LE edema Neuro: Sleeping but awakens. Does not answer questions,appropriately, Skin: warm/dry, Medical - PN: Obj Da - Labs CBC & Chem 7: 07/04/19 04:30 07/05/19 05:00 Labs: Abnormal Lab Results 07/05/19 07/04/19 07/04/19 05:00 04:30 04:30 WBC 3.6 L RBC 3.53 L Hgb 10.5 L Hct 30.9 L RDW 16.8 H Plt Count 34 L* MPV 10.7 H Gran % 92.7 H Lymph % (Auto) 3.9 L Lymph # (Auto) 0.14 L [place] # (Auto) 0.08 L Anion Gap 6.0 L 7.0 L Uric Acid 1.8 L 1.7 L Calcium 7.0 L 7.0 L Phosphorus 1.7 L 0.7 L Direct Bilirubin 0.5 H 0.5 H GGT 201 H 118 H AST 58 H 54 H Alkaline Phosphatase 365 H 258 H Lactate Dehydrogenase 464 H 508 H Total Protein 3.3 L 3.4 L Albumin 2.1 L 2.0 L Globulin 1.2 L 1.4 L Meds: Medications Glucose Oxid/Lactoperoxid/Muramidas (Biotene) 1 each TOPICAL PRN PRN PRN Reason: Dry Mouth Hydromorphone HCl (Dilaudid) 0 mg IV Q2HP PRN PRN Reason: Pain Last Admin: 03/04/20 04:39 Dose: 0.5 mg Documented by: Lorazepam (Ativan) 0 mg IV Q1HP PRN; Protocol PRN Reason: ANXIETY/SEDATION Last Admin: 07/06/19 01:42 Dose: 1 mg Documented by: Morphine Sulfate (Morphine) 4 mg NEB Q4HP PRN PRN Reason: Shortness Of Breath Sodium Chloride (Saline Flush) 10 ml IV Q8 TENNILLE Last Admin: 07/06/19 04:40 Dose: 10 ml Documented by: Medical - PN: A/P - Time Spent With Patient Total time spent is greater than 50% in coordination of care (as documented) at patient's floor/unit and/or counseling patient: - Narrative A/P Narrative: A: *UTI: ruled out *Neutropenic fever: No source, possibly secondary to GI bacteria. *Pancytopenia: 2/2 chemotherapy worse than has previously has been, leukopenia/anemia/thrombocytopenia *Hyponatremia: resolved *Encephalopathy (lethargy/confusion), metabolic: Improved *h/o Oropharyngeal dysphagia, mild-Moderate last admit: *Lymphoma diagnosis in March: undergoing chemotherapy managed by [facility], last done 06/[address] Rivera *Protein calorie malnutrition post chemo: *GERD: continue PPI *Electrolyte imbalance P: -comfort care only -pt and family support Medical - PN: Qual - VTE Deep Vein Thrombosis/Pulmonary Embolism Present on Admission: No
[2019-07-07] MEDS: HYDROmorphone 2 MG/ML VIAL IV PRN ×2 (01:37→06:52)
[2019-07-07] MEDS: 0.9 % SODIUM CHLORIDE 10 ML SYRINGE IV SCH ×3 (05:21→21:33)
[2019-07-07] MEDS: LORazepam 2 MG/ML VIAL IV PRN ×3 (05:28→22:34)
--- NOTE | 2019-07-07 07:16 | Internal Med Progress Note ---
Medical - PN: Subj Patient information: Note initiated : 07/07/19 at 7:16 am Service Date, if different from initiated Date: [] Patient: Darcy Macdonald 79 y/o F admitted on 06/28/19 for weakness, cough, nausea, vomiting. Chief Complaint: [] Interval history: Ms. Macdonald is a 79 year old F who is been feeling weak lethargic with the past week and a half. She had chemotherapy last almost 2 weeks ago (06/13). She reports weakness and malaise. Family reports confusion. Patient reports productive cough. Has been in bed for the last 18 hours. She diagnosed with lymphoma and last March is under going chemotherapy as stated above. She has noted a strong odor to her urine and some discomfort lately. Been living at home with her boyfriend. He has some abdominal pain that went away last night after couple hours. At one point she felt like she had a fever. She has been hospitalized 3 times previous to this hospitalization the since March when she was diagnosed with lymphoma. Last hospitalization she was here was the end of May for pneumonia also noted to have dysphagia profuse watery diarrhea noninfectious felt to be from chemo. She had pancytopenia. On evaluation in the ER today she was febrile. Blood pressures been lower than usual per family members. She has worsening anemia with a hemoglobin of 6.7 worsened pancytopenia with WBCs of 1.0 and platelets of 71. Sodium of 128. CT abdomen pelvis done also included chest I do not have the official read but per discussion with ER provider did not show any new findings. Case was discussed with her oncologist Dr. Rivera who asked for admission at [facility] and she would be available via phone. She recommended transfusing 2 units started on antibiotics for UTI following up per CBC in the morning and did not recommend any granulocyte stimulating factor at this moment. Also transfuse platelets for less than 20,000. She says she saw the patient several days ago and her WBC at that time was 4. ER provider performed a fecal occult blood test in the ED which was negative. ER staff reports loose stool in the ED and per boyfriend she had formed stools a few days ago. 06/29 Patient feeling better today. Leukocytosis improved and ANC in the mild neutropenia range. Hemoglobin stable after the transfusion. Sodium dropped a little bit from admission 128 to 127. Pending urine studies. 06/30 Feeling better today. Sitting up in bed, appears to have much more energy. Was able to stand yesterday with physical therapy but appeared shaky. Has not worked with physical therapy yet today. CBC relatively stable 07/01 Patient received tramadol mid evening on 06/30 and was sedated this morning. That improved significantly by early afternoon. Counts remain about the same, white count 1.1 with 90+ percent neutrophils. Discussed her progress with Dr. Rivera in [place], her oncologist. At this point, depending on the patient's desires it would be okay to stop chemotherapy or hold on an of next dose given her acute illness. Patient will likely need skilled facility and further rehab after leaving the hospital. Was up to the chair for about 20 minutes today, fatigued afterwards. Did work with physical therapy. Continues to have intermittent sharp abdominal pain lasting a few seconds then resolving. 07/02 Having a better day today. Was fatigued most of yesterday after being up in the chair. Sat on the edge of the bed and did bedside exercises this morning. Still having difficulty swallowing. White count continues to drop as does platelets. 07/03 Fatigue today. Was up to the chair for 10 minutes, was a significant struggle. Had a prolonged discussion with the patient, with her granddaughter, Omayra, at bedside. Discussed goals of care, whether she wanted to keep pursuing active care, or to focus on comfort. Apparently she and her significant other and had similar conversation a bit earlier in the morning. At this point she would like to pursue being able to go home, focus on comfort. She is open to hospice. / Been confused lately per family. Family bedside. Discussion today regarding hospice/comfort care. 3/4 Patient sleeping but awakens to voice. Confusion, does not answer questions appropriately. Family at bedside. Declining. 07/06 Unresponsive today. change in her breathing pattern. Family bedside. Patient looking imminent. Will remain in hospital - Constitutional Vitals: Vital Signs Temp Pulse Resp BP Pulse Ox 98.5 F 103 H 12 128/95 89 L 07/06/19 20:00 07/06/19 20:00 07/06/19 08:00 07/05/19 20:00 07/06/19 20:00 Period Temp Pulse Resp BP Sys/Thakur Pulse Ox Last 24 Hr 98.5 F-98.7 F 94-103 12-12 89-97 Intake and Output 07/06/19 07/07/19 07/07/19 21:59 05:59 13:59 Output Total 1 Balance -1 Intake & Output: Intake & Output 07/06/19 07/07/19 07/07/19 21:59 05:59 13:59 Output Total 1 Balance -1 Output: # of times incontinent of urine 1 Exam: General: Minimally arousable no acute Distress, frail Eyes/N/T: EOMI, Head/Neck: neck supple, CV: RRR, No murmurs, Pulm: mild rhonchi b/l, no wheezing, Abd: soft, mild TTP, +BS x4 Ext: no clubbing/cyanosis, 2+ b/l LE edema Neuro: Unarousable to voice minimal movement with touch. Skin: warm/dry, Medical - PN: Obj Da - Labs CBC & Chem 7: 07/04/19 04:30 07/05/19 05:00 Labs: Abnormal Lab Results 07/05/19 07/04/19 05:00 04:30 WBC 3.6 L RBC 3.53 L Hgb 10.5 L Hct 30.9 L RDW 16.8 H Plt Count 34 L* MPV 10.7 H Gran % 92.7 H Lymph % (Auto) 3.9 L Lymph # (Auto) 0.14 L [place] # (Auto) 0.08 L Anion Gap 6.0 L Uric Acid 1.8 L Calcium 7.0 L Phosphorus 1.7 L Direct Bilirubin 0.5 H GGT 201 H AST 58 H Alkaline Phosphatase 365 H Lactate Dehydrogenase 464 H Total Protein 3.3 L Albumin 2.1 L Globulin 1.2 L Meds: Medications Glucose Oxid/Lactoperoxid/Muramidas (Biotene) 1 each TOPICAL PRN PRN PRN Reason: Dry Mouth Hydromorphone HCl (Dilaudid) 0 mg IV Q2HP PRN PRN Reason: Pain Last Admin: 07/07/19 06:52 Dose: 1 mg Documented by: Lorazepam (Ativan) 0 mg IV Q1HP PRN; Protocol PRN Reason: ANXIETY/SEDATION Last Admin: 07/07/19 05:28 Dose: 1 mg Documented by: Morphine Sulfate (Morphine) 4 mg NEB Q4HP PRN PRN Reason: Shortness Of Breath Last Admin: 07/06/19 14:43 Dose: 4 mg Documented by: Sodium Chloride (Saline Flush) 10 ml IV Q8 TENNILLE Last Admin: 07/07/19 05:21 Dose: 10 ml Documented by: Medical - PN: A/P - Time Spent With Patient Total time spent is greater than 50% in coordination of care (as documented) at patient's floor/unit and/or counseling patient: - Narrative A/P Narrative: A: *UTI: ruled out *Neutropenic fever: No source, possibly secondary to GI bacteria. *Pancytopenia: 2/2 chemotherapy worse than has previously has been, leukopenia/anemia/thrombocytopenia *Hyponatremia: resolved *Encephalopathy (lethargy/confusion), metabolic: Improved *h/o Oropharyngeal dysphagia, mild-Moderate last admit: *Lymphoma diagnosis in March: undergoing chemotherapy managed by cancer [facility], last done 06/[address] Rivera *Protein calorie malnutrition post chemo: *GERD: continue PPI *Electrolyte imbalance P: -comfort care only -pt and family support Medical - PN: Qual - VTE Deep Vein Thrombosis/Pulmonary Embolism Present on Admission: No
[2019-07-07] MEDS: LACTOPEROXI/GLUC OXID/POT THIO 1 EACH GEL..EA. TOPICAL PRN ×3 (08:15→16:13)
[2019-07-08] MEDS: HYDROmorphone 2 MG/ML VIAL IV PRN ×8 (02:33→23:33)
[2019-07-08] MEDS: 0.9 % SODIUM CHLORIDE 10 ML SYRINGE IV SCH ×11 (05:47→22:17)
--- NOTE | 2019-07-08 07:22 | Internal Med Progress Note ---
Medical - PN: Subj Patient information: Note initiated : 07/08/19 at 7:22 am Service Date, if different from initiated Date: [] Patient: Darcy Macdonald 79 y/o F admitted on 06/28/19 for weakness, cough, nausea, vomiting. Chief Complaint: [] Interval history: Ms. Macdonald is a 79 year old F who is been feeling weak lethargic with the past week and a half. She had chemotherapy last almost 2 weeks ago (06/13). She reports weakness and malaise. Family reports confusion. Patient reports productive cough. Has been in bed for the last 18 hours. She diagnosed with lymphoma and last March is under going chemotherapy as stated above. She has noted a strong odor to her urine and some discomfort lately. Been living at home with her boyfriend. He has some abdominal pain that went away last night after couple hours. At one point she felt like she had a fever. She has been hospitalized 3 times previous to this hospitalization the since March when she was diagnosed with lymphoma. Last hospitalization she was here was the end of May for pneumonia also noted to have dysphagia profuse watery diarrhea noninfectious felt to be from chemo. She had pancytopenia. On evaluation in the ER today she was febrile. Blood pressures been lower than usual per family members. She has worsening anemia with a hemoglobin of 6.7 worsened pancytopenia with WBCs of 1.0 and platelets of 71. Sodium of 128. CT abdomen pelvis done also included chest I do not have the official read but per discussion with ER provider did not show any new findings. Case was discussed with her oncologist Dr. Rivera who asked for admission at [facility] and she would be available via phone. She recommended transfusing 2 units started on antibiotics for UTI following up per CBC in the morning and did not recommend any granulocyte stimulating factor at this moment. Also transfuse platelets for less than 20,000. She says she saw the patient several days ago and her WBC at that time was 4. ER provider performed a fecal occult blood test in the ED which was negative. ER staff reports loose stool in the ED and per boyfriend she had formed stools a few days ago. 06/29 Patient feeling better today. Leukocytosis improved and ANC in the mild neutropenia range. Hemoglobin stable after the transfusion. Sodium dropped a little bit from admission 128 to 127. Pending urine studies. 06/30 Feeling better today. Sitting up in bed, appears to have much more energy. Was able to stand yesterday with physical therapy but appeared shaky. Has not worked with physical therapy yet today. CBC relatively stable 07/01 Patient received tramadol mid evening on 06/30 and was sedated this morning. That improved significantly by early afternoon. Counts remain about the same, white count 1.1 with 90+ percent neutrophils. Discussed her progress with Dr. Rivera in [place], her oncologist. At this point, depending on the patient's desires it would be okay to stop chemotherapy or hold on an of next dose given her acute illness. Patient will likely need skilled facility and further rehab after leaving the hospital. Was up to the chair for about 20 minutes today, fatigued afterwards. Did work with physical therapy. Continues to have intermittent sharp abdominal pain lasting a few seconds then resolving. 07/02 Having a better day today. Was fatigued most of yesterday after being up in the chair. Sat on the edge of the bed and did bedside exercises this morning. Still having difficulty swallowing. White count continues to drop as does platelets. 07/03 Fatigue today. Was up to the chair for 10 minutes, was a significant struggle. Had a prolonged discussion with the patient, with her granddaughter, Omayra, at bedside. Discussed goals of care, whether she wanted to keep pursuing active care, or to focus on comfort. Apparently she and her significant other and had similar conversation a bit earlier in the morning. At this point she would like to pursue being able to go home, focus on comfort. She is open to hospice. 07/04 Been confused lately per family. Family bedside. Discussion today regarding hospice/comfort care. / Patient sleeping but awakens to voice. Confusion, does not answer questions appropriately. Family at bedside. Declining. 07/06 Unresponsive today. change in her breathing pattern. Family bedside. Patient looking imminent. Will remain in hospital 07/07 Family bedside. Patient unresponsive. She has had some apneic episodes per family members. pertinent nursing some Marito[place]Barroso breathing at times. - Constitutional Vitals: Vital Signs Temp Pulse Resp BP Pulse Ox 99.3 F H 118 H 18 113/47 94 07/07/19 07:28 07/07/19 13:00 07/07/19 12:51 07/07/19 07:28 07/07/19 18:37 Period Temp Pulse Resp BP Sys/Thakur Pulse Ox Last 24 Hr 99.3 F 115-118 18-20 113/47 75-94 Intake and Output 07/07/19 07/08/19 07/08/19 21:59 05:59 13:59 Output Total 1 1 Balance - - Intake & Output: Intake & Output 07/07/19 07/08/19 07/08/19 21:59 05:59 13:59 Output Total 1 1 Balance -1 - Output: # of times incontinent of urine 1 1 Other: Urine Color Dark Yellow Urine Odor Strong # Bowel Movements 0 Exam: General: not arrousable, no acute Distress, frail Eyes/N/T: EOMI, Head/Neck: neck supple, CV: RRR, No murmurs, Pulm: mild rhonchi b/l, no wheezing, Abd: soft, mild TTP, +BS x4 Ext: no clubbing/cyanosis, 2+ b/l LE edema Neuro: Unarousable to voice minimal movement with touch. Skin: warm/dry, Medical - PN: Obj Da - Labs CBC & Chem 7: 07/04/19 04:30 07/05/19 05:00 Labs: Abnormal Lab Results 07/05/19 05:00 Phosphorus 1.7 L Meds: Medications Glucose Oxid/Lactoperoxid/Muramidas (Biotene) 1 each TOPICAL PRN PRN PRN Reason: Dry Mouth Last Admin: 07/07/19 16:13 Dose: 1 each Documented by: Hydromorphone HCl (Dilaudid) 0 mg IV Q2HP PRN PRN Reason: Pain Last Admin: 07/08/19 05:45 Dose: 1 mg Documented by: Lorazepam (Ativan) 0 mg IV Q1HP PRN; Protocol PRN Reason: ANXIETY/SEDATION Last Admin: 07/07/19 22:34 Dose: 1 mg Documented by: Morphine Sulfate (Morphine) 4 mg NEB Q4HP PRN PRN Reason: Shortness Of Breath Last Admin: 07/08/19 01:28 Dose: 4 mg Documented by: Sodium Chloride (Saline Flush) 10 ml IV Q8 TENNILLE Last Admin: 07/08/19 05:47 Dose: 10 ml Documented by: Medical - PN: A/P - Time Spent With Patient Total time spent is greater than 50% in coordination of care (as documented) at patient's floor/unit and/or counseling patient: - Narrative A/P Narrative: A: *UTI: ruled out *Neutropenic fever: No source, possibly secondary to GI bacteria. *Pancytopenia: 2/2 chemotherapy worse than has previously has been, leukopenia/anemia/thrombocytopenia *Hyponatremia: resolved *Encephalopathy (lethargy/confusion), metabolic: Improved *h/o Oropharyngeal dysphagia, mild-Moderate last admit: *Lymphoma diagnosis in March: undergoing chemotherapy managed by cancer [facility], last done 06/[address] Rivera *Protein calorie malnutrition post chemo: *GERD: continue PPI *Electrolyte imbalance P: -comfort care only -pt and family support -declining quickly Medical - PN: Qual - VTE Deep Vein Thrombosis/Pulmonary Embolism Present on Admission: No
[2019-07-08] MEDS: LORazepam 2 MG/ML VIAL IV PRN ×4 (10:20→22:10)
[2019-07-08] MEDS: LACTOPEROXI/GLUC OXID/POT THIO 1 EACH GEL..EA. TOPICAL PRN ×3 (10:20→16:28)
[2019-07-08] MEDS ORDERED: SCOPOLAMINE 1 PATCH PATCH TOPICAL ONE (19:21)
[2019-07-08] MEDS ORDERED: SCOPOLAMINE 1 PATCH PATCH TOPICAL PRN (19:32)
[2019-07-09] MEDS: LORazepam 2 MG/ML VIAL IV PRN ×4 (00:40→22:53)
[2019-07-09] MEDS: HYDROmorphone 2 MG/ML VIAL IV PRN ×10 (01:29→23:38)
[2019-07-09] MEDS: 0.9 % SODIUM CHLORIDE 10 ML SYRINGE IV SCH ×15 (05:38→20:47)
[2019-07-09] MEDS: LACTOPEROXI/GLUC OXID/POT THIO 1 EACH GEL..EA. TOPICAL PRN ×4 (07:31→17:58)
[2019-07-09] MEDS ORDERED: SCOPOLAMINE 1 PATCH PATCH TOPICAL SCH (13:00)
--- NOTE | 2019-07-09 13:42 | Internal Med Progress Note ---
Medical - PN: Subj Patient information: Note initiated : 07/09/19 at 1:40 pm Service Date, if different from initiated Date: [] Patient: Darcy Macdonald 79 y/o F admitted on 06/28/19 for weakness, cough, nausea, vomiting. Chief Complaint: [] Interval history: Ms. Macdonald is a 79 year old F who is been feeling weak lethargic with the past week and a half. She had chemotherapy last almost 2 weeks ago (06/13). She reports weakness and malaise. Family reports confusion. Patient reports productive cough. Has been in bed for the last 18 hours. She diagnosed with lymphoma and last March is under going chemotherapy as stated above. She has noted a strong odor to her urine and some discomfort lately. Been living at home with her boyfriend. He has some abdominal pain that went away last night after couple hours. At one point she felt like she had a fever. She has been hospitalized 3 times previous to this hospitalization the since March when she was diagnosed with lymphoma. Last hospitalization she was here was the end of May for pneumonia also noted to have dysphagia profuse watery diarrhea noninfectious felt to be from chemo. She had pancytopenia. On evaluation in the ER today she was febrile. Blood pressures been lower than usual per family members. She has worsening anemia with a hemoglobin of 6.7 worsened pancytopenia with WBCs of 1.0 and platelets of 71. Sodium of 128. CT abdomen pelvis done also included chest I do not have the official read but per discussion with ER provider did not show any new findings. Case was discussed with her oncologist Dr. Rivera who asked for admission at [facility] and she would be available via phone. She recommended transfusing 2 units started on antibiotics for UTI following up per CBC in the morning and did not recommend any granulocyte stimulating factor at this moment. Also transfuse platelets for less than 20,000. She says she saw the patient several days ago and her WBC at that time was 4. ER provider performed a fecal occult blood test in the ED which was negative. ER staff reports loose stool in the ED and per boyfriend she had formed stools a few days ago. 06/29 Patient feeling better today. Leukocytosis improved and ANC in the mild neutropenia range. Hemoglobin stable after the transfusion. Sodium dropped a little bit from admission 128 to 127. Pending urine studies. 06/30 Feeling better today. Sitting up in bed, appears to have much more energy. Was able to stand yesterday with physical therapy but appeared shaky. Has not worked with physical therapy yet today. CBC relatively stable 07/01 Patient received tramadol mid evening on 06/30 and was sedated this morning. That improved significantly by early afternoon. Counts remain about the same, white count 1.1 with 90+ percent neutrophils. Discussed her progress with Dr. Rivera in [place], her oncologist. At this point, depending on the patient's desires it would be okay to stop chemotherapy or hold on an of next dose given her acute illness. Patient will likely need skilled facility and further rehab after leaving the hospital. Was up to the chair for about 20 minutes today, fatigued afterwards. Did work with physical therapy. Continues to have intermittent sharp abdominal pain lasting a few seconds then resolving. 07/02 Having a better day today. Was fatigued most of yesterday after being up in the chair. Sat on the edge of the bed and did bedside exercises this morning. Still having difficulty swallowing. White count continues to drop as does platelets. 07/03 Fatigue today. Was up to the chair for 10 minutes, was a significant struggle. Had a prolonged discussion with the patient, with her granddaughter, Omayra, at bedside. Discussed goals of care, whether she wanted to keep pursuing active care, or to focus on comfort. Apparently she and her significant other and had similar conversation a bit earlier in the morning. At this point she would like to pursue being able to go home, focus on comfort. She is open to hospice. 07/04 Been confused lately per family. Family bedside. Discussion today regarding hospice/comfort care. 07/05 Patient sleeping but awakens to voice. Confusion, does not answer questions appropriately. Family at bedside. Declining. 07/06 Unresponsive today. change in her breathing pattern. Family bedside. Patient looking imminent. Will remain in hospital 07/07 Family bedside. Patient unresponsive. She has had some apneic episodes per family members. pertinent nursing some Marito-Barroso breathing at times. 07/08 Patient is sleeping and unresponsive with Marito-Barroso breathing at times. She seems to be comfortable. Multiple family members in her room. - Constitutional Vitals: Vital Signs Temp Pulse Resp BP Pulse Ox 97.8 F 110 H 30 H 113/47 80 L 07/08/19 07:55 07/09/19 08:00 07/09/19 08:00 07/07/19 07:28 07/09/19 08:00 Period Temp Pulse Resp BP Sys/Thakur Pulse Ox Last 24 Hr 110-114 10-30 65-94 Intake and Output 07/08/19 07/09/19 07/09/19 21:59 05:59 13:59 Output Total 0 Balance 0 Intake & Output: Intake & Output 07/08/19 07/09/19 07/09/19 21:59 05:59 13:59 Output Total 0 Balance 0 Output: Void Amount 0 Other: # Bowel Movements 0 - Additional findings Additional findings: General: not arrousable, no acute Distress, frail. Marito-strokes respiration at times Eyes/N/T: EOMI, Head/Neck: neck supple, CV: RRR, No murmurs, Pulm: mild rhonchi b/l, no wheezing, Abd: soft, mild TTP, +BS x4 Ext: no clubbing/cyanosis, 2+ b/l LE edema Neuro: Unarousable to voice minimal movement with touch. Skin: warm/dry Medical - PN: Obj Da - Labs CBC & Chem 7: 07/04/19 04:30 07/05/19 05:00 Meds: Medications Glucose Oxid/Lactoperoxid/Muramidas (Biotene) 1 each TOPICAL PRN PRN PRN Reason: Dry Mouth Last Admin: 07/09/19 12:54 Dose: 1 each Documented by: Heparin Sodium (Porcine) (Heparin Flush) 2 ml IV Q12 TENNILLE Last Admin: 07/09/19 10:32 Dose: 2 ml Documented by: Hydromorphone HCl (Dilaudid) 0 mg IV Q2HP PRN PRN Reason: Pain Last Admin: 07/09/19 12:54 Dose: 1 mg Documented by: Lorazepam (Ativan) 0 mg IV Q1HP PRN; Protocol PRN Reason: ANXIETY/SEDATION Last Admin: 07/09/19 00:40 Dose: 1 mg Documented by: Morphine Sulfate (Morphine) 4 mg NEB Q4HP PRN PRN Reason: Shortness Of Breath Last Admin: 07/09/19 07:31 Dose: 4 mg Documented by: Scopolamine (Transderm-Scop) 2 patch TOPICAL Q72H TENNILLE Sodium Chloride (Saline Flush) 10 ml IV Q8 TENNILLE Last Admin: 07/09/19 12:55 Dose: 10 ml Documented by: Medical - PN: A/P - Time Spent With Patient Total time spent is greater than 50% in coordination of care (as documented) at patient's floor/unit and/or counseling patient: - Narrative A/P Narrative: Assessment: 1. Neutropenic fever: No source, possibly secondary to GI bacteria. 2. Pancytopenia: 2/2 chemotherapy worse than has previously has been, leukopenia/anemia/thrombocytopenia 3. Hyponatremia: resolved 4. Encephalopathy (lethargy/confusion), metabolic: Improved 5. h/o Oropharyngeal dysphagia, mild-Moderate last admit: 6. Lymphoma diagnosis in March: undergoing chemotherapy managed by [facility], last done 06/[address] Rivera 7. Protein calorie malnutrition post chemo: 8. GERD: continue PPI 9. Electrolyte imbalance Plan: Continue comfort care only - including dilaudid, morphine and ativan pt and family support Medical - PN: Qual - VTE Deep Vein Thrombosis/Pulmonary Embolism Present on Admission: No
[2019-07-10] MEDS: LORazepam 2 MG/ML VIAL IV PRN ×6 (01:16→10:46)
[2019-07-10] MEDS: HYDROmorphone 2 MG/ML VIAL IV PRN ×5 (01:44→11:41)
[2019-07-10] MEDS: 0.9 % SODIUM CHLORIDE 10 ML SYRINGE IV SCH ×2 (05:46→09:39)
[2019-07-10] MEDS: LACTOPEROXI/GLUC OXID/POT THIO 1 EACH GEL..EA. TOPICAL PRN (09:39)
--- NOTE | 2019-07-10 12:49 | Discharge Summary ---
Medical - DS: Prov Patient information: Note initiated : 07/10/19 at 12:47 pm Service Date, if different from initiated Date: [] Patient: Darcy Macdonald a 79 y/o F admitted on 06/28/19 for weakness, cough, nausea, vomiting. Chief Complaint: [] Refer to HP by Eagle Zarate D.O.> 06/28/19 Ms. Macdonald is a 79 year old F Who is been feeling weak lethargic with the past week and a half. She had chemotherapy last almost 2 weeks ago. She reports weakness and malaise. Family reports confusion. Patient reports productive cough. Has been in bed for the last 18 hours. She diagnosed with lymphoma and last March is under going chemotherapy as stated above. She has noted a strong odor to her urine and some discomfort lately. Been living at home with her boyfriend. He has some abdominal pain that went away last night after couple hours. At one point she felt like she had a fever. She has been hospitalized 3 times previous to this hospitalization the since March when she was diagnosed with lymphoma. Last hospitalization she was here was the end of May for pneumonia also noted to have dysphagia profuse watery diarrhea noninfectious felt to be from chemo. She had pancytopenia. On evaluation in the ER today she was febrile. Blood pressures been lower than usual per family members. She has worsening anemia with a hemoglobin of 6.7 worsened pancytopenia with WBCs of 1.0 and platelets of 71. Sodium of 128. CT abdomen pelvis done also included chest I do not have the official read but per discussion with ER provider did not show any new findings. Case was discussed with her oncologist Dr. Rivera who asked for admission at [facility] and she would be available via phone. She recommended transfusing 2 units started on antibiotics for UTI following up per CBC in the morning and did not recommend any granulocyte stimulating factor at this moment. Also transfuse platelets for less than 20,000. She says she saw the patient several days ago and her WBC at that time was 4. ER provider performed a fecal occult blood test in the ED which was negative. ER staff reports loose stool in the ED and per boyfriend she had formed stools a few days ago. Date of admission: 06/28/19 16:40 Discharge date: 07/10/19 () Primary care physician: Fadia Bolanos Consults: 06/28/19 Consult to Physician [CONS] Stat Comment: Consulting Provider: Eagle Zarate Reason For Exam: Physician to Consult 07/05/19 13:01 Consult to Physician [CONS] Routine Comment: Consulting Provider: So Rosario Reason For Exam: Physician to Consult Medical - DS: Meds - Discharge Medications Active and Home Medications: Home Medications acetaminophen 500 mg capsule 1,000 mg PO DAILYP PRN cap 01/01/15 [History Confirmed 06/28/19 Last Taken 03/16/19] Loperamide [Imodium] 2 mg PO PRN PRN #20 cap 05/27/19 [Rx Confirmed 06/28/19 Last Taken Unknown] Mirtazapine [Remeron] 22.5 mg PO HS 06/28/19 [History Confirmed 07/02/19 Last Taken Unknown] Medical - DS: Hosp Hospital Course: Interval history: Ms. Macdonald is a 79 year old F who is been feeling weak lethargic with the past week and a half. She had chemotherapy last almost 2 weeks ago (06/13). She reports weakness and malaise. Family reports confusion. Patient reports productive cough. Has been in bed for the last 18 hours. She diagnosed with lymphoma and last March is under going chemotherapy as stated above. She has noted a strong odor to her urine and some discomfort lately. Been living at home with her boyfriend. He has some abdominal pain that went away last night after couple hours. At one point she felt like she had a fever. She has been hospitalized 3 times previous to this hospitalization the since March when she was diagnosed with lymphoma. Last hospitalization she was here was the end of May for pneumonia also noted to have dysphagia profuse watery diarrhea noninfectious felt to be from chemo. She had pancytopenia. On evaluation in the ER today she was febrile. Blood pressures been lower than usual per family members. She has worsening anemia with a hemoglobin of 6.7 worsened pancytopenia with WBCs of 1.0 and platelets of 71. Sodium of 128. CT abdomen pelvis done also included chest I do not have the official read but per discussion with ER provider did not show any new findings. Case was discussed with her oncologist Dr. Rivera who asked for admission at [facility] and she would be available via phone. She recommended transfusing 2 units started on antibiotics for UTI following up per CBC in the morning and did not recommend any granulocyte stimulating factor at this moment. Also transfuse platelets for less than 20,000. She says she saw the patient several days ago and her WBC at that time was 4. ER provider performed a fecal occult blood test in the ED which was negative. ER staff reports loose stool in the ED and per boyfriend she had formed stools a few days ago. 06/29 Patient feeling better today. Leukocytosis improved and ANC in the mild neutropenia range. Hemoglobin stable after the transfusion. Sodium dropped a little bit from admission 128 to 127. Pending urine studies. 06/30 Feeling better today. Sitting up in bed, appears to have much more energy. Was able to stand yesterday with physical therapy but appeared shaky. Has not worked with physical therapy yet today. CBC relatively stable 07/01 Patient received tramadol mid evening on 06/30 and was sedated this morning. That improved significantly by early afternoon. Counts remain about the same, white count 1.1 with 90+ percent neutrophils. Discussed her progress with Dr. Rivera in [place], her oncologist. At this point, depending on the patient's desires it would be okay to stop chemotherapy or hold on an of next dose given her acute illness. Patient will likely need skilled facility and further rehab after leaving the hospital. Was up to the chair for about 20 minutes today, fatigued afterwards. Did work with physical therapy. Continues to have intermittent sharp abdominal pain lasting a few seconds then resolving. 07/02 Having a better day today. Was fatigued most of yesterday after being up in the chair. Sat on the edge of the bed and did bedside exercises this morning. Still having difficulty swallowing. White count continues to drop as does platelets. 07/03 Fatigue today. Was up to the chair for 10 minutes, was a significant struggle. Had a prolonged discussion with the patient, with her granddaughter, Omayra, at bedside. Discussed goals of care, whether she wanted to keep pursuing active care, or to focus on comfort. Apparently she and her significant other and had similar conversation a bit earlier in the morning. At this point she would like to pursue being able to go home, focus on comfort. She is open to hospice. 3/3 Been confused lately per family. Family bedside. Discussion today regarding hospice/comfort care. 07/05 Patient sleeping but awakens to voice. Confusion, does not answer questions appropriately. Family at bedside. Declining. 07/06 Unresponsive today. change in her breathing pattern. Family bedside. Patient looking imminent. Will remain in hospital 07/07 Family bedside. Patient unresponsive. She has had some apneic episodes per family members. pertinent nursing some Marito-Barroso breathing at times. 07/08 Patient is sleeping and unresponsive with Marito-Barroso breathing at times. She seems to be comfortable. Multiple family members in her room. Assessment: 1. Neutropenic fever: No source, possibly secondary to GI bacteria. 2. Pancytopenia: 2/2 chemotherapy worse than has previously has been, leukopenia/anemia/thrombocytopenia 3. Hyponatremia: resolved 4. Encephalopathy (lethargy/confusion), metabolic: Improved 5. h/o Oropharyngeal dysphagia, mild-Moderate last admit: 6. Lymphoma diagnosis in March: undergoing chemotherapy managed by [facility], last done 06/[address] Rivera 7. Protein calorie malnutrition post chemo: 8. GERD: continue PPI 9. Electrolyte imbalance Plan: Continue comfort care only - including dilaudid, morphine and ativan pt and family support She today. Discharge diagnosis: Lymphoma - Time Spent with Patient Total time spent providing and/or coordinating discharge services: Less than 30 minutes Medical - DS: Exam - Constitutional Vitals: Vital Signs Pulse Pulse Ox 07/10/19 07:00 74 L 07/10/19 01:10 48 L 07/09/19 19:00 110 H 81 L 07/09/19 18:00 119 H 75 L Intake and Output 07/09/19 07/10/19 07/10/19 20:59 05:59 13:59 Output Total Balance Output: Void Amount # of times incontinent of urine Other: Urine Color Urine Odor # Bowel Movements Medical - DS: A/P - Patient/Caregiver Discharge Instructions Diet: NPO (Pt ) - Follow up Plan Follow up with: Fadia Bolanos ARNP [Primary Care Provider] - Disposition: Prognosis: Rehab Potential: Undetermined () Medical - DS: Qual - VTE Deep Vein Thrombosis/Pulmonary Embolism Present on Admission: No
== END 2019-07-10 14:00 | disposition expired | DRG 808 ==
LOC: ED 12:22 → ICU 16:40
PROVIDERS: ADMIT Internal Medicine; ATTEND Internal Medicine